=== PATIENT | female | born 1965 | race Caucasian/White ===

== ENCOUNTER 2021-03-20 16:23 | Emergency (ER) | payer OTHER, SELFPAY ==
[2021-03-20 17:22] VITALS: BP 148/65; PULSE 69; RESP 18; TEMP 36.6; O2SAT 99; BMI 21.4
--- NOTE | 2021-03-20 18:12 | ED_ITS ---
HPI - Back Pain/Injury General Chief Complaint: Back Pain/Injury Stated Complaint: back pain radiating to leg Time Seen by Provider: 03/20/21 18:10 Source: patient Mode of arrival: ambulatory Limitations: no limitations History of Present Illness HPI Narrative: 55 YO female no known medical history presents to the ED with two days of progressively worsening back pain s/p work related injury. 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 She states it got worse when she went home, and was resting. She states that the pain is worse with movement, better at rest. She states the pain stays in her left lower back, and it does not radiate. It is about an 8/10. She has no previous back problems, or back surgeries. She denies chest pain, fevers, chills, shortness of breath, weakness, paresthesias, numbness, urinary/bowel incontinence. She is a smoker. MD elicited complaint: back pain Onset (ago): day(s) (2) Timing: constant Severity: severe Pain scale (0-10): 8 Similar Symptoms Previously: No Quality: sharp Location: lumbar spine Radiation: none Exacerbating factors: movement Relieving factors: immobilization Context: while lifting Associated symptoms: denies other symptoms Work related injury: Yes Related Data Previous Rx's Medication Instructions Recorded cyclobenzaprine 10 mg tablet 10 mg PO BEDTIME #10 tab 03/20/21 lidocaine 5 % topical patch 1 patch TOPICAL DAILY #15 ea 03/20/21 (Lidoderm) naproxen 500 mg tablet 500 mg PO BID PRN #14 tab 03/20/21 Allergies Allergy/AdvReac Type Severity Reaction Status Date / Time acetaminophen Allergy Swelling Verified 03/20/21 18:11 Review of Systems Review of Systems: Yes all other systems are reviewed and are negative Constitutional: Constitutional: Reports no additional constitutional complaints, Denies body ache(s), Denies chills, Denies fever(s), Denies headache(s) and Denies weakness Eyes: Eyes: Reports no additional eye complaints and Denies change in vision ENT: Reports system reviewed and no additional complaints, except as documented, Denies dizziness, Denies headache(s), Denies nasal congestion, Denies nasal discharge and Denies neck pain Cardiovascular: Cardiovascular: Reports no additional cardiovascular complaints, Denies chest pain, Denies leg edema and Denies dyspnea Respiratory: Respiratory: Reports no additional respiratory complaints, Denies cough and Denies dyspnea Gastrointestinal: Gastrointestinal: Reports no additional gastrointestinal complaints, Denies abdominal pain, Denies diarrhea, Denies nausea and Denies vomiting Genitourinary: Genitourinary: Reports no additional female genitourinary complaints and Denies urinary incontinence Musculoskeletal: Musculoskeletal: Reports no additional musculoskeletal complaints, Reports back pain, Denies arthralgias, Denies joint swelling, Denies neck pain, Denies numbness and Denies tingling Integumentary/Breasts: Skin/Breast: Reports system reviewed and no additional complaints, except as docu and Denies rash Neurologic: Reports system reviewed and no additional complaints, except as documented, Denies Abnormal speech present, Denies dizziness, Denies headache(s), Denies numbness, Denies tingling and Denies weakness PMFSH Past Medical History Attestation statement: The following information was validated with the patient. Source: old records reviewed and nursing notes reviewed Social History Social History Advance Directives: No Advance Directives Information Provided: Yes Patient : No Physical Exam Vital Signs: Vital Signs: Last Vital Signs Temp 98 F 03/20/21 17:22 Pulse 69 03/20/21 17:22 Resp 18 03/20/21 17:22 BP 148/65 H 03/20/21 17:22 Pulse Ox 99 03/20/21 17:22 Body Mass Index 21.4 Const: General: cooperative, healthy appearing, comfortable and no acute distress Orientation/consciousness: patient oriented x3 Limitations: no limitations HENMT: Head: Yes normal to inspection Ears: hearing grossly normal bilaterally General nose exam: Normal external nose present Face and sinus: Yes normal facial exam Mouth: Normal oral and palatal mucosa present Throat: Yes posterior oropharynx normal Eyes: General: appearance normal, both eyes and all related structures Pupils: Equal, round and reactive pupils present Neck: Neck: Yes normal visual inspection Chest: Chest palpation & inspection: normal inspection of the chest Resp: Effort & Inspection: normal respiratory effort Auscultation: clear to auscultation bilaterally Cardio: Rate: regular rate Rhythm: regular rhythm Peripheral pulses: Peripheral pulses 2+ throughout GI: Inspection: Yes normal to inspection Palpation (GI): Soft to palpation and nontender Auscultation: normal bowel sounds Back/Spine/Pelvis: Other: Physical exam shows positive left sided straight leg raise. Pain on palpation is appreciated to the left paraspinous muscles in lumbar region. Full range of motion to back but, painful. Sensation intact, strength intact. Thoracic/Lumbar Spine: thoracic and lumbar spine normal to inspection, straight leg raise positive left and other (paraspinous tenderness in left lower back/lumbar region) Skin: General skin exam: no rashes or lesions noted Neuro: General: patient oriented x3, no focal motor deficits and normal sensation to monofilament Cranial nerves: Yes Equal, round and reactive pupi ls present Cognition (Neuro): normal cognition Speech: No Abnormal speech present Gait exam (Neuro): Normal gait present Motor exam (neuro): 5/5 motor strength present throughout Sensory Exam: Normal double simultaneous stimulation for sensation Deep tendon reflexes (DTR's): Right patellar reflex intensity grade: 2+ and Left patellar reflex intensity grade: 2+ Extrem: General: Yes normal to inspection Course Course Course Narrative: 55 yo female no known pmhx presents to the ED wih left lower back pain s/p heavy lifting 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 It got worse when she got home and was relaxing. Pain worse with movement better at rest. Denies urine/bowel incontinence, CP, fevers, chills, IVDA, SOB, parasthesias, weakness. Physical exam shows positive left sided straight leg raise. Pain on palpation is appreciated to the left paraspinous muscles in lumbar region. Full range of motion to back but, painful. Sensation intact, strength intact. Patient has been told to return with new or worsening symptoms or if worrisome symptoms arise such as urinary/bowel incontinence, weakness, loss of sensation to lower extremities. Safe for DC home with PCP follow up. MDM - Back Pain/Injury MDM Narrative Medical decision making narrative: No imaging is needed at this time. There was no acute trauma. There is no midline tenderness. Cauda equina unlikley no weakness, she has 5/5 stregth to back and lower extremities, no urine/bowel incontinence. NV intact Unlikley epidural abscess. She denies fevers, chills, not a IVDA, no midline tenderness. Likley muscle spasms due to reproducible pain localized to the left lower back without radiation. Medical Records Attestation: I reviewed the patient's medical records. Lab Data Attestation: I reviewed the patient's lab results. Discharge Plan Discharge Clinical Impression: Work related injury Back pain Qualifiers: Back pain location: low back pain Chronicity: acute Back pain laterality: left Sciatica presence: without sciatica Qualified Code(s): M54.50 - Low back pain, unspecified Lumbago Qualifiers: Chronicity: acute Back pain laterality: left Sciatica presence: without sciatica Qualified Code(s): M54.50 - Low back pain, unspecified Patient Disposition: Home, Self-Care Instructions: Back Pain (ED) Additional Instructions: Apply warm compresses to the area as instructed Take medications as prescribed. Cyclobenzaprine is a muscle relaxer that can make you drowsy, best if you take it at night Find a PCP and follow up with them Follow up with [facility] since this was a work related injury [phone] Return to the emergency department with new or worsening symptoms or if you develop loss of sensation to your lower extremities, weakness, fevers, chills and or changes in bowel habits. Prescriptions: New cyclobenzaprine 10 mg tablet 10 mg PO BEDTIME Qty: 10 RF: 0 lidocaine [Lidoderm] 5 % adhesive patch,medicated 1 patch topical DAILY Qty: 15 RF: 0 naproxen 500 mg tablet 500 mg PO BID PRN (Reason: pain) Qty: 14 RF: 0 Stand Alone Forms: Work/School Release
[2021-03-20] MEDS: Ketorolac Tromethamine 15 MG/ML VIAL 30 MG IM (18:49)
== END 2021-03-20 18:56 | disposition home or self-care (01) ==
LOC: HO.ED 18:33
PROVIDERS: Emergency Provider Emergency Medicine; PCP Hospitalist
DX: M54.50 Low back pain, unspecified (principal)
CPT/HCPCS: 96372; 99284; J1885

== ENCOUNTER → 2021-04-08 14:41 | Outpatient (BNVA) | payer OTHER, SELFPAY | PROVIDERS: PCP Hospitalist; Visit Provider Physician Assistant | DX: S39.012A Strain of muscle, fascia and tendon of lower back, initial encounter (principal); X50.0XXA Overexertion from strenuous movement or load, initial encounter | CPT/HCPCS: 99213 ==

== ENCOUNTER 2021-11-22 09:29 | Emergency (ER) | payer OTHER, SELFPAY ==
--- NOTE | ~2021-11-22 | CT_ITS ---
CT head/brain wo con CLINICAL INFORMATION: Reason for Exam intractable headache COMPARISON: No prior CT scan available for comparison. TECHNIQUE: Department standard protocol. This CT examination was performed using dose optimization techniques as appropriate, variously including the following: *Automated exposure control *Adjustment of mA and/or kV according to patient size (this includes techniques or standardized protocols for targeted exams where dose is matched to indication/reason for exam; i.e. extremities or head) *Use of iterative reconstruction technique DLP: 620 mGy-cm FINDINGS: CEREBRAL HEMISPHERES: There is no evidence of intra-axial or extra-axial mass, hemorrhage or acute infarct. BRAIN PARENCHYMA: Normal tomlin-white matter differentiation. SUBDURAL SPACE: No bleed. BASAL GANGLIA AND PINEAL GLAND: Unremarkable VENTRICLES: Symmetric and normal in size. CEREBELLUM AND BRAINSTEM: No space-occupying mass, hemorrhage or acute infarct. CEREBELLOPONTINE ANGLES: No lesion found. ORBITS: No intraorbital mass. VESSELS: Unremarkable SKULL BASE: Unremarkable INCLUDED SINUSES AT SKULL BASE: Clear SKULL AND SKIN: No fracture or bone lesion found. CT/CT head/brain wo con IMPRESSION: No CT evidence of intracranial space-occupying mass, bleed or infarct. Normal CT scan does not rule out the possibility of hyperacute infarct in the first 12 hours. If patient symptoms persist may consider correlation with MRI, which is more sensitive for early acute infarct.
[2021-11-22 09:57] VITALS: BP 98/60; PULSE 69; RESP 18; TEMP 36.2; O2SAT 97; BMI 24.0
[2021-11-22 11:42] VITALS: BP 103/63; PULSE 57; RESP 15; TEMP 36.5; O2SAT 97
--- NOTE | 2021-11-22 11:43 | ED_ITS ---
HPI - Headache General Chief Complaint: Headache Stated Complaint: migraine Time Seen by Provider: 11/22/21 11:03 Source: patient Mode of arrival: ambulatory Limitations: no limitations History of Present Illness HPI Narrative: Patient presents emergency department for evaluation of headache. She reports that she has been using cocaine for 20-30 years, and over the past 10 years she has noticed that she has developed headaches. Headaches are not uncommon for her. However over the past month she has been experiencing a headache every day, it is seemingly constant. Headaches are alleviated with Tylenol, but return within a couple of hours. Denies any history of headaches or migraines as a child. Denies dizziness, lightheadedness, vision changes, neck pain, neck stiffness, chest pain, palpitations, shortness of breath, difficulty breathing, nausea, vomiting, photophobia, phonophobia, numbness or tingling, weakness of the extremities, generalized weakness. MD elicited complaint: headache Onset (ago): year(s) Location: right, left and frontal Exacerbating factors: none Relieving factors: other (Tylenol) Associated symptoms: none Treatments prior to arrival: acetaminophen Related Data Previous Rx's Medication Instructions Recorded cyclobenzaprine 10 mg tablet 10 mg PO BEDTIME #10 tabs 03/20/21 lidocaine 5 % topical patch 1 patch topical DAILY #15 ea 03/20/21 (Lidoderm) naproxen 500 mg tablet 500 mg PO BID PRN pain #14 tabs 03/20/21 ibuprofen 600 mg tablet 600 mg PO Q8H PRN pain #30 tabs 11/22/21 Allergies Allergy/AdvReac Type Severity Reaction Status Date / Time No Known Allergies Allergy Verified 11/22/21 11:29 Review of Systems Review of Systems: Constitutional : No Fever, No Chills, No Fatigue ENT/Mouth : No sore throat, No Rhinorrhea Eyes: No Eye Pain, No Swelling, No Redness Cardiovascular : No Chest Pain, No SOB, No Dyspnea on Exertion Respiratory : No Cough, No Sputum Gastrointestinal : No Nausea, No Vomiting, No Diarrhea, No abdominal Pain Genitourinary : No Dysuria, No Urinary Frequency, No Hematuria, Musculoskeletal : No joint pain, No Myalgias, No Joint Swelling Skin : No Skin Lesions, No rash Neuro : No Weakness, No Numbness, No Dizziness, positive Headache Psych : No Anxiety/Panic, No Depression Heme/Lymph: No Bruising, No Bleeding,No Lymphadenopathy Endocrine : No Polyuria, No Polydipsia Yes all other systems are reviewed and are negative [facility] Past Medical History Attestation statement: The following information was validated with the patient. Source: old records reviewed Social History Social History Alcohol intake: former Patient Tobacco Use Status: Current everyday Tobacco user Substance Use Type: Crack/Cocaine Substance Use Frequency: Chronic Longstanding Last Used Substance: Days (ago) Any prior treatment program specific to substance use: Yes Advance Directives: No Advance Directives Information Provided: No Patient : No Physical Exam Vital Signs: Vital Signs: Last Vital Signs Temp 97.7 F 11/22/21 11:42 Pulse 57 11/22/21 11:42 Resp 15 11/22/21 11:42 BP 103/63 11/22/21 11:42 Pulse Ox 97 11/22/21 11:42 O2 Del Method 11/22/21 11:42 BMI result Body Mass Index 24.0 Vital signs have been reviewed as normal and appeared to be correct. Blood pressure normal.? Heart rate normal.? Respiration rate normal. Temperature normal.? Oxygen saturation normal. Appearance: Alert.?Oriented to person, place and time. No acute distress.?Normal affect. Head: Normocephalic atraumatic Eyes: Pupils equal, round and reactive to light.? EOMI. No nystagmus. ENT: Pharynx normal.?? Neck: Normal inspection.? Neck supple. Full AROM??No midline cervical spine tenderness, step-offs, deformities CVS: Heart sounds normal. Normal heart rate and rhythm.? Pulses normal.?? Respiratory: No respiratory distress.? Lung sounds clear to auscultation bilaterally?? Abdomen: Soft and non-tender. Normoactive bowel sounds. No pulsatile mass.?? Skin: Skin warm and dry.? Normal skin color.? Extremities: No lower extremity edema.? Neuro: Moves all extremities spontaneously. Sensation intact bilaterally. CN II- XII intact. No focal neuro deficits. Ambulates with normal steady gait. Course Course Course Narrative: Patient is a 55-year-old female with past medical history of cocaine abuse presenting for evaluation of headaches. She states that she has been using cocaine only on occasion recently, last having used 5 days ago. She has been experiencing frontal and parietal headaches for the past 10 years however over the past month they have become increasingly worse and more frequent. She is currently having them daily, they respond to Tylenol but quickly return. No associated symptoms. She does have a history of cocaine usage, there is concern for SDH, and with age concern for malignancy or lesion, Will obtain head CT to evaluate for intracranial pathology in addition to basic labs including CBC and CMP. Patient received Tylenol for pain at this time. Reevaluation(s) Reevaluation #1: CBC unremarkable. CMP is overall unremarkable. LANDRY is positive for cocaine fentanyl and marijuana. Patient is without pain at this time. No acute changes. Ambulated to the bathroom with steady gait. Time: 14:48 Reevaluation #2: CT reveals no acute intracranial pathology. I discussed these findings with patient. Advised that she continue using Tylenol as abortive therapy for her headaches as she has had success with this, may alternate with ibuprofen. Advised contacting her primary care provider, as she may want to consider prophylactic treatment given the frequency of her headaches. Advised to refrain from cocaine and fentanyl usage. Discussed reasons that she should return back to the emergency department. Patient verbalized understanding. She was discharged home in stable condition. Time: 15:20 [facility] - Headache Medical Records Attestation: I reviewed the patient's medical records. Lab Data Attestation: I reviewed the patient's lab results. Result diagrams: 11/22/21 11:41 11/22/21 11:41 Labs: Lab Results 11/22/21 11/22/21 11/22/21 Range/Units 11:41 11:41 14:19 WBC 5.6 (4.8-10.8) X10*3/uL RBC 4.25 (4.20-5.50) X10*6/uL Hgb 12.8 (12.0-16.0) g/dl Hct 37.7 (37.0-47.0) % MCV 88.7 (80.0-98.0) fL MCH 30.1 (27.0-33.0) pg MCHC 34.0 (31.0-35.0) g/dl RDW 12.4 (11.0-16.0) % Plt Count 203 (160-400) X10*3/uL MPV 9.6 (9.4-12.3) fL Immature Gran % (Auto) 0.2 (0.0-0.4) % Neut % (Auto) 46.2 (45-73) % Lymph % (Auto) 45.0 H (20-40) % Pratt % (Auto) 7.7 (2-11) % Eos % (Auto) 0.7 (0-4) % Baso % (Auto) 0.2 (0-2) % Lymph # (Auto) 2.5 (1.2-4.9) X10*3/uL Pratt # (Auto) 0.4 (0.1-1.2) X10*3/uL Eos # (Auto) 0.0 (0.0-0.4) X10*3/uL Baso # (Auto) 0.0 (0.0-0.2) X10*3/uL Abs Immat Gran (auto) 0.01 (0.00-0.03) X10*3/uL Absolute Neuts (auto) 2.6 (2.0-8.3) x10*3/uL Absolute Nucleated RBC 0.000 (0.0-0.012) X10*3/uL Nucleated RBC % (auto) 0.0 (0.0-0.2) /100WBC Sodium 141 (135-145) mmol/L Potassium 4.2 (3.3-5.1) mmol/L Chloride 105 (96-108) mmol/L Carbon Dioxide 30 H (22-29) mmol/L Anion Gap 10 L (12-20) BUN 16 (9-16) mg/dL Creatinine 0.82 (0.5-1.4) mg/dL Estim Creat Clear Calc 66.1 Estimated GFR > 60 Random Glucose 84 (60-115) mg/dL Calcium 9.2 (8.4-10.2) mg/dL Total Bilirubin 0.4 (0.0-1.0) mg/dL AST 16 (5-31) U/L ALT 11 (0-31) U/L Alkaline Phosphatase 67 (39-117) U/L Total Protein 7.1 (6.5-8.0) g/dL Albumin 4.1 (3.5-5.0) g/dL Urine Opiates Screen Not Detected (Not Detect) Urine Fentanyl Screen POSITIVE H (Not Detect) Ur Barbiturates Screen Not Detected (Not Detect) Ur Phencyclidine Scrn Not Detected (Not Detect) Ur Amphetamines Screen Not Detected (Not Detect) U Benzodiazepines Scrn Not Detected (Not Detect) Urine Cocaine Screen POSITIVE H (Not Detect) U Marijuana (THC) Screen POSITIVE H (Not Detect) Imaging Data CT scan - head: Radiologist's impression: CT/CT head/brain wo con IMPRESSION: No CT evidence of intracranial space-occupying mass, bleed or infarct. ? Normal CT scan does not rule out the possibility of hyperacute infarct in the first 12 hours. If patient symptoms persist may consider correlation with MRI, which is more sensitive for early acute infarct. Discharge Plan Discharge Clinical Impression: Headache Patient Disposition: Home, Self-Care Instructions: General Headache (ED) Additional Instructions: A CT of your head was normal. Your blood work was normal. You can take ibuprofen 200 mg, 3 tablets (600mg) every 6-8 hours as needed for pain, in addition to Tylenol 500 mg, 2 tablets (1,000mg) every 4-6 hours as need ed for pain, but not to exceed 3 doses daily (3,000mg).? Please contact your primary care provider to schedule a follow-up visit within 1 week. Return to the emergency department any new or worsening symptoms or concerns. Prescriptions: New ibuprofen 600 mg tablet 600 mg PO Q8H PRN (Reason: pain) Qty: 30 0RF No Action cyclobenzaprine 10 mg tablet 10 mg PO BEDTIME Qty: 10 0RF lidocaine [Lidoderm] 5 % adhesive patch,medicated 1 patch topical DAILY Qty: 15 0RF Rx Instructions: leave on most painful area for up to 12 hrs naproxen 500 mg tablet 500 mg PO BID PRN (Reason: pain) Qty: 14 0RF Interventions: ED Discharge Assessment Last Done: 11/22/21 15:46 Discharge Date/Time: 11/22/21 15:46
[2021-11-22] MEDS: Acetaminophen 325 MG TABLET 975 MG PO (11:45)
[2021-11-22 11:48] LABS: MANUAL DIFF FLAG NO
[2021-11-22 11:53] LABS: Basophils Percent Auto 0.2 % (0-2); Eosinophils Percent Auto 0.7 % (0-4); Hematocrit 37.7 % (37.0-47.0); Hemoglobin 12.8 g/dl (12.0-16.0); Imm Gran Abs Auto 0.01 X10*3/uL (0.00-0.03); Imm Gran Pct Auto 0.2 % (0.0-0.4); Lymphocytes Absolute Auto 2.5 X10*3/uL (1.2-4.9); Mean Corpuscular Hemoglobin 30.1 pg (27.0-33.0); Mean Corpuscular Volume 88.7 fL (80.0-98.0); Mean Platelet Volume 9.6 fL (9.4-12.3); Monocytes Absolute Auto 0.4 X10*3/uL (0.1-1.2); Monocytes Percent Auto 7.7 % (2-11); Neutrophils Absolute Auto 2.6 x10*3/uL (2.0-8.3); Neutrophils Percent Auto 46.2 % (45-73); Platelet Count 203 X10*3/uL (160-400); Red Blood Count 4.25 X10*6/uL (4.20-5.50); Red Cell Distribution Width 12.4 % (11.0-16.0); White Blood Count 5.6 X10*3/uL (4.8-10.8)
[2021-11-22 12:06] LABS: Alanine Aminotransferase 11 U/L (0-31); Albumin Level 4.1 g/dL (3.5-5.0); Alkaline Phosphatase 67 U/L (39-117); Anion Gap 10 (12-20); Aspartate Amino Transferase 16 U/L (5-31); Bilirubin Total 0.4 mg/dL (0.0-1.0); Blood Urea Nitrogen 16 mg/dL (9-16); Calcium 9.2 mg/dL (8.4-10.2); Carbon Dioxide 30 mmol/L (22-29); Chloride 105 mmol/L (96-108); Creatinine Clr Calc Pharmacy 66.1; Estimated Glomerular Filt Rate > 60; Glucose Random 84 mg/dL (60-115); Potassium 4.2 mmol/L (3.3-5.1); Sodium 141 mmol/L (135-145); Total Protein 7.1 g/dL (6.5-8.0)
[2021-11-22 14:39] LABS: Barbiturates, Urine Not Detected (Not Detect); Benzodiazepines Screen Urine Not Detected (Not Detect); Cannabinoid Screen Urine POSITIVE (Not Detect); Cocaine Screen Urine POSITIVE (Not Detect); Fentanyl, urine POSITIVE (Not Detect); Opiate Screen Urine Not Detected (Not Detect); Phencyclidine Screen Urine Not Detected (Not Detect)
[2021-11-22 14:40] LABS: Amphetamine Screen Urine Not Detected (Not Detect)
[2021-11-22] MEDS: Ibuprofen 600 MG TABLET PO (15:31)
--- NOTE | 2021-11-22 15:45 | PC.NURSE ---
patient medicated with ibuprofen prior to discharge for headache 01/20 . patient to follow up with primary care and to return to Ed if symptoms worsen . no questions at this time .
== END 2021-11-22 15:46 | disposition home or self-care (01) ==
PROVIDERS: Nurse Practitioner Family; Emergency Provider Emergency Medicine
DX: R51.9 Headache, unspecified (principal); F14.10 Cocaine abuse, uncomplicated
CPT/HCPCS: 36415; 70450; 80053; 80307; 85025; 99284

== ENCOUNTER 2024-09-12 15:45 | Inpatient (IN) | payer OTHER, SELFPAY ==
[2024-09-12] VITALS (8 sets, daily range): BP systolic 102–121; BP diastolic 63–74; PULSE 76–103; RESP 16–28; TEMP 36.6–36.7; O2SAT 92–100; BMI 20.1
--- NOTE | ~2024-09-12 | XR_ITS ---
EXAMINATION: XR CHEST CLINICAL INFORMATION: tachypnea COMPARISON: None available. TECHNIQUE: Frontal view of the chest was obtained. FINDINGS: Mild prominence of the interstitial markings in the perihilar regions. No consolidation, pleural effusion or pneumothorax. Cardiomediastinal silhouette size is normal. Mild multilevel thoracic spondylosis. XR/XR chest 1V IMPRESSION: Mild interstitial lung edema in the correct clinical settings. Electronically signed by: Trevin Hopper MD 09/13/2024 03:27 PM EDT
--- NOTE | ~2024-09-12 | CT_ITS ---
CLINICAL HISTORY: abd pain CT abdomen and pelvis without contrast Comparison: None Findings: Lung bases clear. No acute bony abnormality. Degenerative change in lumbar spine. Liver and spleen within normal limits. Pancreas and adrenal glands unremarkable. Cholecystectomy. No bilateral renal stone or hydronephrosis. No focal renal abnormality or ureteral dilation. No evidence for aortic aneurysm. No free fluid or adenopathy in the pelvis. No diverticulitis. Appendectomy. Hysterectomy. No adnexal abnormality. Impression: No acute processes This document has been electronically signed by: Jimmy Henderson MD on 09/12/2024 22:38:24
--- NOTE | ~2024-09-12 | XR_ITS ---
CLINICAL HISTORY: abscess, cellulitis 3 view left hand Comparison: None Findings: No displaced fracture. No bony destruction or periostitis. Severe soft tissue edema. Multiple foci of relative increased density within the soft tissues adjacent to the 1st metacarpophalangeal joint measuring up to 4 mm in size. Mild arthritic change. No erosions. IMPRESSION: 1. No evidence of osteomyelitis. 2. Severe soft tissue edema. Multiple foci of relative hyperdensity overlying the soft tissues adjacent to the 1st metacarpophalangeal joint, raising the possibility of foreign bodies or tiny abscesses. Consider further evaluation with ultrasound. This document has been electronically signed by: Mami Thornton MD on 09/12/2024 17:24:18
--- NOTE | 2024-09-12 15:53 | ED.GENADULT ---
HPI - General Adult General Chief complaint: Wound/Laceration Stated complaint: Abscess L hand Time Seen by Provider: 09/12/24 18:24 Source: patient Mode of arrival: ambulatory Limitations: no limitations History of Present Illness ED Provider: DR. Nieves HPI narrative: 58-year-old female history recurrent skin abscess came in for evaluation of left thumb abscess and infection. Patient admit to sniffing cocaine declined using IV drugs, no trauma, or injury to the left hand, no fever, no chills. Related Data Previous Rx's ?Medication ?Instructions ?Recorded cyclobenzaprine 10 mg tablet 10 mg PO BEDTIME #10 tabs 03/20/21 lidocaine 5 % topical patch 1 patch topical DAILY #15 ea 03/20/21 (Lidoderm) naproxen 500 mg tablet 500 mg PO BID PRN pain #14 tabs 03/20/21 ibuprofen 600 mg tablet 600 mg PO Q8H PRN pain #30 tabs 11/22/21 Allergies Allergy/AdvReac Type Severity Reaction Status Date / Time sulfamethoxazole Allergy Hives Verified 09/12/24 15:56 [From Bactrim] trimethoprim [From Bactrim] Allergy Hives Verified 09/12/24 15:56 Review of Systems Review of Systems: All other systems are reviewed and are negative Constitutional: Reports as per HPI and Reports no additional constitutional complaints Eyes: Reports as per HPI and Reports no additional eye complaints Reports system reviewed and no additional complaints, except as documented Cardiovascular: Reports as per HPI and Reports no additional cardiovascular complaints Respiratory: Reports as per HPI and Reports no additional respiratory complaints Gastrointestinal: Reports as per HPI and Reports no additional gastrointestinal complaints Genitourinary: Reports no additional female genitourinary complaints Musculoskeletal: Reports no additional musculoskeletal complaints Skin/Breast: Reports system reviewed and no additional complaints, except as docu Psychiatric: Reports no additional psychiatric complaints Endocrine: Reports no additional endocrine complaints Hematologic/Lymphatic: Reports no additional hematologic/lymphatic complaints Allergic/Immunologic: Reports no additional allergic/immunologic complaints Reports system reviewed and no additional complaints, except as documented and Reports Abnormal speech present [facility] Social History Social History Alcohol intake: former Patient Tobacco Use Status: Current everyday Tobacco user Substance Use Type: Crack/Cocaine Advance Directives: No Advance Directives Information Provided: Yes Do you have a plan to hurt others: No Plan Patient : No Physical Exam ED Vital Signs: Vital Signs - 24 hr 09/12/24 15:50 09/12/24 17:58 Temperature 98 F 97.8 F Pulse Rate 100 102 H Respiratory Rate 19 18 Blood Pressure 102/66 121/74 Pulse Oximetry 100 92 Oxygen Delivery Method Room Air Room Air BMI result Body Mass Index 20.1 Vital signs have been reviewed and appear to be correct. Blood pressure elevated. Heart rate elevated, Respiratory rate normal. Temperature normal. Oxygen saturation normal. Appearance: Alert. Oriented X3. No acute distress. Head: Normal external exam. Normocephalic. Atraumatic. No Alarcon signs noted. No raccoon eyes noted Eyes: PERRLA. EOMI. Conjunctiva and sclera normal. Eyelids normal. ENT: TM's Normal. Pharynx normal. Uvula midline. Moist mucous membranes. No trismus noted. No drooling noted. No muffled voice noted. Neck: Normal inspection. Neck supple. FROM. No adenopathy. Thyroid Normal. No meningeal signs. No neck mass noted. CVS: Normal heart rate and rhythm. Heart sound normal. No murmurs noted. Pulses normal throughout. Respiratory: No respiratory distress. Painless inspiration. Breath sounds normal. No wheezes/rales/rhonchi noted. Chest nontender. No accessory muscle usage noted or decreased air movement noted. Abdomen: Soft and nontender. Bowel sounds normal in all 4 quadrants. No distention noted. No organomegaly noted. No visible injury noted. Back: No CVA tenderness. Full range of motion noted. Skin: Skin warm and dry. Normal skin color. Normal skin turgor. No rashes/lesions/lacerations noted. Extremities: Left hand exam: Fusiform swelling of the left thumb, held in semi flexion position with severe tenderness to touch or extension, diffuse tenderness and redness. Left hand neurovascular exam is intact. Neuro: Oriented X 3. Cranial nerve exam: II-XII are grossly intact No motor deficit. No sensory deficit. Reflexes normal. Course Course Course Narrative: This is an RME: Additional HPI, ROS, PE not included below will be deferred to primary provider. RME assessment and note performed by: Alva Cobb PA-C This is a [id number]-female, with a hx vasculitis, who presents to the ER with a complaint of left thumb abscess and swelling since last night. Patient reports that she does use cocaine however she states that the she snorts this. Patient appears to be restless in triage. Patient with a large abscess noted to her left thumb, with lymphangitic spread. Patient needs to be brought back. Advised charge nurse. Plan: Labs, x-ray, further ER evaluation needed. Reevaluation(s) Reevaluation #1: 58-year-old female presents with left thumb tenosynovitis, patient do not meet criteria for sepsis, case discussed with ortho PA. Jameson Jeffers who recommended to admit to Medicine and keep NPO after midnight for I and D in the OR tomorrow with Dr. Salazar. Time: 19:00 Medical Decision Making Differential Diagnosis Differential Diagnoses: The differential diagnosis associated with the presentation includes (Sepsis, tenosynovitis, finger abscess, retained foreign body, IV drug injection, electrolyte derangement, severe anemia, pain control.) Admission/Observation Consideration of admission/observation: Escalation of care including admission/observation considered Consult Healthcare Provider Management of the patient was discussed with: Hospitalist (Dr. Bellamy) and Mechanical Operator (PA. Jameson Jeffers (ortho [facility])) Lab Data MDM Lab Attestation statement: I reviewed the patient's lab results. 09/12/24 16:46 09/12/24 16:47 Labs: Lab Results 09/12/24 09/12/24 Range/Units 16:46 16:47 WBC 5.9 (4.8-10.8) X10*3/uL RBC 4.03 L (4.20-5.50) X10*6/uL Hgb 12.2 (12.0-16.0) g/dl Hct 34.2 L (37.0-47.0) % MCV 84.9 (80.0-98.0) fL MCH 30.3 (27.0-33.0) pg MCHC 35.7 H (31.0-35.0) g/dl RDW 12.7 (11.0-16.0) % Plt Count 150 L D (160-400) X10*3/uL MPV 9.2 L (9.4-12.3) fL Immature Gran % (Auto) Cancelled Neut % (Auto) Cancelled Lymph % (Auto) Cancelled [place] % (Auto) Cancelled Eos % (Auto) Cancelled Baso % (Auto) Cancelled Lymph # (Auto) Cancelled [place] # (Auto) Cancelled Eos # (Auto) Cancelled Baso # (Auto) Cancelled Abs Immat Gran (auto) Cancelled Absolute Neuts (auto) Cancelled Absolute Nucleated RBC 0.000 (0.0-0.012) X10*3/uL Nucleated RBC % (auto) 0.0 (0.0-0.2) /100WBC Neutrophils % (Manual) 57 (45-73) % Band Neutrophils % 24 H (3-5) % Lymphocytes % (Manual) 7 L (20-40) % Atypical Lymphs % (Man) 1 (0-6) % Monocytes % (Manual) 7 (2-11) % Eosinophils % (Manual) 1 (0-4) % Basophils % (Manual) 1 (0-2) % Promyelocytes % 2 % Abs Neuts (Manual) 4.8 (2.0-8.3) X10*3/uL Lymphocytes # (Manual) 0.4 L (1.2-4.9) X10*3/uL Atyp Lymphs # (Manual) 0.1 x10*3/uL Monocytes # (Manual) 0.4 (0.1-1.2) X10*3/uL Eosinophils # (Manual) 0.1 (0.0-0.4) X10*3/uL Basophils # (Manual) 0.1 (0.0-0.2) X10*3/uL Promyelocytes # 0.1 X10*3/uL Toxic Vacuolation PRESENT Platelet Estimate NORMAL (NORMAL) Large Platelets PRESENT Plt Morphology Comment NORMAL RBC Morphology NORMAL Hypochromasia 1+ (5-14) /OIF Tear Drop Cells 1+ (0-2) /OIF ESR 31 H (0-20) MM/HR Sodium 140 (135-145) mmol/L Potassium 3.4 (3.3-5.1) mmol/L Chloride 110 H (96-108) mmol/L Carbon Dioxide 20 L (22-29) mmol/L Anion Gap 13 (12-20) BUN 21 H (9-16) mg/dL Creatinine 0.74 (0.5-1.4) mg/dL Estim Creat Clear Calc 68.4 Estimated GFR > 60 Random Glucose 119 H (60-115) mg/dL Calcium 9.0 (8.4-10.2) mg/dL Total Bilirubin 0.4 (0.0-1.0) mg/dL Direct Bilirubin 0.2 (0.0-0.5) mg/dL AST 54 H (5-31) U/L ALT 37 H (0-31) U/L Alkaline Phosphatase 60 (39-117) U/L C-Reactive Protein 24.89 H (< or = 0.50) mg/dL Total Protein 6.6 (6.5-8.0) g/dL Albumin 3.6 (3.5-5.0) g/dL Ethyl Alcohol < 10 mg/dL Independent Interpretation I performed an independent interpretation of an: Plain X-Ray (Left hand:. No evidence of osteomyelitis. 2. Severe soft tissue edema. Multiple foci of relative hyperdensity overlying the soft tissues adjacent to the 1st metacarpophalangeal joint, raising the possibility of foreign bodies or tiny abscesses. Consider further evaluation with ultrasound.) Radiology Impression Discussion of test interpretation with radiology: I have reviewed the radiologist's reading. Discharge Plan Discharge Clinical Impression: Tenosynovitis of finger Patient Disposition: Admitted As Inpatient Prescriptions: No Action cyclobenzaprine 10 mg tablet 10 mg PO BEDTIME Qty: 10 0RF lidocaine [Lidoderm] 5 % adhesive patch,medicated 1 patch topical DAILY Qty: 15 0RF Rx Instructions: leave on most painful area for up to 12 hrs naproxen 500 mg tablet 500 mg PO BID PRN (Reason: pain) Qty: 14 0RF ibuprofen 600 mg tablet 600 mg PO Q8H PRN (Reason: pain) Qty: 30 0RF Print Language: Latvian
[2024-09-12 16:55] LABS: Hematocrit 34.2 % (37.0-47.0); Hemoglobin 12.2 g/dl (12.0-16.0); Mean Corpuscular HGB Conc 35.7 g/dl (31.0-35.0); Mean Corpuscular Hemoglobin 30.3 pg (27.0-33.0); Mean Corpuscular Volume 84.9 fL (80.0-98.0); Mean Platelet Volume 9.2 fL (9.4-12.3); Platelet Count 150 X10*3/uL (160-400); Red Blood Count 4.03 X10*6/uL (4.20-5.50); Red Cell Distribution Width 12.7 % (11.0-16.0); White Blood Count 5.9 X10*3/uL (4.8-10.8)
[2024-09-12 17:04] LABS: Ethanol < 10 mg/dL
[2024-09-12 17:13] LABS: Alanine Aminotransferase 37 U/L (0-31); Albumin Level 3.6 g/dL (3.5-5.0); Alkaline Phosphatase 60 U/L (39-117); Anion Gap 13 (12-20); Aspartate Amino Transferase 54 U/L (5-31); Bilirubin Direct 0.2 mg/dL (0.0-0.5); Bilirubin Total 0.4 mg/dL (0.0-1.0); Blood Urea Nitrogen 21 mg/dL (9-16); C Reactive Protein 24.89 mg/dL (< or = 0.50); Carbon Dioxide 20 mmol/L (22-29); Chloride 110 mmol/L (96-108); Creatinine Clr Calc Pharmacy 68.4; Estimated Glomerular Filt Rate > 60; Glucose Random 119 mg/dL (60-115); Potassium 3.4 mmol/L (3.3-5.1); Sodium 140 mmol/L (135-145); Total Protein 6.6 g/dL (6.5-8.0)
[2024-09-12 17:36] LABS: Erythrocyte Sedimentation Rate 31 MM/HR (0-20)
--- OUTSIDE RECORDS SUMMARY | 2024-09-12 18:09 | XMS_ITS | Clinical Summary ---
Author Organization [facility] Address [address] [place] [address] Care Team Providers Care Front Tender Name Role Phone Unavailable Primary Care Provider Unavailabl e Surgical History Surgery Date Site/Laterality Comments CHOLECYSTECTOMY PROCEDURE: HISTORICAL CHOLECYSTECTOMY COLONOSCOPY 12/16/2016 PROCEDURE: HISTORICAL COLONOSCOPY; COMMENT: Normal. 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/26/2012 D X:Polyarteritis nodosa ([facility]) Depression 10/03/2018 DX:Depression Bipolar disorder, mixed ([facility]) 03/29/2019 DX:Bipolar disorder, mixed ([facility]) Anxiety 03/29/2019 DX:Anxiety History of substance abuse 03/29/2019 DX:Hi story of substance abuse ([facility]); COMMENT: Alcohol and cocaine, in remission COPD (chronic obstructive pu lmonary disease) ([facility]) 03/29/2019 DX:COPD (chronic obstructive pulmonary disease) ([facility]) 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 a Esophageal reflux 10/19/2018 DX:Esophageal reflux Vitamin D deficiency 03/29/2019 DX:Vitamin D deficiency Family History Medical History Relation Name Comments Throat cancer Father Relation Name Status Comments Father Social History Tobacco Use Types Packs/Day Years Used Date Smoking Tobacco: Every Day Cigarettes Smokeless Tobacco: Never Alcohol Use Standard Drinks/Week Comments No 0 (1 standard drink = 0.6 oz pur e alcohol) Comments Unknown Sex and Gender Information Value Date Recorded Sex Assigned at Not on file Legal Sex Female 12:58 PM EST Gender Identity Not on file Sexual Orientation Not on file Obstetrics History Plan of Treatment Health Maintenance Due Date Last Done Comments DTaP,Tdap,and Td Vaccines (1 - Tdap) 12/13/1983 Hepatitis B Vaccines (1 of 3 - 19+ 3-dose series) 12/13/1983 Cervical Cancer Screening: P ap Smear 1985 Pneumococcal Vaccine: 50+ Ye ars (1 of 1 - PCV) 2014 Zoster Vaccines (1 of 2) 2014 Breast Cancer Screening 08/31/2020 08/31/2018 COVID-19 Vaccine (1 - 2023-2 5 season) 2024 Influenza Vaccine (#1) 2024 RSV Immunization Adult Patie nts (1 - 1-dose 75+ series) 12/13/2039 HIB Vaccines Aged Out No longer eligi ble based on patient's age to complete this topic HPV Vaccines Aged Out No longer eligi ble based on patient's age to complete this topic Hepatitis A Vaccines Aged Out No long er eligible based on patient's age to complete this topic IPV Vaccines Aged Out No longer eligi ble based on patient's age to complete this topic MMR Vaccines Aged Out No longer eligi ble based on patient's age to complete this topic Meningococcal ACWY Vaccine Aged Out N o longer eligible based on patient's age to complete this topic Meningococcal B Vacine Aged Out No lo nger eligible based on patient's age to complete this topic Pneumococcal Vaccine: Pediat rics (0 to 5 Years) and At-Risk Patients (6 to 64 Years) Aged Out No longer eligi ble based on patient's age to complete this topic RSV Immunization Patients Un earnest 20 months Aged Out No longer eligible b ased on patient's age to complete this topic Varicella Vaccines Aged Out No longer eligible based on patient's age to complete this topic Procedures Procedure Name Priority Date/Time Associated Diagnosis Comments ABHINAV SCREENING DIGITAL Routine 08/31/2018 3:03 PM EDT Encounter for screening mammogram for malignant neoplasm of breast from Last 3 Months or Most Recently Relevant to Health Maintenance Results * ABHINAV SCREENING DIGITAL (08/31/2018 3:03 PM EDT) Anatomical Region Laterality Modality Mammography 08/31/2018 2:09 PM EDT Narrative 08/31/2018 3:03 PM EDT [facility] Diagnostic Imaging Department [address] [place] [address] [id number] Patient: ??CURTIS SAAVEDRA ?/Age/Sex: 1965 - 52 - F Unit#: ??[id number] ? Location/Status: ??SPDIMAM/REG CLI ? Mnemonic/Ordering Site: ??DIGSC/SPMAM Ordering Physician: ??YONATHAN FAULKNER [facility] Screening Digital - 08/31/181426 INDICATION: SCREENING COMPARISON: No prior studies are available for comparison. FINDINGS: CC and MLO views of the breasts were obtained, using full field digital mammography with 3D tomosynthesis views in the MLO projection. Computer aided detection with the [employer] 7.2-H was employed. FINDINGS: The breasts contain scattered fibroglandular tissues. There is a rounded nodule within the medial-central left breast measuring 4-5 mm in size. A lobulated noncalcified nodule within the medial aspect of the right breast measures 1.2 x 0.8 cm. There is no evidence of suspicious clustering microcalcification or architectural distortion within either breast. IMPRESSION: ??Noncalcified nodules within each breast. Further assessment to include spot compression views in the CC and MLO projections followed by ultrasound is recommended. Lack of an imaging correlate should not deter or delay biopsy of a clinically significant palpable finding. BI-RADS ??- Category 0 - Incomplete needs additional imaging evaluation. [id number], 7025F ([id number] / [id number]) , ??[id number] Dictating Physician: ??SOSA BECK MD Electronically Signed by: ??SOSA BECK MD Dic Date/Time: ??08/31/18 2506 Sign date/Time: ??08/31/18 4054 Procedure Note oSsa Beck MD - 06/02/2022 [facility] Diagnostic Imaging Department [address] [place] [id number] Patient: KERICURTIS /Age/Sex: 1965 - 52 - F Unit#: [id number] Location/Status: [facility]/REG CLI Mnemonic/Ordering Site: [facility] Ordering Physician: YONATHAN FAULKNER [facility]hin[facility] Screening Digital - 08/31/18 - 4405 INDICATION: SCREENING COMPARISON: No prior studies are available for comparison. FINDINGS: CC and MLO views of the breasts were obtained, using full field digital mammography with 3D tomosynthesis views in the MLO projection. Computer aided detection with the [employer] 7.2-H was employed. FINDINGS: The breasts contain scattered fibroglandular tissues. There is a roundednodule within the medial-central left breast measuring 4-5 mm in size. Alobulated noncalcified nodule within the medial aspect of the right breast measures1.2 x 0.8 cm. There is no evidence of suspicious clustering microcalcificationor architectural distortion within either breast. IMPRESSION: Noncalcified nodules within each breast. Further assessmentto include spot compression views in the CC and MLO projections followed by ultrasound is recommended. Lack of an imaging correlate should not deter or delay biopsy of aclinically significant palpable finding. BI-RADS - Category 0 - Incomplete needs additional imaging evaluation.[id number], 7080F ([id number] / [id number]) , [id number] Dictating Physician: SOSA BECK MD Electronically Signed by: SOSA BCEK MD Dic Date/Time: 08/31/18 1458 Sign date/Time: 08/31/18 1506 Yonathan [facility] IMG BI PROCEDURES Final Result from Last 3 Months or Most Recently Relevant to Health Maintenance
[2024-09-12 18:23] LABS: Neutrophils Percent Manual 57 % (45-73)
[2024-09-12 18:28] LABS: Atypical Lymph Absolute Manual 0.1 x10*3/uL; Atypical Lymphs Percent Manual 1 % (0-6); Band Neutrophils Percent 24 % (3-5); Basophils Abs Manual 0.1 X10*3/uL (0.0-0.2); Basophils Percent Manual 1 % (0-2); Eosinophils Absolute Manual 0.1 X10*3/uL (0.0-0.4); Eosinophils Percent Manual 1 % (0-4); Large Platelet PRESENT; Lymphocytes Absolute Manual 0.4 X10*3/uL (1.2-4.9); Lymphocytes Percent Manual 7 % (20-40); Monocytes Absolute Manual 0.4 X10*3/uL (0.1-1.2); Monocytes Percent Manual 7 % (2-11); Neutrophils Absolute Manual 4.8 X10*3/uL (2.0-8.3); Platelet Estimate NORMAL (NORMAL); Promyelocytes Absolute 0.1 X10*3/uL; Promyelocytes Percent 2 %; RBC Morphology NORMAL
[2024-09-12 18:29] LABS: Hypochromasia 1+ (5-14) /OIF; Tear Drop Cells 1+ (0-2) /OIF; Toxic Vacuolation PRESENT
[2024-09-12 18:31] LABS: Platelet Morphology Comment NORMAL
[2024-09-12] MEDS: Morphine Sulfate 2 MG/ML CARTRIDGE IVPUSH (18:55)
[2024-09-12] MEDS: 0.9 % Sodium Chloride 1,000 ML 999 ML IV (18:55)
[2024-09-12] MEDS: Piperacillin Sodium/Tazobactam 3.375 GM in 0.9 % Sodium Chloride 50 ML IV (18:56)
--- NOTE | 2024-09-12 19:35 | PM.IMHP ---
History of Present Illness Date of Service: 09/12/24 Chief Complaint: Left hand infection This is a 58-year-old female with pertinent history of polysubstance use disorder, mood disorder who presents to the emergency department for concerns of left thumb infection. Patient states he 1st noticed infection 1 day prior to presentation. Her left arm is swollen, red and painful. She is unable to make a fist. Does admitting inhaling cocaine but denies IV drug use into her left thumb. States she does have a history of recurrent skin abscesses. On the day of presentation, the swelling increased and it started draining pus. No fever, chills, chest pain, palpitations, shortness of breath, abdominal pain, changes in urinary or bowel habits. In the emergency department, imaging with abscesses adjacent to the 1st metacarpophalangeal joint. Orthopedic surgery was consulted who requested admission to medicine team. Review of Systems Constitutional: Constitutional: Reports fatigue Cardiovascular: Cardiovascular: Reports no additional cardiovascular complaints Respiratory: Respiratory: Reports no additional respiratory complaints Gastrointestinal: Gastrointestinal: Reports no additional gastrointestinal complaints Genitourinary: Genitourinary: Reports no additional female genitourinary complaints Musculoskeletal: Musculoskeletal: Reports arthralgias, Reports joint swelling and Reports limited range of motion Endocrine: Endocrine: Reports fatigue PMFSH Medical History Mood disorder Polysubstance use disorder Pertinent family history: No family history of early CAD Social History Alcohol intake: former Patient Tobacco Use Status: Current everyday Tobacco user Substance Use Type: Crack/Cocaine Advance Directives: No Advance Directives Information Provided: Yes Do you have a plan to hurt others: No Plan Patient : No Meds Allergies Allergy/AdvReac Type Severity Reaction Status Date / Time sulfamethoxazole Allergy Hives Verified 09/12/24 15:56 [From Bactrim] trimethoprim [From Bactrim] Allergy Hives Verified 09/12/24 15:56 Active Medications: Current Medications Ceftriaxone Sodium (Ceftriaxone Sodium 1 Gm Vial) 1 gm IVPUSH Q24H KIMI Sodium Chloride (Ns) 1,000 mls @ 999 mls/hr IV .Q1H1M ONE Stop: 09/12/24 19:41 Last Admin: 09/12/24 18:55 Dose: 999 mls/hr Vancomycin HCl (Vancomycin/Ns) 2,000 mg in 500 mls @ 250 mls/hr IV ONCE ONE Stop: 09/12/24 21:14 Pharmacy Consult (Consult Rx Vancomycin Dosing) 1 each MISCELLANE DAILY PRN PRN Reason: Consult order Home Medications ?Medication ?Instructions ?Recorded ?Confirmed ?Last Taken ?Type acetaminophen 500 mg tablet 1,000 mg PO Q8H 09/12/24 09/12/24 Unknown History albuterol sulfate 90 mcg/actuation 2 puff inhalation Q4H PRN 09/12/24 Unknown History aerosol inhaler (Ventolin HFA) anaphylaxis celecoxib 200 mg capsule 200 mg PO DAILY PRN moderate pain 09/12/24 Unknown History hydroxyzine HCl 25 mg tablet 25 mg PO QID PRN anxiety 09/12/24 Unknown History trazodone 150 mg tablet 300 mg PO BEDTIME 09/12/24 Unknown History Physical Exam Vital Signs and Narrative: Vital Signs: Last Vital Signs Temp 97.8 F 09/12/24 17:58 Pulse 102 H 09/12/24 17:58 Resp 20 09/12/24 19:31 BP 121/74 09/12/24 17:58 Pulse Ox 92 09/12/24 17:58 O2 Del Method Room Air 09/12/24 17:58 BMI result Body Mass Index 20.1 Const: Other: Middle-aged female lying in bed in no distress Neck supple, no JVD Regular rate and rhythm, S1-S2 heard Regular breath sounds bilaterally, no wheezing or crackles appreciated Abdomen soft nontender, no guarding, no rigidity Patient is awake, alert and oriented to self, place, time and person ; no focal motor deficit Psych: Anxious Left thumb with swelling, erythema, warmth and tenderness as pictured below ; unable to make a fist Skin: Other: Results Labs 09/12/24 16:46 09/12/24 16:47 Labs: Laboratory Results - last 24 hr 09/12/24 09/12/24 16:46 16:47 MCV 84.9 MCH 30.3 MCHC 35.7 H RDW 12.7 Plt Count 150 L D MPV 9.2 L Immature Gran % (Auto) Cancelled Neut % (Auto) Cancelled Lymph % (Auto) Cancelled [place] % (Auto) Cancelled Eos % (Auto) Cancelled Baso % (Auto) Cancelled Lymph # (Auto) Cancelled [place] # (Auto) Cancelled Eos # (Auto) Cancelled Baso # (Auto) Cancelled Abs Immat Gran (auto) Cancelled Absolute Neuts (auto) Cancelled Absolute Nucleated RBC 0.000 Nucleated RBC % (auto) 0.0 Neutrophils % (Manual) 57 Band Neutrophils % 24 H Lymphocytes % (Manual) 7 L Atypical Lymphs % (Man) 1 Monocytes % (Manual) 7 Eosinophils % (Manual) 1 Basophils % (Manual) 1 Promyelocytes % 2 Abs Neuts (Manual) 4.8 Lymphocytes # (Manual) 0.4 L Atyp Lymphs # (Manual) 0.1 Monocytes # (Manual) 0.4 Eosinophils # (Manual) 0.1 Basophils # (Manual) 0.1 Promyelocytes # 0.1 Toxic Vacuolation PRESENT Platelet Estimate NORMAL Large Platelets PRESENT Plt Morphology Comment NORMAL RBC Morphology NORMAL Hypochromasia 1+ (5-14) Tear Drop Cells 1+ (0-2) ESR 31 H Anion Gap 13 Estim Creat Clear Calc 68.4 Estimated GFR > 60 Random Glucose 119 H Calcium 9.0 Total Bilirubin 0.4 Direct Bilirubin 0.2 AST 54 H ALT 37 H Alkaline Phosphatase 60 C-Reactive Protein 24.89 H Total Protein 6.6 Albumin 3.6 Ethyl Alcohol < 10 Assessment and Plan (1) Cellulitis of hand, left: Status: Acute (2) Tenosynovitis of finger: Status: Acute (3) Abscess: Status: Acute Plan This is a 58-year-old female with pertinent history of polysubstance use disorder, mood disorder who presents to the emergency department for concerns of left hand infection. #. Purulent cellulitis of left thumb with underlying abscesses/tenosynovitis: Will admit patient with empiric IV antibiotics. Orthopedic surgery consulted from the ER, noted plans for I and D in a.m.. Will keep patient NPO after midnight. #. Polysubstance use disorder: Consulted Addiction Team. Monitor for withdrawal #. Mood disorder: Continue home mood stabilizers Med rec pending DVT prophylaxis: Hold Lovenox until orthopedic surgical evaluation Full code Admit as inpatient and will require two night minimum hospital stay for IV antibiotics (as above), which is not possible in a lesser acute setting. Orthopedic surgery consult pending Quality Stroke Does the patient have a stroke diagnosis?: No VTE Prior VTE?: No VTE Risk Level:: Medical - moderate - high VTE Device Contraindication: N/A - Device Ordered VTE Drug Contraindication: Treatment Not Indicated
[2024-09-12] MEDS: vancomycin/NS 2,000 MG/500 ML PLAST..BAG 250 MG IV (19:38)
[2024-09-12] MEDS: cefTRIAXone sodium 1 GM VIAL IVPUSH (20:16)
[2024-09-12] MEDS: Lactated Ringers 1,000 ML 999 ML IV (20:17)
[2024-09-12] MEDS: HYDROmorphone HCl 1 MG/ML SYRINGE IVPUSH (20:24)
[2024-09-12 20:30] LABS: Lactic Acid 0.6 mmol/L (0.5-2.0)
[2024-09-12 21:15] LABS: Amphetamine Screen Urine Not Detected (Not Detect); Barbiturates, Urine Not Detected (Not Detect); Benzodiazepines Screen Urine Not Detected (Not Detect); Buprenorphine Scr Not Detected (Not Detect); Cannabinoid Screen Urine Not Detected (Not Detect); Cocaine Screen Urine POSITIVE (Not Detect); Fentanyl, urine Not Detected (Not Detect); Methadone Screen, Urine Not Detected (Not Detect); Opiate Screen Urine POSITIVE (Not Detect); Oxycodone Screen Urine Not Detected (Not Detect); Phencyclidine Screen Urine Not Detected (Not Detect)
--- NOTE | 2024-09-12 21:52 | PHA.MEDREC ---
Pharmacy Consult ? Medication Reconciliation Pharmacy has completed the medication reconciliation.
[2024-09-12] MEDS: ondansetron HCL 4 MG/2 ML VIAL IVPUSH (21:58)
[2024-09-12] MEDS: LORazepam 2 MG/ML VIAL 1 MG IVPUSH (21:58)
--- NOTE | 2024-09-12 22:24 | PC.NURSE ---
verbal nurse to nurse report given to najma BOYKIN at overflow
[2024-09-12] MEDS: traZODone HCL 100 MG TABLET 300 MG PO (23:05)
--- NOTE | 2024-09-12 23:16 | PC.NURSE ---
this rn assumed care of pt, pt ambulatory but unsteady at this time. pt changed into hospital gown and belongings were searched by security prior to coming to overflow. pt offers no complaints at this time. call laguna within reach.
--- NOTE | 2024-09-12 23:51 | PC.NURSE ---
pt assisted to bathroom x2, noted to have unsteady gait, x2 assist. 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 COWS=2. pt noted to have pills of unknown in purse, pt agreed to lock up pills with pharmacy while admitted.
[2024-09-13] VITALS (18 sets, daily range): BP systolic 101–130; BP diastolic 50–69; PULSE 81–102; RESP 16–32; TEMP 36.4–38.3; O2SAT 86–100
[2024-09-13] MEDS: 0.9 % Sodium Chloride Flush 3 ML SYRINGE IVFLUSH ×4 (00:48→19:53)
[2024-09-13] MEDS: LORazepam 2 MG/ML VIAL 1 MG IVPUSH (00:48)
--- NOTE | 2024-09-13 01:01 | PC.NURSE ---
елена RN and Regina Pena RN, counted pt pills and placed them into pharmacy bag. pt unable to sign, pt is confused and drowsy. Two nurse signatures applied.
--- NOTE | 2024-09-13 02:22 | PC.NURSE ---
pt allowed to sleep, respirations even and unlabored, no acute distress noted.
[2024-09-13 05:19] LABS: Hematocrit 35.3 % (37.0-47.0); Hemoglobin 12.3 g/dl (12.0-16.0); Mean Corpuscular HGB Conc 34.8 g/dl (31.0-35.0); Mean Corpuscular Hemoglobin 30.1 pg (27.0-33.0); Mean Corpuscular Volume 86.5 fL (80.0-98.0); Mean Platelet Volume 9.9 fL (9.4-12.3); Platelet Count 136 X10*3/uL (160-400); Red Blood Count 4.08 X10*6/uL (4.20-5.50); White Blood Count 6.5 X10*3/uL (4.8-10.8)
[2024-09-13 05:36] LABS: Anion Gap 12 (12-20); Blood Urea Nitrogen 14 mg/dL (9-16); Calcium 8.6 mg/dL (8.4-10.2); Carbon Dioxide 22 mmol/L (22-29); Chloride 113 mmol/L (96-108); Creatinine Clr Calc Pharmacy 85.9; Estimated Glomerular Filt Rate > 60; Glucose Random 66 mg/dL (60-115); Potassium 4.2 mmol/L (3.3-5.1); Sodium 143 mmol/L (135-145)
[2024-09-13 05:45] LABS: Band Neutrophils Percent 36 % (3-5); Lymphocytes Absolute Manual 0.9 X10*3/uL (1.2-4.9); Lymphocytes Percent Manual 14 % (20-40); Metamyelocytes Absolute 0.1 X10*3/uL; Metamyelocytes Percent 1 %; Monocytes Absolute Manual 0.1 X10*3/uL (0.1-1.2); Monocytes Percent Manual 2 % (2-11); Neutrophils Absolute Manual 5.4 X10*3/uL (2.0-8.3); Neutrophils Percent Manual 47 % (45-73)
[2024-09-13 05:46] LABS: Burr Cells 1+ (0-2) /OIF; Dohle Bodies PRESENT; Platelet Estimate SLIGHTLY DECREASED (NORMAL); Platelet Morphology Comment NORMAL; RBC Morphology NOTED; Toxic Vacuolation PRESENT
--- NOTE | 2024-09-13 08:15 | PC.NURSE ---
report to [facility] in short stay
--- NOTE | 2024-09-13 08:30 | HO.WOUND ---
Wound Consult placed for Left hand - chart review reveals patient needs Hand Surgeon Assessment - Will defer to Orthopedic Hand Surgery team at this time. No topical recommendations maid at this time.
--- NOTE | 2024-09-13 08:40 | PC.NURSE ---
Pt sleeping, arouses briefly to loud verbal stim and soft physical stim. does not participate in assessment. resps even and unlabored, awaiting transport to floor
--- NOTE | 2024-09-13 09:06 | PC.NURSE ---
Provider notified pt up to the unit. Pt not participating in Admission assessment. plan left hand I&D today. Also question drug use in both hands. Security called to come search patients belongs for drug paraphernalia.
--- NOTE | 2024-09-13 10:00 | P.OP_ITS ---
Operative Note Operative Note Date of Service: 09/13/24 Narrative: Operative Note Narrative: Preop diagnosis: 1. Left thumb and hand infection Postop diagnosis: Same Procedure: 1. Left thumb I and D 2. I&D left deep mid palmar space 3. I and D left deep thenar space Surgeon: Andressa Salazar MD [employer]: [facility] Anesthesia: General Anesthesia Findings: Watery purulence found in the mid palmar space, and about the dorsal aspect of the left thumb extending from the dorsal aspect of the 1st metacarpal to the dorsal aspect of the distal phalanx. There was also some necrosis and blistering of the skin over the dorsal aspect of the thumb. Minimal serous drainage within the thenar space. Volar aspect of the thumb was soft on exam. Implants: None Tourniquet time: 32 minutes EBL: 5.0 ml Specimen: Cultures of purulent material taken Drains: Iodoform drains x2 Complications: None Disposition: Brought to the recovery room in stable condition Plan: Admit back to floor for IV antibiotics antibiotics based on cultures Adjust Wound check and dressing change tomorrow, pull drains. Daily dressing changes after that Early OT Follow-up within 5-7 days of discharge for wound check, suture removal and to check cultures Indications: The patient is a 58 year old woman with a left hand infection . The risks and benefits of operative treatment, including but not limited to risk of damage to blood vessels, nerves, tendons, infection, recurrence, persistent pain or numbness, incomplete resolution of preoperative symptoms, or need for further surgery were discussed with the patient and her sister and they wished to proceed with surgery. Please see the preop note regarding consent. Procedure: Once consent was obtained patient was brought back to the operating suite and placed in the operating table in a supine position. Perioperative antibiotics and anesthesia was administered by the anesthesia team. A tourniquet was applied to the proximal aspect of the left upper extremity and the limb was prepped and draped in a standard surgical fashion. The limb was elevated and the tourniquet inflated to 250 mm of mercury for a total tourniquet time of 32 minutes. I began by making a 2 cm longitudinal incision directly over the mid palmar space in line with the 4th metacarpal in the palm. The incision was made through the skin the subcutaneous tissues. I then dissected down to the level of the mid palmar space using a long narrow hemostat. I found some watery purulence within the mid palmar space. Cultures were taken from the mid palmar space. I then made a 2 cm incision in line with the thenar crease using a 15. Blade through the skin to the subcutaneous tissues. I then dissected down into the thenar space using a hemostat. There was only a small amount of serous drainage. I then made a 2 cm longitudinal incision over the dorsal base of the 1st webspace using a 15. Blade through the skin the subcutaneous tissues. I then penetrated from dorsal to volar into the thenar space. On the dorsal side we appreciated an increased amount of watery purulence. I then made 3 small longitudinal incisions over the dorsal aspect of the right thumb. I will point out that the dorsal aspect of the thumb was most significantly affected with swelling blistering and some necrosis of the dorsal tissues. A 1 cm longitudinal incision was made over the 1st metacarpal, 2nd 1 made over the dorsal aspect of the proximal phalanx, and the 3rd 1 was made over the dorsal aspect of the distal phalanx. The incisions were made through the skin the subcutaneous tissues. Here we did encounter again some watery purulence. I used a hemostat to carefully dissect into the abscess cavities. Cultures were taken of this purulence. The tissue on the dorsal aspect of the thumb was debrided of devitalized tissue using tenotomy scissors and a rongeur. All of the wounds, including the mid palmar space, the thenar space and then the wounds over the dorsal aspect of the thumb were copiously irrigated with normal saline. I did also use a 10 mL syringe with an Angiocath to facilitate adequate irrigation in the spaces. We are also able to irrigate from dorsal to volar through the thenar space. Once satisfied with our I&D I then passed 1 slip of iodoform gauze from dorsal to volar through the thenar space. I passed another piece of iodoform gauze from the incision over the dorsal aspect of the 1st metacarpal exiting through the incision over the distal phalanx of the thumb. I was satisfied with our I&D. At this point the tourniquet was deflated and hemostasis obtained with a brief period of local pressure . The wounds were infiltrated with some 0.5% plain ropivacaine for postop pain control and a sterile dressing was applied. The patient appears to have tolerated the procedure well and with no complications. All digits were well vascularized conclusion of the case.
--- NOTE | 2024-09-13 10:59 | PC.NURSE ---
pt signed consent with dr anderson sts okay woke up with stimulation
--- NOTE | 2024-09-13 11:03 | MHC.SHP ---
Pre-Procedural Eval Section A - 24 Hr Update-Section A only Date of Service: 09/13/24 The patient is an INPATIENT: No Changes since office visit: No Cold of Flu in the past 2 weeks, No New Medical Problems, No Changes in Medication and No Patient answered all questions The patient has been examined within 24 hours of the surgical procedure. The History & Physical has been completed within 30 days and I have reviewed it.: Yes Section B - Complete if H&P > 30 days Chief Complaint: Hand Infection, left Allergies: Allergies Allergy/AdvReac Type Severity Reaction Status Date / Time sulfamethoxazole Allergy Hives Verified 09/12/24 15:56 [From Bactrim] trimethoprim [From Bactrim] Allergy Hives Verified 09/12/24 15:56 Exam Exam Comment: The patient was seen and evaluated by me in preop hold. She was rather somnolent and yelled us as we tried to wake her up to talk about the procedure and sign the consent. She has significant swelling of the left thumb with some evidence of necrosis of the dorsal tissues and a small amount of purulence. The swelling and tenderness extends into the thenar area, the palm of the hand, and now into the volar forearm. She also has ascending left upper extremity lymphangitis. She was not able to demonstrate active flexion and extension of the digits. Plan I have reviewed the history and physical and performed a pertinent physical examination on my patient. No changes have occurred unless specified. Time Spent With Patient Time: Total time managing care of this patient today90+ minutes. Assessment and plan: 1. Left thumb and deep space hand infection with ascending lymphangitis The risks and benefits of operative treatment were discussed with the patient and the patient and her sister Rohini Byrne, and they wish to proceed with surgery. These risks include, but are not limited to risk of damage to blood vessels, nerves, tendons, infection, recurrence, incomplete relief of preoperative symptoms, persistent pain, possible need for further surgery and the risks associated with regional blocks and anesthesia. The patient was rather somnolent and difficult to arouse. We were able to arouse her and talked to her about the infection in her hand and the fact that she needed surgery. We, both anesthesia and I, were able to get consent from the patient, however because she was so difficult to arouse we decided that we needed to also talk with her sister about getting permission for surgery. Both Dr. Trejo and I spoke with her sister Rohini Byrne over the phone. I discussed the risks and benefits of surgery versus not having surgery. Anesthesia talked about the risks and benefits of anesthesia which are not insignificant in this case. As I explained to her sister, there is a considerable risk of losing significant function in the hand, and possibly losing the thumb, without surgery. In addition she has swelling redness and tenderness that has now migrated up her forearm with proximally extending lymphangitis which puts her at increased risk for sepsis. This creates an emergency threatening the limb of the patient if not more. The plan is to take the patient to the operating room today for the following procedures: 1. Left hand I&D 2. [ ] All of the preoperative paperwork including the consent was filled out today and signed. And we also obtained consent from her sister Rohini Byrne. All questions were answered.
--- NOTE | 2024-09-13 11:28 | PC.NURSE ---
fernanda mcfarland pts next a kin speaking to anesthesia and dr anderson concerning surgery/anesthesia and risks. pt somnolence takes vigorous stimulation to wake patient up. surgery is an emergency by dr anderson risks of losing her hand sister aware left hand is edematous red blackened on thumb in color tender. ring cut off sister verbalized understanding of risk and surgery and anesthesia
--- NOTE | 2024-09-13 11:46 | HO.ANESPROP2 ---
HPI - Anesthesia Eval Consult details Narrative: here for left hand/thumb infection, pt deeply sedated, can be aroused by heavy shaking, wakes up and screams, not making any logical conversation to get anesthesia consent for surgery, appears still intoxicated, surgeon states emegent surgery indicated or risk of loss of finger . pt signed anesthesia consent but not comprehending or responding to any queations, eyes open, screams when surgeon touches affected area. discussed with risk management for guidance as no HCP identified, utox positive for opiates and coccaine. per risk management surgeon to document emergent nature of surgical indication , including loss of body part if not done emergently and necessity for anesthesia for such a surgery. discussed in detail with patients sister fernanda,who agrees pt needs anesthesia and needs to go ahead .consent and documentation done ,with nurse and surgeon as witness. PMFSH Active Problems Active Problems: All Active Problems Mood disorder (Acute) Polysubstance use disorder (Acute) Abscess (Acute) Cellulitis of hand, left (Acute) Tenosynovitis of finger (Acute) Past Medical History Medical History Mood disorder Polysubstance use disorder Family History Family history of problems with anesthesia: Unobtainable Surgical History History of Problems with Anesthesia: Unobtainable Social History Social History Household Members: Unknown / Unable to assess Housing: Unknown / Unable to assess Alcohol intake: former Patient Tobacco Use Status: Never used Tobacco Substance Use Type: Crack/Cocaine Meds Allergies Allergy/AdvReac Type Severity Reaction Status Date / Time sulfamethoxazole Allergy Hives Verified 09/12/24 15:56 [From Bactrim] trimethoprim [From Bactrim] Allergy Hives Verified 09/12/24 15:56 Active Medications: Current Medications Acetaminophen (Acetaminophen 325 Mg Tablet) 650 mg PO Q6H PRN PRN Reason: Pain, Mild 1-3,fever,headache Calcium Carbonate (Calcium Carbonate 750 Mg Tab.Chew) 750 mg PO Q4H PRN PRN Reason: Heartburn Ceftriaxone Sodium (Ceftriaxone Sodium 1 Gm Vial) 1 gm IVPUSH Q24H KIMI Last Admin: 09/12/24 20:16 Dose: 1 gm Celecoxib (Celecoxib 200 Mg Capsule) 200 mg PO DAILY PRN PRN Reason: Pain, Moderate(Pain Scale 4-6) Hydroxyzine HCl (Hydroxyzine Hcl 25 Mg Tablet) 25 mg PO QID PRN PRN Reason: anxiety Vancomycin HCl 1,500 mg/ (Sodium Chloride) 500 mls @ 333.333 mls/hr IV Q24H [facility] Magnesium Hydroxide (Milk Of Magnesia 30 Ml Oral.Susp) 30 ml PO DAILY PRN PRN Reason: Constipation Melatonin (Melatonin 3 Mg Tablet) 6 mg PO BEDTIME PRN PRN Reason: Insomnia Morphine Sulfate (Morphine Sulfate 4 Mg/Ml Cartridge) 4 mg IVPUSH Q4H PRN; Protocol PRN Reason: Pain, Severe (Pain Scale 7-10) Ondansetron HCl (Ondansetron Hcl 4 Mg/2 Ml Vial) 4 mg IVPUSH Q8H PRN PRN Reason: Nausea and Vomiting Last Admin: 09/12/24 21:58 Dose: 4 mg Pharmacy Consult (Consult Rx Vancomycin Dosing) 1 each MISCELLANE DAILY PRN PRN Reason: Consult order Sodium Chloride (0.9 % Sodium Chloride Flush 3 Ml Syringe) 3 ml IVFLUSH QSHIFT [facility] Last Admin: 09/13/24 08:19 Dose: 3 ml Trazodone HCl (Trazodone Hcl 100 Mg Tablet) 300 mg PO BEDTIME [facility] Last Admin: 09/12/24 23:05 Dose: 300 mg Home Medications ?Medication ?Instructions ?Recorded ?Confirmed ?Last Taken ?Type acetaminophen 500 mg tablet 1,000 mg PO Q8H PRN Pain (Scale 09/12/24 09/12/24 Unknown History Score 1-3) albuterol sulfate 90 mcg/actuation 2 puff inhalation Q4H PRN 09/12/24 09/12/24 Unknown History aerosol inhaler (Ventolin HFA) anaphylaxis celecoxib 200 mg capsule 200 mg PO DAILY PRN moderate pain 09/12/24 09/12/24 Unknown History hydroxyzine HCl 25 mg tablet 25 mg PO QID PRN anxiety 09/12/24 09/12/24 Unknown History trazodone 150 mg tablet 300 mg PO BEDTIME 09/12/24 09/12/24 Unknown History Exam Height,Weight and Vital Signs: Height 5 ft 4 in Weight 53 kg Last Vital Signs Temp 99 F 09/13/24 10:51 Pulse 102 H 09/13/24 10:51 Resp 16 09/13/24 10:51 BP 119/69 09/13/24 10:51 Pulse Ox 94 09/13/24 10:51 O2 Del Method Room Air 09/13/24 10:51 Pertinent Lab Results Pertinent Lab Results: Laboratory Tests 09/12/24 09/12/24 09/12/24 16:46 16:47 20:08 WBC 5.9 RBC 4.03 L Hgb 12.2 Hct 34.2 L MCV 84.9 MCH 30.3 MCHC 35.7 H RDW 12.7 Plt Count 150 L D MPV 9.2 L Immature Gran % (Auto) Cancelled Neut % (Auto) Cancelled Lymph % (Auto) Cancelled Evangeline % (Auto) Cancelled Eos % (Auto) Cancelled Baso % (Auto) Cancelled Lymph # (Auto) Cancelled Evangeline # (Auto) Cancelled Eos # (Auto) Cancelled Baso # (Auto) Cancelled Abs Immat Gran (auto) Cancelled Absolute Neuts (auto) Cancelled Absolute Nucleated RBC 0.000 Nucleated RBC % (auto) 0.0 Neutrophils % (Manual) 57 Band Neutrophils % 24 H Lymphocytes % (Manual) 7 L Atypical Lymphs % (Man) 1 Monocytes % (Manual) 7 Eosinophils % (Manual) 1 Basophils % (Manual) 1 Metamyelocytes % Promyelocytes % 2 Abs Neuts (Manual) 4.8 Lymphocytes # (Manual) 0.4 L Atyp Lymphs # (Manual) 0.1 Monocytes # (Manual) 0.4 Eosinophils # (Manual) 0.1 Basophils # (Manual) 0.1 Metamyelocytes # Promyelocytes # 0.1 Toxic Vacuolation PRESENT Dohle Bodies Platelet Estimate NORMAL Large Platelets PRESENT Plt Morphology Comment NORMAL RBC Morphology NORMAL Hypochromasia 1+ (5-14) Tear Drop Cells 1+ (0-2) Lauryn Cells ESR 31 H Sodium 140 Potassium 3.4 Chloride 110 H Carbon Dioxide 20 L Anion Gap 13 BUN 21 H Creatinine 0.74 Estim Creat Clear Calc 68.4 Estimated GFR > 60 Random Glucose 119 H Lactic Acid 0.6 Calcium 9.0 Total Bilirubin 0.4 Direct Bilirubin 0.2 AST 54 H ALT 37 H Alkaline Phosphatase 60 C-Reactive Protein 24.89 H Total Protein 6.6 Albumin 3.6 Urine Opiates Screen Ur Buprenorphine Scrn Ur Oxycodone Screen Urine Methadone Screen Urine Fentanyl Screen Ur Barbiturates Screen Ur Phencyclidine Scrn Ur Amphetamines Screen U Benzodiazepines Scrn Urine Cocaine Screen U Marijuana (THC) Screen Ethyl Alcohol < 10 09/12/24 09/13/24 20:58 04:31 WBC 6.5 RBC 4.08 L Hgb 12.3 Hct 35.3 L MCV 86.5 MCH 30.1 MCHC 34.8 RDW 13.0 Plt Count 136 L MPV 9.9 Immature Gran % (Auto) Cancelled Neut % (Auto) Cancelled Lymph % (Auto) Cancelled Evangeline % (Auto) Cancelled Eos % (Auto) Cancelled Baso % (Auto) Cancelled Lymph # (Auto) Cancelled Evangeline # (Auto) Cancelled Eos # (Auto) Cancelled Baso # (Auto) Cancelled Abs Immat Gran (auto) Cancelled Absolute Neuts (auto) Cancelled Absolute Nucleated RBC 0.000 Nucleated RBC % (auto) 0.0 Neutrophils % (Manual) 47 Band Neutrophils % 36 H Lymphocytes % (Manual) 14 L Atypical Lymphs % (Man) Monocytes % (Manual) 2 Eosinophils % (Manual) Basophils % (Manual) Metamyelocytes % 1 Promyelocytes % Abs Neuts (Manual) 5.4 Lymphocytes # (Manual) 0.9 L Atyp Lymphs # (Manual) Monocytes # (Manual) 0.1 Eosinophils # (Manual) Basophils # (Manual) Metamyelocytes # 0.1 Promyelocytes # Toxic Vacuolation PRESENT Dohle Bodies PRESENT Platelet Estimate SLIGHTLY DECREASED Large Platelets Plt Morphology Comment NORMAL RBC Morphology NOTED Hypochromasia Tear Drop Cells [place] Cells 1+ (0-2) ESR Sodium 143 Potassium 4.2 D Chloride 113 H Carbon Dioxide 22 Anion Gap 12 BUN 14 Creatinine 0.59 Estim Creat Clear Calc 85.9 Estimated GFR > 60 Random Glucose 66 Lactic Acid Calcium 8.6 Total Bilirubin Direct Bilirubin AST ALT Alkaline Phosphatase C-Reactive Protein Total Protein Albumin Urine Opiates Screen POSITIVE H Ur Buprenorphine Scrn Not Detected Ur Oxycodone Screen Not Detected Urine Methadone Screen Not Detected Urine Fentanyl Screen Not Detected Ur Barbiturates Screen Not Detected Ur Phencyclidine Scrn Not Detected Ur Amphetamines Screen Not Detected U Benzodiazepines Scrn Not Detected Urine Cocaine Screen POSITIVE H U Marijuana (THC) Screen Not Detected Ethyl Alcohol Airway Mallampati Class: Patient Non-Cooperative Heart: tachy hr ~100 Lungs: cta Assessment and Plan Assessment Anesthesia Assessment: Anesthesia Plan Discussed and Chart Reviewed Final Anesthetic Review Family History of Problems with Anesthesia: Unobtainable History of Problems with Anesthesia: Unobtainable NPO: Yes ASA Class: III and Emergency Final Preanesthetic Review: No Changes in Pt Med Stat, Meds/Allgs Chart Reviewed, Consent Obtained/Reviewed and Anes Risks/Benef Reviewed Patient Risk: High Procedure Risk: High (unsure why patient still so sedated, no temp spike above 99, hr 100, ?? unknown drugs laced with patients ingestion of coccaine and opiates ?? dd start of septic picture ?? no high temp or tachy above 100, BP stable , anesthesia is risky due to unknown nature of drugs in pts system, responseunpred .) Anesthetic Plan Anesthetic Plan: GA Disposition: Standard PACU (will assess on emergence, response to anesthesia will be unpredictable.)
--- NOTE | 2024-09-13 15:06 | HO.PM.IMPN ---
Subjective Subjective Date of Service: 09/13/24 Interval History: seen and examined this morning follow up for left hand infection, blood cultures positive. to OR for I&D. Called from PACU after procedure to reassess patient. Patient sleepy, requiring 8 L shovel mask. plan to change to [facility] [place] Physical Exam Vital Signs: Vital Signs: Last Vital Signs Temp 99.9 F 09/13/24 14:20 Pulse 96 09/13/24 14:45 Resp 32 H 09/13/24 14:45 BP 111/65 09/13/24 14:32 Pulse Ox 92 09/13/24 14:45 O2 Del Method Shovel Mask 09/13/24 14:45 O2 Flow Rate 8 09/13/24 14:45 BMI result Body Mass Index 20.1 Const: Other: lethargic Nutritional Appearance: thin Resp: Effort & Inspection: no respiratory distress and no use of accessory muscles Auscultation: clear to auscultation bilaterally Cardio: Rate: regular rate GI: Inspection: No distended Palpation (GI): Soft to palpation Skin: Other: left hand wrapped Neuro: Other: limited assessment due to sedation Objective Data Active Medications Acetaminophen (Acetaminophen 325 Mg Tablet) 650 mg PO Q6H PRN PRN Reason: Pain, Mild 1-3,fever,headache Calcium Carbonate (Calcium Carbonate 750 Mg Tab.Chew) 750 mg PO Q4H PRN PRN Reason: Heartburn Ceftriaxone Sodium (Ceftriaxone Sodium 2 Gm Vial) 2 gm IVPUSH Q24H KIMI Celecoxib (Celecoxib 200 Mg Capsule) 200 mg PO DAILY PRN PRN Reason: Pain, Moderate(Pain Scale 4-6) Hydroxyzine HCl (Hydroxyzine Hcl 25 Mg Tablet) 25 mg PO QID PRN PRN Reason: anxiety Vancomycin HCl 1,500 mg/ (Sodium Chloride) 500 mls @ 333.333 mls/hr IV Q24H KIMI Magnesium Hydroxide (Milk Of Magnesia 30 Ml Oral.Susp) 30 ml PO DAILY PRN PRN Reason: Constipation Melatonin (Melatonin 3 Mg Tablet) 6 mg PO BEDTIME PRN PRN Reason: Insomnia Morphine Sulfate (Morphine Sulfate 4 Mg/Ml Cartridge) 4 mg IVPUSH Q4H PRN; Protocol PRN Reason: Pain, Severe (Pain Scale 7-10) Ondansetron HCl (Ondansetron Hcl 4 Mg/2 Ml Vial) 4 mg IVPUSH Q8H PRN PRN Reason: Nausea and Vomiting Last Admin: 09/12/24 21:58 Dose: 4 mg Documented By: KENNETH Pharmacy Consult (Consult Rx Vancomycin Dosing) 1 each MISCELLANE DAILY PRN PRN Reason: Consult order Sodium Chloride (0.9 % Sodium Chloride Flush 3 Ml Syringe) 3 ml IVFLUSH QSHIFT [facility] Last Admin: 09/13/24 08:19 Dose: 3 ml Documented By: RORY Trazodone HCl (Trazodone Hcl 100 Mg Tablet) 300 mg PO BEDTIME [facility] Last Admin: 09/12/24 23:05 Dose: 300 mg Documented By: KENNETH Labs 09/13/24 04:31 09/13/24 04:31 Labs: Laboratory Results - last 24 hr 09/12/24 09/12/24 09/12/24 16:46 16:47 20:08 MCV 84.9 MCH 30.3 MCHC 35.7 H RDW 12.7 Plt Count 150 L D MPV 9.2 L Immature Gran % (Auto) Cancelled Neut % (Auto) Cancelled Lymph % (Auto) Cancelled [place] % (Auto) Cancelled Eos % (Auto) Cancelled Baso % (Auto) Cancelled Lymph # (Auto) Cancelled [place] # (Auto) Cancelled Eos # (Auto) Cancelled Baso # (Auto) Cancelled Abs Immat Gran (auto) Cancelled Absolute Neuts (auto) Cancelled Absolute Nucleated RBC 0.000 Nucleated RBC % (auto) 0.0 Neutrophils % (Manual) 57 Band Neutrophils % 24 H Lymphocytes % (Manual) 7 L Atypical Lymphs % (Man) 1 Monocytes % (Manual) 7 Eosinophils % (Manual) 1 Basophils % (Manual) 1 Metamyelocytes % Promyelocytes % 2 Abs Neuts (Manual) 4.8 Lymphocytes # (Manual) 0.4 L Atyp Lymphs # (Manual) 0.1 Monocytes # (Manual) 0.4 Eosinophils # (Manual) 0.1 Basophils # (Manual) 0.1 Metamyelocytes # Promyelocytes # 0.1 Toxic Vacuolation PRESENT Dohle Bodies Platelet Estimate NORMAL Large Platelets PRESENT Plt Morphology Comment NORMAL RBC Morphology NORMAL Hypochromasia 1+ (5-14) Tear Drop Cells 1+ (0-2) [place] Cells ESR 31 H Anion Gap 13 Estim Creat Clear Calc 68.4 Estimated GFR > 60 Random Glucose 119 H Lactic Acid 0.6 Calcium 9.0 Total Bilirubin 0.4 Direct Bilirubin 0.2 AST 54 H ALT 37 H Alkaline Phosphatase 60 C-Reactive Protein 24.89 H Total Protein 6.6 Albumin 3.6 Urine Opiates Screen Ur Buprenorphine Scrn Ur Oxycodone Screen Urine Methadone Screen Urine Fentanyl Screen Ur Barbiturates Screen Ur Phencyclidine Scrn Ur Amphetamines Screen U Benzodiazepines Scrn Urine Cocaine Screen U Marijuana (THC) Screen Ethyl Alcohol < 10 09/12/24 09/13/24 20:58 04:31 MCV 86.5 MCH 30.1 MCHC 34.8 RDW 13.0 Plt Count 136 L MPV 9.9 Immature Gran % (Auto) Cancelled Neut % (Auto) Cancelled Lymph % (Auto) Cancelled [place] % (Auto) Cancelled Eos % (Auto) Cancelled Baso % (Auto) Cancelled Lymph # (Auto) Cancelled [place] # (Auto) Cancelled Eos # (Auto) Cancelled Baso # (Auto) Cancelled Abs Immat Gran (auto) Cancelled Absolute Neuts (auto) Cancelled Absolute Nucleated RBC 0.000 Nucleated RBC % (auto) 0.0 Neutrophils % (Manual) 47 Band Neutrophils % 36 H Lymphocytes % (Manual) 14 L Atypical Lymphs % (Man) Monocytes % (Manual) 2 Eosinophils % (Manual) Basophils % (Manual) Metamyelocytes % 1 Promyelocytes % Abs Neuts (Manual) 5.4 Lymphocytes # (Manual) 0.9 L Atyp Lymphs # (Manual) Monocytes # (Manual) 0.1 Eosinophils # (Manual) Basophils # (Manual) Metamyelocytes # 0.1 Promyelocytes # Toxic Vacuolation PRESENT Dohle Bodies PRESENT Platelet Estimate SLIGHTLY DECREASED Large Platelets Plt Morphology Comment NORMAL RBC Morphology NOTED Hypochromasia Tear Drop Cells Lauryn Cells 1+ (0-2) ESR Anion Gap 12 Estim Creat Clear Calc 85.9 Estimated GFR > 60 Random Glucose 66 Lactic Acid Calcium 8.6 Total Bilirubin Direct Bilirubin AST ALT Alkaline Phosphatase C-Reactive Protein Total Protein Albumin Urine Opiates Screen POSITIVE H Ur Buprenorphine Scrn Not Detected Ur Oxycodone Screen Not Detected Urine Methadone Screen Not Detected Urine Fentanyl Screen Not Detected Ur Barbiturates Screen Not Detected Ur Phencyclidine Scrn Not Detected Ur Amphetamines Screen Not Detected U Benzodiazepines Scrn Not Detected Urine Cocaine Screen POSITIVE H U Marijuana (THC) Screen Not Detected Ethyl Alcohol Microbiology Microbiology Results: Microbiology 09/13/24 12:40 Gram Stain - Final Hand Left 09/12/24 16:46 Blood Culture - Preliminary Blood - Venous Prelim: GPC Gram Stain only 09/12/24 16:46 Blood Culture - Preliminary Blood - Venous Prelim: GPC Gram Stain only Assessment and Plan (1) Cellulitis of hand, left: Status: Acute (2) Abscess: Status: Acute Plan This is a 58-year-old female with pertinent history of polysubstance use disorder, mood disorder who presents to the emergency department for concerns of left hand infection. sepsis due to purulent cellulitis of left thumb with underlying abscesses/tenosynovitis: initially met sepsis criteria with fever, tachycardia. lactic acid 0.6 seen by Orthopedic surgery, status post I& D in OR this am wound cultures pending continue vancomycin, ceftriaxone GPC bacteremia increase ceftriaxone to 2gm, continue vanco await final sensitives, repeat blood cultures order echo ID consult thrombocytopenia ?due to acute infection/sepsis follow cbc mild transaminitis ?due to sepsis trend toxic metabolic encephalopathy likely due to acute infection and sedating medications/medications during OR procedure follow mental status closely Polysubstance use disorder: Addiction Team consulted Mood disorder: continue hydroxyzine DVT prophylaxis: Hold DVT prophylaxis until safe from orthopedic perspective Full code requires ongoing inpatient stay for IV antibiotics (as above), which is not possible in a lesser acute setting. Orthopedic surgery consult pending Quality Stroke Does the patient have a stroke diagnosis?: No VTE Prior VTE?: No VTE Risk Level:: Medical - moderate - high VTE Device Contraindication: N/A - Device Ordered VTE Drug Contraindication: Treatment Not Indicated
--- NOTE | 2024-09-13 16:27 | PC.NURSE ---
arrived from PACU at 16:10 to 485 , drowsy arousable to painful stimuli , VSS, Oxygen saturation 100 % on 8L via shovel mask
[2024-09-13 17:12] LABS: Vancomycin Random 5.6 mcg/mL (15-20)
--- NOTE | 2024-09-13 17:13 | PM.EVENT ---
Event Note Date of Service: 09/13/24 Event Note: Addiction consult placed for patient with abscess and cellulitis of the hand r/t cocaine use Attempted to meet with patient earlier in AM, patient briefly opened eyes and moaned, but unable to participate in interview. Later patient in OR for I&D. Will follow up in AM Time Spent With Patient Time: Total time managing care of this patient today ____ minutes.
--- NOTE | 2024-09-13 17:25 | HE.PHANOTE ---
RE:treva Changed dose to 750mg Q8H with predicted trough of 14.1 mg/L, AUC of 486 mg/L. Next levelto be drawn 09/14 @1600
[2024-09-13] MEDS: vancomycin HCL 750 MG in 0.9 % Sodium Chloride 250 ML 265 MG IV (18:23)
[2024-09-14] MEDS: cefTRIAXone sodium 2 GM VIAL IVPUSH (02:45)
[2024-09-14] MEDS: vancomycin HCL 750 MG in 0.9 % Sodium Chloride 250 ML 265 MG IV ×2 (02:55→09:32)
[2024-09-14 03:14] VITALS: BP 118/60; PULSE 78; RESP 18; TEMP 37.1; O2SAT 100
--- NOTE | 2024-09-14 07:00 | CA_ITS ---
Transthoracic Echocardiogram Patient (Last, First, Middle): Lovely Almaraz J Gender: Female Date of : 1965 Age: 58 Procedure Date: 09/14/2024 Procedure Type: Transthoracic Echocardiogram Location: [facility] [place] Height: 160.02 cm Weight: 52.62 kg BSA: 1.53 m2 Heart Rate: bpm BP: 118 / 60 mmHg Toddler Caregiver: Referring MD: Nancy TEMPLETON Symptoms: IVDU, bacteremia Study Quality: Adequate ECG Rhythm: Sinus Conclusions: - The left ventricular systolic function is normal. The calculated ejection fraction is 67% by biplane method. - No obvious valvular pathology seen on this study. Findings Left Ventricle Normal left ventricular cavity size. There is normal left ventricular wall thickness. The left ventricular systolic function is normal. The calculated ejection fraction is 67% by biplane method. There is no evidence of regional wall motion abnormalities. Diastolic function is normal for age. Right Ventricle Normal right ventricular cavity size and systolic function. Atria Both atria are normal in size. Aortic Valve There is a normal trileaflet aortic valve. There is no aortic valve stenosis. There is no aortic valve regurgitation. Mitral Valve The mitral valve appears normal. There is no mitral valve regurgitation. There is no mitral valve stenosis. Pulmonic Valve The pulmonic valve is likely normal. Tricuspid Valve There is trace tricuspid valve regurgitation. There is no evidence of pulmonary hypertension. Great Vessels The asc aorta is normal in size. Venous The inferior vena cava is normal in size and collapses greater than 50% with inspiration. Pericardium/Pleural There is no evidence of pericardial effusion. Prior Study Comparison No prior study available for comparison. Recommendations, Care & Conclusions No obvious valvular pathology seen on this study. Measurements 2D Linear Measurements IVSd: 0.88 0.6-0.9/0.6-1.0 cm LVIDd: 4.25 3.9-5.3/4.2-5.9 cm LVIDd Index: 2.78 2.4-3.2/2.2-3.1 cm/m2 LVIDs: 2.44 2.0-3.6 cm LVPWd: 0.86 0.7-1.1 cm Ao Root: 2.90 2.1-3.5 cm LA Diam: 3.00 2.7-3.8/3.0-4.0 cm LAIDs Index: 1.96 1.5-2.3 cm/m2 LV Mass: 144.35 67-162/88-224 g LV Mass Index: 94.35 43-95/49-115 g/m2 LVOT Diam: 2.30 3.0+(-)1.3 cm 2D Systolic Function EF 4C: 66.00 >55% EF 2C: 65.80 >55% EF BiP: 66.60 >55% Mitral Valve MV VTI: 0.21 MV Pk Shashi: 0.95 MV Mn Shashi: 0.68 MV Pk Grad: 4.00 MV Mn Grad: 2.00 MV Pk E: 0.97 MV PK A: 0.80 MV Decel Time: 148.00 E/A: 1.20 E'Lateral: 19.90 E'Medial: 9.03 E/E' Med: 10.70 E/E' Lat: 4.90 PHT: 43.00 MVA PHT: 5.12 MVA Continuity: 4.46 Decel Cameron: 6.55 Aortic Valve AoV Pk Shashi: 1.59 AoV Mn Shashi: 0.98 AoV VTI: 0.30 AoV Pk Grad: 10.00 Aov Mn Grad: 5.00 MATEUS Cont.VTI: 3.16 LVOT LVOT Pk Shashi: 1.31 LVOT Mn Shashi: 0.81 LVOT VTI: 0.23 LVOT Pk Grad: 7.00 LVOT Mn Grad: 3.00 LVOT Diam: 2.30 LVOT Area: 4.15 Diastolic Function MV Pk E: 0.97 MV Pk A: 0.80 E/A: 1.20 E'Medial: 9.03 E/E' Med: 10.70 E' Laterial: 19.90 E/E' Lat: 4.90 Tricuspid Valve TR Pk Shashi: 1.62 TR Pk Grad: 10.00 RA Press: 3.00 RVSP: 13.00 Great Vessels Aorta Ao Root-2D: 2.90 2.0-3.7 cm Ao Asc: 2.90 2.1-3.4 cm Pulmonary Valve PV Pk Shashi: 1.16 Peak PV Grad: 5.00 Updated in Other Vendor System with Status of Final Zack Knowles MD electronically signed on 09/14/2024 3:25:25 PM with status of Final
[2024-09-14 07:13] LABS: Hematocrit 32.8 % (37.0-47.0); Hemoglobin 11.3 g/dl (12.0-16.0); Mean Corpuscular HGB Conc 34.5 g/dl (31.0-35.0); Mean Corpuscular Hemoglobin 30.2 pg (27.0-33.0); Mean Corpuscular Volume 87.7 fL (80.0-98.0); Mean Platelet Volume 9.4 fL (9.4-12.3); Platelet Count 157 X10*3/uL (160-400); Red Blood Count 3.74 X10*6/uL (4.20-5.50); Red Cell Distribution Width 13.8 % (11.0-16.0)
[2024-09-14 07:29] LABS: Alanine Aminotransferase 40 U/L (0-31); Albumin Level 2.8 g/dL (3.5-5.0); Alkaline Phosphatase 74 U/L (39-117); Anion Gap 10 (12-20); Aspartate Amino Transferase 40 U/L (5-31); Bilirubin Direct 0.1 mg/dL (0.0-0.5); Bilirubin Total 0.3 mg/dL (0.0-1.0); Blood Urea Nitrogen 20 mg/dL (9-16); Calcium 8.3 mg/dL (8.4-10.2); Carbon Dioxide 22 mmol/L (22-29); Chloride 116 mmol/L (96-108); Creatinine Clr Calc Pharmacy 87.4; Estimated Glomerular Filt Rate > 60; Glucose Random 90 mg/dL (60-115); Sodium 144 mmol/L (135-145); Total Protein 5.8 g/dL (6.5-8.0)
[2024-09-14 07:39] VITALS: BP 117/64; PULSE 91; RESP 18; TEMP 36.6; O2SAT 95
--- NOTE | 2024-09-14 08:15 | PC.RT ---
RT called to bedside due to pt agitated and taking off shovel mask. Upon arrival, pt was on RA, SATs 93%. RT waited and assessed pt for 5 min on RA, SATs >92%. Pt left on RA at this time.
--- NOTE | 2024-09-14 08:30 | PM.PNORT ---
Subjective Subjective Date of Service: 09/14/24 Interval history: Postop day 1 status post left thumb I and D Patient resting in chair this morning No acute events overnight Pain well managed No other acute complaints or concerns at this time Physical Exam Vital Signs: Vital Signs: Last Vital Signs Temp 97.8 F 09/14/24 07:39 Pulse 91 09/14/24 07:39 Resp 18 09/14/24 07:39 BP 117/64 09/14/24 07:39 Pulse Ox 95 09/14/24 07:39 O2 Del Method Shovel Mask 09/14/24 07:39 O2 Flow Rate 8 09/14/24 07:39 BMI result Body Mass Index 20.1 Extrem: Other: Patient is alert, oriented, and in no acute distress. Neuro: Normal sensation of the tips of all digits of the left hand at this time Vascular: Cap refill brisk Pain: Patient reports tenderness to palpation about the left thumb and hand Minimal discomfort with range of motion of the left hand ROM: Patient was able to get close to making a closed fist and extending all digits of the left hand fully Skin: Several open incisions noted about the patient's left thumb, as well as the dorsal and volar hand Mild bloody discharge noted with drains removed Edema and erythema improved significantly from prior to surgery Psych: Appears grossly normal Affect normal Attitude cooperative Procedures Date of Service Date of Service: 09/14/24 Progress Note: A&P Assessment and plan (1) Abscess: Status: Acute (2) Cellulitis of hand, left: Status: Acute Plan 1. Status post I and D of left thumb and hand DOS 09/13/2024 Continue pain management Continue IV antibiotics Daily dressing changes, as well as as needed for saturation OT for early range of motion of the left hand Continue with all other recommendations per Medicine Time Spent With Patient Time: Total time managing care of this patient today ____ minutes. Quality Stroke Does the patient have a stroke diagnosis?: No VTE Prior VTE?: No VTE Risk Level:: Medical - moderate - high VTE Device Contraindication: N/A - Device Ordered VTE Drug Contraindication: Treatment Not Indicated
[2024-09-14] MEDS: 0.9 % Sodium Chloride Flush 3 ML SYRINGE IVFLUSH (08:37)
--- NOTE | 2024-09-14 09:35 | HO.POSTANES ---
Post Anesthesia Evaluation Post Anesthesia Evaluation Date of Service: 09/14/24 Vital Signs: Vital Signs Temp Pulse Resp BP Pulse Ox O2 Del Method O2 Flow Rate 09/14/24 07:39 97.8 F 91 18 117/64 95 Shovel Mask 8 09/14/24 03:14 98.8 F 78 18 118/60 100 Shovel Mask 09/13/24 23:01 97.8 F 81 18 121/56 L 100 Shovel Mask Anesthesia: General Mental Status: Awake Pain Control: Satisfactory Nausea/Vomiting: None Hydration: Adequate Anesthesia-Related Issues: No Anes. Related Issues
--- NOTE | 2024-09-14 13:38 | HO.ADDICT_ITS ---
History of Present Illness Date of Service: 09/14/2024 Chief Complaint: Hand Infection, left Reason for Consult: OLESYA Sources of Information: patient interviewed and chart reviewed HPI Narrative: Patient is a 58 year old female medically admitted with abscess to the hand--I&D yesterday 09/13 At admission, patient reported cocaine use, therefore, consult was requested. Patient seen in room 485. She was laying bed, restless, awake, engaged in interview States she came to the hospital to get help for her cocaine use States she has been using approx $200 worth of cocaine IN or INH daily for so many years Denies any IVDU Denies any history of opiate use. Reports alcohol use--unclear how much or how often she drinks as she said some days I drink 2 nips, sometimes I drink none Reports treatment for OLESYA several years ago She states that she currently sees providers in [place], does not recall their name, but states they prescribe her hydroxyzine and trazodone She presents as very restless, frequently shifting in bed. She reports feeling anxious . Denies nausea, or loose stools. No tremor noted. No diaphoresis noted. Medical Evaluation Reviewed: Yes Review of Systems Constitutional: Reports as per HPI Diagnostics Vital Signs (24Hr): Vital Signs - 24 hr 09/13/24 13:39 09/13/24 13:44 09/13/24 13:49 Temperature 100.8 F H 100.2 F Pulse Rate 99 99 100 Respiratory Rate 24 H 28 H 28 H Blood Pressure 121/64 117/60 122/62 Pulse Oximetry 96 94 95 Oxygen Delivery Method Simple Mask Simple Mask Simple Mask Oxygen Flow Rate 15 5 5 09/13/24 14:05 09/13/24 14:20 09/13/24 14:32 Temperature 100.2 F 99.9 F Pulse Rate 99 97 94 Respiratory Rate 32 H 32 H 32 H Blood Pressure 119/65 119/63 111/65 Pulse Oximetry 86 L 92 90 L Oxygen Delivery Method Room Air Shovel Mask Shovel Mask Oxygen Flow Rate 5 5 09/13/24 14:45 09/13/24 15:00 09/13/24 15:15 Temperature Pulse Rate 96 91 92 Respiratory Rate 32 H 32 H 32 H Blood Pressure 117/62 117/62 116/61 Pulse Oximetry 92 93 94 Oxygen Delivery Method Shovel Mask Shovel Mask Shovel Mask Oxygen Flow Rate 8 8 8 09/13/24 15:45 09/13/24 16:43 09/13/24 19:07 Temperature 97.6 F 98.3 F 98.3 F Pulse Rate 95 93 82 Respiratory Rate 20 23 H 18 Blood Pressure 130/58 L 118/58 L 109/53 L Pulse Oximetry 95 93 100 Oxygen Delivery Method Shovel Mask Shovel Mask Shovel Mask Oxygen Flow Rate 8 8 09/13/24 23:01 09/14/24 03:14 09/14/24 07:39 Temperature 97.8 F 98.8 F 97.8 F Pulse Rate 81 78 91 Respiratory Rate 18 18 18 Blood Pressure 121/56 L 118/60 117/64 Pulse Oximetry 100 100 95 Oxygen Delivery Method Shovel Mask Shovel Mask Shovel Mask Oxygen Flow Rate 8 BMI result Body Mass Index 20.1 Labs 09/14/24 06:49 09/14/24 06:49 Labs: Laboratory Results - last 48 hr 09/12/24 09/12/24 09/12/24 16:46 16:47 20:08 WBC 5.9 RBC 4.03 L Hgb 12.2 Hct 34.2 L MCV 84.9 MCH 30.3 MCHC 35.7 H RDW 12.7 Plt Count 150 L D MPV 9.2 L Immature Gran % (Auto) Cancelled Neut % (Auto) Cancelled Lymph % (Auto) Cancelled [place] % (Auto) Cancelled Eos % (Auto) Cancelled Baso % (Auto) Cancelled Lymph # (Auto) Cancelled [place] # (Auto) Cancelled Eos # (Auto) Cancelled Baso # (Auto) Cancelled Abs Immat Gran (auto) Cancelled Absolute Neuts (auto) Cancelled Absolute Nucleated RBC 0.000 Nucleated RBC % (auto) 0.0 Neutrophils % (Manual) 57 Band Neutrophils % 24 H Lymphocytes % (Manual) 7 L Atypical Lymphs % (Man) 1 Monocytes % (Manual) 7 Eosinophils % (Manual) 1 Basophils % (Manual) 1 Metamyelocytes % Promyelocytes % 2 Abs Neuts (Manual) 4.8 Lymphocytes # (Manual) 0.4 L Atyp Lymphs # (Manual) 0.1 Monocytes # (Manual) 0.4 Eosinophils # (Manual) 0.1 Basophils # (Manual) 0.1 Metamyelocytes # Promyelocytes # 0.1 Toxic Vacuolation PRESENT Dohle Bodies Platelet Estimate NORMAL Large Platelets PRESENT Plt Morphology Comment NORMAL RBC Morphology NORMAL Hypochromasia 1+ (5-14) Tear Drop Cells 1+ (0-2) [place] Cells ESR 31 H Sodium 140 Potassium 3.4 Chloride 110 H Carbon Dioxide 20 L Anion Gap 13 BUN 21 H Creatinine 0.74 Estim Creat Clear Calc 68.4 Estimated GFR > 60 Random Glucose 119 H Lactic Acid 0.6 Calcium 9.0 Total Bilirubin 0.4 Direct Bilirubin 0.2 AST 54 H ALT 37 H Alkaline Phosphatase 60 C-Reactive Protein 24.89 H Total Protein 6.6 Albumin 3.6 Random Vancomycin Urine Opiates Screen Ur Buprenorphine Scrn Ur Oxycodone Screen Urine Methadone Screen Urine Fentanyl Screen Ur Barbiturates Screen Ur Phencyclidine Scrn Ur Amphetamines Screen U Benzodiazepines Scrn Urine Cocaine Screen U Marijuana (THC) Screen Ethyl Alcohol < 10 09/12/24 09/13/24 09/13/24 20:58 04:31 16:50 WBC 6.5 RBC 4.08 L Hgb 12.3 Hct 35.3 L MCV 86.5 MCH 30.1 MCHC 34.8 RDW 13.0 Plt Count 136 L MPV 9.9 Immature Gran % (Auto) Cancelled Neut % (Auto) Cancelled Lymph % (Auto) Cancelled [place] % (Auto) Cancelled Eos % (Auto) Cancelled Baso % (Auto) Cancelled Lymph # (Auto) Cancelled [place] # (Auto) Cancelled Eos # (Auto) Cancelled Baso # (Auto) Cancelled Abs Immat Gran (auto) Cancelled Absolute Neuts (auto) Cancelled Absolute Nucleated RBC 0.000 Nucleated RBC % (auto) 0.0 Neutrophils % (Manual) 47 Band Neutrophils % 36 H Lymphocytes % (Manual) 14 L Atypical Lymphs % (Man) Monocytes % (Manual) 2 Eosinophils % (Manual) Basophils % (Manual) Metamyelocytes % 1 Promyelocytes % Abs Neuts (Manual) 5.4 Lymphocytes # (Manual) 0.9 L Atyp Lymphs # (Manual) Monocytes # (Manual) 0.1 Eosinophils # (Manual) Basophils # (Manual) Metamyelocytes # 0.1 Promyelocytes # Toxic Vacuolation PRESENT Dohle Bodies PRESENT Platelet Estimate SLIGHTLY DECREASED Large Platelets Plt Morphology Comment NORMAL RBC Morphology NOTED Hypochromasia Tear Drop Cells [place] Cells 1+ (0-2) ESR Sodium 143 Potassium 4.2 D Chloride 113 H Carbon Dioxide 22 Anion Gap 12 BUN 14 Creatinine 0.59 Estim Creat Clear Calc 85.9 Estimated GFR > 60 Random Glucose 66 Lactic Acid Calcium 8.6 Total Bilirubin Direct Bilirubin AST ALT Alkaline Phosphatase C-Reactive Protein Total Protein Albumin Random Vancomycin 5.6 L Urine Opiates Screen POSITIVE H Ur Buprenorphine Scrn Not Detected Ur Oxycodone Screen Not Detected Urine Methadone Screen Not Detected Urine Fentanyl Screen Not Detected Ur Barbiturates Screen Not Detected Ur Phencyclidine Scrn Not Detected Ur Amphetamines Screen Not Detected U Benzodiazepines Scrn Not Detected Urine Cocaine Screen POSITIVE H U Marijuana (THC) Screen Not Detected Ethyl Alcohol 09/14/24 06:49 WBC 10.0 RBC 3.74 L Hgb 11.3 L Hct 32.8 L MCV 87.7 MCH 30.2 MCHC 34.5 RDW 13.8 Plt Count 157 L MPV 9.4 Immature Gran % (Auto) Neut % (Auto) Lymph % (Auto) [place] % (Auto) Eos % (Auto) Baso % (Auto) Lymph # (Auto) [place] # (Auto) Eos # (Auto) Baso # (Auto) Abs Immat Gran (auto) Absolute Neuts (auto) Absolute Nucleated RBC 0.000 Nucleated RBC % (auto) 0.0 Neutrophils % (Manual) Band Neutrophils % Lymphocytes % (Manual) Atypical Lymphs % (Man) Monocytes % (Manual) Eosinophils % (Manual) Basophils % (Manual) Metamyelocytes % Promyelocytes % Abs Neuts (Manual) Lymphocytes # (Manual) Atyp Lymphs # (Manual) Monocytes # (Manual) Eosinophils # (Manual) Basophils # (Manual) Metamyelocytes # Promyelocytes # Toxic Vacuolation Dohle Bodies Platelet Estimate Large Platelets Plt Morphology Comment RBC Morphology Hypochromasia Tear Drop Cells [place]yn Cells ESR Sodium 144 Potassium 4.0 Chloride 116 H Carbon Dioxide 22 Anion Gap 10 L BUN 20 H Creatinine 0.58 Estim Creat Clear Calc 87.4 Estimated GFR > 60 Random Glucose 90 Lactic Acid Calcium 8.3 L Total Bilirubin 0.3 Direct Bilirubin 0.1 AST 40 H ALT 40 H Alkaline Phosphatase 74 C-Reactive Protein Total Protein 5.8 L Albumin 2.8 L Random Vancomycin Urine Opiates Screen Ur Buprenorphine Scrn Ur Oxycodone Screen Urine Methadone Screen Urine Fentanyl Screen Ur Barbiturates Screen Ur Phencyclidine Scrn Ur Amphetamines Screen U Benzodiazepines Scrn Urine Cocaine Screen U Marijuana (THC) Screen Ethyl Alcohol Imaging Radiology Impressions: ITS Impressions Chest X-Ray 09/13/24 15:05 IMPRESSION: Mild interstitial lung edema in the correct clinical settings. Electronically signed by: Trevin Hopper MD 09/13/2024 03:27 PM EDT RP Mental Status Exam Mental Status Exam Patient Appearance: Appropriate Level of Consciousness: Awake and Appropriate Patient Behavior: Restless Affect Description: Appropriate and Anxious Speech Pattern: Clear Hallucinations: None Thought Content: positive for Circumstantial Judgement: Good Medications Medications Current Medications Acetaminophen (Acetaminophen 325 Mg Tablet) 650 mg PO Q6H PRN PRN Reason: Pain, Mild 1-3,fever,headache Calcium Carbonate (Calcium Carbonate 750 Mg Tab.Chew) 750 mg PO Q4H PRN PRN Reason: Heartburn Ceftriaxone Sodium (Ceftriaxone Sodium 2 Gm Vial) 2 gm IVPUSH Q24H [facility] Last Admin: 09/14/24 02:45 Dose: 2 gm Hydroxyzine HCl (Hydroxyzine Hcl 25 Mg Tablet) 25 mg PO QID PRN PRN Reason: anxiety Vancomycin HCl 750 mg/ Sodium (Chloride) 265 mls @ 265 mls/hr IV Q8H [facility] Last Infusion: 09/14/24 10:28 Dose: Infused Magnesium Hydroxide (Milk Of Magnesia 30 Ml Oral.Susp) 30 ml PO DAILY PRN PRN Reason: Constipation Melatonin (Melatonin 3 Mg Tablet) 6 mg PO BEDTIME PRN PRN Reason: Insomnia Morphine Sulfate (Morphine Sulfate 4 Mg/Ml Cartridge) 4 mg IVPUSH Q4H PRN; Protocol PRN Reason: Pain, Severe (Pain Scale 7-10) Ondansetron HCl (Ondansetron Hcl 4 Mg/2 Ml Vial) 4 mg IVPUSH Q8H PRN PRN Reason: Nausea and Vomiting Last Admin: 09/12/24 21:58 Dose: 4 mg Pharmacy Consult (Consult Rx Vancomycin Dosing) 1 each MISCELLANE DAILY PRN PRN Reason: Consult order Sodium Chloride (0.9 % Sodium Chloride Flush 3 Ml Syringe) 3 ml IVFLUSH QSHIFT [facility] Last Admin: 09/14/24 08:37 Dose: 3 ml Trazodone HCl (Trazodone Hcl 100 Mg Tablet) 300 mg PO BEDTIME [facility] Last Admin: 09/12/24 23:05 Dose: 300 mg Allergies Allergies Allergy/AdvReac Type Severity Reaction Status Date / Time sulfamethoxazole Allergy Hives Verified 09/12/24 15:56 [From Bactrim] trimethoprim [From Bactrim] Allergy Hives Verified 09/12/24 15:56 Assessment & Plan Assessment & Plan (1) Cocaine use disorder: Status: Acute Code(s): F14.10 - Cocaine abuse, uncomplicated Assessment and Plan: * with acute withdrawal * allow patient to sleep and ensure adequate hydration * PRN hydroxyzine for anxiety or clonidine if ineffective --offer PRNs if patient is noted to be restless * Once patient less restless, will discuss starting Topirimate for StUD. Total time managing care of this patient today __40__ minutes. PMFSH Past Medical History Medical History Mood disorder Polysubstance use disorder Social History Social History Household Members: Unknown / Unable to assess Housing: Unknown / Unable to assess Alcohol intake: former Patient Tobacco Use Status: Never used Tobacco Substance Use Type: Crack/Cocaine
--- NOTE | 2024-09-14 15:39 | MHC.CM.PN ---
Pt lives alone, no home health services or DME. She said she wants help to get into a drug rehab program from here. PCP: Torie Guillen, HCP to be completed here and added to chart, naming her sister, Rohini. DCP; Drug treatment program. CM to follow for DC needs.
[2024-09-14] MEDS: Morphine Sulfate 4 MG/ML CARTRIDGE IVPUSH ×2 (15:47→20:51)
[2024-09-14] MEDS: hydrOXYzine HCL 25 MG TABLET PO (15:47)
[2024-09-14 16:00] VITALS: BP 126/81; PULSE 98; RESP 20; TEMP 37.7; O2SAT 96
--- NOTE | 2024-09-14 16:29 | HO.PM.IMPN ---
Subjective Subjective Date of Service: 09/14/24 Interval History: Seen and examined this morning Follow-up for a left hand infection, bacteremia Patient awake, alert, off oxygen pain under adequate control Review of Systems Review of Systems: Yes all other systems are reviewed and are negative Constitutional Constitutional: Denies chills and Denies fever(s) Physical Exam Vital Signs: Vital Signs: Last Vital Signs Temp 100 F 09/14/24 16:00 Pulse 98 09/14/24 16:00 Resp 20 09/14/24 16:00 BP 126/81 09/14/24 16:00 Pulse Ox 96 09/14/24 16:00 O2 Del Method Room Air 09/14/24 16:00 O2 Flow Rate 8 09/14/24 07:39 BMI result Body Mass Index 20.1 Const: General: cooperative, comfortable, no acute distress, alert and awake Nutritional Appearance: thin Orientation/consciousness: patient oriented x3 Resp: Effort & Inspection: normal respiratory effort, able to speak in complete sentences, no respiratory distress and no use of accessory muscles Auscultation: clear to auscultation bilaterally Cardio: Rate: regular rate GI: Inspection: No distended Palpation (GI): Soft to palpation Skin: Other: left hand wrapped in c/d/i dressing/king bandage; right hand swelling index finger no significant erythema Neuro: Other: limited assessment due to sedation General: patient oriented x3 Objective Data Active Medications Acetaminophen (Acetaminophen 325 Mg Tablet) 650 mg PO Q6H PRN PRN Reason: Pain, Mild 1-3,fever,headache Calcium Carbonate (Calcium Carbonate 750 Mg Tab.Chew) 750 mg PO Q4H PRN PRN Reason: Heartburn Ceftriaxone Sodium (Ceftriaxone Sodium 2 Gm Vial) 2 gm IVPUSH Q24H [facility] Last Admin: 09/14/24 02:45 Dose: 2 gm Documented By: JUAN LUIS Hydroxyzine HCl (Hydroxyzine Hcl 25 Mg Tablet) 25 mg PO QID PRN PRN Reason: anxiety Last Admin: 09/14/24 15:47 Dose: 25 mg Documented By: JOSUE Magnesium Hydroxide (Milk Of Magnesia 30 Ml Oral.Susp) 30 ml PO DAILY PRN PRN Reason: Constipation Melatonin (Melatonin 3 Mg Tablet) 6 mg PO BEDTIME PRN PRN Reason: Insomnia Morphine Sulfate (Morphine Sulfate 4 Mg/Ml Cartridge) 4 mg IVPUSH Q4H PRN; Protocol PRN Reason: Pain, Severe (Pain Scale 7-10) Last Admin: 09/14/24 15:47 Dose: 4 mg Documented By: JOSUE Ondansetron HCl (Ondansetron Hcl 4 Mg/2 Ml Vial) 4 mg IVPUSH Q8H PRN PRN Reason: Nausea and Vomiting Last Admin: 09/12/24 21:58 Dose: 4 mg Documented By: KENNETH Sodium Chloride (0.9 % Sodium Chloride Flush 3 Ml Syringe) 3 ml IVFLUSH QSHIFT [facility] Last Admin: 09/14/24 08:37 Dose: 3 ml Documented By: JOSUE Trazodone HCl (Trazodone Hcl 100 Mg Tablet) 300 mg PO BEDTIME [facility] Last Admin: 09/12/24 23:05 Dose: 300 mg Documented By: KENNETH Labs 09/14/24 06:49 09/14/24 06:49 Labs: Laboratory Results - last 24 hr 09/13/24 09/14/24 16:50 06:49 MCV 87.7 MCH 30.2 MCHC 34.5 RDW 13.8 Plt Count 157 L MPV 9.4 Absolute Nucleated RBC 0.000 Nucleated RBC % (auto) 0.0 Anion Gap 10 L Estim Creat Clear Calc 87.4 Estimated GFR > 60 Random Glucose 90 Calcium 8.3 L Total Bilirubin 0.3 Direct Bilirubin 0.1 AST 40 H ALT 40 H Alkaline Phosphatase 74 Total Protein 5.8 L Albumin 2.8 L Random Vancomycin 5.6 L Microbiology Microbiology Results: Microbiology 09/13/24 12:45 Gram Stain - Final Thumb Routine Culture - Final Streptococcus pyogenes (Grp A) 09/12/24 16:46 Blood Culture - Final Blood - Venous Streptococcus pyogenes (Grp A) 09/13/24 12:40 Gram Stain - Final Hand Left Routine Culture - Preliminary No growth to date. 09/12/24 16:46 Blood Culture - Final Blood - Venous Streptococcus pyogenes (Grp A) Assessment and Plan (1) Bacteremia: Status: Acute Plan This is a 58-year-old female with pertinent history of polysubstance use disorder, mood disorder who presents to the emergency department for concerns of left hand infection. sepsis due to purulent cellulitis of left thumb with underlying abscesses/tenosynovitis and bacteremia initially met sepsis criteria with fever, tachycardia. lactic acid 0.6. fever/tachycardia resolved. seen by Orthopedic surgery, status post I& D in OR 4/4 wound cultures growing strep pyogenes Stop vancomycin, continue ceftriaxone pain control ortho rec OT Strep pyogenes bacteremia Continue IV ceftriaxone to 2gm stop vancomycin repeat blood cultures pending Echocardiogram without evidence of valvular involvement Seen by ID-recommend 2 weeks of cephalosporin, can transitione to p.o. upon discharge thrombocytopenia ?due to acute infection/sepsis Platelet level stable mild transaminitis ?due to sepsis LFTs trending down toxic metabolic encephalopathy Resolved. Patient awake alert and oriented x3 Polysubstance use disorder: Addiction Team consulted Mood disorder: continue hydroxyzine DVT prophylaxis: mechanical devices, early ambulation Full code requires ongoing inpatient stay for IV antibiotics (as above), which is not possible in a lesser acute setting Quality Stroke Does the patient have a stroke diagnosis?: No VTE Prior VTE?: No VTE Risk Level:: Medical - moderate - high VTE Device Contraindication: N/A - Device Ordered VTE Drug Contraindication: Treatment Not Indicated
[2024-09-14 16:30] LABS: Vancomycin Trough 13.7 mcg/mL (10.0-20.0)
[2024-09-14 19:19] VITALS: BP 114/67; PULSE 96; RESP 18; TEMP 37.9; O2SAT 93
[2024-09-14 20:10] VITALS: TEMP 36.8
[2024-09-14] MEDS: traZODone HCL 100 MG TABLET 300 MG PO (20:50)
--- NOTE | 2024-09-14 23:08 | W.PM.IDCN ---
History of Present Illness Data of Consult Requesting physician: Nancy Correa Primary Care Provider: Torie Guillen MD HPI Reason for consult: right hand infection She has worse anxiety and has been injfectino into left and, PMFSH Past Medical History Medical History Mood disorder Polysubstance use disorder Family History Family history: reviewed and not pertinent Social History Social History Household Members: Unknown / Unable to assess Housing: Unknown / Unable to assess Alcohol intake: former Patient Tobacco Use Status: Never used Tobacco Substance Use Type: Crack/Cocaine service: No Meds Allergies Allergy/AdvReac Type Severity Reaction Status Date / Time sulfamethoxazole Allergy Hives Verified 09/12/24 15:56 [From Bactrim] trimethoprim [From Bactrim] Allergy Hives Verified 09/12/24 15:56 Active Medications: Current Medications Acetaminophen (Acetaminophen 325 Mg Tablet) 650 mg PO Q6H PRN PRN Reason: Pain, Mild 1-3,fever,headache Calcium Carbonate (Calcium Carbonate 750 Mg Tab.Chew) 750 mg PO Q4H PRN PRN Reason: Heartburn Ceftriaxone Sodium (Ceftriaxone Sodium 2 Gm Vial) 2 gm IVPUSH Q24H [facility] Last Admin: 09/14/24 02:45 Dose: 2 gm Hydroxyzine HCl (Hydroxyzine Hcl 25 Mg Tablet) 25 mg PO QID PRN PRN Reason: anxiety Last Admin: 09/14/24 15:47 Dose: 25 mg Magnesium Hydroxide (Milk Of Magnesia 30 Ml Oral.Susp) 30 ml PO DAILY PRN PRN Reason: Constipation Melatonin (Melatonin 3 Mg Tablet) 6 mg PO BEDTIME PRN PRN Reason: Insomnia Morphine Sulfate (Morphine Sulfate 4 Mg/Ml Cartridge) 4 mg IVPUSH Q4H PRN; Protocol PRN Reason: Pain, Severe (Pain Scale 7-10) Last Admin: 09/14/24 20:51 Dose: 4 mg Ondansetron HCl (Ondansetron Hcl 4 Mg/2 Ml Vial) 4 mg IVPUSH Q8H PRN PRN Reason: Nausea and Vomiting Last Admin: 09/12/24 21:58 Dose: 4 mg Sodium Chloride (0.9 % Sodium Chloride Flush 3 Ml Syringe) 3 ml IVFLUSH QSHIFT [facility] Last Admin: 09/14/24 18:27 Dose: Not Given Trazodone HCl (Trazodone Hcl 100 Mg Tablet) 300 mg PO BEDTIME [facility] Last Admin: 09/14/24 20:50 Dose: 300 mg Home Medications ?Medication ?Instructions ?Recorded ?Confirmed ?Last Taken ?Type acetaminophen 500 mg tablet 1,000 mg PO Q8H PRN Pain (Scale 09/12/24 09/12/24 Unknown History Score 1-3) albuterol sulfate 90 mcg/actuation 2 puff inhalation Q4H PRN 09/12/24 09/12/24 Unknown History aerosol inhaler (Ventolin HFA) anaphylaxis celecoxib 200 mg capsule 200 mg PO DAILY PRN moderate pain 09/12/24 09/12/24 Unknown History hydroxyzine HCl 25 mg tablet 25 mg PO QID PRN anxiety 09/12/24 09/12/24 Unknown History trazodone 150 mg tablet 300 mg PO BEDTIME 09/12/24 09/12/24 Unknown History Physical Exam Vital Signs: Vital Signs: Last Vital Signs Temp 98.3 F 09/14/24 20:10 Pulse 96 09/14/24 19:19 Resp 18 09/14/24 19:19 BP 114/67 09/14/24 19:19 Pulse Ox 93 09/14/24 19:19 O2 Del Method Room Air 09/14/24 19:19 O2 Flow Rate 8 09/14/24 07:39 BMI result Body Mass Index 20.1 Const: General: cooperative HEENT: Head: Yes normal to inspection Face and sinus: Yes normal facial exam Mouth: Normal oral and palatal mucosa present Teeth and gingiva: dentition normal Eyes: General: appearance normal, both eyes and all related structures Pupils: Equal, round and reactive pupils present Resp: Effort & Inspection: normal respiratory effort Cardio: Rate: regular rate Rhythm: regular rhythm GI: Palpation (GI): Soft to palpation and nontender : General: Yes no CVA tenderness Back/Spine/Pelvis: Back: no CVA tenderness Skin: General skin exam: no rashes or lesions noted Neuro: General: moves all extremities Cranial nerves: Yes Equal, round and reactive pupils present Extrem: General: Yes normal to inspection Psych: Appearance: grossly normal Results Labs 09/14/24 06:49 09/14/24 06:49 Labs: Short CBC 09/14/24 Range/Units 06:49 WBC 10.0 (4.8-10.8) X10*3/uL Hgb 11.3 L (12.0-16.0) g/dl Hct 32.8 L (37.0-47.0) % Plt Count 157 L (160-400) X10*3/uL BMP 09/14/24 06:49 Sodium 144 Potassium 4.0 Chloride 116 H Carbon Dioxide 22 BUN 20 H Creatinine 0.58 Calcium 8.3 L Liver Function 09/14/24 Range/Units 06:49 Total Bilirubin 0.3 (0.0-1.0) mg/dL Direct Bilirubin 0.1 (0.0-0.5) mg/dL AST 40 H (5-31) U/L ALT 40 H (0-31) U/L Alkaline Phosphatase 74 (39-117) U/L Albumin 2.8 L (3.5-5.0) g/dL Microbiology Microbiology Results: Microbiology 09/13/24 16:50 Blood - Venous Blood Culture - Preliminary No growth after 24 hours. 09/13/24 16:50 Blood - Venous Blood Culture - Preliminary No growth after 24 hours. 09/13/24 12:45 Thumb Gram Stain - Final 09/13/24 12:45 Thumb Routine Culture - Final Streptococcus pyogenes (Grp A) 09/12/24 16:46 Blood - Venous Blood Culture - Final Streptococcus pyogenes (Grp A) 09/13/24 12:40 Hand Left Gram Stain - Final 09/13/24 12:40 Hand Left Routine Culture - Preliminary No growth to date. 09/12/24 16:46 Blood - Venous Blood Culture - Final Streptococcus pyogenes (Grp A) Assessment and Plan Plan continue current care Cefallosporin 10/d7]See pen need
[2024-09-15] VITALS: BP 127/73; PULSE 96; RESP 18; TEMP 36.5; O2SAT 94
[2024-09-15] MEDS: cefTRIAXone sodium 2 GM VIAL IVPUSH (02:40)
[2024-09-15] MEDS: 0.9 % Sodium Chloride Flush 3 ML SYRINGE IVFLUSH ×3 (02:41→20:14)
[2024-09-15 04:00] VITALS: BP 130/78; PULSE 85; RESP 18; TEMP 36.6; O2SAT 93
[2024-09-15 07:40] VITALS: BP 137/87; PULSE 82; RESP 19; TEMP 36.6; O2SAT 96
[2024-09-15 08:29] LABS: HBS Num1 1.01 mIU/mL (0-7.99); HBc Num1 0.18 S/CO (0.00-0.79); HBsAGNum1 0.25 S/CO (0.00-0.99); Hepatitis B Core Antibody Nonreactive (Nonreactive); Hepatitis B Surface Antigen Negative (Negative); ~Hepatitis B Surface Antibody NONREACTIVE (Nonreactive)
[2024-09-15 08:31] LABS: HIV AB/AG Nonreactive (Nonreactive); HIV Num 1 0.07 S/CO (0.00-0.99); ~HepC Num1 0.09 S/CO (0.00-0.79); ~Hepatitis C Antibody Nonreactive (Nonreactive)
[2024-09-15 12:12] VITALS: RESP 18
[2024-09-15] MEDS: Morphine Sulfate 4 MG/ML CARTRIDGE IVPUSH (12:12)
--- NOTE | 2024-09-15 12:18 | PM.DS ---
DS: Providers Provider Date of Service: 09/21/24 Date of admission: 09/12/24 19:34 Date of discharge: 09/21/24 Primary care physician: Torie Guillen MD Consults: 09/12/24 19:35 Addiction Medicine Provider Routine Consulting Provider: Addiction Covering Reason for consultation: polysusbtance use disorder 09/12/24 19:43 Consult to Orthopedics Routine Consulting Provider: [facility] Reason for consultation: Left thumb abscess 09/13/24 08:59 Consult to Wound Care Routine Reason for consultation: left hand 09/13/24 15:03 Consult to Infectious Diseases Routine Consulting Provider: [facility] Reason for consultation: ivdu, bacteremia, hand infection Has provider been notified: No Attending physician on discharge: Vega Fox Discharging clinician: Nancy Correa DS: Diagnosis Discharge Diagnosis (1) Bacteremia: Status: Acute DS: Summary Hospital Course Hospital Course: From H&P on the day of admission This is a 58-year-old female with pertinent history of polysubstance use disorder, mood disorder who presents to the emergency department for concerns of left thumb infection. Patient states he 1st noticed infection 1 day prior to presentation. Her left arm is swollen, red and painful. She is unable to make a fist. Does admitting inhaling cocaine but denies IV drug use into her left thumb. States she does have a history of recurrent skin abscesses. On the day of presentation, the swelling increased and it started draining pus. No fever, chills, chest pain, palpitations, shortness of breath, abdominal pain, changes in urinary or bowel habits. In the emergency department, imaging with abscesses adjacent to the 1st metacarpophalangeal joint. Orthopedic surgery was consulted who requested admission to medicine team sepsis due to purulent cellulitis of left thumb with underlying abscesses/tenosynovitis and strep pyogenes bacteremia initially met sepsis criteria with fever, tachycardia. lactic acid 0.6. fever/tachycardia resolved. seen by Orthopedic surgery, status post I& D in OR 09/14 and 09/18 wound cultures growing strep pyogenes continue ceftriaxone 2 gm q24 hours, discharge with po ceftin surgical plan> daily dressing changes, OT, plan for outpatient wound care; has open wound left thumb- need close wound care monitoring; plan for wound care nurse to assess in am Recommend outpatient follow-up in Wound Care Clinic as well as outpatient orthopedic surgery follow-up Strep pyogenes bacteremia Continue IV ceftriaxone repeat blood cultures negative to date Echocardiogram without evidence of valvular involvement Seen by ID-recommend 2 weeks of cephalosporin, can transition to p.o. upon discharge thrombocytopenia ?due to acute infection/sepsis Platelet level rebounded, now normal mild transaminitis ?due to sepsis LFTs trending down toxic metabolic encephalopathy Resolved. Polysubstance use disorder Addiction Team consulted, resources provided Time Attestation Discharge Coordination Time (in mins): 35 Quality: Safe Use of Opioids Does Pt have an Active Cancer Diagnosis on the Problem List?: No Quality: Stroke Does the patient have a stroke diagnosis?: No Physical Exam Vital Signs: Vital Signs: Last Vital Signs Temp 97.8 F 09/15/24 07:40 Pulse 82 09/15/24 07:40 Resp 18 09/15/24 12:12 BP 137/87 09/15/24 07:40 Pulse Ox 96 09/15/24 07:40 O2 Del Method Room Air 09/15/24 07:40 O2 Flow Rate 2 09/15/24 07:40 BMI result Body Mass Index 20.1 Const: Other: lethargic General: cooperative, comfortable, no acute distress, alert and awake Nutritional Appearance: thin Orientation/consciousness: patient oriented x3 Resp: Effort & Inspection: normal respiratory effort, able to speak in complete sentences, no respiratory distress and no use of accessory muscles Auscultation: clear to auscultation bilaterally Cardio: Rate: regular rate GI: Inspection: No distended Palpation (GI): Soft to palpation Skin: Other: left hand wrapped in c/d/i dressing/king bandage; right hand swelling index finger improving no significant erythema Neuro: General: patient oriented x3 Extrem: General: Yes no pedal edema DS: Data Data Completed and Pending Labs on day of discharge: Laboratory Results - last 24 hr 09/14/24 09/15/24 16:02 07:19 Hold Purple Top SEE NOTE Vancomycin Trough 13.7 Hep Bs Antigen Negative Hep Bs Antibody NONREACTIVE Hep B Core Total Ab Nonreactive Hepatitis C Ab (EIA) Nonreactive HIV 1&2 Ab/P24 Ag 4thGn Nonreactive Preliminary micro results at discharge 09/13/24 16:50 Blood Culture - Preliminary Blood - Venous No growth after 24 hours. 09/13/24 16:50 Blood Culture - Preliminary Blood - Venous No growth after 24 hours. Discharge Plan Discharge Anticipated Discharge Date/Time: 09/21/24 13:45 Patient Disposition: Home, Self-Care Discharge Diagnosis: strep pyogenes bacteremia/hand infection Referrals: Jameson Jeffers PA [Physician Printing Sign Machine Operator] - 1 Week (09/21/24 13:00 [facility] Jameson Jeffers PA) Torie Guillen MD [Primary Care Provider] - 1 Week Nena Boyd MD [Physician] - 1 Week Discharge Medications: New cefuroxime axetil 500 mg tablet 500 mg PO Q12H 12 Days Qty: 10 0RF oxycodone 5 mg Tablet 5 mg PO Q6H PRN (Reason: pain (scale score 7-10)) Qty: 20 0RF Rx Instructions: Partial Fill upon patient request. Continued celecoxib 200 mg capsule 200 mg PO DAILY PRN (Reason: moderate pain) acetaminophen 500 mg tablet 1,000 mg PO Q8H PRN (Reason: Pain (Scale Score 1-3)) trazodone 150 mg tablet 300 mg PO BEDTIME hydroxyzine HCl 25 mg tablet 25 mg PO QID PRN (Reason: anxiety) albuterol sulfate [Ventolin HFA] 90 mcg/actuation HFA aerosol inhaler 2 puff INHALATION Q4H PRN (Reason: anaphylaxis) Activity on Discharge: see below Stand Alone Forms: Patient Portal Discharge page Print Language: Unable To Collect Activity Restrictions/Additional Instructions: 2 lb weight limit in left hand Keep surgical site clean and dry until follow-up Care Plan Goals: See below Health Concerns: substance use disorder Strep pyogenes bacteremia Left hand infection/tenosynovitis with open wound Plan of Treatment: Needs close orthopedic surgery follow-up and close monitoring in wound care clinic Complete course of antibiotics as prescribed Assessment: See discharge summary
--- NOTE | 2024-09-15 13:07 | MHC.RECOVRN ---
Written resources provided. Unable to assist pt. while here with referrals as she was being D/C shortly after our meeting. She has a friend to assist (present during visit) and has the knowledge and ability for self referral.
--- NOTE | 2024-09-15 15:39 | MHC.CM.PN ---
Addendum entered by Alanna Martin 09/15/24 16:13: This CM received a call from pts sister/HCP Rohini Byrne [phone], this CM asked the pts if she gives permission to speak with her, Lovely agreed and stated we could discuss things with her sister. Pts sister Rohini was concerned with pts discharge plan and was provided an update, she confirmed that her sister is homeless and is looking for a place to stay. Original Note: This CM met with pt to discuss discharge plans/locations, as she stated to the hospitalist that she had no where to go. Per pt, she is homeless and had been staying with a girlfriends but it was a very toxic environment and won't return there. This CM offered to assist her with finding a homeless snf, but the patient declined saying she is too afraid of going to a snf. Pt states she is working on finding another place to stay. Hospitalist updated.
[2024-09-15 15:50] VITALS: BP 133/68; PULSE 86; RESP 17; TEMP 37.6; O2SAT 93
--- NOTE | 2024-09-15 15:56 | P.PNIM_ITS ---
Subjective Subjective Date of Service: 09/15/24 Interval History: Seen and examined this morning Follow-up for left hand infection, bacteremia No fever, overall feeling better Review of Systems Review of Systems: Yes all other systems are reviewed and are negative Constitutional Constitutional: Denies chills and Denies fever(s) Physical Exam 2 Vital Signs: Vital Signs: Last Vital Signs Temp 99.7 F 09/15/24 15:50 Pulse 86 09/15/24 15:50 Resp 17 09/15/24 15:50 BP 133/68 09/15/24 15:50 Pulse Ox 93 09/15/24 15:50 O2 Del Method Room Air 09/15/24 15:50 O2 Flow Rate 2 09/15/24 07:40 BMI result Body Mass Index 20.1 Const: General: cooperative, comfortable, no acute distress, alert and awake Nutritional Appearance: thin Orientation/consciousness: patient oriented x3 Resp: Effort & Inspection: normal respiratory effort, able to speak in complete sentences, no respiratory distress and no use of accessory muscles A uscultation: clear to auscultation bilaterally Cardio: Rate: regular rate GI: Inspection: No distended Palpation (GI): Soft to palpation Skin: Other: left hand wrapped in c/d/i dressing/king bandage right hand Neuro: Other: limited assessment due to sedation General: patient oriented x3 Extrem: General: Yes no pedal edema Objective Data Active Medications Acetaminophen (Acetaminophen 325 Mg Tablet) 650 mg PO Q6H PRN PRN Reason: Pain, Mild 1-3,fever,headache Calcium Carbonate (Calcium Carbonate 750 Mg Tab.Chew) 750 mg PO Q4H PRN PRN Reason: Heartburn Ceftriaxone Sodium (Ceftriaxone Sodium 2 Gm Vial) 2 gm IVPUSH Q24H [facility] Last Admin: 09/15/24 02:40 Dose: 2 gm Documented By: ATIF Hydroxyzine HCl (Hydroxyzine Hcl 25 Mg Tablet) 25 mg PO QID PRN PRN Reason: anxiety Last Admin: 09/14/24 15:47 Dose: 25 mg Documented By: JOSUE Magnesium Hydroxide (Milk Of Magnesia 30 Ml Oral.Susp) 30 ml PO DAILY PRN PRN Reason: Constipation Melatonin (Melatonin 3 Mg Tablet) 6 mg PO BEDTIME PRN PRN Reason: Insomnia Morphine Sulfate (Morphine Sulfate 4 Mg/Ml Cartridge) 2 mg IVPUSH Q4H PRN; Protocol PRN Reason: Pain, Severe (Pain Scale 7-10) Ondansetron HCl (Ondansetron Hcl 4 Mg/2 Ml Vial) 4 mg IVPUSH Q8H PRN PRN Reason: Nausea and Vomiting Last Admin: 09/12/24 21:58 Dose: 4 mg Documented By: KENNETH Oxycodone HCl (Oxycodone Hcl Immed Release 5 Mg Tablet) 5 mg PO Q6H PRN PRN Reason: Pain, Moderate(Pain Scale 4-6) Sodium Chloride (0.9 % Sodium Chloride Flush 3 Ml Syringe) 3 ml IVFLUSH QSHIFT [facility] Last Admin: 09/15/24 07:56 Dose: 3 ml Documented By: PODMORP Trazodone HCl (Trazodone Hcl 100 Mg Tablet) 300 mg PO BEDTIME [facility] Last Admin: 09/14/24 20:50 Dose: 300 mg Documented By: ATIF Labs 09/14/24 06:49 09/14/24 06:49 Labs: Laboratory Results - last 24 hr 09/14/24 09/15/24 16:02 07:19 Hold Purple Top SEE NOTE Vancomycin Trough 13.7 Hep Bs Antigen Negative Hep Bs Antibody NONREACTIVE Hep B Core Total Ab Nonreactive Hepatitis C Ab (EIA) Nonreactive HIV 1&2 Ab/P24 Ag 4thGn Nonreactive Microbiology Microbiology Results: Microbiology 09/13/24 12:40 Gram Stain - Final Hand Left Routine Culture - Final No growth after 2 days 09/13/24 16:50 Blood Culture - Preliminary Blood - Venous No growth after 24 hours. 09/13/24 16:50 Blood Culture - Preliminary Blood - Venous No growth after 24 hours. Assessment and Plan (1) Bacteremia: Status: Acute (2) Tenosynovitis of finger: Status: Acute (3) Cellulitis of hand, left: Status: Acute Plan This is a 58-year-old female with pertinent history of polysubstance use disorder, mood disorder who presents to the emergency department for concerns of left hand infection. sepsis due to purulent cellulitis of left thumb with underlying abscesses/tenosynovitis and bacteremia initially met sepsis criteria with fever, tachycardia. lactic acid 0.6. fever/tachycardia resolved. seen by Orthopedic surgery, status post I& D in OR 4/4 wound cultures growing strep pyogenes Stop vancomycin, continue ceftriaxone pain control-wean IV narcotics ortho rec OT outpatient Strep pyogenes bacteremia Continue IV ceftriaxone to 2gm stop vancomycin repeat blood cultures negative to date Echocardiogram without evidence of valvular involvement Seen by ID-recommend 2 weeks of cephalosporin, can transition to p.o. upon discharge thrombocytopenia ?due to acute infection/sepsis Platelet level stable mild transaminitis ?due to sepsis LFTs trending down toxic metabolic encephalopathy Resolved. Patient awake alert and oriented x3 Polysubstance use disorder: Addiction Team consulted, resources provided Mood disorder: continue hydroxyzine DVT prophylaxis: mechanical devices, early ambulation Full code requires ongoing inpatient stay for IV antibiotics (as above), which is not possible in a lesser acute setting Quality Stroke Does the patient have a stroke diagnosis?: No VTE Prior VTE?: No VTE Risk Level:: Medical - moderate - high VTE Device Contraindication: N/A - Device Ordered VTE Drug Contraindication: Treatment Not Indicated
[2024-09-15] MEDS: oxyCODONE HCl Immed Release 5 MG TABLET PO ×2 (17:49→23:36)
[2024-09-15 19:57] VITALS: BP 125/72; PULSE 95; RESP 16; TEMP 37.2; O2SAT 96
[2024-09-15] MEDS: traZODone HCL 100 MG TABLET 300 MG PO (20:13)
[2024-09-15] MEDS: Calcium Carbonate 750 MG TAB.CHEW PO (23:37)
[2024-09-15] MEDS: Acetaminophen 325 MG TABLET 650 MG PO (23:40)
[2024-09-16] VITALS (7 sets, daily range): BP systolic 102–149; BP diastolic 59–94; PULSE 59–88; RESP 12–18; TEMP 36.2–36.9; O2SAT 94–98
[2024-09-16] MEDS: cefTRIAXone sodium 2 GM VIAL IVPUSH (02:17)
[2024-09-16] MEDS: Morphine Sulfate 4 MG/ML CARTRIDGE 2 MG IVPUSH ×5 (08:03→23:00)
[2024-09-16] MEDS: 0.9 % Sodium Chloride Flush 3 ML SYRINGE IVFLUSH ×3 (08:03→23:00)
[2024-09-16] MEDS: hydrOXYzine HCL 25 MG TABLET PO (08:06)
--- NOTE | 2024-09-16 11:41 | MHC.RECOVRN ---
Met with pt in to follow up and provide support.? Pt awake, alert, easily engages in conversation but angry at times. Pt continues to experience pain in left hand r/b elevation. ? Pt awaiting D/C info and working with CM on D/C plan. Declined calling CSS's with me today except one in [place] that she has her heart set on. They are closed until Mon. Encouraged pt to continue to call if she is D/C. Pt denies other concerns at this time.? Received message later in day from CM that pt. staying until tomorrow. Passed along report to ACS team for further f/u. T/w available as needed.
--- NOTE | 2024-09-16 13:55 | P.PNIM_ITS ---
Subjective Subjective Date of Service: 09/16/24 Interval History: seen and examined this morning follow up for left hand infection/bactermia still requiring IV pain medication drainage from left hand overnight required dressing change left arm with erythema, swelling of left hand Review of Systems Review of Systems: Yes all other systems are reviewed and are negative Constitutional Constitutional: Denies chills and Denies fever(s) Cardiovascular Cardiovascular: Denies chest pain, Denies palpitations and Denies dyspnea Respiratory Respiratory: Denies cough and Denies dyspnea Endocrine Endocrine: Denies palpitations Physical Exam 2 Vital Signs: Vital Signs: Last Vital Signs Temp 98.4 F 09/16/24 07:51 Pulse 76 09/16/24 07:51 Resp 18 09/16/24 07:51 BP 136/94 H 09/16/24 07:51 Pulse Ox 96 09/16/24 07:51 O2 Del Method Nasal Cannula 09/16/24 07:51 O2 Flow Rate 2 09/16/24 07:51 BMI result Body Mass Index 20.1 Const: General: cooperative, comfortable, no acute distress, alert and awake Nutritional Appearance: thin Orientation/consciousness: patient oriented x3 Resp: Effort & Inspection: normal respiratory effort, able to speak in complete sentences, no respiratory distress and no use of accessory muscles A uscultation: clear to auscultation bilaterally Cardio: Rate: regular rate GI: Inspection: No distended Palpation (GI): Soft to palpation Skin: Other: right hand , multiple blisters mild erythema left arm to mid humerous; left thumb appears swollen Neuro: General: patient oriented x3, moves all extremities and CN's II-XI intact bilaterally Extrem: General: Yes no pedal edema Objective Data Active Medications Acetaminophen (Acetaminophen 325 Mg Tablet) 650 mg PO Q6H PRN PRN Reason: Pain, Mild 1-3,fever,headache Last Admin: 09/15/24 23:40 Dose: 650 mg Documented By: ATIF Calcium Carbonate (Calcium Carbonate 750 Mg Tab.Chew) 750 mg PO Q4H PRN PRN Reason: Heartburn Last Admin: 09/15/24 23:37 Dose: 750 mg Documented By: ATIF Ceftriaxone Sodium (Ceftriaxone Sodium 2 Gm Vial) 2 gm IVPUSH Q24H [facility] Last Admin: 09/16/24 02:17 Dose: 2 gm Documented By: ATIF Hydroxyzine HCl (Hydroxyzine Hcl 25 Mg Tablet) 25 mg PO QID PRN PRN Reason: anxiety Last Admin: 09/16/24 08:06 Dose: 25 mg Documented By: ERENDIRA Magnesium Hydroxide (Milk Of Magnesia 30 Ml Oral.Susp) 30 ml PO DAILY PRN PRN Reason: Constipation Melatonin (Melatonin 3 Mg Tablet) 6 mg PO BEDTIME PRN PRN Reason: Insomnia Morphine Sulfate (Morphine Sulfate 4 Mg/Ml Cartridge) 2 mg IVPUSH Q3H PRN; Protocol PRN Reason: Pain, Severe (Pain Scale 7-10) Last Admin: 09/16/24 11:42 Dose: 2 mg Documented By: ERENDIRA Ondansetron HCl (Ondansetron Hcl 4 Mg/2 Ml Vial) 4 mg IVPUSH Q8H PRN PRN Reason: Nausea and Vomiting Last Admin: 09/12/24 21:58 Dose: 4 mg Documented By: KENNETH Oxycodone HCl (Oxycodone Hcl Immed Release 5 Mg Tablet) 5 mg PO Q6H PRN PRN Reason: Pain, Moderate(Pain Scale 4-6) Last Admin: 09/15/24 17:49 Dose: 5 mg Documented By: JHONATAN Sodium Chloride (0.9 % Sodium Chloride Flush 3 Ml Syringe) 3 ml IVFLUSH [facility] Last Admin: 09/16/24 08:03 Dose: 3 ml Documented By: ERENDIRA Trazodone HCl (Trazodone Hcl 100 Mg Tablet) 300 mg PO BEDTIME [facility] Last Admin: 09/15/24 20:13 Dose: 300 mg Documented By: ATIF Labs 09/14/24 06:49 09/14/24 06:49 Microbiology Microbiology Results: Microbiology 09/13/24 16:50 Blood Culture - Preliminary Blood - Venous No growth after 48 hours. 09/13/24 16:50 Blood Culture - Preliminary Blood - Venous No growth after 48 hours. 09/13/24 12:40 Gram Stain - Final Hand Left Routine Culture - Final No growth after 2 days Assessment and Plan (1) Bacteremia: Status: Acute (2) Cocaine use disorder: Status: Acute (3) Cellulitis of hand, left: Status: Acute (4) Tenosynovitis of finger: Status: Acute Plan This is a 58-year-old female with pertinent history of polysubstance use disorder, mood disorder who presents to the emergency department for concerns of left hand infection. sepsis due to purulent cellulitis of left thumb with underlying abscesses/tenosynovitis and strep pyogenes bacteremia initially met sepsis criteria with fever, tachycardia. lactic acid 0.6. fever/tachycardia resolved. seen by Orthopedic surgery, status post I& D in OR 4/4 wound cultures growing strep pyogenes Stop vancomycin, continue ceftriaxone 2 gmq24 hours pain control-wean IV narcotics ortho rec OT outpatient npo at midnight for possible repeat washout in am Strep pyogenes bacteremia Continue IV ceftriaxone to 2gm stop vancomycin repeat blood cultures negative to date Echocardiogram without evidence of valvular involvement Seen by ID-recommend 2 weeks of cephalosporin, can transition to p.o. upon discharge thrombocytopenia ?due to acute infection/sepsis Platelet level stable mild transaminitis ?due to sepsis LFTs trending down toxic metabolic encephalopathy Resolved. Patient awake alert and oriented x3 Polysubstance use disorder: Addiction Team consulted, resources provided Mood disorder: continue hydroxyzine DVT prophylaxis: mechanical devices, early ambulation Full code requires ongoing inpatient stay for IV antibiotics, pain control which is not possible in a lesser acute setting Quality Stroke Does the patient have a stroke diagnosis?: No VTE Prior VTE?: No VTE Risk Level:: Medical - moderate - high VTE Device Contraindication: N/A - Device Ordered VTE Drug Contraindication: Treatment Not Indicated
[2024-09-16] MEDS: traZODone HCL 100 MG TABLET 300 MG PO (21:15)
[2024-09-16] MEDS: Calcium Carbonate 750 MG TAB.CHEW PO (22:58)
[2024-09-17] MEDS: cefTRIAXone sodium 2 GM VIAL IVPUSH (02:22)
[2024-09-17] MEDS: Morphine Sulfate 4 MG/ML CARTRIDGE 2 MG IVPUSH ×5 (02:30→23:55)
[2024-09-17 03:20] VITALS: BP 115/72; PULSE 95; RESP 18; TEMP 36; O2SAT 98
[2024-09-17 07:03] VITALS: BP 124/87; PULSE 86; RESP 18; TEMP 36.9; O2SAT 96
--- NOTE | 2024-09-17 08:40 | PM.PNORT ---
Subjective Subjective Date of Service: 09/17/24 Interval history: Postop day 4 status post left thumb I and D Over the weekend patient had worsening pain and swelling. Today the patient complains of pain in the thumb No overnight events Physical Exam Vital Signs: Vital Signs: Last Vital Signs Temp 98.5 F 09/17/24 07:03 Pulse 86 09/17/24 07:03 Resp 18 09/17/24 07:03 BP 124/87 09/17/24 07:03 Pulse Ox 96 09/17/24 07:03 O2 Del Method Room Air 09/17/24 07:03 O2 Flow Rate 2 09/16/24 07:51 BMI result Body Mass Index 20.1 Extrem: Other: Several open incisions noted about the patient's left thumb, as well as the dorsal and volar hand No active discharge however there is evidence of pus/granulation tissue Significant ecchymosis and necrotic appearing tissue Procedures Date of Service Date of Service: 09/17/24 Progress Note: A&P Assessment and plan (1) Cellulitis of hand, left: Status: Acute Assessment and Plan: Bandage change this morning Patient is NPO with anticipation for repeat I and D today We will await for Dr. Salazar confirmation This has been discussed with the patient and she accepts. Time Spent With Patient Time: Total time managing care of this patient today ____ minutes. Quality Stroke Does the patient have a stroke diagnosis?: No VTE Prior VTE?: No VTE Risk Level:: Medical - moderate - high VTE Device Contraindication: N/A - Device Ordered VTE Drug Contraindication: Treatment Not Indicated
[2024-09-17] MEDS: 0.9 % Sodium Chloride Flush 3 ML SYRINGE IVFLUSH ×3 (10:45→19:50)
--- NOTE | 2024-09-17 11:11 | PM.PNORT ---
Subjective Subjective Date of Service: 09/17/24 Principal diagnosis: hand infection s/p I&D POD #4 Physical Exam Vital Signs: Vital Signs: Last Vital Signs Temp 98.5 F 09/17/24 07:03 Pulse 86 09/17/24 07:03 Resp 18 09/17/24 07:03 BP 124/87 09/17/24 07:03 Pulse Ox 96 09/17/24 07:03 O2 Del Method Room Air 09/17/24 07:03 O2 Flow Rate 2 09/16/24 07:51 BMI result Body Mass Index 20.1 Extrem: Other: The patient was alert, cooperative and in no acute distress. Her hand is more comfortable than it was. Her dressing was removed and a wound check performed. She has significantly less swelling and edema in her forearm and her hand then when she was seen 4 days ago. She still has some evidence of lymphangitis on the volar aspect of the forearm. The 3 incisions on the dorsal and palmar aspect of the hand appear to be healing well and with no appreciable drainage She still has a small amount of purulence particularly in the incision over the dorsal aspect of the proximal phalanx. Some of this may be within the blistered skin. Her thumb is still somewhat tender, but is improved compared with a few days ago. Cap refill brisk to all digits She would actively flex her fingertips to about 4 cm from her palm and then bring them out into some extension. Procedures Date of Service Date of Service: 09/17/24 Progress Note: A&P Assessment and plan (1) Cellulitis of hand, left: Status: Acute Plan Assessment and plan: 1. Right hand infection 2. Right dorsal thumb infection Status post I and D on 09/13/2024. Postop day 4. Her forearm and hand are much better than a few days ago. The thumb is also improving, though she still has a small amount of purulent drainage, and has some tenderness. Continue IV antibiotics I am going to let her eat today. We will make her NPO after midnight and take another look at her in the morning to consider whether or not she may need another I and D. Time Spent With Patient Time: Total time managing care of this patient today ____ minutes. Quality Stroke Does the patient have a stroke diagnosis?: No VTE Prior VTE?: No VTE Risk Level:: Medical - moderate - high VTE Device Contraindication: N/A - Device Ordered VTE Drug Contraindication: Treatment Not Indicated
--- NOTE | 2024-09-17 11:15 | P.PNIM_ITS ---
Subjective Subjective Date of Service: 09/17/24 Interval History: seen and examined this morning follow up for left hand infection/bactermia still requiring IV pain medication drainage from left hand overnight required dressing change left arm with erythema, swelling of left hand Review of Systems Review of Systems: Yes all other systems are reviewed and are negative Constitutional Constitutional: Denies chills and Denies fever(s) Cardiovascular Cardiovascular: Denies chest pain, Denies palpitations and Denies dyspnea Respiratory Respiratory: Denies cough and Denies dyspnea Endocrine Endocrine: Denies palpitations Physical Exam 2 Vital Signs: Vital Signs: Last Vital Signs Temp 98.5 F 09/17/24 07:03 Pulse 86 09/17/24 07:03 Resp 18 09/17/24 07:03 BP 124/87 09/17/24 07:03 Pulse Ox 96 09/17/24 07:03 O2 Del Method Room Air 09/17/24 07:03 O2 Flow Rate 2 09/16/24 07:51 BMI result Body Mass Index 20.1 Appearing in no acute distress lung sounds are clear to auscultation heart regular rate rhythm, clear S1, S2 positive bowel sounds, abdomen is soft, nontender neuro patient is alert x3, no focal deficits Left hand dressing intact Objective Data Active Medications Acetaminophen (Acetaminophen 325 Mg Tablet) 650 mg PO Q6H PRN PRN Reason: Pain, Mild 1-3,fever,headache Last Admin: 09/15/24 23:40 Dose: 650 mg Documented By: ATIF Calcium Carbonate (Calcium Carbonate 750 Mg Tab.Chew) 750 mg PO Q4H PRN PRN Reason: Heartburn Last Admin: 09/16/24 22:58 Dose: 750 mg Documented By: ATIF Ceftriaxone Sodium (Ceftriaxone Sodium 2 Gm Vial) 2 gm IVPUSH Q24H KIMI Last Admin: 09/17/24 02:22 Dose: 2 gm Documented By: ATIF Hydroxyzine HCl (Hydroxyzine Hcl 25 Mg Tablet) 25 mg PO QID PRN PRN Reason: anxiety Last Admin: 09/16/24 08:06 Dose: 25 mg Documented By: ERENDIRA Magnesium Hydroxide (Milk Of Magnesia 30 Ml Oral.Susp) 30 ml PO DAILY PRN PRN Reason: Constipation Melatonin (Melatonin 3 Mg Tablet) 6 mg PO BEDTIME PRN PRN Reason: Insomnia Morphine Sulfate (Morphine Sulfate 4 Mg/Ml Cartridge) 2 mg IVPUSH Q3H PRN; Protocol PRN Reason: Pain, Severe (Pain Scale 7-10) Last Admin: 09/17/24 10:51 Dose: 2 mg Documented By: YULISA Ondansetron HCl (Ondansetron Hcl 4 Mg/2 Ml Vial) 4 mg IVPUSH Q8H PRN PRN Reason: Nausea and Vomiting Last Admin: 09/12/24 21:58 Dose: 4 mg Documented By: KENNETH Oxycodone HCl (Oxycodone Hcl Immed Release 5 Mg Tablet) 5 mg PO Q6H PRN PRN Reason: Pain, Moderate(Pain Scale 4-6) Last Admin: 09/15/24 23:36 Dose: 5 mg Documented By: ATIF Sodium Chloride (0.9 % Sodium Chloride Flush 3 Ml Syringe) [facility] Last Admin: 09/17/24 10:45 Dose: 3 ml Documented By: YULISA Trazodone HCl (Trazodone Hcl 100 Mg Tablet) 300 mg PO BEDTIME [facility] Last Admin: 09/16/24 21:15 Dose: 300 mg Documented By: ATIF Labs 09/14/24 06:49 09/14/24 06:49 Assessment and Plan (1) Bacteremia: Status: Acute (2) Cocaine use disorder: Status: Acute (3) Cellulitis of hand, left: Status: Acute (4) Tenosynovitis of finger: Status: Acute Plan 58-year-old female with pertinent history of polysubstance use disorder, mood disorder who presents to the emergency department for concerns of left hand infection. sepsis due to purulent cellulitis of left thumb with underlying abscesses/tenosynovitis and strep pyogenes bacteremia initially met sepsis criteria with fever, tachycardia. lactic acid 0.6. fever/tachycardia resolved. seen by Orthopedic surgery, status post I& D in OR / wound cultures growing strep pyogenes Stop vancomycin, continue ceftriaxone 2 gm q24 hours pain control-wean IV narcotics npo at midnight for possible repeat washout today Strep pyogenes bacteremia Continue IV ceftriaxone repeat blood cultures negative to date Echocardiogram without evidence of valvular involvement Seen by ID-recommend 2 weeks of cephalosporin, can transition to p.o. upon discharge thrombocytopenia ?due to acute infection/sepsis Platelet level stable mild transaminitis ?due to sepsis LFTs trending down toxic metabolic encephalopathy Resolved. Patient awake alert and oriented x3 Polysubstance use disorder: Addiction Team consulted, resources provided Mood disorder continue hydroxyzine DVT prophylaxis: mechanical devices, early ambulation Full code requires ongoing inpatient stay for IV antibiotics, pain control which is not possible in a lesser acute setting Quality Stroke Does the patient have a stroke diagnosis?: No VTE Prior VTE?: No VTE Risk Level:: Medical - moderate - high VTE Device Contraindication: N/A - Device Ordered VTE Drug Contraindication: Treatment Not Indicated
[2024-09-17] MEDS: oxyCODONE HCl Immed Release 5 MG TABLET PO (15:09)
[2024-09-17 15:24] VITALS: BP 123/79; PULSE 89; RESP 20; TEMP 36.2; O2SAT 97
--- NOTE | 2024-09-17 15:26 | MHC.CM.PN ---
Per rounds, pt is not ready to DC, she is requiring IV ABX and pain management. DCP: pt. working on going to a rehab program, CM to follow for DC needs.
[2024-09-17] MEDS: hydrOXYzine HCL 25 MG TABLET PO ×2 (18:29→23:55)
[2024-09-17 19:26] VITALS: BP 118/82; PULSE 101; RESP 18; TEMP 36; O2SAT 98
[2024-09-17] MEDS: traZODone HCL 100 MG TABLET 300 MG PO (19:49)
[2024-09-17 23:42] VITALS: BP 142/97; PULSE 101; RESP 18; TEMP 37.1; O2SAT 97
[2024-09-18] VITALS (9 sets, daily range): BP systolic 97–140; BP diastolic 58–89; PULSE 78–118; RESP 13–20; TEMP 36–37.4; O2SAT 92–98
[2024-09-18] MEDS: cefTRIAXone sodium 2 GM VIAL IVPUSH (02:47)
[2024-09-18] MEDS: Morphine Sulfate 4 MG/ML CARTRIDGE 2 MG IVPUSH ×6 (03:13→23:40)
[2024-09-18] MEDS: 0.9 % Sodium Chloride Flush 3 ML SYRINGE IVFLUSH ×3 (07:23→20:17)
[2024-09-18] MEDS: hydrOXYzine HCL 25 MG TABLET PO ×3 (08:02→20:17)
--- NOTE | 2024-09-18 08:34 | HO.PM.IMPN ---
Subjective Subjective Date of Service: 09/18/24 Interval History: seen and examined this morning follow up for left hand infection/bactermia still requiring IV pain medication left arm with erythema, swelling of left hand Review of Systems Review of Systems: Yes all other systems are reviewed and are negative Constitutional Constitutional: Denies chills and Denies fever(s) Cardiovascular Cardiovascular: Denies chest pain, Denies palpitations and Denies dyspnea Respiratory Respiratory: Denies cough and Denies dyspnea Endocrine Endocrine: Denies palpitations Physical Exam Vital Signs: Vital Signs: Last Vital Signs Temp 98.4 F 09/18/24 07:30 Pulse 79 09/18/24 07:30 Resp 18 09/18/24 07:30 BP 118/66 09/18/24 07:30 Pulse Ox 92 09/18/24 07:30 O2 Del Method Room Air 09/18/24 07:30 O2 Flow Rate 2 09/16/24 07:51 BMI result Body Mass Index 20.1 Appearing in no acute distress lung sounds are clear to auscultation heart regular rate rhythm, clear S1, S2 positive bowel sounds, abdomen is soft, nontender neuro patient is alert x3, no focal deficits Left hand dressing intact Objective Data Active Medications Acetaminophen (Acetaminophen 325 Mg Tablet) 650 mg PO Q6H PRN PRN Reason: Pain, Mild 1-3,fever,headache Last Admin: 09/15/24 23:40 Dose: 650 mg Documented By: ATIF Calcium Carbonate (Calcium Carbonate 750 Mg Tab.Chew) 750 mg PO Q4H PRN PRN Reason: Heartburn Last Admin: 09/16/24 22:58 Dose: 750 mg Documented By: ATIF Ceftriaxone Sodium (Ceftriaxone Sodium 2 Gm Vial) 2 gm IVPUSH Q24H KIMI Last Admin: 09/18/24 02:47 Dose: 2 gm Documented By: SHEA-CONNO Hydroxyzine HCl (Hydroxyzine Hcl 25 Mg Tablet) 25 mg PO QID PRN PRN Reason: anxiety Last Admin: 09/18/24 08:02 Dose: 25 mg Documented By: RON Magnesium Hydroxide (Milk Of Magnesia 30 Ml Oral.Susp) 30 ml PO DAILY PRN PRN Reason: Constipation Melatonin (Melatonin 3 Mg Tablet) 6 mg PO BEDTIME PRN PRN Reason: Insomnia Morphine Sulfate (Morphine Sulfate 4 Mg/Ml Cartridge) 2 mg IVPUSH Q3H PRN; Protocol PRN Reason: Pain, Severe (Pain Scale 7-10) Last Admin: 09/18/24 07:21 Dose: 2 mg Documented By: RON Ondansetron HCl (Ondansetron Hcl 4 Mg/2 Ml Vial) 4 mg IVPUSH Q8H PRN PRN Reason: Nausea and Vomiting Last Admin: 09/12/24 21:58 Dose: 4 mg Documented By: KENNETH Oxycodone HCl (Oxycodone Hcl Immed Release 5 Mg Tablet) 5 mg PO Q6H PRN PRN Reason: Pain, Moderate(Pain Scale 4-6) Last Admin: 09/17/24 15:09 Dose: 5 mg Documented By: YULISA Sodium Chloride (0.9 % Sodium Chloride Flush 3 Ml Syringe) [facility] Last Admin: 09/18/24 07:23 Dose: 3 ml Documented By: RON Trazodone HCl (Trazodone Hcl 100 Mg Tablet) 300 mg PO BEDTIME [facility] Last Admin: 09/17/24 19:49 Dose: 300 mg Documented By: N-CONNO Labs 09/14/24 06:49 09/14/24 06:49 Assessment and Plan (1) Bacteremia: Status: Acute (2) Cocaine use disorder: Status: Acute (3) Cellulitis of hand, left: Status: Acute (4) Tenosynovitis of finger: Status: Acute Plan 58-year-old female with pertinent history of polysubstance use disorder, mood disorder who presents to the emergency department for concerns of left hand infection. sepsis due to purulent cellulitis of left thumb with underlying abscesses/tenosynovitis and strep pyogenes bacteremia initially met sepsis criteria with fever, tachycardia. lactic acid 0.6. fever/tachycardia resolved. seen by Orthopedic surgery, status post I& D in OR 09/14 wound cultures growing strep pyogenes Stop vancomycin, continue ceftriaxone 2 gm q24 hours pain control-wean IV narcotics repeat washout today Strep pyogenes bacteremia Continue IV ceftriaxone repeat blood cultures negative to date Echocardiogram without evidence of valvular involvement Seen by ID-recommend 2 weeks of cephalosporin, can transition to p.o. upon discharge thrombocytopenia ?due to acute infection/sepsis Platelet level stable mild transaminitis ?due to sepsis LFTs trending down toxic metabolic encephalopathy Resolved. Patient awake alert and oriented x3 Polysubstance use disorder: Addiction Team consulted, resources provided Sister has section 35 on patient Mood disorder continue hydroxyzine DVT prophylaxis: mechanical devices, early ambulation Full code requires ongoing inpatient stay for IV antibiotics, pain control which is not possible in a lesser acute setting Quality Stroke Does the patient have a stroke diagnosis?: No VTE Prior VTE?: No VTE Risk Level:: Medical - moderate - high VTE Device Contraindication: N/A - Device Ordered VTE Drug Contraindication: Treatment Not Indicated
--- NOTE | 2024-09-18 17:47 | MHC.SHP ---
Pre-Procedural Eval Section A - 24 Hr Update-Section A only Date of Service: 09/18/24 The patient is an INPATIENT: Yes Changes since office visit: No Cold of Flu in the past 2 weeks, No New Medical Problems, No Changes in Medication and No Patient answered all questions The patient has been examined within 24 hours of the surgical procedure. The History & Physical has been completed within 30 days and I have reviewed it.: Yes Section B - Complete if H&P > 30 days Chief Complaint: Hand Infection, left Allergies: Allergies Allergy/AdvReac Type Severity Reaction Status Date / Time sulfamethoxazole Allergy Hives Verified 09/12/24 15:56 [From Bactrim] trimethoprim [From Bactrim] Allergy Hives Verified 09/12/24 15:56 Plan Diagnosis/Plan: Unchanged I have reviewed the history and physical and performed a pertinent physical examination on my patient. No changes have occurred unless specified. Time Spent With Patient Time: Total time managing care of this patient today ____ minutes.
--- NOTE | 2024-09-18 17:52 | P.CONAN_ITS ---
HPI - Anesthesia Eval Consult details Narrative: Left thumb infection PMFSH Active Problems Active Problems: All Active Problems Bacteremia (Acute) Cocaine use disorder (Acute) Mood disorder (Acute) Polysubstance use disorder (Acute) Abscess (Acute) Cellulitis of hand, left (Acute) Tenosynovitis of finger (Acute) Past Medical History Medical History Mood disorder Polysubstance use disorder Family History Family history of problems with anesthesia: Unobtainable Surgical History History of Problems with Anesthesia: Unobtainable Social History Social History Household Members: Unknown / Unable to assess Housing: Unknown / Unable to assess Alcohol intake: former Patient Tobacco Use Status: Current everyday Tobacco user Tobacco use type: Cigarette Cigarettes Per Day: 3 Substance Use Type: Crack/Cocaine service: No Meds Allergies Allergy/AdvReac Type Severity Reaction Status Date / Time sulfamethoxazole Allergy Hives Verified 09/12/24 15:56 [From Bactrim] trimethoprim [From Bactrim] Allergy Hives Verified 09/12/24 15:56 Active Medications: Current Medications Acetaminophen (Acetaminophen 325 Mg Tablet) 650 mg PO Q6H PRN PRN Reason: Pain, Mild 1-3,fever,headache Last Admin: 09/15/24 23:40 Dose: 650 mg Calcium Carbonate (Calcium Carbonate 750 Mg Tab.Chew) 750 mg PO Q4H PRN PRN Reason: Heartburn Last Admin: 09/16/24 22:58 Dose: 750 mg Ceftriaxone Sodium (Ceftriaxone Sodium 2 Gm Vial) 2 gm IVPUSH Q24H KIMI Last Admin: 09/18/24 02:47 Dose: 2 gm Hydroxyzine HCl (Hydroxyzine Hcl 25 Mg Tablet) 25 mg PO QID PRN PRN Reason: anxiety Last Admin: 09/18/24 14:26 Dose: 25 mg Magnesium Hydroxide (Milk Of Magnesia 30 Ml Oral.Susp) 30 ml PO DAILY PRN PRN Reason: Constipation Melatonin (Melatonin 3 Mg Tablet) 6 mg PO BEDTIME PRN PRN Reason: Insomnia Morphine Sulfate (Morphine Sulfate 4 Mg/Ml Cartridge) 2 mg IVPUSH Q3H PRN; Protocol PRN Reason: Pain, Severe (Pain Scale 7-10) Last Admin: 09/18/24 14:26 Dose: 2 mg Ondansetron HCl (Ondansetron Hcl 4 Mg/2 Ml Vial) 4 mg IVPUSH Q8H PRN PRN Reason: Nausea and Vomiting Last Admin: 09/12/24 21:58 Dose: 4 mg Oxycodone HCl (Oxycodone Hcl Immed Release 5 Mg Tablet) 5 mg PO Q6H PRN PRN Reason: Pain, Moderate(Pain Scale 4-6) Last Admin: 09/17/24 15:09 Dose: 5 mg Sodium Chloride (0.9 % Sodium Chloride Flush 3 Ml Syringe) 3 ml IVFLUSH QSHIFT [facility] Last Admin: 09/18/24 14:29 Dose: 3 ml Trazodone HCl (Trazodone Hcl 100 Mg Tablet) 300 mg PO BEDTIME [facility] Last Admin: 09/17/24 19:49 Dose: 300 mg Home Medications ?Medication ?Instructions ?Recorded ?Confirmed ?Last Taken ?Type acetaminophen 500 mg tablet 1,000 mg PO Q8H PRN Pain (Scale 09/12/24 09/12/24 Unknown History Score 1-3) albuterol sulfate 90 mcg/actuation 2 puff inhalation Q4H PRN 09/12/24 09/12/24 Unknown History aerosol inhaler (Ventolin HFA) anaphylaxis celecoxib 200 mg capsule 200 mg PO DAILY PRN moderate pain 09/12/24 09/12/24 Unknown History hydroxyzine HCl 25 mg tablet 25 mg PO QID PRN anxiety 09/12/24 09/12/24 Unknown History trazodone 150 mg tablet 300 mg PO BEDTIME 09/12/24 09/12/24 Unknown History Exam Height,Weight and Vital Signs: Height 5 ft 4 in Weight 53 kg Last Vital Signs Temp 98 F 09/18/24 16:00 Pulse 79 09/18/24 16:00 Resp 16 09/18/24 16:00 BP 111/72 09/18/24 16:00 Pulse Ox 92 09/18/24 16:00 O2 Del Method Room Air 09/18/24 16:00 O2 Flow Rate 2 09/16/24 07:51 Pertinent Lab Results Pertinent Lab Results: Laboratory Tests 09/12/24 09/12/24 09/12/24 16:46 16:47 20:08 WBC 5.9 RBC 4.03 L Hgb 12.2 Hct 34.2 L MCV 84.9 MCH 30.3 MCHC 35.7 H RDW 12.7 Plt Count 150 L D MPV 9.2 L Immature Gran % (Auto) Cancelled Neut % (Auto) Cancelled Lymph % (Auto) Cancelled [place] % (Auto) Cancelled Eos % (Auto) Cancelled Baso % (Auto) Cancelled Lymph # (Auto) Cancelled [place] # (Auto) Cancelled Eos # (Auto) Cancelled Baso # (Auto) Cancelled Abs Immat Gran (auto) Cancelled Absolute Neuts (auto) Cancelled Absolute Nucleated RBC 0.000 Nucleated RBC % (auto) 0.0 Neutrophils % (Manual) 57 Band Neutrophils % 24 H Lymphocytes % (Manual) 7 L Atypical Lymphs % (Man) 1 Monocytes % (Manual) 7 Eosinophils % (Manual) 1 Basophils % (Manual) 1 Metamyelocytes % Promyelocytes % 2 Abs Neuts (Manual) 4.8 Lymphocytes # (Manual) 0.4 L Atyp Lymphs # (Manual) 0.1 Monocytes # (Manual) 0.4 Eosinophils # (Manual) 0.1 Basophils # (Manual) 0.1 Metamyelocytes # Promyelocytes # 0.1 Toxic Vacuolation PRESENT Dohle Bodies Platelet Estimate NORMAL Large Platelets PRESENT Plt Morphology Comment NORMAL RBC Morphology NORMAL Hypochromasia 1+ (5-14) Tear Drop Cells 1+ (0-2) [place] Cells ESR 31 H Hold Purple Top Sodium 140 Potassium 3.4 Chloride 110 H Carbon Dioxide 20 L Anion Gap 13 BUN 21 H Creatinine 0.74 Estim Creat Clear Calc 68.4 Estimated GFR > 60 Random Glucose 119 H Lactic Acid 0.6 Calcium 9.0 Total Bilirubin 0.4 Direct Bilirubin 0.2 AST 54 H ALT 37 H Alkaline Phosphatase 60 C-Reactive Protein 24.89 H Total Protein 6.6 Albumin 3.6 Vancomycin Trough Random Vancomycin Urine Opiates Screen Ur Buprenorphine Scrn Ur Oxycodone Screen Urine Methadone Screen Urine Fentanyl Screen Ur Barbiturates Screen Ur Phencyclidine Scrn Ur Amphetamines Screen U Benzodiazepines Scrn Urine Cocaine Screen U Marijuana (THC) Screen Ethyl Alcohol < 10 Hep Bs Antigen Hep Bs Antibody Hep B Core Total Ab Hepatitis C Ab (EIA) HIV 1&2 Ab/P24 Ag 4thGn 09/12/24 09/13/24 09/13/24 20:58 04:31 16:50 WBC 6.5 RBC 4.08 L Hgb 12.3 Hct 35.3 L MCV 86.5 MCH 30.1 MCHC 34.8 RDW 13.0 Plt Count 136 L MPV 9.9 Immature Gran % (Auto) Cancelled Neut % (Auto) Cancelled Lymph % (Auto) Cancelled [place] % (Auto) Cancelled Eos % (Auto) Cancelled Baso % (Auto) Cancelled Lymph # (Auto) Cancelled [place] # (Auto) Cancelled Eos # (Auto) Cancelled Baso # (Auto) Cancelled Abs Immat Gran (auto) Cancelled Absolute Neuts (auto) Cancelled Absolute Nucleated RBC 0.000 Nucleated RBC % (auto) 0.0 Neutrophils % (Manual) 47 Band Neutrophils % 36 H Lymphocytes % (Manual) 14 L Atypical Lymphs % (Man) Monocytes % (Manual) 2 Eosinophils % (Manual) Basophils % (Manual) Metamyelocytes % 1 Promyelocytes % Abs Neuts (Manual) 5.4 Lymphocytes # (Manual) 0.9 L Atyp Lymphs # (Manual) Monocytes # (Manual) 0.1 Eosinophils # (Manual) Basophils # (Manual) Metamyelocytes # 0.1 Promyelocytes # Toxic Vacuolation PRESENT Dohle Bodies PRESENT Platelet Estimate SLIGHTLY DECREASED Large Platelets Plt Morphology Comment NORMAL RBC Morphology NOTED Hypochromasia Tear Drop Cells [place] Cells 1+ (0-2) ESR Hold Purple Top Sodium 143 Potassium 4.2 D Chloride 113 H Carbon Dioxide 22 Anion Gap 12 BUN 14 Creatinine 0.59 Estim Creat Clear Calc 85.9 Estimated GFR > 60 Random Glucose 66 Lactic Acid Calcium 8.6 Total Bilirubin Direct Bilirubin AST ALT Alkaline Phosphatase C-Reactive Protein Total Protein Albumin Vancomycin Trough Random Vancomycin 5.6 L Urine Opiates Screen POSITIVE H Ur Buprenorphine Scrn Not Detected Ur Oxycodone Screen Not Detected Urine Methadone Screen Not Detected Urine Fentanyl Screen Not Detected Ur Barbiturates Screen Not Detected Ur Phencyclidine Scrn Not Detected Ur Amphetamines Screen Not Detected U Benzodiazepines Scrn Not Detected Urine Cocaine Screen POSITIVE H U Marijuana (THC) Screen Not Detected Ethyl Alcohol Hep Bs Antigen Hep Bs Antibody Hep B Core Total Ab Hepatitis C Ab (EIA) HIV 1&2 Ab/P24 Ag 4thGn 09/14/24 09/14/24 09/15/24 06:49 16:02 07:19 WBC 10.0 RBC 3.74 L Hgb 11.3 L Hct 32.8 L MCV 87.7 MCH 30.2 MCHC 34.5 RDW 13.8 Plt Count 157 L MPV 9.4 Immature Gran % (Auto) Neut % (Auto) Lymph % (Auto) [place] % (Auto) Eos % (Auto) Baso % (Auto) Lymph # (Auto) [place] # (Auto) Eos # (Auto) Baso # (Auto) Abs Immat Gran (auto) Absolute Neuts (auto) Absolute Nucleated RBC 0.000 Nucleated RBC % (auto) 0.0 Neutrophils % (Manual) Band Neutrophils % Lymphocytes % (Manual) Atypical Lymphs % (Man) Monocytes % (Manual) Eosinophils % (Manual) Basophils % (Manual) Metamyelocytes % Promyelocytes % Abs Neuts (Manual) Lymphocytes # (Manual) Atyp Lymphs # (Manual) Monocytes # (Manual) Eosinophils # (Manual) Basophils # (Manual) Metamyelocytes # Promyelocytes # Toxic Vacuolation Dohle Bodies Platelet Estimate Large Platelets Plt Morphology Comment RBC Morphology Hypochromasia Tear Drop Cells [place] Cells ESR Hold Purple Top SEE NOTE Sodium 144 Potassium 4.0 Chloride 116 H Carbon Dioxide 22 Anion Gap 10 L BUN 20 H Creatinine 0.58 Estim Creat Clear Calc 87.4 Estimated GFR > 60 Random Glucose 90 Lactic Acid Calcium 8.3 L Total Bilirubin 0.3 Direct Bilirubin 0.1 AST 40 H ALT 40 H Alkaline Phosphatase 74 C-Reactive Protein Total Protein 5.8 L Albumin 2.8 L Vancomycin Trough 13.7 Random Vancomycin Urine Opiates Screen Ur Buprenorphine Scrn Ur Oxycodone Screen Urine Methadone Screen Urine Fentanyl Screen Ur Barbiturates Screen Ur Phencyclidine Scrn Ur Amphetamines Screen U Benzodiazepines Scrn Urine Cocaine Screen U Marijuana (THC) Screen Ethyl Alcohol Hep Bs Antigen Negative Hep Bs Antibody NONREACTIVE Hep B Core Total Ab Nonreactive Hepatitis C Ab (EIA) Nonreactive HIV 1&2 Ab/P24 Ag 4thGn Nonreactive Airway Mallampati Class: II TM Dist: >3cm Neck ROM: Full Loose/Missing/Broken Teeth: No Heart: RRR Lungs: CTA Assessment and Plan Assessment Anesthesia Assessment: Anesthesia Plan Discussed and Chart Reviewed Final Anesthetic Review Family History of Problems with Anesthesia: Unobtainable History of Problems with Anesthesia: Unobtainable NPO: Yes ASA Class: III Final Preanesthetic Review: No Changes in Pt Med Stat, Meds/Allgs Chart Reviewed, Consent Obtained/Reviewed and Anes Risks/Benef Reviewed Patient Risk: Intermediate Procedure Risk: Low Anesthetic Plan Anesthetic Plan: GA Disposition: Standard PACU
--- NOTE | 2024-09-18 17:52 | P.OP_ITS ---
Operative Note Operative Note Date of Service: 09/18/24 Narrative: Operative Note Narrative: Preop diagnosis: 1. Left hand and thumb infection Postop diagnosis: Same Procedure: 1. Left hand and thumb I and D Surgeon: Andressa Salazar MD Precision Assembler Bench: None Anesthesia: General Anesthesia [plus regional block] Findings: Significant improvement in swelling and edema in the forearm and in the hand. The wounds in the palm and dorsal aspect of the hand appear to be healing well. However, she appears to be having problems with necrosis of the skin and tissues over the dorsum of the thumb. Much of the skin extending from about the middle of the 1st metacarpal to distal to the IP joint on the dorsal side of the thumb is necrotic. The APL/EPB tendons were exposed in the proximal end of the skin defect, and I attempted to close some of the viable skin over this area. There was still some mild purulence also in the dorsal aspect of the thumb. There is also a small area of exposure of the EPL tendon over the proximal phalanx. This may be come more challenging if we do not start seeing some granulation tissue over the tendons and beneath some of the skin that is becoming necrotic. Implants: None Tourniquet time: 0 minutes EBL: 5.0 ml Specimen: None Drains: None Complications: None Disposition: Brought to the recovery room in stable condition Plan: Admit back to floor to continue IV antibiotics First dressing change on Tuesday, followed by daily irrigation and dressing changes OT to work on active finger and hand range of motion When she had plan for outpatient wound care with the wound care team upon discha rge. If we can get some good granulation tissue to form over the dorsum of the thumb, particularly over the tendons, then perhaps I can place a skin graft. If not, then she will need plastics consultation and referral for a possible rotation flap. This may be difficult with her current drug use issues. Follow-up in ortho Clinic within a week of discharge for wound check, suture removal and to check cultures Indications: The patient is a 58 year old woman with a recreational drug use history and a left hand infection already status post I and D x1 . The risks and benefits of operative treatment, including but not limited to risk of damage to blood vessels, nerves, tendons, infection, recurrence, persistent pain or numbness, incomplete resolution of preoperative symptoms, or need for further surgery were discussed with the patient and they wished to proceed with surgery. Procedure: Once consent was obtained patient was brought back to the operating suite and placed in the operating table in a supine position. . Perioperative antibiotics and anesthesia was administered by the anesthesia team. A tourniquet was applied to the proximal aspect of the left upper extremity and the limb was prepped and draped in a standard surgical fashion. The limb was elevated exsanguinated with Esmarch bandage and the tourniquet inflated to 250 mm of mercury for a total tourniquet time of 0 minutes. Again we see significant improvement in edema and cellulitis in both the forearm and in the palm and dorsal aspect of the hand. Unfortunately, we are seeing significant necrosis of the skin and soft tissues on the dorsum of the thumb extending from about the middle of the 1st metacarpal to distal to the IP joint. In this area were seeing yellow devitalized skin and fibrinous exudate with a small amount of purulence. Using iris and tenotomy scissors I debrided much of the clearly necrotic skin. Small rongeur was also used to remove some of the fibrinous exudate. The APL/EPB tendons were visible in the proximal aspect of the wound. I was able to place 3x 4-0 Prolene sutures to attempt to close some of the viable skin over this aspect of the tendons. I am however concerned about the EPL tendon distally across the proximal phalanx and IP joint as I think that the skin and tissues over this area are tenuous at best. All wounds were copiously irrigated with normal saline. I also irrigated the dorsal hand wound over the 1st webspace which appeared to open easily. The 2 incisions in the palm appear to be healing well and I did not open them. Hemostasis was obtained with a brief period of local pressure. The wounds were copiously irrigated with normal saline. I infiltrated the superficial radial nerve at the proximal base of the right thumb with some 0.5% plain ropivacaine for postop pain control. A small amount of bacitracin was placed on the wound and a sterile dressing was applied. The patient appears to have tolerated the procedure well and with no complications. The pads of all digits were well vascularized conclusion of the case.
[2024-09-18] MEDS: traZODone HCL 100 MG TABLET 300 MG PO (20:17)
--- NOTE | 2024-09-18 20:31 | HO.WOUND ---
Wound Consult: Initial 58yr old?[place] [facility] [place] See progress notes and H&P for detailed history.? Wound consult placed for Right Middle Finger.? Patient agreeable to assessment and photo documentation.? Left hand continues to be followed and treated by Orthopedic Hand Surgery Team. Right Middle Finger Etiology: ? Ulceration Present on Admission Measurements: 1cm x 1cm x 0.2cm Wound Bed: pink moist Drainage / Odor: mayes serosang noted on dressing when removed Edges: ? macerated Eliza wound: Macerated ? No Induration, Fluctuance or Warmth noted Pain: tenderness reported Goals of Treatment: ? Durafiber AG for moisture Management Recommendations: 1. Turn and Reposition every 2 hours and as needed for patient comfort.? Use pillows or wedges to support off loading positions. 2. Off Load all bony prominences with use of pillows and heel boots if needed.? Apply Preventative foams where needed.? 3. Monitor for incontinence and moisture control, use barrier creams when needed for prevention and treatment. 4. Provide adequate and supplemental nutrition.? 5. When applicable maintain blood glucose levels per Providers order. Right Middle Finger - Cleanse with NS moist gauze, Apply skin prep to periwound. Cover wound bed with Durafiber AG, folowed by dry gauze and wrap. Change daily while inpatient and then every other day. Recommend follow up out pt with Othropedic Surgery Team. Re-consult wound care Nurse for wound deterioration or wound changes.
[2024-09-19 00:04] VITALS: PULSE 95
[2024-09-19 02:58] VITALS: BP 94/58; PULSE 90; RESP 17; TEMP 36.3; O2SAT 96
[2024-09-19] MEDS: cefTRIAXone sodium 2 GM VIAL IVPUSH (03:28)
[2024-09-19] MEDS: hydrOXYzine HCL 25 MG TABLET PO ×4 (03:34→21:34)
[2024-09-19] MEDS: Morphine Sulfate 4 MG/ML CARTRIDGE 2 MG IVPUSH ×6 (03:34→21:33)
[2024-09-19] MEDS: 0.9 % Sodium Chloride Flush 3 ML SYRINGE IVFLUSH ×3 (06:44→21:34)
[2024-09-19 07:21] VITALS: BP 102/58; PULSE 80; RESP 16; TEMP 36.5; O2SAT 95
--- NOTE | 2024-09-19 08:17 | HO.PM.IMPN ---
Subjective Subjective Date of Service: 09/19/24 Interval History: seen and examined this morning follow up for left hand infection/bactermia still requiring IV pain medication left arm with erythema, swelling of left hand s/p washout x2 Review of Systems Review of Systems: Yes all other systems are reviewed and are negative Constitutional Constitutional: Denies chills and Denies fever(s) Cardiovascular Cardiovascular: Denies chest pain, Denies palpitations and Denies dyspnea Respiratory Respiratory: Denies cough and Denies dyspnea Endocrine Endocrine: Denies palpitations Physical Exam Vital Signs: Vital Signs: Last Vital Signs Temp 97.7 F 09/19/24 07:21 Pulse 80 09/19/24 07:21 Resp 16 09/19/24 07:21 BP 102/58 L 09/19/24 07:21 Pulse Ox 95 09/19/24 07:21 O2 Del Method Room Air 09/19/24 07:21 O2 Flow Rate 2 09/16/24 07:51 BMI result Body Mass Index 20.1 Appearing in no acute distress lung sounds are clear to auscultation heart regular rate rhythm, clear S1, S2 positive bowel sounds, abdomen is soft, nontender neuro patient is alert x3, no focal deficits Dressing to hand intact Objective Data Active Medications Acetaminophen (Acetaminophen 325 Mg Tablet) 650 mg PO Q6H PRN PRN Reason: Pain, Mild 1-3,fever,headache Last Admin: 09/15/24 23:40 Dose: 650 mg Documented By: ATIF Calcium Carbonate (Calcium Carbonate 750 Mg Tab.Chew) 750 mg PO Q4H PRN PRN Reason: Heartburn Last Admin: 09/16/24 22:58 Dose: 750 mg Documented By: ATIF Ceftriaxone Sodium (Ceftriaxone Sodium 2 Gm Vial) 2 gm IVPUSH Q24H KIMI Last Admin: 09/19/24 03:28 Dose: 2 gm Documented By: AMPARO Hydroxyzine HCl (Hydroxyzine Hcl 25 Mg Tablet) 25 mg PO QID PRN PRN Reason: anxiety Last Admin: 09/19/24 03:34 Dose: 25 mg Documented By: AMPARO Magnesium Hydroxide (Milk Of Magnesia 30 Ml Oral.Susp) 30 ml PO DAILY PRN PRN Reason: Constipation Melatonin (Melatonin 3 Mg Tablet) 6 mg PO BEDTIME PRN PRN Reason: Insomnia Morphine Sulfate (Morphine Sulfate 4 Mg/Ml Cartridge) 2 mg IVPUSH Q3H PRN; Protocol PRN Reason: Pain, Severe (Pain Scale 7-10) Last Admin: 09/19/24 06:42 Dose: 2 mg Documented By: AMPARO Naloxone HCl (Naloxone Hcl 0.4 Mg/Ml Vial) 0.04 mg IVPUSH Q5M PRN PRN Reason: Excessive sedation or RR < 8 Ondansetron HCl (Ondansetron Hcl 4 Mg/2 Ml Vial) 4 mg IVPUSH Q8H PRN PRN Reason: Nausea and Vomiting Last Admin: 09/12/24 21:58 Dose: 4 mg Documented By: KENNETH Oxycodone HCl (Oxycodone Hcl Immed Release 5 Mg Tablet) 5 mg PO Q6H PRN PRN Reason: Pain, Moderate(Pain Scale 4-6) Last Admin: 09/17/24 15:09 Dose: 5 mg Documented By: YULISA Sodium Chloride (0.9 % Sodium Chloride Flush 3 Ml Syringe) [facility] Last Admin: 09/19/24 06:44 Dose: 3 ml Documented By: AMPARO Trazodone HCl (Trazodone Hcl 100 Mg Tablet) 300 mg PO BEDTIME [facility] Last Admin: 09/18/24 20:17 Dose: 300 mg Documented By: AMPARO Labs 09/14/24 06:49 09/14/24 06:49 Microbiology Microbiology Results: Microbiology 09/13/24 16:50 Blood Culture - Final Blood - Venous No growth after 5 days. 09/13/24 16:50 Blood Culture - Final Blood - Venous No growth after 5 days. Assessment and Plan (1) Bacteremia: Status: Acute (2) Cocaine use disorder: Status: Acute (3) Cellulitis of hand, left: Status: Acute (4) Tenosynovitis of finger: Status: Acute Plan 58-year-old female with pertinent history of polysubstance use disorder, mood disorder who presents to the emergency department for concerns of left hand infection. sepsis due to purulent cellulitis of left thumb with underlying abscesses/tenosynovitis and strep pyogenes bacteremia initially met sepsis criteria with fever, tachycardia. lactic acid 0.6. fever/tachycardia resolved. seen by Orthopedic surgery, status post I& D in OR 09/14 wound cultures growing strep pyogenes Stopped vancomycin, continue ceftriaxone 2 gm q24 hours pain control-wean IV narcotics washout x2 with left hand and thumb I&D 09/18/24 surgical plan> dressing change on Tuesday followed by daily irrigation and dressing changes, OT, plan for outpatient wound care, see operative note from 09/18/2024 for more details Strep pyogenes bacteremia Continue IV ceftriaxone repeat blood cultures negative to date Echocardiogram without evidence of valvular involvement Seen by ID-recommend 2 weeks of cephalosporin, can transition to p.o. upon discharge thrombocytopenia ?due to acute infection/sepsis Platelet level stable mild transaminitis ?due to sepsis LFTs trending down toxic metabolic encephalopathy Resolved. Patient awake alert and oriented x3 Polysubstance use disorder Addiction Team consulted, resources provided Sister has section 35 on patient Mood disorder continue hydroxyzine DVT prophylaxis: mechanical devices, early ambulation Full code requires ongoing inpatient stay for IV antibiotics, pain control which is not possible in a lesser acute setting Quality Stroke Does the patient have a stroke diagnosis?: No VTE Prior VTE?: No VTE Risk Level:: Medical - moderate - high VTE Device Contraindication: N/A - Device Ordered VTE Drug Contraindication: Treatment Not Indicated
--- NOTE | 2024-09-19 08:21 | HO.POSTANES ---
Post Anesthesia Evaluation Post Anesthesia Evaluation Date of Service: 09/19/24 Vital Signs: Vital Signs Temp Pulse Resp BP Pulse Ox O2 Del Method 09/19/24 07:21 97.7 F 80 16 102/58 L 95 Room Air 09/19/24 02:58 97.3 F 90 17 94/58 L 96 Room Air 09/19/24 00:04 95 09/18/24 23:30 97.0 F 118 H 17 97/69 98 Room Air Anesthesia: General LMA Mental Status: Awake Pain Control: Satisfactory Nausea/Vomiting: None Hydration: Adequate Anesthesia-Related Issues: No Anes. Related Issues
[2024-09-19 12:00] VITALS: BP 102/67; PULSE 77; RESP 18; TEMP 36.9; O2SAT 98
[2024-09-19 15:07] VITALS: BP 117/68; PULSE 80; RESP 16; TEMP 37.1; O2SAT 95
--- NOTE | 2024-09-19 15:50 | MHC.CM.PN ---
Met with patient to talk about discharge plans. Patient is asking to discharge to a STR. A referral has been sent to [facility]. Tox screen+Opiates and Cocaine on admit. No Suboxone or Methadone on med list. A request for an addiction medicine consult order has been made.
--- NOTE | 2024-09-19 16:11 | MHC.RECOVRN ---
Met with pt to follow up and provide support. Pt is interested in [facility] program after discharge. Discussed options, pt would like to stay in [facility] due to possibility of needing to see specialists after discharge. Referrals submitted to [facility] and [facility]. Pt denies other questions or concerns at this time.
[2024-09-19 19:27] VITALS: BP 110/79; PULSE 97; RESP 18; TEMP 36.3; O2SAT 98
[2024-09-19] MEDS: traZODone HCL 100 MG TABLET 300 MG PO (21:34)
[2024-09-19] MEDS: Melatonin 3 MG TABLET 6 MG PO (21:34)
[2024-09-20] MEDS: Morphine Sulfate 4 MG/ML CARTRIDGE 2 MG IVPUSH ×7 (01:05→23:58)
[2024-09-20] MEDS: oxyCODONE HCl Immed Release 5 MG TABLET PO ×2 (03:15→14:49)
[2024-09-20 04:00] VITALS: BP 96/62; PULSE 65; RESP 17; TEMP 36.5; O2SAT 94
[2024-09-20] MEDS: cefTRIAXone sodium 2 GM VIAL IVPUSH (05:48)
[2024-09-20 07:09] VITALS: BP 133/72; PULSE 84; RESP 18; TEMP 36.3; O2SAT 96
[2024-09-20] MEDS: Acetaminophen 325 MG TABLET 650 MG PO (07:27)
[2024-09-20] MEDS: hydrOXYzine HCL 25 MG TABLET PO ×3 (07:28→19:26)
[2024-09-20] MEDS: 0.9 % Sodium Chloride Flush 3 ML SYRINGE IVFLUSH ×3 (07:28→23:59)
--- NOTE | 2024-09-20 07:28 | PM.PNORT ---
Subjective Subjective Date of Service: 09/20/24 Principal diagnosis: hand infection s/p I&D POD #4 Interval history: Postop day 2 status post repeat I and D of left thumb Patient resting comfortably in bed this morning No acute events overnight Pain fairly well managed No other acute complaints or concerns at this time Physical Exam Vital Signs: Vital Signs: Last Vital Signs Temp 97.4 F 09/20/24 07:09 Pulse 84 09/20/24 07:09 Resp 18 09/20/24 07:09 BP 133/72 09/20/24 07:09 Pulse Ox 96 09/20/24 07:09 O2 Del Method Room Air 09/20/24 07:09 O2 Flow Rate 2 09/16/24 07:51 BMI result Body Mass Index 20.1 Extrem: Other: The patient was alert, cooperative and in no acute distress. Her hand is more comfortable than it was. Her dressing was removed and a wound check performed. She has significantly less swelling and edema in her forearm and her hand then when she was seen 4 days ago. She still has some evidence of lymphangitis on the volar aspect of the forearm but this is improving The 3 incisions on the dorsal and palmar aspect of the hand appear to be healing well and with no appreciable drainage Wound does appear slightly macerated today, but no kelly purulence noted Her thumb is still very tender to palpation, expected due to the ernesto of superficial skin at previous surgery Cap refill brisk to all digits Procedures Date of Service Date of Service: 09/20/24 Progress Note: A&P Assessment and plan (1) Tenosynovitis of finger: Status: Acute (2) Cellulitis of hand, left: Status: Acute (3) Cocaine use disorder: Status: Acute (4) Bacteremia: Status: Acute Plan Assessment and plan: 1. Right hand infection 2. Right dorsal thumb infection Status post I and D on 09/13/2024. Postop day 4. Her forearm and hand are much better than a few days ago. Thumb is improving, but wound does still appear to be open Wound care consult placed, wound care will see patient tomorrow Continue IV antibiotics and all other recommendations per Medicine Daily dressing changes with Xeroform, gauzeEstefania Coban Time Spent With Patient Time: Total time managing care of this patient today ____ minutes. Quality Stroke Does the patient have a stroke diagnosis?: No VTE Prior VTE?: No VTE Risk Level:: Medical - moderate - high VTE Device Contraindication: N/A - Device Ordered VTE Drug Contraindication: Treatment Not Indicated
[2024-09-20 08:59] LABS: Hematocrit 33.3 % (37.0-47.0); Mean Corpuscular Hemoglobin 29.3 pg (27.0-33.0); Mean Corpuscular Volume 88.8 fL (80.0-98.0); Mean Platelet Volume 9.2 fL (9.4-12.3); Platelet Count 353 X10*3/uL (160-400); Red Blood Count 3.75 X10*6/uL (4.20-5.50); Red Cell Distribution Width 13.4 % (11.0-16.0); White Blood Count 5.7 X10*3/uL (4.8-10.8)
[2024-09-20 09:12] LABS: Anion Gap 11 (12-20); Blood Urea Nitrogen 15 mg/dL (9-16); Calcium 8.9 mg/dL (8.4-10.2); Carbon Dioxide 28 mmol/L (22-29); Chloride 105 mmol/L (96-108); Estimated Glomerular Filt Rate > 60; Glucose Random 80 mg/dL (60-115); Potassium 4.4 mmol/L (3.3-5.1); Sodium 140 mmol/L (135-145)
--- NOTE | 2024-09-20 11:40 | MHC.CM.PN ---
Per MD no discharge today. Ortho wants the wound nurse to see patient tomorrow. [facility] SNF vs Recovery team intervention. Patient will need assist with transportation.
--- NOTE | 2024-09-20 15:01 | HO.PM.IMPN ---
Subjective Subjective Date of Service: 09/20/24 Interval History: seen and examined this morning follow up for left hand infection/bacteremia reporting left hand pain, dressing just changed by ortho no fever Review of Systems Review of Systems: Yes all other systems are reviewed and are negative Constitutional Constitutional: Denies chills and Denies fever(s) Cardiovascular Cardiovascular: Denies chest pain Physical Exam Vital Signs: Vital Signs: Last Vital Signs Temp 97.4 F 09/20/24 07:09 Pulse 84 09/20/24 07:09 Resp 18 09/20/24 07:09 BP 133/72 09/20/24 07:09 Pulse Ox 96 09/20/24 07:09 O2 Del Method Room Air 09/20/24 07:09 O2 Flow Rate 2 09/16/24 07:51 BMI result Body Mass Index 20.1 Const: General: cooperative, comfortable, no acute distress, alert and awake Nutritional Appearance: thin Orientation/consciousness: patient oriented x3 Resp: Effort & Inspection: normal respiratory effort, able to speak in complete sentences, no respiratory distress and no use of accessory muscles Auscultation: clear to auscultation bilaterally Cardio: Rate: regular rate GI: Inspection: No distended Palpation (GI): Soft to palpation Skin: Other: left hand wrapped in c/d/i dressing; significant improvement in swelling; no erythema extending up arm as was previously Neuro: General: patient oriented x3, moves all extremities and CN's II-XI intact bilaterally Extrem: General: Yes no pedal edema Objective Data Active Medications Acetaminophen (Acetaminophen 325 Mg Tablet) 650 mg PO Q6H PRN PRN Reason: Pain, Mild 1-3,fever,headache Last Admin: 09/20/24 07:27 Dose: 650 mg Documented By: RON Calcium Carbonate (Calcium Carbonate 750 Mg Tab.Chew) 750 mg PO Q4H PRN PRN Reason: Heartburn Last Admin: 09/16/24 22:58 Dose: 750 mg Documented By: ATIF Ceftriaxone Sodium (Ceftriaxone Sodium 2 Gm Vial) 2 gm IVPUSH Q24H KIMI Last Admin: 09/20/24 05:48 Dose: 2 gm Documented By: AMPARO Comments: downtime. Hydroxyzine HCl (Hydroxyzine Hcl 25 Mg Tablet) 25 mg PO QID PRN PRN Reason: anxiety Last Admin: 09/20/24 14:49 Dose: 25 mg Documented By: RON Magnesium Hydroxide (Milk Of Magnesia 30 Ml Oral.Susp) 30 ml PO DAILY PRN PRN Reason: Constipation Melatonin (Melatonin 3 Mg Tablet) 6 mg PO BEDTIME PRN PRN Reason: Insomnia Last Admin: 09/19/24 21:34 Dose: 6 mg Documented By: AMPARO Morphine Sulfate (Morphine Sulfate 4 Mg/Ml Cartridge) 2 mg IVPUSH Q3H PRN; Protocol PRN Reason: Pain, Severe (Pain Scale 7-10) Last Admin: 09/20/24 12:15 Dose: 2 mg Documented By: RON Naloxone HCl (Naloxone Hcl 0.4 Mg/Ml Vial) 0.04 mg IVPUSH Q5M PRN PRN Reason: Excessive sedation or RR < 8 Ondansetron HCl (Ondansetron Hcl 4 Mg/2 Ml Vial) 4 mg IVPUSH Q8H PRN PRN Reason: Nausea and Vomiting Last Admin: 09/12/24 21:58 Dose: 4 mg Documented By: KENNETH Oxycodone HCl (Oxycodone Hcl Immed Release 5 Mg Tablet) 5 mg PO Q6H PRN PRN Reason: Pain, Moderate(Pain Scale 4-6) Last Admin: 09/20/24 14:49 Dose: 5 mg Documented By: RON Sodium Chloride (0.9 % Sodium Chloride Flush 3 Ml Syringe) [facility] Last Admin: 09/20/24 14:50 Dose: 3 ml Documented By: RON Trazodone HCl (Trazodone Hcl 100 Mg Tablet) 300 mg PO BEDTIME [facility] [place] Last Admin: 09/19/24 21:34 Dose: 300 mg Documented By: AMPARO Labs 09/20/24 08:36 09/20/24 08:36 Labs: Laboratory Results - last 24 hr 09/20/24 08:36 MCV 88.8 MCH 29.3 MCHC 33.0 RDW 13.4 Plt Count 353 D MPV 9.2 L Absolute Nucleated RBC 0.000 Nucleated RBC % (auto) 0.0 Anion Gap 11 L Estim Creat Clear Calc 83.0 Estimated GFR > 60 Random Glucose 80 Calcium 8.9 D Assessment and Plan (1) Bacteremia: Status: Acute (2) Cellulitis of hand, left: Status: Acute (3) Tenosynovitis of finger: Status: Acute (4) Abscess: Status: Acute Plan 58-year-old female with pertinent history of polysubstance use disorder, mood disorder who presents to the emergency department for concerns of left hand infection. sepsis due to purulent cellulitis of left thumb with underlying abscesses/tenosynovitis and strep pyogenes bacteremia initially met sepsis criteria with fever, tachycardia. lactic acid 0.6. fever/tachycardia resolved. seen by Orthopedic surgery, status post I& D in OR 09/14 and 09/18 wound cultures growing strep pyogenes continue ceftriaxone 2 gm q24 hours pain control-wean IV narcotics surgical plan> daily dressing changes, OT, plan for outpatient wound care; has open wound left thumb- need close wound care monitoring; plan for wound care nurse to assess in am Strep pyogenes bacteremia Continue IV ceftriaxone repeat blood cultures negative to date Echocardiogram without evidence of valvular involvement Seen by ID-recommend 2 weeks of cephalosporin, can transition to p.o. upon discharge thrombocytopenia ?due to acute infection/sepsis Platelet level stable mild transaminitis ?due to sepsis LFTs trending down toxic metabolic encephalopathy Resolved. Polysubstance use disorder Addiction Team consulted, resources provided Sister has section 35 on patient Mood disorder continue hydroxyzine DVT prophylaxis: mechanical devices, early ambulation Full code requires ongoing inpatient stay for IV antibiotics, pain control which is not possible in a lesser acute setting Quality Stroke Does the patient have a stroke diagnosis?: No VTE Prior VTE?: No VTE Risk Level:: Medical - moderate - high VTE Device Contraindication: N/A - Device Ordered VTE Drug Contraindication: Treatment Not Indicated
[2024-09-20 15:13] VITALS: BP 108/58; PULSE 68; RESP 14; TEMP 36.4; O2SAT 96
[2024-09-20] MEDS: traZODone HCL 100 MG TABLET 300 MG PO (19:34)
[2024-09-20 20:00] VITALS: BP 125/58; PULSE 82; RESP 18; TEMP 37.3; O2SAT 96
[2024-09-20] MEDS: LORazepam 0.5 MG TABLET PO (21:20)
[2024-09-20 23:57] VITALS: BP 113/55; PULSE 71; RESP 18; TEMP 36.6; O2SAT 95
[2024-09-21] MEDS: cefTRIAXone sodium 2 GM VIAL IVPUSH (02:26)
[2024-09-21] MEDS: oxyCODONE HCl Immed Release 5 MG TABLET PO ×3 (02:33→14:34)
[2024-09-21] MEDS: Acetaminophen 325 MG TABLET 650 MG PO ×3 (02:35→14:34)
[2024-09-21 02:36] VITALS: BP 108/57; PULSE 69; RESP 16; TEMP 36.8; O2SAT 94
[2024-09-21] MEDS: Morphine Sulfate 4 MG/ML CARTRIDGE 2 MG IVPUSH ×2 (04:38→10:13)
[2024-09-21 04:40] VITALS: BP 113/58; PULSE 76; RESP 18
[2024-09-21 07:23] VITALS: BP 96/50; PULSE 68; RESP 18; TEMP 36.2; O2SAT 95
--- NOTE | 2024-09-21 12:17 | HO.PM.IMPN ---
Subjective Subjective Date of Service: 09/21/24 Interval History: Seen and examined this morning Follow-up for left hand infection, bacteremia No overnight events No fevers, chills Left hand pain improving Review of Systems Review of Systems: Yes all other systems are reviewed and are negative Constitutional Constitutional: Denies chills and Denies fever(s) Cardiovascular Cardiovascular: Denies chest pain, Denies palpitations and Denies dyspnea Respiratory Respiratory: Denies cough and Denies dyspnea Endocrine Endocrine: Denies palpitations Physical Exam Vital Signs: Vital Signs: Last Vital Signs Temp 97.1 F 09/21/24 07:23 Pulse 68 09/21/24 07:23 Resp 18 09/21/24 07:23 BP 96/50 L 09/21/24 07:23 Pulse Ox 95 09/21/24 07:23 O2 Del Method Room Air 09/21/24 07:23 O2 Flow Rate 2 09/16/24 07:51 BMI result Body Mass Index 20.1 Const: General: cooperative, comfortable, no acute distress, alert and awake Nutritional Appearance: thin Orientation/consciousness: patient oriented x3 Resp: Effort & Inspection: normal respiratory effort, able to speak in complete sentences, no respiratory distress and no use of accessory muscles Auscultation: clear to auscultation bilaterally Cardio: Rate: regular rate GI: Inspection: No distended Palpation (GI): Soft to palpation Skin: Other: left hand dressed c/d/i dressing; no swelling Neuro: General: patient oriented x3, moves all extremities and CN's II-XI intact bilaterally Extrem: General: Yes no pedal edema Objective Data Active Medications Acetaminophen (Acetaminophen 325 Mg Tablet) 650 mg PO Q6H PRN PRN Reason: Pain, Mild 1-3,fever,headache Last Admin: 09/21/24 08:47 Dose: 650 mg Documented By: KAYLA Calcium Carbonate (Calcium Carbonate 750 Mg Tab.Chew) 750 mg PO Q4H PRN PRN Reason: Heartburn Last Admin: 09/16/24 22:58 Dose: 750 mg Documented By: ATIF Ceftriaxone Sodium (Ceftriaxone Sodium 2 Gm Vial) 2 gm IVPUSH Q24H KIMI Last Admin: 09/21/24 02:26 Dose: 2 gm Documented By: HILARIA Hydroxyzine HCl (Hydroxyzine Hcl 25 Mg Tablet) 25 mg PO QID PRN PRN Reason: anxiety Last Admin: 09/20/24 19:26 Dose: 25 mg Documented By: AMPARO Magnesium Hydroxide (Milk Of Magnesia 30 Ml Oral.Susp) 30 ml PO DAILY PRN PRN Reason: Constipation Melatonin (Melatonin 3 Mg Tablet) 6 mg PO BEDTIME PRN PRN Reason: Insomnia Last Admin: 09/19/24 21:34 Dose: 6 mg Documented By: AMPARO Morphine Sulfate (Morphine Sulfate 4 Mg/Ml Cartridge) 2 mg IVPUSH Q4H PRN; Protocol PRN Reason: Pain, Severe (Pain Scale 7-10) Last Admin: 09/21/24 10:13 Dose: 2 mg Documented By: KAYLA Naloxone HCl (Naloxone Hcl 0.4 Mg/Ml Vial) 0.04 mg IVPUSH Q5M PRN PRN Reason: Excessive sedation or RR < 8 Ondansetron HCl (Ondansetron Hcl 4 Mg/2 Ml Vial) 4 mg IVPUSH Q8H PRN PRN Reason: Nausea and Vomiting Last Admin: 09/12/24 21:58 Dose: 4 mg Documented By: KENNETH Oxycodone HCl (Oxycodone Hcl Immed Release 5 Mg Tablet) 5 mg PO Q6H PRN PRN Reason: Pain, Moderate(Pain Scale 4-6) Last Admin: 09/21/24 08:47 Dose: 5 mg Documented By: KAYLA Sodium Chloride (0.9 % Sodium Chloride Flush 3 Ml Syringe) [facility] Last Admin: 09/21/24 10:18 Dose: Not Given Documented By: KAYLA Non-Admin Reason: No Access Trazodone HCl (Trazodone Hcl 100 Mg Tablet) 300 mg PO BEDTIME [facility] Last Admin: 09/20/24 19:34 Dose: 300 mg Documented By: AMPARO Labs 09/20/24 08:36 09/20/24 08:36 Assessment and Plan (1) Bacteremia: Status: Acute (2) Polysubstance use disorder: Status: Acute (3) Cellulitis of hand, left: Status: Acute (4) Tenosynovitis of finger: Status: Acute Plan 58-year-old female with pertinent history of polysubstance use disorder, mood disorder who presents to the emergency department for concerns of left hand infection. sepsis due to purulent cellulitis of left thumb with underlying abscesses/tenosynovitis and strep pyogenes bacteremia initially met sepsis criteria with fever, tachycardia. lactic acid 0.6. fever/tachycardia resolved. seen by Orthopedic surgery, status post I& D in OR 09/14 and 09/18 wound cultures growing strep pyogenes continue ceftriaxone 2 gm q24 hours pain control-wean IV narcotics surgical plan> daily dressing changes, OT, plan for outpatient wound care; has open wound left thumb- need close wound care monitoring; plan for wound care nurse to assess in am Strep pyogenes bacteremia Continue IV ceftriaxone repeat blood cultures negative to date Echocardiogram without evidence of valvular involvement Seen by ID-recommend 2 weeks of cephalosporin, can transition to p.o. upon discharge thrombocytopenia ?due to acute infection/sepsis Platelet level rebounded, now normal mild transaminitis ?due to sepsis LFTs trending down toxic metabolic encephalopathy Resolved. Polysubstance use disorder Addiction Team consulted, resources provided Sister has section 35 on patient Mood disorder continue hydroxyzine DVT prophylaxis: mechanical devices, early ambulation Full code requires ongoing inpatient stay for IV antibiotics, pain control which is not possible in a lesser acute setting Quality Stroke Does the patient have a stroke diagnosis?: No VTE Prior VTE?: No VTE Risk Level:: Medical - moderate - high VTE Device Contraindication: N/A - Device Ordered VTE Drug Contraindication: Treatment Not Indicated
--- NOTE | 2024-09-21 14:04 | HO.WOUND ---
Addendum entered by Cleo Davison RN 09/21/24 14:08: Left Thumb Etiology: S/P Surigcal debridement Wound Bed: red moist tissue with areas of adherent yellow brown slough Drainage / Odor: no odor ntoed - mayes yellow serosang drainage noted Edges: ? attached Eliza wound: ? improved erythema, improved swelling Pain: painful to touch Goals of Treatment: ? Moisture management with antimicrobial properties and cover to protect from environment Right Middle Finger Etiology: full thickness tissue loss - abrasion??Present on Admission Wound Bed: pink red moist tissue Drainage / Odor: none noted Edges: ? irregular Eliza wound: ?intact no longer macerated No Induration, Fluctuance or Warmth noted Pain: denies Goals of Treatment: ? Moist wound healing and cover to protect form infection Original Note: Wound Consult: Initial 58yr old? admitted to [facility] on 09/12/24 19:34 - See progress notes and H&P for detailed history.? Wound consult placed for Right Middle finger and Left thumb wound.? Patient agreeable to assessment and photo documentation.? Recommendations: 1. Right Middle Finger - Cleanse routine with soap and water, apply vaseline to wound bed cover with dry dressing or bandaid. Change daily or when wet. 2. Left Thumb Wound - Gently cleanse with NS moist gauze, pat dry. Apply Durafiber AG to wound bed, cover with dry gauze, ABD pad and gauze wrap. Change every 2-3 days. Push dressing to 3-4 days if Durafiber is sticking to wound bed. Follow up with Orthopedic Surgeon as scheduled. Re-consult wound care Nurse for wound deterioration or wound changes.
--- NOTE | 2024-09-21 16:01 | MHC.CM.PN ---
PT MEDICALLY CLEARED TO DC TODAY PTS SISTER HAS FILED A SECTION [address] CM CALLED [facility] WHO CONFIRMED THE COURT WILL SEE HER TODAY PT IS AWARE SHE WILL NEED SIGNIFICANT WOUND AND AFTERCARE WHICH THE FACILITY WILL ARRANGE ONCE SHE IS SECTIONED/PLACED D AND [facility] SECURITY BEDSIDE FOR PT TRANSPORT PTS SISTER/HCP MADE AWARE VIA T/C
== END 2024-09-21 15:30 | disposition home or self-care (01) | DRG 710 ==
LOC: HO.ED 19:04 → HO.EDOVER 20:23 → HO.S3 09-13 07:51 → HO.IMC 09-13 15:37 → HO.S3 09-18 04:00
PROVIDERS: Nurse Practitioner Psychiatric/Mental Health; Orthopaedic Surgery; Physician Assistant Medical; Admitting Provider Student in an Organized Health Care Education/Training Program; Emergency Provider Emergency Medicine; PCP Internal Medicine; Visit Provider Physician Assistant Medical
PROC: 0JBK0ZZ Excision of Left Hand Subcutaneous Tissue and Fascia, Open Approach (ICD-10-PCS; principal; 2024-09-13 11:50)
PROC: 0HBGXZZ Excision of Left Hand Skin, External Approach (ICD-10-PCS; principal; 2024-09-18 18:10)
DX: A41.9 Sepsis, unspecified organism (principal); G92.8 Other toxic encephalopathy; I96 Gangrene, not elsewhere classified; D69.59 Other secondary thrombocytopenia; L02.512 Cutaneous abscess of left hand; B95.0 Streptococcus, group A, as the cause of diseases classified elsewhere; M65.142 Other infective (teno)synovitis, left hand; F17.210 Nicotine dependence, cigarettes, uncomplicated; F14.10 Cocaine abuse, uncomplicated; F19.90 Other psychoactive substance use, unspecified, uncomplicated; L03.012 Cellulitis of left finger; F39 Unspecified mood [affective] disorder; Z71.6 Tobacco abuse counseling; Z79.899 Other long term (current) drug therapy
CPT/HCPCS: 36415; 71045; 73130; 74176; 80048; 80076; 80202; 80307; 83605; 85007; 85025; 85027; 85652; 86140; 86704; 86706; 86803; 87040; 87070; 87147; 87205; 87340; 87389; 93306; 97110; 97165; 99285; J0131; J0696; J1100; J1171; J1885; J2003; J2004; J2060; J2270; J2371; J2405; J2543; J2704; J2795; J3010; J3370; J7120; S9485

== ENCOUNTER → 2024-09-12 16:41 | Outpatient (BNV) | payer OTHER, SELFPAY | PROVIDERS: Emergency Provider Emergency Medicine; PCP Internal Medicine; Visit Provider Student in an Organized Health Care Education/Training Program | DX: R78.81 Bacteremia (principal); F14.10 Cocaine abuse, uncomplicated; L03.114 Cellulitis of left upper limb; M65.949 Unspecified synovitis and tenosynovitis, unspecified hand | CPT/HCPCS: 99222; 99232; 99233 ==

== ENCOUNTER → 2024-09-12 16:46 | Outpatient (BNV) | payer OTHER, SELFPAY | PROVIDERS: PCP Internal Medicine; Visit Provider Radiology Diagnostic Radiology | DX: R10.9 Unspecified abdominal pain (principal); R60.0 Localized edema | CPT/HCPCS: 73130; 74176 ==

== ENCOUNTER 2024-09-12 19:34 | Outpatient (BNV) | payer OTHER, SELFPAY | END 2024-09-13 15:05 | PROVIDERS: Admitting Provider Student in an Organized Health Care Education/Training Program; Emergency Provider Emergency Medicine; PCP Internal Medicine; Visit Provider Radiology Diagnostic Radiology | DX: R06.82 Tachypnea, not elsewhere classified (principal) | CPT/HCPCS: 71045 ==

== ENCOUNTER 2024-09-12 19:34 | Outpatient (BNV) | payer OTHER, SELFPAY | END 2024-09-14 07:00 | PROVIDERS: Admitting Provider Student in an Organized Health Care Education/Training Program; Emergency Provider Emergency Medicine; PCP Internal Medicine; Visit Provider Internal Medicine | DX: R78.81 Bacteremia (principal) | CPT/HCPCS: 93306 ==

== ENCOUNTER → 2024-09-12 19:34 | Outpatient (BNV) | payer OTHER, SELFPAY | PROVIDERS: Admitting Provider Student in an Organized Health Care Education/Training Program; Emergency Provider Emergency Medicine; PCP Internal Medicine; Visit Provider Nurse Practitioner Psychiatric/Mental Health | DX: F14.10 Cocaine abuse, uncomplicated (principal) | CPT/HCPCS: 99232; 99499 ==

== ENCOUNTER → 2024-09-12 19:34 | Outpatient (BNV) | payer OTHER, SELFPAY | PROVIDERS: Admitting Provider Student in an Organized Health Care Education/Training Program; Emergency Provider Emergency Medicine; PCP Internal Medicine; Visit Provider Orthopaedic Surgery | DX: L03.012 Cellulitis of left finger (principal); M87.042 Idiopathic aseptic necrosis of left hand | CPT/HCPCS: 11042 ==

== ENCOUNTER 2024-09-25 13:11 | Outpatient (AMB) | payer OTHER, SELFPAY ==
--- NOTE | 2024-09-25 14:13 | MHC.OFFVIS ---
Intake Visit Reasons: PO I&D L thumb 09/13/24 Intake Note: Lovely 58 yr old female presents today for her P/O visit for her left thumb I&D doen with Dr Salazar on 09/13/24. States she has been changing her dressing 2x a day due to drainage. Allergies sulfamethoxazole [From Bactrim] Allergy (Verified 09/25/24 14:15) Hives trimethoprim [From Bactrim] Allergy (Verified 09/25/24 14:15) Hives HPI HPI PO I&D L thumb 09/13/24: Details: Lovely is a 58 year old right hand dominant woman who presents S/P Left thumb, deep mid palmar space, deep thenar space I&D, DOS: 09/13/24, and Left hand & thumb repeat I&D, DOS: 09/18/24. She has a significant open wound with loss of skin on the dorsal aspect of the thumb, worrisome for tendon coverage. She denies being seen by wound care since leaving the hospital, but has been performing b.i.d dressing changes due to drainage. She says she is residing in a hotel room, and was denied being placed in a rehab center. She has a Hx of cocaine & polysubstance abuse, but denies any IVDU. She says she is not scheduled to see wound care until 10/04/24. [facility] Medical History Mood disorder Polysubstance use disorder Social History Household Members: Unknown / Unable to assess Housing: Unknown / Unable to assess Alcohol intake: former Comment: counts correct Patient Tobacco Use Status: Current everyday Tobacco user Tobacco use type: Cigarette Cigarettes Per Day: 3 Substance Use Type: Crack/Cocaine service: No Review of Systems Const All systems reviewed & are unremarkable except as noted in HPI and below Physical Exam Const General: no acute distress and alert Orientation/consciousness: patient oriented x3 HEENT Head: Yes normocephalic and Yes atraumatic Eyes EOM: EOMs intact bilaterally Resp Effort & Inspection: normal respiratory effort and able to speak in complete sentences Cardio Jugular venous distension: no JVD Skin General skin exam: turgor normal Rashes: no rashes Neuro General: patient oriented x3 Extrem Other: The patient was alert oriented and in no acute distress She has a large open wound over the dorsal aspect of the thumb extending from proximal to the eponychial fold extending proximally to the CMC joint of the left thumb The proximal half of the wound appears mostly covered with granulation tissue. This is a significant improvement from the end of last week. However, the EPL tendon is still visible beneath a small amount of paratenon, as it passes over the IP joint, with only minimal evidence of granulatiuon tissue in this area There are 3 sutures in the proximal aspect of the wound that we are leaving in for now. Sensation is intact Cap refill is brisk Microbiology report Gram stain Final 09/13/24-1508 Gram stain results: 3+ polys 2+ epithelial cells 2+ red blood cells 4+ Gram-positive cocci Routine Culture Final 09/14/24-1146 Organism 1 Streptococcus pyogenes (Grp A) Quantity 4+ Susc N/A Susceptibility not routinely performed on this isolate. Psych Appearance: grossly normal Affect: normal affect Attitude: cooperative Assessment & Plan Assessment & Plan (1) Cellulitis of hand, left: Code(s): L03.114 - Cellulitis of left upper limb Category: Medical (2) Abscess: Comment: L thumb Code(s): L02.91 - Cutaneous abscess, unspecified Category: Medical (3) Tenosynovitis of finger: Code(s): M65.949 - Unspecified synovitis and tenosynovitis, unspecified hand Category: Medical (4) Polysubstance use disorder: Code(s): F19.90 - Other psychoactive substance use, unspecified, uncomplicated Category: Medical (5) Cocaine use disorder: Code(s): F14.10 - Cocaine abuse, uncomplicated Category: Medical Plan Assessment & Plan: 1. Left thumb Abscess, 2. Left hand cellulitis, 3. Left thumb tenosynovitis, S/P : A) Left thumb I&D B) Left deep mid palmar space I&D C) Left deep thenar space I&D DOS: 09/13/24 D) Left hand repeat I&D E) Left thumb repeat I&D DOS: 09/18/24 The patient appears to be doing well post-operatively I educated her about the post-operative course, and discussed the possible surgical intervention. If we can get some good granulation tissue to form over the dorsum of the thumb, particularly over the tendons, then perhaps I can place a skin graft. If not, then she will need plastics consultation at [facility] and referral for a possible rotation flap. This may be difficult with her current drug use issues. She has yet to be seen by outpatient wound care, and is not scheduled to be seen currently until 10/04/24. I called and spoke with wound care about having her seen sooner than her current scheduled appointment. She now has an appointment with wound care on 09/28/24. She is residing in a Motel by herself and performing dressing changes b.i.d She has minimal drainage but poor skin coverage over the dorsal aspect of the left thumb. if the patient develops any worsening erythema, drainage, pain, or warmth they should contact the clinic or attend the ED. She will continue to take her Abx as instructed, she says she only has one day left of her prescription. I ordered an extra 12 days of Cefuroxime axetil for her to take I discussed activity modifications, she is to lift nothing heavier than a cellphone for the next 6 weeks. Keep the wound clean and dry. She will perform gentle finger ROM exercises at home. She can make a fist and extend her fingers. She will follow up next week for a wound check and possible suture removal Please note that more than 45 minutes was spent with this patient today. Scribed for Andressa Salazar MD by Willian Porter, medical technologist chief, on 09/25/24 at 2:30 PM, EST. Medications: New acetaminophen 500 mg PO Q6H PRN 30 tabs 0RF fever Refilled cefuroxime axetil 500 mg PO Q12H 10 tabs 0RF 12 days Coding Level of Care Code Global (50278) Diagnoses Cellulitis of hand, left L03.114 Abscess L02.91 Tenosynovitis of finger M65.949 Polysubstance use disorder F19.90 Cocaine use disorder F14.10
--- OUTSIDE RECORDS SUMMARY | 2024-09-25 16:05 | XMS_ITS | Clinical Summary ---
Author Organization [facility] Address [address] [place] [address] Care Team Providers Care Floor Nurse Name Role Phone Unavailable Primary Care Provider Unavailabl e Surgical History Surgery Date Site/Laterality Comments CHOLECYSTECTOMY PROCEDURE: HISTORICAL CHOLECYSTECTOMY COLONOSCOPY 12/16/2016 PROCEDURE: HISTORICAL COLONOSCOPY; COMMENT: Normal. Repeat 10 yrs UPPER GASTROINTESTINAL ENDOSCOPY 12/16/2016 PROCEDURE: UT UPPER GI ENDOSCOPY PERFORMED; COMMENT: Normal HYSTERECTOMY 2013 PROCEDURE: HISTORICAL TOTAL HYSTERECTOMY WITH BSO; COMMENT: w/appendectomy; for menorrhagia & fibroids Medical History Medical History Date Comments Abdominal pain, epigastric 12/07/2016 DX:Ab dominal pain, epigastric Allergic purpura ([facility] V24) 03/02/2013 D X:Allergic purpura ([facility]) Polyarteritis nodosa ([facility]/ C V24, [facility] V28) 12/26/2012 DX:Polyarteritis nodosa ([facility] ) Depression 10/03/2018 DX:Depression Bipolar disorder, mixed ([facility] V24, [facility] V28) 03/29/2019 DX:Bipolar disorder, mixed ( [facility]) Anxiety 03/29/2019 DX:Anxiety History of substance abuse ( [facility] V24, [facility] V28) 03/29/2019 DX:History of substance abus e ([facility]); COMMENT: Alcohol and cocaine, in remission COPD (chronic obstructive pu lmonary disease) ([facility] V24, [facility] V28) 03/29/2019 DX:COPD (chronic o bstructive pulmonary disease) (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 [...] Breast Cancer Screening 08/31/2020 08/31/2018 COVID-19 Vaccine ( - 2023-2 5 season) 2024 Influenza Vaccine (Season Ended) 2025 RSV Immunization Adult Patie nts (1 - [...] age to complete this topic Meningococcal B Vaccine Aged Out No l onger eligible based on patient's age to complete [...] Procedure Name Priority Date/Time Associated Diagnosis Comments [facility] SCREENING DIGITAL Routine 08/31/2018 3:03 PM EDT Encounter for screening mammogram for malignant neoplasm of breast from Last 3 Months or Most Recently Relevant to Health Maintenance Results * ABHINAV SCREENING DIGITAL (08/31/2018 3:03 PM EDT) Anatomical Region Laterality Modality Mammography 08/31/2018 2:09 PM EDT Narrative 08/31/2018 3:03 PM EDT [facility] Diagnostic Imaging Department [address] [place] [address] Patient: ??CURTIS SAAVEDRA ?/Age/Sex: 1965 - 52 - F Unit#: ??[id number] ? Location/Status: ??SPDIMAM/REG CLI ? Mnemonic/Ordering Site: ??DIGSC/SPMAM Ordering Physician: ??YONATHAN FAULKNER [facility] Screening Digital - 08/31/18 - 1427 INDICATION: SCREENING COMPARISON: No prior studies are available for comparison. FINDINGS: CC and MLO views of the breasts were obtained, using full field digital mammography with 3D tomosynthesis views in the MLO projection. Computer aided detection with the [employer] 7.2-H was employed. FINDINGS: The breasts contain [...] 0 - Incomplete needs additional imaging evaluation. 3340F, 7025F (G0202 / [id number]) , ??[id number] Dictating Physician: ??SOSA BECK MD Electronically Signed by: ??SOSA BECK MD Dic Date/Time: ??08/31/18 2846 Sign date/Time: ??08/31/18 1508 Procedure Note Sosa Beck MD - 06/02/2022 [facility] Diagnostic Imaging Department [address] [place] [id number] Patient: KERIROBYA Nieves Griggs/Age/Sex: 1965 - 52 - F Unit#: [id number] Location/Status: [facility] Mnemonic/Ordering Site: [facility] Ordering Physician: YONATHAN FAULKNER Abhinav Screening Digital - 08/31/18 - 4397 INDICATION: SCREENING COMPARISON: No prior studies are available for comparison. FINDINGS: CC and MLO views of the breasts were obtained, using full field digital mammography with 3D tomosynthesis views in the MLO projection. Computer aided detection with the [employer] 7.2-H was employed. FINDINGS: The breasts contain [...] 0 - Incomplete needs additional imaging evaluation.3340F, 7016F (G0202 / [id number]) , [id number] Dictating Physician: SOSA BECK MD Electronically Signed by: SOSA BECK MD Dic Date/Time: 08/31/18 2736 Sign date/Time: 08/31/18 4466 Yonathan [facility] IMG BI PROCEDURES Final Result from Last 3 Months or Most Recently Relevant to Health Maintenance
== END 2024-09-25 15:15 | disposition home or self-care (01) ==
LOC: HO.HOS 13:11
PROVIDERS: PCP Internal Medicine; Visit Provider Orthopaedic Surgery
DX: L03.114 Cellulitis of left upper limb (principal); L02.91 Cutaneous abscess, unspecified; M65.942 Unspecified synovitis and tenosynovitis, left hand; F19.90 Other psychoactive substance use, unspecified, uncomplicated; F14.10 Cocaine abuse, uncomplicated
CPT/HCPCS: 99215

== ENCOUNTER → 2024-09-25 13:11 | Outpatient (BNVA) | payer OTHER, SELFPAY | PROVIDERS: PCP Internal Medicine; Visit Provider Orthopaedic Surgery | DX: Z47.89 Encounter for other orthopedic aftercare (principal); M65.949 Unspecified synovitis and tenosynovitis, unspecified hand; L03.114 Cellulitis of left upper limb; L02.91 Cutaneous abscess, unspecified; F19.90 Other psychoactive substance use, unspecified, uncomplicated; F14.10 Cocaine abuse, uncomplicated | CPT/HCPCS: 99212 ==

== ENCOUNTER 2024-10-03 10:07 | Outpatient (AMB) | payer OTHER, SELFPAY ==
--- NOTE | 2024-10-03 10:26 | A.OFFVIS_ITS ---
Intake Visit Reasons: PO I&D L thumb 09/13/24 Intake Note: Lovely 58 yr old female presents today for her P/O visit for her left thumb I&D done with Dr Salazar on 09/13/24. States she has been changing her dressing 2x a day due to drainage. Allergies sulfamethoxazole [From Bactrim] Allergy (Verified 10/03/24 10:43) Hives trimethoprim [From Bactrim] Allergy (Verified 10/03/24 10:43) Hives HPI HPI PO I&D L thumb 09/13/24: Details: Lovely is a 58 year old right hand dominant woman who presents S/P Left thumb, deep mid palmar space, deep thenar space I&D, DOS: 09/13/24, and Left hand & thumb repeat I&D, DOS: 09/18/24. She has a significant open wound with loss of skin on the dorsal aspect of the thumb, worrisome for tendon coverage. She says she is residing in a hotel room, and was denied being placed in a rehab center. She showed up today with band-aids, told to put ointment on it, and does not have any wound care supplies She was seen by wound care on 09/28/24. She continues to do dressing changes twice daily due to ongoing drainage. Patient says she is not scheduled to be seen again by wound care until 10/12/24 She has a Hx of cocaine & polysubstance abuse, but denies any IVDU. [facility] Medical History Mood disorder Polysubstance use disorder Social History Household Members: Unknown / Unable to assess Housing: Unknown / Unable to assess Alcohol intake: former Comment: counts correct Patient Tobacco Use Status: Current everyday Tobacco user Tobacco use type: Cigarette Cigarettes Per Day: 3 Substance Use Type: Crack/Cocaine service: No Review of Systems Const All systems reviewed & are unremarkable except as noted in HPI and below Physical Exam Const General: no acute distress and alert Orientation/consciousness: patient oriented x3 Neuro General: patient oriented x3 Extrem Other: The patient was alert oriented and in no acute distress She has a large open wound over the dorsal aspect of the thumb extending from proximal to the eponychial fold extending proximally to the CMC joint of the left thumb Good active granulation tissue coverage at the proximal aspect of the wound. However, the EPL tendon is exposed with only a very minimal amount of granulation tissue as it passes over the IP joint. No purulence or evidence of active infection Sensation is intact Cap refill is brisk Microbiology report Gram stain Final 09/13/24-1508 Gram stain results: 3+ polys 2+ epithelial cells 2+ red blood cells 4+ Gram-positive cocci Routine Culture Final 09/14/24-1146 Organism 1 Streptococcus pyogenes (Grp A) Quantity 4+ Susc N/A Susceptibility not routinely performed on this isolate. Psych Appearance: grossly normal Affect: normal affect Attitude: cooperative Assessment & Plan Assessment & Plan (1) Cellulitis of hand, left: Code(s): L03.114 - Cellulitis of left upper limb Category: Medical (2) Abscess: Comment: L thumb Code(s): L02.91 - Cutaneous abscess, unspecified Category: Medical (3) Wound, open, finger, with tendon involvement: Code(s): S61.209A - Unspecified open wound of unspecified finger without damage to nail, initial encounter Category: Medical (4) Tenosynovitis of finger: Code(s): M65.949 - Unspecified synovitis and tenosynovitis, unspecified hand Category: Medical (5) Polysubstance use disorder: Code(s): F19.90 - Other psychoactive substance use, unspecified, uncomplicated Category: Medical (6) Cocaine use disorder: Code(s): F14.10 - Cocaine abuse, uncomplicated Category: Medical Plan Assessment & Plan: 1. Left thumb Abscess, 2. Left hand infection 3. Left thumb dorsal skin loss and open wound with exposed EPL tendon S/P : A) Left thumb I&D B) Left deep mid palmar space I&D C) Left deep thenar space I&D DOS: 09/13/24 D) Left hand repeat I&D E) Left thumb repeat I&D DOS: 09/18/24 The patient appears to be doing well post-operatively, and I no longer see evidence of active infection. She has been alert, and appropriate in clinic in appears to be participating in her care. I educated her about the post-operative course. She has a loss of skin & soft tissue over the dorsum of the left thumb secondary to infection and drug use. Unfortunately we are not seeing healthy growth of granulation tissue over the EPL tendon in the distal aspect of the wound. I think it is unlikely with the current wound care scenario and capabilities of the patient that we will see adequate granulation tissue to be able to treat this with a skin graft. I am referring her to [facility] for a plastics consultation to discuss wound care & skin coverage, and for a possible rotation flap. She was seen by outpatient wound care on 09/28/24, and she says she is not scheduled to be seen again until 10/12/24 She is residing in a Motel by herself and performing dressing changes b.i.d If the patient develops any worsening erythema, drainage, pain, or warmth they should contact the clinic or attend the ED. She will continue to take her Abx until finished. I discussed activity modifications, she is to lift nothing heavier than a cellphone for the next 6 weeks. She will perform gentle finger ROM exercises at home. She can make a fist and extend her fingers. She will follow up next week if she is not already scheduled to be seen by Plastic surgery. Scribed for Andressa Salazar MD by Willian Porter, director of graduate medical education, on 10/03/24 at 10:50 AM, EST. Orders: Referrals 2 Plastic Surgery Referral F14.10 - Cocaine abuse, uncomplicated, F19.90 - Other psychoactive substance use, unspecified, uncomplicated, S61.209A - Unspecified open wound of unspecified finger without damage to nail, initial encounter Coding Level of Care Code Global (29656) Diagnoses Cellulitis of hand, left L03.114 Abscess L02.91 Wound, open, finger, with tendon involvement S61.209A Tenosynovitis of finger M65.949 Polysubstance use disorder F19.90 Cocaine use disorder F14.10
--- OUTSIDE RECORDS SUMMARY | 2024-10-03 11:44 | XMS_ITS | Clinical Summary ---
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 Repeat 10 yrs UPPER GASTROINTESTINAL ENDOSCOPY 12/16/2016 PROCEDURE: [place] UPPER GI ENDOSCOPY PERFORMED; COMMENT: Normal HYSTERECTOMY 2013 PROCEDURE: HISTORICAL TOTAL HYSTERECTOMY WITH BSO; COMMENT: w/appendectomy; for menorrhagia & fibroids Medical History Medical History Date Comments Abdominal pain, epigastric 12/07/2016 DX:Ab dominal pain, epigastric Allergic purpura ([facility] V24) 03/02/2013 D X:Allergic purpura ([facility]) Polyarteritis nodosa ([facility]/ C V24, [facility] V28) 12/26/2012 DX:Polyarteritis nodosa ([facility] ) Depression 10/03/2018 DX:Depression Bipolar disorder, mixed ([facility] /[facility] V24, [facility] V28) 03/29/2019 DX:Bipolar disorder, mixed ( [facility]) Anxiety 03/29/2019 DX:Anxiety History of substance abuse ( [facility] V24, [facility] V28) 03/29/2019 DX:History of substance abus e ([facility]); COMMENT: Alcohol and cocaine, in remission COPD (chronic obstructive pu lmonary disease) ([facility] V24, [facility] V28) 03/29/2019 DX:COPD (chronic o bstructive pulmonary disease) ([facility]) 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 a Esophageal [...] Procedure Name Priority Date/Time Associated Diagnosis Comments [facility] SCREENING DIGITAL Routine 08/31/2018 3:03 PM EDT Encounter for screening mammogram for malignant neoplasm of breast from Last 3 Months or Most Recently Relevant to Health Maintenance Results * ABHINAV SCREENING DIGITAL (08/31/2018 3:03 PM EDT) Anatomical Region Laterality Modality Mammography 08/31/2018 2:09 PM EDT Narrative 08/31/2018 3:[address] [facility] Diagnostic Imaging Department [address] [place] [id number] Patient: ??CURTIS SAAVEDRA ?/Age/Sex: 1965 - 52 - F Unit#: ??[id number] ? Location/Status: ??SPDIMAM/REG CLI ? Mnemonic/Ordering Site: ??DIGSC/SPMAM Ordering Physician: ??YONATHAN FAULKNER [facility] Screening Digital - 08/31/18 - 1427 INDICATION: SCREENING COMPARISON: No prior studies are available for comparison. FINDINGS: CC and MLO views of the breasts were obtained, using full field digital mammography with 3D tomosynthesis views in the MLO projection. Computer aided detection with the Wedge Buster 7.2-H was employed. FINDINGS: The breasts contain [...] additional imaging evaluation. 3340F, 7025F (G0202 / 73215) , ??[id number] Dictating Physician: ??SOSA BECK MD Electronically Signed by: ??SOSA BECK MD Dic Date/Time: ??08/31/18 6800 Sign date/Time: ??08/31/18 1509 Procedure Note Sosa Beck MD - 06/02/2022 [facility] Diagnostic Imaging Department [address] [place] [id number] Patient: KERIROBYA Nieves Griggs/Age/Sex: 1965 - 52 - F Unit#: [id number] Location/Status: [facility] Mnemonic/Ordering Site: [facility] Ordering Physician: YONATHAN FAULKNER Abhinav Screening Digital - 08/31/18 - 7790 INDICATION: SCREENING COMPARISON: No prior studies are available for comparison. FINDINGS: CC and MLO views of the breasts were obtained, using full field digital mammography with 3D tomosynthesis views in the MLO projection. Computer aided detection with the Wedge Buster 7.2-H was employed. FINDINGS: The breasts contain [...] 0 - Incomplete needs additional imaging evaluation.3340F, 7015F (G0202 / 20349) , [id number] Dictating Physician: SOSA BECK MD Electronically Signed by: SOSA BECK MD Dic Date/Time: 08/31/18 7397 Sign date/Time: 08/31/18 7805 Yonathan [facility] IMG BI PROCEDURES Final Result from Last 3 Months or Most Recently Relevant to Health Maintenance
== END 2024-10-03 10:57 | disposition home or self-care (01) ==
LOC: HO.HOS 10:08
PROVIDERS: PCP Internal Medicine; Visit Provider Orthopaedic Surgery
DX: L03.114 Cellulitis of left upper limb (principal); L02.91 Cutaneous abscess, unspecified; S61.002A Unspecified open wound of left thumb without damage to nail, initial encounter; M65.942 Unspecified synovitis and tenosynovitis, left hand; F19.90 Other psychoactive substance use, unspecified, uncomplicated; F14.10 Cocaine abuse, uncomplicated
CPT/HCPCS: 99214

== ENCOUNTER → 2024-10-03 10:07 | Outpatient (BNVA) | payer OTHER, SELFPAY | PROVIDERS: PCP Internal Medicine; Visit Provider Orthopaedic Surgery | DX: M65.942 Unspecified synovitis and tenosynovitis, left hand (principal); S61.002D Unspecified open wound of left thumb without damage to nail, subsequent encounter; F19.90 Other psychoactive substance use, unspecified, uncomplicated; F14.10 Cocaine abuse, uncomplicated; X58.XXXD Exposure to other specified factors, subsequent encounter | CPT/HCPCS: 99212 ==

== ENCOUNTER 2024-10-19 16:08 | Emergency (ER) | payer OTHER, SELFPAY ==
--- NOTE | ~2024-10-19 | XR_ITS ---
CLINICAL HISTORY: L hand chronic wound, increased edema R O osteo Three views of the left hand. COMPARISON: XR left hand dated 09/12/24 at 17:05 EDT FINDINGS: Soft tissue edema overlying the left hand primarily the 1st digit. Distal radius and ulna appear intact. Carpal bones appear intact. Metacarpals appear intact. Degenerative changes of the 1st MTP joint with small osteophytes. Phalanges appear intact. No lytic or sclerotic lesion. No periostitis. No cortical erosion. No radiopaque foreign body. IMPRESSION: 1. Soft tissue edema overlying the left hand primarily the 1st digit. No evidence of injury to the underlying bones. No radiopaque foreign body. No radiographic evidence of osteomyelitis. This document has been electronically signed by: Rui Rodríguez MD on 10/19/2024 17:13:08
[2024-10-19 16:33] VITALS: BP 120/67; PULSE 76; RESP 18; TEMP 36.4; O2SAT 98; BMI 21.0
--- NOTE | 2024-10-19 16:33 | ED_ITS ---
HPI - Extremity Injury (Upper) General Chief Complaint: Wound/Laceration Stated Complaint: hand infection Related Data Home Medications ?Medication ?Instructions ?Recorded ?Confirmed acetaminophen 500 mg tablet 1,000 mg PO Q8H PRN Pain (Scale 09/12/24 09/12/24 Score 1-3) albuterol sulfate 90 mcg/actuation 2 puff inhalation Q4H PRN 09/12/24 09/12/24 aerosol inhaler (Ventolin HFA) anaphylaxis celecoxib 200 mg capsule 200 mg PO DAILY PRN moderate pain 09/12/24 09/12/24 hydroxyzine HCl 25 mg tablet 25 mg PO QID PRN anxiety 09/12/24 09/12/24 trazodone 150 mg tablet 300 mg PO BEDTIME 09/12/24 09/12/24 Previous Rx's ?Medication ?Instructions ?Recorded acetaminophen 500 mg tablet 500 mg PO Q6H PRN fever #30 tabs 09/25/24 cefuroxime axetil 500 mg tablet 500 mg PO Q12H 12 days #24 tabs 09/25/24 Allergies Allergy/AdvReac Type Severity Reaction Status Date / Time sulfamethoxazole Allergy Hives Verified 10/19/24 16:36 [From Bactrim] trimethoprim [From Bactrim] Allergy Hives Verified 10/19/24 16:36 PMFSH Past Medical History Medical History Mood disorder Polysubstance use disorder Social History Social History Household Members: Unknown / Unable to assess Housing: Unknown / Unable to assess Alcohol intake: former Comment: counts correct Patient Tobacco Use Status: Current everyday Tobacco user Tobacco use type: Cigarette Cigarettes Per Day: 3 Substance Use Type: Crack/Cocaine Advance Directives: No Advance Directives Information Provided: No service: No Physical Exam 2 Vital Signs: Vital Signs: Last Vital Signs Temp 97.6 F 10/19/24 16:33 Pulse 76 10/19/24 16:33 Resp 18 10/19/24 16:33 BP 120/67 10/19/24 16:33 Pulse Ox 98 10/19/24 16:33 O2 Del Method Room Air 10/19/24 16:33 BMI result Body Mass Index 21.0 Course Course Course Narrative: This is an RME performed by Phani John CNP: Additional HPI, ROS, PE not included below will be deferred to primary provider. 58 yo female with PMHx of polysubstance use disorder presents to the ED due to wound on L hand. [place] [facility] [place] who recommended her come to the ED for further evaluation of questionable infection, not currenlty on antibiotics. On chart review patient follows with Dr. Salazar (last seen 10/03) who recommends follow up with [facility] plastics, appointment is Monday 10/23. She states she noticed wound becoming more swollen. She denies IVDU. PE: L hand as below Plan: Blood cultures, lactic acid, L hand X-ray Reevaluation(s) Reevaluation #1: LWCT IMPRESSION: XR L 3view hand 1. Soft tissue edema overlying the left hand primarily the 1st digit. No evidence of injury to the underlying bones. No radiopaque foreign body. No radiographic evidence of osteomyelitis. This document has been electronically signed by: Rui Rodríguez MD on 10/19/2024 17:13:08 Medical Decision Making Lab Data 10/19/24 17:09 10/19/24 17:09 Labs: Lab Results 10/19/24 Range/Units 17:09 WBC 7.2 (4.8-10.8) X10*3/uL RBC 3.42 L (4.20-5.50) X10*6/uL Hgb 10.4 L (12.0-16.0) g/dl Hct 30.7 L (37.0-47.0) % MCV 89.8 (80.0-98.0) fL MCH 30.4 (27.0-33.0) pg MCHC 33.9 (31.0-35.0) g/dl RDW 13.7 (11.0-16.0) % Plt Count 197 D (160-400) X10*3/uL MPV 9.0 L (9.4-12.3) fL Immature Gran % (Auto) 0.4 (0.0-0.4) % Neut % (Auto) 67.2 (45-73) % Lymph % (Auto) 22.6 (20-40) % Bradley % (Auto) 8.2 (2-11) % Eos % (Auto) 1.3 (0-4) % Baso % (Auto) 0.3 (0-2) % Lymph # (Auto) 1.6 (1.2-4.9) X10*3/uL Bradley # (Auto) 0.6 (0.1-1.2) X10*3/uL Eos # (Auto) 0.1 (0.0-0.4) X10*3/uL Baso # (Auto) 0.0 (0.0-0.2) X10*3/uL Abs Immat Gran (auto) 0.03 (0.00-0.03) X10*3/uL Absolute Neuts (auto) 4.8 (2.0-8.3) x10*3/uL Absolute Nucleated RBC 0.000 (0.0-0.012) X10*3/uL Nucleated RBC % (auto) 0.0 (0.0-0.2) /100WBC ESR 5 (0-20) MM/HR Sodium 138 (135-145) mmol/L Potassium 4.1 (3.3-5.1) mmol/L Chloride 105 (96-108) mmol/L Carbon Dioxide 26 (22-29) mmol/L Anion Gap 11 L (12-20) BUN 16 (9-16) mg/dL Creatinine 0.61 (0.5-1.4) mg/dL Estim Creat Clear Calc 85.7 Estimated GFR > 60 Random Glucose 108 (60-115) mg/dL Lactic Acid 0.9 (0.5-2.0) mmol/L Calcium 8.7 (8.4-10.2) mg/dL Total Bilirubin 0.3 (0.0-1.0) mg/dL AST 26 (5-31) U/L ALT 12 (0-31) U/L Alkaline Phosphatase 55 (39-117) U/L C-Reactive Protein 5.30 H (< or = 0.50) mg/dL Total Protein 6.7 (6.5-8.0) g/dL Albumin 3.6 (3.5-5.0) g/dL Discharge Plan Discharge Clinical Impression: Cellulitis of hand, left Patient Disposition: Left W/O Completing Treatment Prescriptions: No Action cefuroxime axetil 500 mg tablet 500 mg PO Q12H 12 Days Qty: 24 0RF celecoxib 200 mg capsule 200 mg PO DAILY PRN (Reason: moderate pain) acetaminophen 500 mg tablet 1,000 mg PO Q8H PRN (Reason: Pain (Scale Score 1-3)) trazodone 150 mg tablet 300 mg PO BEDTIME hydroxyzine HCl 25 mg tablet 25 mg PO QID PRN (Reason: anxiety) albuterol sulfate [Ventolin HFA] 90 mcg/actuation HFA aerosol inhaler 2 puff INHALATION Q4H PRN (Reason: anaphylaxis) acetaminophen 500 mg tablet 500 mg PO Q6H PRN (Reason: fever) Qty: 30 0RF Discharge Date/Time: 10/19/24 19:30
[2024-10-19 17:21] LABS: MANUAL DIFF FLAG NO
[2024-10-19 17:26] LABS: Basophils Percent Auto 0.3 % (0-2); Eosinophils Absolute Auto 0.1 X10*3/uL (0.0-0.4); Eosinophils Percent Auto 1.3 % (0-4); Hematocrit 30.7 % (37.0-47.0); Hemoglobin 10.4 g/dl (12.0-16.0); Imm Gran Abs Auto 0.03 X10*3/uL (0.00-0.03); Imm Gran Pct Auto 0.4 % (0.0-0.4); Lymphocytes Absolute Auto 1.6 X10*3/uL (1.2-4.9); Lymphocytes Percent Auto 22.6 % (20-40); Mean Corpuscular HGB Conc 33.9 g/dl (31.0-35.0); Mean Corpuscular Hemoglobin 30.4 pg (27.0-33.0); Mean Corpuscular Volume 89.8 fL (80.0-98.0); Monocytes Absolute Auto 0.6 X10*3/uL (0.1-1.2); Monocytes Percent Auto 8.2 % (2-11); Neutrophils Absolute Auto 4.8 x10*3/uL (2.0-8.3); Neutrophils Percent Auto 67.2 % (45-73); Red Blood Count 3.42 X10*6/uL (4.20-5.50); Red Cell Distribution Width 13.7 % (11.0-16.0); White Blood Count 7.2 X10*3/uL (4.8-10.8)
[2024-10-19 17:42] LABS: Lactic Acid 0.9 mmol/L (0.5-2.0)
[2024-10-19 17:50] LABS: Platelet Count 197 X10*3/uL (160-400)
[2024-10-19 17:51] LABS: Alanine Aminotransferase 12 U/L (0-31); Albumin Level 3.6 g/dL (3.5-5.0); Anion Gap 11 (12-20); Aspartate Amino Transferase 26 U/L (5-31); Bilirubin Total 0.3 mg/dL (0.0-1.0); Blood Urea Nitrogen 16 mg/dL (9-16); Calcium 8.7 mg/dL (8.4-10.2); Carbon Dioxide 26 mmol/L (22-29); Chloride 105 mmol/L (96-108); Creatinine Clr Calc Pharmacy 85.7; Estimated Glomerular Filt Rate > 60; Glucose Random 108 mg/dL (60-115); Potassium 4.1 mmol/L (3.3-5.1); Sodium 138 mmol/L (135-145); Total Protein 6.7 g/dL (6.5-8.0)
[2024-10-19 18:08] LABS: Alkaline Phosphatase 55 U/L (39-117); Erythrocyte Sedimentation Rate 5 MM/HR (0-20)
--- NOTE | 2024-10-19 19:29 | PC.NURSE ---
N/A FROM WR AT 192
== END 2024-10-19 19:30 | disposition left against medical advice (07) ==
PROVIDERS: Nurse Practitioner Family; Emergency Provider Emergency Medicine
DX: L03.114 Cellulitis of left upper limb (principal); F14.10 Cocaine abuse, uncomplicated; F17.210 Nicotine dependence, cigarettes, uncomplicated
CPT/HCPCS: 36415; 73130; 80053; 83605; 85025; 85652; 86140; 87040; 99281; 99283

== ENCOUNTER → 2024-10-19 16:40 | Outpatient (BNV) | payer OTHER, SELFPAY | PROVIDERS: Visit Provider Radiology Diagnostic Radiology | DX: R60.0 Localized edema (principal) | CPT/HCPCS: 73130 ==

== ENCOUNTER 2024-10-20 13:29 | Inpatient (IN) | payer OTHER, SELFPAY ==
[2024-10-20 13:38] VITALS: BP 127/72; PULSE 74; RESP 20; TEMP 36.3; O2SAT 97; BMI 20.8
--- NOTE | 2024-10-20 13:42 | ED_ITS ---
HPI - General Adult General Chief complaint: General Medical Stated complaint: hand infection Time Seen by Provider: 10/20/24 14:07 Source: patient Mode of arrival: ambulatory Limitations: no limitations History of Present Illness ED Provider: Merlene Farr PA-C HPI narrative: Patient is a 58 year old assigned female at with a history of cocaine abuse (intranasal) and non-healing left hand wound presenting to the emergency department today with worsening left hand pain / swelling. Patient states that her left hand wound has been getting worse and more painful. Patient states that she is aware she needs a graft. Patient denies any dizziness, lightheadedness, abdominal pain, nausea, vomiting, fever, chills, blurry vision, double vision, loss of vision, chest pain, difficulty breathing, shortness of breath, back pain, night sweats, pain with urination, increased urinary frequency, increased urinary urgency, blood in her urine or stool, syncope or a near syncopal episode, recent trauma or falls, bowel incontinence, bladder incontinence, or any other complaints at this time. Relieving factors: none Exacerbating factors: none Associated symptoms: denies other symptoms Treatments prior to arrival: none Related Data Home Medications ?Medication ?Instructions ?Recorded ?Confirmed acetaminophen 500 mg tablet 1,000 mg PO Q8H PRN Pain (Scale 09/12/24 10/20/24 Score 1-3) albuterol sulfate 90 mcg/actuation 2 puff inhalation Q4H PRN 09/12/24 10/20/24 aerosol inhaler (Ventolin HFA) anaphylaxis celecoxib 200 mg capsule 200 mg PO DAILY PRN moderate pain 09/12/24 10/20/24 hydroxyzine HCl 25 mg tablet 25 mg PO QID PRN anxiety 09/12/24 10/20/24 trazodone 150 mg tablet 300 mg PO BEDTIME 09/12/24 10/20/24 naproxen sodium 220 mg tablet 220 mg PO BID PRN Pain 10/20/24 10/20/24 (Aleve) Allergies Allergy/AdvReac Type Severity Reaction Status Date / Time sulfamethoxazole Allergy Hives Verified 10/20/24 13:41 [From Bactrim] trimethoprim [From Bactrim] Allergy Hives Verified 10/20/24 13:41 Review of Systems 2 Constitutional: Constitutional: Reports no additional constitutional complaints, Denies chills, Denies fever(s) and Denies night sweats Eyes: Eyes: Reports no additional eye complaints, Denies blurry vision, Denies change in vision, Denies diplopia, Denies eye discharge, Denies loss of vision and Denies eye pain ENT: Denies dizziness Cardiovascular: Cardiovascular: Reports no additional cardiovascular complaints, Denies chest pain, Denies lightheadedness, Denies Loss of Consciousness and Denies dyspnea Respiratory: Respiratory: Reports no additional respiratory complaints and Denies dyspnea Gastrointestinal: Gastrointestinal: Reports no additional gastrointestinal complaints, Denies abdominal pain, Denies melena, Denies hematochezia, Denies change in bowel habits and Denies change in stool character Genitourinary: Genitourinary: Denies hematuria, Denies urinary frequency, Denies dysuria, Denies urinary incontinence, Denies urinary hesitancy and Denies urinary urgency Musculoskeletal: Musculoskeletal: Reports no additional musculoskeletal complaints, Denies numbness and Denies tingling Comments: left hand wound left hand pain Neurologic: Denies dizziness, Denies loss of vision, Denies numbness and Denies tingling Psychiatric: Psychiatric: Reports no additional psychiatric complaints Endocrine: Endocrine: Reports no additional endocrine complaints Hematologic/Lymphatic: Hematologic/Lymphatic: Reports no additional hematologic/lymphatic complaints Allergic/Immunologic: Allergic/Immunologic: Reports no additional allergic/immunologic complaints PMFSH Past Medical History Attestation statement: The following information was validated with the patient. Source: old records reviewed and nursing notes reviewed Medical History Mood disorder Polysubstance use disorder Social History Social History Household Members: Other Housing: Apartment Do you presently have visiting nurse or other home services: No Alcohol intake: former Comment: counts correct Patient Tobacco Use Status: Current everyday Tobacco user Tobacco use type: Cigarette Cigarettes Per Day: 3 Second Hand Smoke Exposure: No Substance Use Type: Crack/Cocaine Advance Directives Date on File: 09/24/24 service: No Physical Exam ED Vital Signs: Vital Signs - 24 hr 10/20/24 13:38 10/20/24 14:05 Temperature 97.4 F 97.9 F Pulse Rate 74 71 Respiratory Rate 20 14 Blood Pressure 127/72 140/75 H Pulse Oximetry 97 96 Oxygen Delivery Method Room Air Room Air BMI result Body Mass Index 20.8 Const General: cooperative, no acute distress, alert and awake Nutritional Appearance: well nourished Orientation/consciousness: patient oriented x3 HENMT Head: Yes normal to inspection and Yes atraumatic Ears: hearing grossly normal bilaterally and external ears normal General nose exam: Normal external nose present, no nasal discharge noted and no epistaxis Face and sinus: Yes normal facial exam, No abrasion and No laceration Mouth: Normal oral and palatal mucosa present, no drooling and no muffled voice Eyes General: appearance normal, both eyes and all related structures Periorbital: periorbital findings normal Eyelids: Yes eyelids normal Conjunctivae: conjunctivae normal Pupils: Equal, round and reactive pupils present EOM: EOMs intact bilaterally Neck Neck: Yes normal visual inspection, Yes full ROM and Yes no lymphadenopathy Resp Effort & Inspection: normal respiratory effort and able to speak in complete sentences Neuro General: patient oriented x3, moves all extremities and CN's II-XI intact bilaterally Cranial nerves: Yes Equal, round and reactive pupils present Cognition (Neuro): normal cognition Extrem Other: General: Yes full ROM and Yes capillary refill normal Psych Appearance: grossly normal Mental Status: mental status grossly normal Affect: normal affect Attitude: cooperative Thought process: Normal thought process present Thought content: Normal thought content present Insight: Good insight present (Psych) Course Course Course Narrative: RME performed by Merlene Farr PA-C. Patient is a 58 year old assigned female at presenting to the emergency department with worsening left hand pain. Patient states that she has a known infection and it is not improving. Detailed physical exam and review of systems are deferred to the concrete float maker. Labs ordered. Patient placed back in the waiting room pending room availability and results. Medications Administered Generic Name Dose Route Start Last Admin Trade Name Freq PRN Reason Stop Dose Admin Acetaminophen 650 mg 10/20/24 14:33 10/22/24 11:06 Acetaminophen 325 Mg Tablet PO 650 mg Q6H PRN Administration Pain, Mild 1-3,fever,headache Enoxaparin Sodium 40 mg 10/21/24 09:30 10/22/24 07:33 Enoxaparin Sodium 40 Mg/0.4 Ml Syringe SUBCUT 40 mg Q24H KIMI Administration Piperacillin Sod/Tazobactam 50 mls @ 100 mls/hr 10/20/24 15:00 10/22/24 08:16 Sod 3.375 gm/ Sodium Chloride IV Infused Q6H KIMI Infusion Vancomycin HCl 750 mg/ Sodium 265 mls @ 265 mls/hr 10/22/24 06:00 10/22/24 07:26 Chloride IV Infused Q8H KIMI Infusion Oxycodone HCl 5 mg 10/20/24 18:03 10/22/24 11:07 Oxycodone Hcl Immed Release 5 Mg Tablet PO 5 mg Q4H PRN Administration Pain, Severe (Pain Scale 7-10) Sodium Chloride 3 ml 10/20/24 16:00 10/22/24 07:33 0.9 % Sodium Chloride Flush 3 Ml Syringe IVFLUSH 3 ml QSHIFT KIMI Administration Trazodone HCl 300 mg 10/20/24 21:00 10/21/24 20:44 Trazodone Hcl 100 Mg Tablet PO 300 mg BEDTIME KIMI Administration Discontinued Medications Generic Name Dose Route Start Last Admin Trade Name Freq PRN Reason Stop Dose Admin Hydromorphone HCl 1 mg 10/20/24 14:10 10/20/24 14:43 Hydromorphone Hcl 1 Mg/Ml Syringe IVPUSH 10/20/24 14:11 1 mg ONCE ONE Administration Protocol Vancomycin HCl 1,500 mg/ 500 mls @ 333.333 mls/hr 10/20/24 14:45 10/20/24 18:00 Sodium Chloride IV 10/20/24 16:14 Infused ONCE ONE Infusion Vancomycin HCl 1,500 mg/ 500 mls @ 333.333 mls/hr 10/21/24 22:00 10/22/24 00:10 Sodium Chloride IV 10/21/24 23:29 Infused ONCE ONE Infusion Medical Decision Making Medical Decision Making MDM Narrative: Patient is a 58 year old assigned female at with a history of cocaine abuse (intranasal) and non-healing left hand wound presenting to the emergency department today with worsening left hand pain / swelling. Patient's physical exam was as noted in the physical exam portion of this note. Patient's blood work showed a normal WBC count with a left shift, ESR of 50, and CRP of 14.48. Patient's left hand x-ray from 10/19/2024 showed no acute adrián process. I spoke with the orthopedic team who recommended medical admission for IV antibiotics. They state they will hopefully be grafting the area when the infection subsides. I spoke with the hospitalist team who agreed to admission. I explained my physical exam findings as well as all test results to the patient. I answered all questions asked by the patient. Patient was given IV Zosyn and Vancomycin. Patient verbalized agreement and understanding with this treatment plan and admission. Differential Diagnosis Differential Diagnoses: The differential diagnosis associated with the presentation includes Left hand cellulitis Non healing left hand wound Admission/Observation Consideration of admission/observation: Escalation of care including admission/observation considered Patient admitted as noted in the MDM Rationale portion of this note. Consult Healthcare Provider Management of the patient was discussed with: Hospitalist (agreed to admission as noted in the MDM Rationale portion of this note. ) and Health And Wellness Director (spoke with the orthopedic team as noted in the MDM Rationale portion of this note.) Lab Data [facility] Lab Attestation statement: I reviewed the patient's lab results. My interpretation of these results are in the MDM Rationale portion of this note. 10/22/24 05:30 10/22/24 05:30 Labs: Lab Results 10/20/24 Range/Units 13:58 WBC 9.3 (4.8-10.8) X10*3/uL RBC 3.82 L (4.20-5.50) X10*6/uL Hgb 11.6 L (12.0-16.0) g/dl Hct 34.7 L (37.0-47.0) % MCV 90.8 (80.0-98.0) fL MCH 30.4 (27.0-33.0) pg MCHC 33.4 (31.0-35.0) g/dl RDW 13.8 (11.0-16.0) % Plt Count 219 (160-400) X10*3/uL MPV 8.9 L (9.4-12.3) fL Immature Gran % (Auto) 0.4 (0.0-0.4) % Neut % (Auto) 80.9 H (45-73) % Lymph % (Auto) 13.7 L (20-40) % [place] % (Auto) 3.9 (2-11) % Eos % (Auto) 0.9 (0-4) % Baso % (Auto) 0.2 (0-2) % Lymph # (Auto) 1.3 (1.2-4.9) X10*3/uL [place] # (Auto) 0.4 (0.1-1.2) X10*3/uL Eos # (Auto) 0.1 (0.0-0.4) X10*3/uL Baso # (Auto) 0.0 (0.0-0.2) X10*3/uL Abs Immat Gran (auto) 0.04 H (0.00-0.03) X10*3/uL Absolute Neuts (auto) 7.5 (2.0-8.3) x10*3/uL Absolute Nucleated RBC 0.000 (0.0-0.012) X10*3/uL Nucleated RBC % (auto) 0.0 (0.0-0.2) /100WBC ESR 50 H (0-20) MM/HR Sodium 142 (135-145) mmol/L Potassium 4.3 (3.3-5.1) mmol/L Chloride 107 (96-108) mmol/L Carbon Dioxide 27 (22-29) mmol/L Anion Gap 12 (12-20) BUN 12 (9-16) mg/dL Creatinine 0.62 (0.5-1.4) mg/dL Estim Creat Clear Calc 84.3 Estimated GFR > 60 Random Glucose 125 H (60-115) mg/dL Calcium 8.9 (8.4-10.2) mg/dL Total Bilirubin 0.2 (0.0-1.0) mg/dL AST 23 (5-31) U/L ALT 12 (0-31) U/L Alkaline Phosphatase 57 (39-117) U/L C-Reactive Protein 14.48 H (< or = 0.50) mg/dL Total Protein 6.7 (6.5-8.0) g/dL Albumin 3.5 (3.5-5.0) g/dL Independent Interpretation I performed an independent interpretation of an: Plain X-Ray Interpretation: My interpretation is in agreement with the radiologist's impression of this imaging study. L CLINICAL HISTORY: L hand chronic wound, increased edema R O osteo Three views of the left hand. COMPARISON: XR left hand dated 09/12/24 at 17:05 EDT FINDINGS: Soft tissue edema overlying the left hand primarily the 1st digit. Distal radius and ulna appear intact. Carpal bones appear intact. Metacarpals appear intact. Degenerative changes of the 1st MTP joint with small osteophytes. Phalanges appear intact. No lytic or sclerotic lesion. No periostitis. No cortical erosion. No radiopaque foreign body. IMPRESSION: 1. Soft tissue edema overlying the left hand primarily the 1st digit. No evidence of injury to the underlying bones. No radiopaque foreign body. No radiographic evidence of osteomyelitis. This document has been electronically signed by: Rui Rodríguez MD on 10/19/2024 17:13:08 Dictated By: Rui Rodríguez MD Signed By: Electronically signed by Rui Rodríguez MD 10/19/24 9612 Radiology Impression Discussion of test interpretation with radiology: I have reviewed the radiologist's reading. Critical Care Time Critical Care Time Critical Care Time: Yes Total Critical Care Time: 37 Attestation: I spent 37 minutes of Critical Care Time with this patient. This does not include time spent on separately reported billable procedures. Discharge Plan Discharge Clinical Impression: Non-healing wound of upper extremity, Cocaine use disorder, Cellulitis Patient Disposition: Admitted As Inpatient Interventions: Admission Worksheet (ED) Last Done: 10/20/24 15:32 Discharge Date/Time: 10/20/24 19:00
[2024-10-20 14:04] LABS: MANUAL DIFF FLAG NO
[2024-10-20 14:05] VITALS: BP 140/75; PULSE 71; RESP 14; TEMP 36.6; O2SAT 96
[2024-10-20 14:05] LABS: Basophils Percent Auto 0.2 % (0-2); Eosinophils Absolute Auto 0.1 X10*3/uL (0.0-0.4); Eosinophils Percent Auto 0.9 % (0-4); Hematocrit 34.7 % (37.0-47.0); Hemoglobin 11.6 g/dl (12.0-16.0); Imm Gran Abs Auto 0.04 X10*3/uL (0.00-0.03); Imm Gran Pct Auto 0.4 % (0.0-0.4); Lymphocytes Absolute Auto 1.3 X10*3/uL (1.2-4.9); Lymphocytes Percent Auto 13.7 % (20-40); Mean Corpuscular HGB Conc 33.4 g/dl (31.0-35.0); Mean Corpuscular Hemoglobin 30.4 pg (27.0-33.0); Mean Corpuscular Volume 90.8 fL (80.0-98.0); Mean Platelet Volume 8.9 fL (9.4-12.3); Monocytes Absolute Auto 0.4 X10*3/uL (0.1-1.2); Monocytes Percent Auto 3.9 % (2-11); Neutrophils Absolute Auto 7.5 x10*3/uL (2.0-8.3); Neutrophils Percent Auto 80.9 % (45-73); Platelet Count 219 X10*3/uL (160-400); Red Blood Count 3.82 X10*6/uL (4.20-5.50); Red Cell Distribution Width 13.8 % (11.0-16.0); White Blood Count 9.3 X10*3/uL (4.8-10.8)
[2024-10-20 14:22] LABS: Alanine Aminotransferase 12 U/L (0-31); Albumin Level 3.5 g/dL (3.5-5.0); Alkaline Phosphatase 57 U/L (39-117); Anion Gap 12 (12-20); Aspartate Amino Transferase 23 U/L (5-31); Bilirubin Total 0.2 mg/dL (0.0-1.0); Blood Urea Nitrogen 12 mg/dL (9-16); C Reactive Protein 14.48 mg/dL (< or = 0.50); Calcium 8.9 mg/dL (8.4-10.2); Carbon Dioxide 27 mmol/L (22-29); Chloride 107 mmol/L (96-108); Creatinine Clr Calc Pharmacy 84.3; Estimated Glomerular Filt Rate > 60; Glucose Random 125 mg/dL (60-115); Potassium 4.3 mmol/L (3.3-5.1); Sodium 142 mmol/L (135-145); Total Protein 6.7 g/dL (6.5-8.0)
[2024-10-20] MEDS: HYDROmorphone HCl 1 MG/ML SYRINGE IVPUSH (14:43)
[2024-10-20 14:44] LABS: Erythrocyte Sedimentation Rate 50 MM/HR (0-20)
[2024-10-20] MEDS: vancomycin HCL 1,500 MG in 0.9 % Sodium Chloride 500 ML 333.33 MG IV (14:49)
--- NOTE | 2024-10-20 14:52 | PHA.MEDREC ---
Addendum entered by Ava Dupree RPh 10/20/24 15:12: reviewed by [facility]. Original Note: Pharmacy Consult ? Medication Reconciliation Pharmacy has completed the medication reconciliation. Spoke with patient to confirm medications. She had medications last night including celebrex and hydroxyzine.
--- NOTE | 2024-10-20 14:59 | PM.IMHP ---
History of Present Illness Date of Service: 10/20/24 Chief Complaint: pain and erythema of left thumb 58F PMH polysubstance dependence with cocaine, opiates, leukocytoclastic vasculitis, mood disorder presented with worsening of left thumb wound. Patient has had ongoing left thumb open wound with cellulitis. Has been treated with antibiotics and was healing well plan was eventual graft with plastics. Over the past several days patient has noted worsening erythema pain and swelling at site with drainage. Denies fever or chills. Review of Systems Review of Systems: Yes all other systems are reviewed and are negative [facility] Medical History Mood disorder Polysubstance use disorder Social History Household Members: Unknown / Unable to assess Housing: Unknown / Unable to assess Alcohol intake: former Comment: counts correct Patient Tobacco Use Status: Current everyday Tobacco user Tobacco use type: Cigarette Cigarettes Per Day: 3 Substance Use Type: Crack/Cocaine Advance Directives: Yes Advance Directives on File: Yes Advance Directives Date on File: 09/24/24 Do you have a plan to hurt others: No Plan service: No Meds Allergies Allergy/AdvReac Type Severity Reaction Status Date / Time sulfamethoxazole Allergy Hives Verified 10/20/24 13:41 [From Bactrim] trimethoprim [From Bactrim] Allergy Hives Verified 10/20/24 13:41 Active Medications: Current Medications Acetaminophen (Acetaminophen 325 Mg Tablet) 650 mg PO Q6H PRN PRN Reason: Pain, Mild 1-3,fever,headache Calcium Carbonate (Calcium Carbonate 750 Mg Tab.Chew) 750 mg PO Q4H PRN PRN Reason: Heartburn Enoxaparin Sodium (Enoxaparin Sodium 40 Mg/0.4 Ml Syringe) 40 mg SUBCUT Q24H KIMI Vancomycin HCl 1,000 mg/ (Sodium Chloride) 270 mls @ 270 mls/hr IV Q12H KIMI Piperacillin Sod/Tazobactam (Sod 3.375 gm/ Sodium Chloride) 50 mls @ 100 mls/hr IV Q6H KIMI Last Admin: 10/20/24 14:49 Dose: Not Given Vancomycin HCl 1,500 mg/ (Sodium Chloride) 500 mls @ 333.333 mls/hr IV ONCE ONE Stop: 10/20/24 16:14 Last Admin: 10/20/24 14:49 Dose: 333.33 mls/hr Magnesium Hydroxide (Milk Of Magnesia 30 Ml Oral.Susp) 30 ml PO DAILY PRN PRN Reason: Constipation Melatonin (Melatonin 3 Mg Tablet) 6 mg PO BEDTIME PRN PRN Reason: Insomnia Pharmacy Consult (Consult Rx Vancomycin Dosing) 1 each MISCELLANE DAILY PRN PRN Reason: Consult order Sodium Chloride (0.9 % Sodium Chloride Flush 3 Ml Syringe) [facility] Medications ?Medication ?Instructions ?Recorded ?Confirmed ?Last Taken ?Type acetaminophen 500 mg tablet 1,000 mg PO Q8H PRN Pain (Scale 09/12/24 10/20/24 Unknown History Score 1-3) albuterol sulfate 90 mcg/actuation 2 puff inhalation Q4H PRN 09/12/24 10/20/24 Unknown History aerosol inhaler (Ventolin HFA) anaphylaxis celecoxib 200 mg capsule 200 mg PO DAILY PRN moderate pain 09/12/24 10/20/24 10/19/24 History hydroxyzine HCl 25 mg tablet 25 mg PO QID PRN anxiety 09/12/24 10/20/24 10/19/24 History trazodone 150 mg tablet 300 mg PO BEDTIME 09/12/24 10/20/24 10/19/24 History naproxen sodium 220 mg tablet 220 mg PO BID PRN Pain 10/20/24 10/20/24 Unknown History (Alecal) Physical Exam Vital Signs and Narrative: Vital Signs: Last Vital Signs Temp 97.9 F 10/20/24 14:05 Pulse 71 10/20/24 14:05 Resp 14 10/20/24 14:05 BP 140/75 H 10/20/24 14:05 Pulse Ox 96 10/20/24 14:05 O2 Del Method Room Air 10/20/24 14:05 BMI result Body Mass Index 20.8 General: AO X 3, no acute distress Resp: CTA bilateral, no accessory muscles used CVS: S1,S2,RRR GI: soft, non tender, non distended Neuro: motor grossly intact, alert Psych: appropriate affect, appropriate insight left thumb dressed Results Labs 10/20/24 13:58 10/20/24 13:58 Labs: Laboratory Results - last 24 hr 10/20/24 13:58 MCV 90.8 MCH 30.4 MCHC 33.4 RDW 13.8 Plt Count 219 MPV 8.9 L Immature Gran % (Auto) 0.4 Neut % (Auto) 80.9 H Lymph % (Auto) 13.7 L [place] % (Auto) 3.9 Eos % (Auto) 0.9 Baso % (Auto) 0.2 Lymph # (Auto) 1.3 [place] # (Auto) 0.4 Eos # (Auto) 0.1 Baso # (Auto) 0.0 Abs Immat Gran (auto) 0.04 H Absolute Neuts (auto) 7.5 Absolute Nucleated RBC 0.000 Nucleated RBC % (auto) 0.0 ESR 50 H Anion Gap 12 Estim Creat Clear Calc 84.3 Estimated GFR > 60 Random Glucose 125 H Calcium 8.9 Total Bilirubin 0.2 AST 23 ALT 12 Alkaline Phosphatase 57 C-Reactive Protein 14.48 H Total Protein 6.7 Albumin 3.5 Assessment and Plan (1) Polysubstance use disorder: Status: Acute Plan 58F PMH polysubstance dependence with cocaine, opiates, leukocytoclastic vasculitis, mood disorder presented with worsening of left thumb wound Left thumb cellulitis and open wound Vancomycin and Zosyn, follow up ortho likely plan for OR once swelling improved Polysubstance dependence with cocaine and opiates Addiction team eval History of leukocytoclastic vasculitis Not on treatment now DVT prophylaxis with Lovenox Full Code Given degree of swelling and infection in high-risk area of hand and need for IV antibiotics, reduction swelling in eventual surgery prior to discharge expected require at least 2 midnights inpatient Quality Stroke Does the patient have a stroke diagnosis?: No VTE Prior VTE?: No VTE Risk Level:: Medical - moderate - high VTE Device Contraindication: Treatment Not Indicated VTE Drug Contraindication: N/A - Med Ordered
--- NOTE | 2024-10-20 15:07 | PHA.PROG ---
Admission Date/Time: October 20, 2024 14:33 Indication: SKIN Weight in k.1 kg Serum Creatinine - Last 168 Hours 10/20/24 13:58 Creatinine 0.62 Estimated CrCl and GFR - Last 168 Hours 10/20/24 13:58 Estim Creat Clear Calc 84.3 Estimated GFR > 60 Vancomycin Loading Dose: 1500 Current Vancomycin Dosing Regimen: 750 Q 12H Vancomycin Monitoring using AUC goal of 400 - 600 range with trough as surrogate marker: 439 Date and Time for next Vancomycin Level to be drawn: 10/21 @ 2100 Pharmacist Comments on Vancomycin Plan: Vancomycin dosing will take advantage of [employer] as a clinical decision support tool that uses Bayesian modeling to calculate individual patient's pharmacokinetic parameters and forecast the patient's drug concentration time course with the target goal AUC 24 range of 400 - 600 mg/L/hr.
[2024-10-20 15:15] VITALS: RESP 16
[2024-10-20 15:56] VITALS: BMI 21.5
[2024-10-20 18:15] VITALS: BP 137/81; PULSE 70; RESP 18; TEMP 36.6; O2SAT 97
[2024-10-20] MEDS: oxyCODONE HCl Immed Release 5 MG TABLET PO (18:15)
--- NOTE | 2024-10-20 18:45 | HO.SKINPHOTO ---
R knee open wound. Pt states it venous ulcer. which is a chronic issue.
[2024-10-20] MEDS: Acetaminophen 325 MG TABLET 650 MG PO (19:14)
[2024-10-20 19:16] VITALS: BP 146/67; PULSE 71; RESP 18; TEMP 37; O2SAT 95
[2024-10-20 20:14] VITALS: RESP 18
[2024-10-20] MEDS: traZODone HCL 100 MG TABLET 300 MG PO (20:27)
[2024-10-20] MEDS: 0.9 % Sodium Chloride Flush 3 ML SYRINGE IVFLUSH (20:27)
[2024-10-20] MEDS: Piperacillin Sodium/Tazobactam 3.375 GM in 0.9 % Sodium Chloride 50 ML IV (20:32)
[2024-10-21 01:59] VITALS: RESP 16
[2024-10-21 03:42] VITALS: BP 138/70; PULSE 82; RESP 18; TEMP 37.3; O2SAT 92
[2024-10-21] MEDS: Acetaminophen 325 MG TABLET 650 MG PO ×3 (03:48→20:45)
[2024-10-21] MEDS: oxyCODONE HCl Immed Release 5 MG TABLET PO ×4 (03:48→20:45)
[2024-10-21] MEDS: Piperacillin Sodium/Tazobactam 3.375 GM in 0.9 % Sodium Chloride 50 ML IV ×4 (03:49→21:13)
[2024-10-21 04:51] VITALS: RESP 16
[2024-10-21 06:51] VITALS: BP 116/59; PULSE 68; RESP 16; TEMP 36.6; O2SAT 92
--- NOTE | 2024-10-21 08:26 | HO.PM.IMPN ---
Subjective Subjective Date of Service: 10/21/24 Interval History: no New complaints Physical Exam Vital Signs: Vital Signs: Last Vital Signs Temp 97.9 F 10/21/24 06:51 Pulse 68 10/21/24 06:51 Resp 16 10/21/24 06:51 BP 116/59 L 10/21/24 06:51 Pulse Ox 92 10/21/24 06:51 O2 Del Method Room Air 10/21/24 06:51 BMI result Body Mass Index 21.5 General: AO X 3, n o acute distress R tyler: CTA bilatera l, no accessory mu scles used CVS: S1 ,S2,RRR GI: soft, non tender, non di stended Neuro: mo tor grossly intact , alert Psych: liam ropriate affect, a ppropriate insight left thumb dres sed Objective Data Active Medications Acetaminophen (Acetaminophen 325 Mg Tablet) 650 mg PO Q6H PRN PRN Reason: Pain, Mild 1-3,fever,headache Last Admin: 10/21/24 03:48 Dose: 650 mg Documented By: ADRI Albuterol Sulfate (Albuterol Sulfate 90 Mcg 8 Gm Inhaler) 2 puff INHALE Q4H PRN PRN Reason: anaphylaxis Calcium Carbonate (Calcium Carbonate 750 Mg Tab.Chew) 750 mg PO Q4H PRN PRN Reason: Heartburn Enoxaparin Sodium (Enoxaparin Sodium 40 Mg/0.4 Ml Syringe) 40 mg SUBCUT Q24H [facility] Hydroxyzine HCl (Hydroxyzine Hcl 25 Mg Tablet) 25 mg PO QID PRN PRN Reason: anxiety Piperacillin Sod/Tazobactam (Sod 3.375 gm/ Sodium Chloride) 50 mls @ 100 mls/hr IV Q6H [facility] Last Infusion: 10/21/24 04:19 Dose: Infused Documented By: ADRI Vancomycin HCl 500 mg/ Sodium (Chloride) 110 mls @ 110 mls/hr IV Q12H [facility] Magnesium Hydroxide (Milk Of Magnesia 30 Ml Oral.Susp) 30 ml PO DAILY PRN PRN Reason: Constipation Melatonin (Melatonin 3 Mg Tablet) 6 mg PO BEDTIME PRN PRN Reason: Insomnia Oxycodone HCl (Oxycodone Hcl Immed Release 5 Mg Tablet) 5 mg PO Q4H PRN PRN Reason: Pain, Severe (Pain Scale 7-10) Last Admin: 10/21/24 03:48 Dose: 5 mg Documented By: ADRI Pharmacy Consult (Consult Rx Vancomycin Dosing) 1 each MISCELLANE DAILY PRN PRN Reason: Consult order Sodium Chloride (0.9 % Sodium Chloride Flush 3 Ml Syringe) 3 ml IVFLUSH QSHIFT [facility] Last Admin: 10/20/24 20:27 Dose: 3 ml Documented By: ADRI Trazodone HCl (Trazodone Hcl 100 Mg Tablet) 300 mg PO BEDTIME [facility] Last Admin: 10/20/24 20:27 Dose: 300 mg Documented By: ADRI Labs 10/20/24 13:58 10/20/24 13:58 Labs: Laboratory Results - last 24 hr 10/20/24 13:58 MCV 90.8 MCH 30.4 MCHC 33.4 RDW 13.8 Plt Count 219 MPV 8.9 L Immature Gran % (Auto) 0.4 Neut % (Auto) 80.9 H Lymph % (Auto) 13.7 L [place] % (Auto) 3.9 Eos % (Auto) 0.9 Baso % (Auto) 0.2 Lymph # (Auto) 1.3 [place] # (Auto) 0.4 Eos # (Auto) 0.1 Baso # (Auto) 0.0 Abs Immat Gran (auto) 0.04 H Absolute Neuts (auto) 7.5 Absolute Nucleated RBC 0.000 Nucleated RBC % (auto) 0.0 ESR 50 H Anion Gap 12 Estim Creat Clear Calc 84.3 Estimated GFR > 60 Random Glucose 125 H Calcium 8.9 Total Bilirubin 0.2 AST 23 ALT 12 Alkaline Phosphatase 57 C-Reactive Protein 14.48 H Total Protein 6.7 Albumin 3.5 Assessment and Plan (1) Polysubstance use disorder: Status: Acute (2) Cellulitis of hand, left: Status: Acute Plan 58F PMH polysubstance dependence with cocaine, opiates, leukocytoclastic vasculitis, mood disorder presented with worsening of left thumb wound Left thumb cellulitis and open wound Vancomycin and Zosyn, follow up ortho likely plan for OR once swelling improved Polysubstance dependence with cocaine and opiates Addiction team eval 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
[2024-10-21] MEDS: Enoxaparin Sodium 40 MG/0.4 ML SYRINGE SUBCUT (08:36)
[2024-10-21] MEDS: 0.9 % Sodium Chloride Flush 3 ML SYRINGE IVFLUSH ×3 (08:40→20:48)
[2024-10-21 08:43] LABS: Hematocrit 31.6 % (37.0-47.0); Hemoglobin 10.5 g/dl (12.0-16.0); Mean Corpuscular HGB Conc 33.2 g/dl (31.0-35.0); Mean Corpuscular Hemoglobin 29.6 pg (27.0-33.0); Mean Platelet Volume 9.1 fL (9.4-12.3); Platelet Count 241 X10*3/uL (160-400); Red Blood Count 3.55 X10*6/uL (4.20-5.50); Red Cell Distribution Width 13.6 % (11.0-16.0); White Blood Count 7.2 X10*3/uL (4.8-10.8)
[2024-10-21 08:56] LABS: Anion Gap 11 (12-20); Blood Urea Nitrogen 9 mg/dL (9-16); Calcium 8.4 mg/dL (8.4-10.2); Carbon Dioxide 25 mmol/L (22-29); Chloride 109 mmol/L (96-108); Creatinine Clr Calc Pharmacy 88.7; Estimated Glomerular Filt Rate > 60; Glucose Random 87 mg/dL (60-115); Magnesium 1.8 mg/dL (1.6-2.6); Potassium 3.7 mmol/L (3.3-5.1); Sodium 141 mmol/L (135-145)
--- NOTE | 2024-10-21 15:20 | MHC.CM.PN ---
PT REPORTS SHE IS HOMELESS AND STAYING WITH A FRIEND SHE IS INDEPENDENT WITH CARE AND USES NO DME SHE REVOKES HER HCP NAMING HER SISTER AND DOES NOT WANT INFO SHARED WITH HER PCP: MEGHNA ESPINOZA AT [facility] TBD: PT UNSURE IF SHE IS INTERESTED IN SPEAKING TO THE RECOVERY TEAM ABOUT PLACEMENT TREATMENT VS RETURN TO FRIENDS HOME SHE WILL NEED TRANSPORT ARRANGED
[2024-10-21 15:50] VITALS: BP 123/64; PULSE 78; RESP 18; TEMP 36.5; O2SAT 93
[2024-10-21 19:50] VITALS: BP 127/74; PULSE 65; RESP 18; TEMP 36.5; O2SAT 94
[2024-10-21] MEDS: traZODone HCL 100 MG TABLET 300 MG PO (20:44)
[2024-10-21 21:21] LABS: Vancomycin Random 2.6 mcg/mL (15-20)
--- NOTE | 2024-10-21 21:36 | HE.PHANOTE ---
VANCO DOSE ADJUSTMENT BASED ON SCR AND TROUGH OF 2.6 PATIENT RELOADED WITH 1500MG AND STARTED ON 750 Q 8H. NEXT LEVEL 10/22@ 2200
[2024-10-21] MEDS: vancomycin HCL 1,500 MG in 0.9 % Sodium Chloride 500 ML 333.33 MG IV (22:35)
[2024-10-22] MEDS: oxyCODONE HCl Immed Release 5 MG TABLET PO ×4 (02:25→20:48)
[2024-10-22] MEDS: Piperacillin Sodium/Tazobactam 3.375 GM in 0.9 % Sodium Chloride 50 ML IV ×4 (03:04→22:59)
[2024-10-22 03:43] VITALS: BP 136/74; PULSE 73; RESP 16; TEMP 36.4; O2SAT 94
[2024-10-22] MEDS: vancomycin HCL 750 MG in 0.9 % Sodium Chloride 250 ML 265 MG IV ×2 (06:19→15:58)
[2024-10-22 06:53] LABS: Hematocrit 33.1 % (37.0-47.0); Hemoglobin 10.8 g/dl (12.0-16.0); Mean Corpuscular HGB Conc 32.6 g/dl (31.0-35.0); Mean Corpuscular Hemoglobin 29.3 pg (27.0-33.0); Mean Corpuscular Volume 89.7 fL (80.0-98.0); Mean Platelet Volume 9.2 fL (9.4-12.3); Platelet Count 283 X10*3/uL (160-400); Red Blood Count 3.69 X10*6/uL (4.20-5.50); Red Cell Distribution Width 13.3 % (11.0-16.0); White Blood Count 5.3 X10*3/uL (4.8-10.8)
[2024-10-22 07:03] LABS: Anion Gap 12 (12-20); Blood Urea Nitrogen 12 mg/dL (9-16); Calcium 8.8 mg/dL (8.4-10.2); Carbon Dioxide 24 mmol/L (22-29); Chloride 108 mmol/L (96-108); Creatinine Clr Calc Pharmacy 87.1; Estimated Glomerular Filt Rate > 60; Glucose Random 90 mg/dL (60-115); Potassium 3.7 mmol/L (3.3-5.1); Sodium 140 mmol/L (135-145)
[2024-10-22 07:08] VITALS: BP 135/76; PULSE 70; RESP 16; TEMP 37.1; O2SAT 92
[2024-10-22] MEDS: Enoxaparin Sodium 40 MG/0.4 ML SYRINGE SUBCUT (07:33)
[2024-10-22] MEDS: 0.9 % Sodium Chloride Flush 3 ML SYRINGE IVFLUSH ×3 (07:33→22:59)
--- NOTE | 2024-10-22 08:39 | P.PNIM_ITS ---
Subjective Subjective Date of Service: 10/22/24 Interval History: no New complaints Physical Exam 2 Vital Signs: Vital Signs: Last Vital Signs Temp 98.8 F 10/22/24 07:08 Pulse 70 10/22/24 07:08 Resp 16 10/22/24 07:08 BP 135/76 10/22/24 07:08 Pulse Ox 92 10/22/24 07:08 O2 Del Method Room Air 10/22/24 07:08 BMI result Body Mass Index 21.5 General: AO X 3, n o acute distress R tyler: CTA bilatera l, no accessory mu scles used CVS: S1 ,S2,RRR GI: soft, non tender, non di stended Neuro: mo tor grossly intact , alert Psych: liam ropriate affect, a ppropriate insight left thumb dres sed Objective Data Active Medications Acetaminophen (Acetaminophen 325 Mg Tablet) 650 mg PO Q6H PRN PRN Reason: Pain, Mild 1-3,fever,headache Last Admin: 10/21/24 20:45 Dose: 650 mg Documented By: SRUTHI Albuterol Sulfate (Albuterol Sulfate 90 Mcg 8 Gm Inhaler) 2 puff INHALE Q4H PRN PRN Reason: anaphylaxis Calcium Carbonate (Calcium Carbonate 750 Mg Tab.Chew) 750 mg PO Q4H PRN PRN Reason: Heartburn Enoxaparin Sodium (Enoxaparin Sodium 40 Mg/0.4 Ml Syringe) 40 mg SUBCUT Q24H [facility] Last Admin: 10/22/24 07:33 Dose: 40 mg Documented By: MARIA DE JESUS Hydroxyzine HCl (Hydroxyzine Hcl 25 Mg Tablet) 25 mg PO QID PRN PRN Reason: anxiety Piperacillin Sod/Tazobactam (Sod 3.375 gm/ Sodium Chloride) 50 mls @ 100 mls/hr IV Q6H [facility] Last Infusion: 10/22/24 08:16 Dose: Infused Documented By: MARIA DE JESUS Vancomycin HCl 750 mg/ Sodium (Chloride) 265 mls @ 265 mls/hr IV Q8H [facility] Last Infusion: 10/22/24 07:26 Dose: Infused Documented By: MARIA DE JESUS Magnesium Hydroxide (Milk Of Magnesia 30 Ml Oral.Susp) 30 ml PO DAILY PRN PRN Reason: Constipation Melatonin (Melatonin 3 Mg Tablet) 6 mg PO BEDTIME PRN PRN Reason: Insomnia Oxycodone HCl (Oxycodone Hcl Immed Release 5 Mg Tablet) 5 mg PO Q4H PRN PRN Reason: Pain, Severe (Pain Scale 7-10) Last Admin: 10/22/24 02:25 Dose: 5 mg Documented By: SRUTHI Pharmacy Consult (Consult Rx Vancomycin Dosing) 1 each MISCELLANE DAILY PRN PRN Reason: Consult order Sodium Chloride (0.9 % Sodium Chloride Flush 3 Ml Syringe) 3 ml IVFLUSH QSHIFT [facility] Last Admin: 10/22/24 07:33 Dose: 3 ml Documented By: MARIA DE JESUS Trazodone HCl (Trazodone Hcl 100 Mg Tablet) 300 mg PO BEDTIME [facility] Last Admin: 10/21/24 20:44 Dose: 300 mg Documented By: SRUTHI Labs 10/22/24 05:30 10/22/24 05:30 Labs: Laboratory Results - last 24 hr 10/21/24 10/21/24 10/22/24 08:21 20:55 05:30 MCV 89.0 89.7 MCH 29.6 29.3 MCHC 33.2 32.6 RDW 13.6 13.3 Plt Count 241 283 MPV 9.1 L 9.2 L Absolute Nucleated RBC 0.000 0.000 Nucleated RBC % (auto) 0.0 0.0 Anion Gap 11 L 12 Estim Creat Clear Calc 88.7 87.1 Estimated GFR > 60 > 60 Random Glucose 87 90 Calcium 8.4 8.8 Magnesium 1.8 Random Vancomycin 2.6 L Microbiology Microbiology Results: Microbiology 10/20/24 14:41 Blood Culture - Preliminary Blood - Venous No growth after 24 hours. 10/20/24 14:41 Blood Culture - Preliminary Blood - Venous No growth after 24 hours. Assessment and Plan (1) Polysubstance use disorder: Status: Acute (2) Cellulitis of hand, left: Status: Acute Plan 58F PMH polysubstance dependence with cocaine, opiates, leukocytoclastic vasculitis, mood disorder presented with worsening of left thumb wound Left thumb cellulitis and open wound Vancomycin and Zosyn, follow up ortho likely plan for OR once swelling improved Polysubstance dependence with cocaine and opiates Addiction team eval 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
--- NOTE | 2024-10-22 09:42 | PM.PNORT ---
Subjective Subjective Date of Service: 10/22/24 Principal diagnosis: hand infection s/p I&D POD #4 Interval history: Admission day 2 for infected wound of left thumb Patient resting comfortably in bed this morning No acute events overnight Pain fairly well managed No other acute complaints or concerns at this time Physical Exam Vital Signs: Vital Signs: Last Vital Signs Temp 98.8 F 10/22/24 07:08 Pulse 70 10/22/24 07:08 Resp 16 10/22/24 07:08 BP 135/76 10/22/24 07:08 Pulse Ox 92 10/22/24 07:08 O2 Del Method Room Air 10/22/24 07:08 BMI result Body Mass Index 21.5 Extrem: Other: Patient is alert, oriented, and in no acute distress. Neuro: Normal sensation of the tips of all digits of the left hand at this time Vascular: Cap refill brisk Pain: Significant tenderness diffusely about the left thumb Patient does report pain has improved significantly from prior to admission ROM: Very limited range of motion of the left thumb due to pain Skin: Significant wound noted over the entire dorsal aspect of the left thumb, with good red granulation tissue growth General: Erythema has improved compared to yesterday Less fibrinous exudate present in wound compared to yesterday Psych: Appears grossly normal Affect normal Attitude cooperative Procedures Date of Service Date of Service: 10/22/24 Progress Note: A&P Assessment and plan (1) Cellulitis: Status: Acute (2) Non-healing wound of upper extremity: Status: Acute Plan 1. Left thumb wound Continue pain management Daily dressing changes as well as as needed due to saturation Continue IV antibiotics Once infection has cleared, case will be discussed further with Dr. Salazar to discuss potential skin grafting The patient understands this and is amenable to this plan Patient will require ongoing inpatient services for wound infection and potential surgical intervention Orthopedics will continue to follow Time Spent With Patient Time: Total time managing care of this patient today ____ minutes. Quality Stroke Does the patient have a stroke diagnosis?: No VTE Prior VTE?: No VTE Risk Level:: Medical - moderate - high VTE Device Contraindication: Treatment Not Indicated VTE Drug Contraindication: N/A - Med Ordered
[2024-10-22] MEDS: Acetaminophen 325 MG TABLET 650 MG PO ×2 (11:06→20:49)
--- NOTE | 2024-10-22 15:52 | HO.WOUND ---
Wound Consult: Initial 58yr old? admitted to [facility] [place] - See progress notes and H&P for detailed history.? Wound consult placed Left thumb wound.? Patient agreeable to assessment and photo documentation.? Left Thumb Etiology: S/P Surigcal debridement Wound Bed: red moist tissue Hypergranulation tissue above skin level with scant areas of adherent yellow brown slough Drainage / Odor: no odor noted - yellow serosang drainage noted Edges: ? attached Eliza wound: ? improved erythema, improved swelling Pain: painful to touch Goals of Treatment: ? Moisture management with antimicrobial properties and cover to protect from environment Recommendations: Left Thumb Wound - Gently cleanse with NS moist gauze, pat dry. Apply skin prep to periwound. Apply Durafiber AG to wound bed, cover with dry gauze, ABD pad and gauze wrap. Complete with Wesley wrap. Change every 2-3 days. Push dressing to 3-4 days if Durafiber is sticking to wound bed. Follow up with Orthopedic Surgeon as scheduled. Re-consult wound care Nurse for wound deterioration or wound changes.
[2024-10-22 15:58] VITALS: BP 128/72; PULSE 59; RESP 18; TEMP 36.6; O2SAT 95
[2024-10-22 19:37] VITALS: BP 135/72; PULSE 66; RESP 16; TEMP 36.6; O2SAT 95
[2024-10-22 20:12] LABS: Vancomycin Trough 20.1 mcg/mL (10.0-20.0)
--- NOTE | 2024-10-22 20:26 | HE.PHANOTE ---
Vancomycin addendum: level came back at 20.1, backed dose to 1 gram q12 hours, will take a trough after 3 doses and will check another level before next dose to make sure level is not getting any higher
[2024-10-22] MEDS: traZODone HCL 100 MG TABLET 300 MG PO (20:39)
[2024-10-23 02:25] LABS: Vancomycin Random 12.1 mcg/mL (15-20)
[2024-10-23] MEDS: vancomycin HCL 1,000 MG in 0.9 % Sodium Chloride 250 ML 270 MG IV ×2 (02:56→15:14)
[2024-10-23 03:00] VITALS: BP 108/81; PULSE 72; RESP 18; TEMP 36.7; O2SAT 93
[2024-10-23] MEDS: Piperacillin Sodium/Tazobactam 3.375 GM in 0.9 % Sodium Chloride 50 ML IV ×4 (05:07→22:54)
[2024-10-23] MEDS: oxyCODONE HCl Immed Release 5 MG TABLET PO ×4 (05:21→21:38)
--- NOTE | 2024-10-23 06:29 | HE.PHANOTE ---
VANCO DOSE ADJUSTMENT BASED ON SCR AND TROUGH OF 12.1 @155. DOSE CONTINUED AT 1000 Q 12H. NEXT LEVEL AT 10/25 @ 1300
[2024-10-23 07:01] LABS: Creatinine Clr Calc Pharmacy 84.3; Estimated Glomerular Filt Rate > 60
[2024-10-23 07:42] VITALS: BP 134/77; PULSE 66; TEMP 35.9; O2SAT 95
[2024-10-23] MEDS: 0.9 % Sodium Chloride Flush 3 ML SYRINGE IVFLUSH ×3 (08:11→22:58)
[2024-10-23] MEDS: Enoxaparin Sodium 40 MG/0.4 ML SYRINGE SUBCUT (08:12)
--- NOTE | 2024-10-23 08:22 | P.PNIM_ITS ---
Subjective Subjective Date of Service: 10/23/24 Interval History: no New complaints Physical Exam 2 Vital Signs: Vital Signs: Last Vital Signs Temp 96.7 F L 10/23/24 07:42 Pulse 66 10/23/24 07:42 Resp 18 10/23/24 03:00 BP 134/77 10/23/24 07:42 Pulse Ox 95 10/23/24 07:42 O2 Del Method Room Air 10/23/24 07:42 BMI result Body Mass Index 21.5 Extrem: Other: Patient is alert, oriented, and in no acute distress. Neuro: Normal sensation of the tips of all digits of the left hand at this time Vascular: Cap refill brisk Pain: Significant tenderness diffusely about the left thumb Patient does report pain has improved significantly from prior to admission ROM: Very limited range of motion of the left thumb due to pain Skin: Significant wound noted over the entire dorsal aspect of the left thumb, with good red granulation tissue growth General: Erythema has improved compared to yesterday Less fibrinous exudate present in wound compared to yesterday Psych: Appears grossly normal Affect normal Attitude cooperative Objective Data Active Medications Acetaminophen (Acetaminophen 325 Mg Tablet) 650 mg PO Q6H PRN PRN Reason: Pain, Mild 1-3,fever,headache Last Admin: 10/22/24 20:49 Dose: 650 mg Documented By: SRUTHI Albuterol Sulfate (Albuterol Sulfate 90 Mcg 8 Gm Inhaler) 2 puff INHALE Q4H PRN PRN Reason: anaphylaxis Calcium Carbonate (Calcium Carbonate 750 Mg Tab.Chew) 750 mg PO Q4H PRN PRN Reason: Heartburn Enoxaparin Sodium (Enoxaparin Sodium 40 Mg/0.4 Ml Syringe) 40 mg SUBCUT Q24H [facility] Last Admin: 10/23/24 08:12 Dose: 40 mg Documented By: MARIA DE JESUS Hydroxyzine HCl (Hydroxyzine Hcl 25 Mg Tablet) 25 mg PO QID PRN PRN Reason: anxiety Vancomycin HCl 1,000 mg/ (Sodium Chloride) 270 mls @ 270 mls/hr IV Q12H [facility] Last Infusion: 10/23/24 03:56 Dose: Infused Documented By: SRUTHI Piperacillin Sod/Tazobactam (Sod 3.375 gm/ Sodium Chloride) 50 mls @ 100 mls/hr IV Q6H [facility] Last Infusion: 10/23/24 05:37 Dose: Infused Documented By: SRUTHI Magnesium Hydroxide (Milk Of Magnesia 30 Ml Oral.Susp) 30 ml PO DAILY PRN PRN Reason: Constipation Melatonin (Melatonin 3 Mg Tablet) 6 mg PO BEDTIME PRN PRN Reason: Insomnia Oxycodone HCl (Oxycodone Hcl Immed Release 5 Mg Tablet) 5 mg PO Q4H PRN PRN Reason: Pain, Severe (Pain Scale 7-10) Last Admin: 10/23/24 05:21 Dose: 5 mg Documented By: SRUTHI Pharmacy Consult (Consult Rx Vancomycin Dosing) 1 each MISCELLANE DAILY PRN PRN Reason: Consult order Sodium Chloride (0.9 % Sodium Chloride Flush 3 Ml [facility]ringe) [facility] Admin: 10/23/24 08:11 Dose: 3 ml Documented By: MARIA DE JESUS Trazodone HCl (Trazodone Hcl 100 Mg Tablet) 300 mg PO BEDTIME [facility] Last Admin: 10/22/24 20:39 Dose: 300 mg Documented By: SRUTHI Labs 10/22/24 05:30 10/23/24 06:14 Labs: Laboratory Results - last 24 hr 10/22/24 10/23/24 10/23/24 19:53 01:55 06:14 Hold Purple Top SEE NOTE Estim Creat Clear Calc 84.3 Estimated GFR > 60 Vancomycin Trough 20.1 H Random Vancomycin 12.1 L Microbiology Microbiology Results: Microbiology 10/20/24 14:41 Blood Culture - Preliminary Blood - Venous No growth after 48 hours. 10/20/24 14:41 Blood Culture - Preliminary Blood - Venous No growth after 48 hours. Assessment and Plan (1) Polysubstance use disorder: Status: Acute (2) Cellulitis of hand, left: Status: Acute Plan 58F PMH polysubstance dependence with cocaine, opiates, leukocytoclastic vasculitis, mood disorder presented with worsening of left thumb wound Left thumb cellulitis and open wound Vancomycin and Zosyn, follow up ortho possible OR once swelling improved Polysubstance dependence with cocaine and opiates declined addiction team services 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
[2024-10-23] MEDS: Acetaminophen 325 MG TABLET 650 MG PO ×2 (10:41→17:18)
--- NOTE | 2024-10-23 14:59 | HO.ADDICTPRO ---
Subjective Subjective Date of Service: 10/23/24 Reason For Visit: cellulitis Interim History: Follow up with patient for cocaine use disorder she is layingin bed, awake, alert, engaged in interview She reports feeling okay aside from pain (wound) Discussed any possible withdrawal sx, which she denies. She states that since discharge from [facility] [place] last month, she used cocaine twice --which is a significant reduction given that she was previously using several times a day. Inquired about any difficulty with mood, or sleep or anxiety--she denies issues with any Discussed medications for cocaine use --declines Review of Systems Acute medical concerns: Yes Review of Systems Constitutional: Reports as per HPI Mental Status Exam Mental Status Exam Patient Appearance: Appropriate Patient Orientation: Person, Place, Time and Situation Level of Consciousness: Awake, Appropriate and Alert Patient Behavior: Appropriate and Guarded Mood Description: Calm Speech Pattern: Clear Hallucinations: None Thought Process: Intact Thought Content: positive for Intact Diagnostics Vital Signs (24Hr): Vital Signs - 24 hr 10/22/24 15:58 10/22/24 19:37 10/23/24 03:00 Temperature 97.9 F 98 F 98.1 F Pulse Rate 59 66 72 Respiratory Rate 18 16 18 Blood Pressure 128/72 135/72 108/81 Pulse Oximetry 95 95 93 Oxygen Delivery Method Room Air Room Air Room Air 10/23/24 07:42 Temperature 96.7 F L Pulse Rate 66 Respiratory Rate Blood Pressure 134/77 Pulse Oximetry 95 Oxygen Delivery Method Room Air BMI result Body Mass Index 21.5 Labs 10/22/24 05:30 10/23/24 06:14 Labs: Laboratory Results - last 48 hr 10/21/24 10/22/24 10/22/24 20:55 05:30 19:53 WBC 5.3 RBC 3.69 L Hgb 10.8 L Hct 33.1 L MCV 89.7 MCH 29.3 MCHC 32.6 RDW 13.3 Plt Count 283 MPV 9.2 L Absolute Nucleated RBC 0.000 Nucleated RBC % (auto) 0.0 Hold Purple Top Sodium 140 Potassium 3.7 Chloride 108 Carbon Dioxide 24 Anion Gap 12 BUN 12 Creatinine 0.60 Estim Creat Clear Calc 87.1 Estimated GFR > 60 Random Glucose 90 Calcium 8.8 Vancomycin Trough 20.1 H Random Vancomycin 2.6 L 10/23/24 10/23/24 01:55 06:14 WBC RBC Hgb Hct MCV MCH MCHC RDW Plt Count MPV Absolute Nucleated RBC Nucleated RBC % (auto) Hold Purple Top SEE NOTE Sodium Potassium Chloride Carbon Dioxide Anion Gap BUN Creatinine 0.62 Estim Creat Clear Calc 84.3 Estimated GFR > 60 Random Glucose Calcium Vancomycin Trough Random Vancomycin 12.1 L Medications Medications Current Medications Acetaminophen (Acetaminophen 325 Mg Tablet) 650 mg PO Q6H PRN PRN Reason: Pain, Mild 1-3,fever,headache Last Admin: 10/23/24 10:41 Dose: 650 mg Albuterol Sulfate (Albuterol Sulfate 90 Mcg 8 Gm Inhaler) 2 puff INHALE Q4H PRN PRN Reason: anaphylaxis Calcium Carbonate (Calcium Carbonate 750 Mg Tab.Chew) 750 mg PO Q4H PRN PRN Reason: Heartburn Enoxaparin Sodium (Enoxaparin Sodium 40 Mg/0.4 Ml Syringe) 40 mg SUBCUT Q24H [facility] Last Admin: 10/23/24 08:12 Dose: 40 mg Hydroxyzine HCl (Hydroxyzine Hcl 25 Mg Tablet) 25 mg PO QID PRN PRN Reason: anxiety Vancomycin HCl 1,000 mg/ (Sodium Chloride) 270 mls @ 270 mls/hr IV Q12H [facility] Last Infusion: 10/23/24 03:56 Dose: Infused Piperacillin Sod/Tazobactam (Sod 3.375 gm/ Sodium Chloride) 50 mls @ 100 mls/hr IV Q6H [facility] Last Infusion: 10/23/24 11:17 Dose: Infused Magnesium Hydroxide (Milk Of Magnesia 30 Ml Oral.Susp) 30 ml PO DAILY PRN PRN Reason: Constipation Melatonin (Melatonin 3 Mg Tablet) 6 mg PO BEDTIME PRN PRN Reason: Insomnia Oxycodone HCl (Oxycodone Hcl Immed Release 5 Mg Tablet) 5 mg PO Q4H PRN PRN Reason: Pain, Severe (Pain Scale 7-10) Last Admin: 10/23/24 10:40 Dose: 5 mg Pharmacy Consult (Consult Rx Vancomycin Dosing) 1 each MISCELLANE DAILY PRN PRN Reason: Consult order Sodium Chloride (0.9 % Sodium Chloride Flush 3 Ml Syringe) 3 ml IVFLUSH QSHIFT [facility] Last Admin: 10/23/24 08:11 Dose: 3 ml Trazodone HCl (Trazodone Hcl 100 Mg Tablet) 300 mg PO BEDTIME [facility] Last Admin: 10/22/24 20:39 Dose: 300 mg Allergies Allergies Allergy/AdvReac Type Severity Reaction Status Date / Time sulfamethoxazole Allergy Hives Verified 10/20/24 13:41 [From Bactrim] trimethoprim [From Bactrim] Allergy Hives Verified 10/20/24 13:41 Assessment & Plan Assessment & Plan (1) Cocaine use disorder: Status: Acute Code(s): F14.10 - Cocaine abuse, uncomplicated Plan no withdrawal reported declines medications for OLESYA or appt for outpatient OLESYA followup please reconsult if necessary or requested by patient Total time managing care of this patient today __20__ minutes.
[2024-10-23 15:17] VITALS: BP 133/80; PULSE 74; RESP 18; TEMP 36.1; O2SAT 93
[2024-10-23 19:26] VITALS: BP 126/70; PULSE 62; RESP 18; TEMP 36.1; O2SAT 94
[2024-10-23] MEDS: traZODone HCL 100 MG TABLET 300 MG PO (20:48)
[2024-10-24] MEDS: Acetaminophen 325 MG TABLET 650 MG PO (02:53)
[2024-10-24] MEDS: oxyCODONE HCl Immed Release 5 MG TABLET PO ×2 (02:53→11:04)
[2024-10-24] MEDS: vancomycin HCL 1,000 MG in 0.9 % Sodium Chloride 250 ML 270 MG IV (02:54)
[2024-10-24 03:43] VITALS: BP 125/68; PULSE 58; RESP 16; TEMP 36.6; O2SAT 92
[2024-10-24] MEDS: Piperacillin Sodium/Tazobactam 3.375 GM in 0.9 % Sodium Chloride 50 ML IV ×2 (05:24→10:32)
[2024-10-24 06:00] LABS: Hematocrit 32.7 % (37.0-47.0); Hemoglobin 11.2 g/dl (12.0-16.0); Mean Corpuscular HGB Conc 34.3 g/dl (31.0-35.0); Mean Corpuscular Hemoglobin 29.5 pg (27.0-33.0); Mean Corpuscular Volume 86.1 fL (80.0-98.0); Mean Platelet Volume 8.6 fL (9.4-12.3); Platelet Count 322 X10*3/uL (160-400); Red Cell Distribution Width 12.7 % (11.0-16.0)
[2024-10-24 06:23] LABS: Anion Gap 14 (12-20); Blood Urea Nitrogen 12 mg/dL (9-16); Calcium 9.2 mg/dL (8.4-10.2); Carbon Dioxide 24 mmol/L (22-29); Chloride 106 mmol/L (96-108); Creatinine Clr Calc Pharmacy 85.7; Estimated Glomerular Filt Rate > 60; Glucose Random 83 mg/dL (60-115); Sodium 140 mmol/L (135-145)
--- NOTE | 2024-10-24 07:32 | HE.PHANOTE ---
re vanco Patients last level was 12.1. Will continue with current dose of 1000 mg Q12H. Patient was supratherapeutic on Q8H dosing, Q12H should allow time to clear. Will get level tomorrow 10/25 @1300 to ensure safety vs efficacy. Renal has remained stable.
[2024-10-24 07:34] VITALS: BP 140/88; PULSE 66; RESP 16; TEMP 36.6; O2SAT 95
--- NOTE | 2024-10-24 07:57 | HO.PM.IMPN ---
Subjective Subjective Date of Service: 10/24/24 Interval History: pain controlled, no new issues Physical Exam Vital Signs: Vital Signs: Last Vital Signs Temp 97.9 F 10/24/24 07:34 Pulse 66 10/24/24 07:34 Resp 16 10/24/24 07:34 BP 140/88 H 10/24/24 07:34 Pulse Ox 95 10/24/24 07:34 O2 Del Method Room Air 10/24/24 07:34 BMI result Body Mass Index 21.5 Const: Other: alert and oriented, no distress cv rrr lungs clear abd nt ex: Extrem: Other: Patient is alert, oriented, and in no acute distress. Neuro: Normal sensation of the tips of all digits of the left hand at this time Vascular: Cap refill brisk Pain: Significant tenderness diffusely about the left thumb Patient does report pain has improved significantly from prior to admission ROM: Very limited range of motion of the left thumb due to pain Skin: Significant wound noted over the entire dorsal aspect of the left thumb, with good red granulation tissue growth General: Erythema has improved compared to yesterday Less fibrinous exudate present in wound compared to yesterday Psych: Appears grossly normal Affect normal Attitude cooperative Objective Data Active Medications Acetaminophen (Acetaminophen 325 Mg Tablet) 650 mg PO Q6H PRN PRN Reason: Pain, Mild 1-3,fever,headache Last Admin: 10/24/24 02:53 Dose: 650 mg Documented By: FLORENCE Albuterol Sulfate (Albuterol Sulfate 90 Mcg 8 Gm Inhaler) 2 puff INHALE Q4H PRN PRN Reason: anaphylaxis Calcium Carbonate (Calcium Carbonate 750 Mg Tab.Chew) 750 mg PO Q4H PRN PRN Reason: Heartburn Enoxaparin Sodium (Enoxaparin Sodium 40 Mg/0.4 Ml Syringe) 40 mg SUBCUT Q24H [facility] Last Admin: 10/23/24 08:12 Dose: 40 mg Documented By: MARIA DE JESUS Hydroxyzine HCl (Hydroxyzine Hcl 25 Mg Tablet) 25 mg PO QID PRN PRN Reason: anxiety Vancomycin HCl 1,000 mg/ (Sodium Chloride) 270 mls @ 270 mls/hr IV Q12H [facility] Last Infusion: 10/24/24 03:58 Dose: Infused Documented By: FLORENCE Piperacillin Sod/Tazobactam (Sod 3.375 gm/ Sodium Chloride) 50 mls @ 100 mls/hr IV Q6H [facility] Last Infusion: 10/24/24 05:55 Dose: Infused Documented By: FLORENCE Magnesium Hydroxide (Milk Of Magnesia 30 Ml Oral.Susp) 30 ml PO DAILY PRN PRN Reason: Constipation Melatonin (Melatonin 3 Mg Tablet) 6 mg PO BEDTIME PRN PRN Reason: Insomnia Oxycodone HCl (Oxycodone Hcl Immed Release 5 Mg Tablet) 5 mg PO Q4H PRN PRN Reason: Pain, Severe (Pain Scale 7-10) Last Admin: 10/24/24 02:53 Dose: 5 mg Documented By: FLORENCE Pharmacy Consult (Consult Rx Vancomycin Dosing) 1 each MISCELLANE DAILY PRN PRN Reason: Consult order Sodium Chloride (0.9 % Sodium Chloride Flush 3 Ml Syringe) 3 ml IVFLUSH QSHIFT [facility] Last Admin: 10/23/24 22:58 Dose: 3 ml Documented By: FLORENCE Trazodone HCl (Trazodone Hcl 100 Mg Tablet) 300 mg PO BEDTIME [facility] Last Admin: 10/23/24 20:48 Dose: 300 mg Documented By: FLORENCE Labs 10/24/24 05:25 10/24/24 05:25 Labs: Laboratory Results - last 24 hr 10/24/24 05:25 MCV 86.1 MCH 29.5 MCHC 34.3 RDW 12.7 Plt Count 322 MPV 8.6 L Absolute Nucleated RBC 0.000 Nucleated RBC % (auto) 0.0 Anion Gap 14 Estim Creat Clear Calc 85.7 Estimated GFR > 60 Random Glucose 83 Calcium 9.2 Assessment and Plan (1) Polysubstance use disorder: Status: Acute (2) Cellulitis of hand, left: Status: Acute Plan 58F PMH polysubstance dependence with cocaine, opiates, leukocytoclastic vasculitis, mood disorder presented with worsening of left thumb wound Left thumb cellulitis and open wound Vancomycin and Zosyn, follow up ortho possible OR once swelling improved Polysubstance dependence with cocaine and opiates declined addiction team services 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
[2024-10-24] MEDS: Enoxaparin Sodium 40 MG/0.4 ML SYRINGE SUBCUT (08:24)
[2024-10-24] MEDS: 0.9 % Sodium Chloride Flush 3 ML SYRINGE IVFLUSH (08:24)
--- NOTE | 2024-10-24 08:39 | HO.WOUND ---
Addendum entered by Krysta Hyde RN 10/24/24 08:45: Wound is on Left thumb. Original Note: wound dressing changed to Right thumb post I&D on . Durafiber placed on wound with gauze wrap and king wrap over. Moderate SS drainage noted.
--- NOTE | 2024-10-24 14:06 | HO.WOUND ---
Wound Consult: Follow up 58yr old? admitted to [facility] on 10/20/24 - See progress notes and H&P for detailed history.? Wound consult follow up for Left thumb wound.? Patient agreeable to assessment and photo documentation.? 10/22/24 10/24/24 Left Thumb Etiology: S/P Surigcal debridement Wound Bed: Improving red moist tissue Hypergranulation tissue above skin level with decreasing scant areas of adherent yellow brown slough - decreased swelling Drainage / Odor: no odor noted - yellow serosang drainage noted - small area of oozing bleed - pressure applied stopped bleeding Edges: ? attached Eliza wound: ? improved erythema, improved swelling Pain: painful to touch Goals of Treatment: ? Moisture management with antimicrobial properties and cover to protect from environment No new topical recommendations at this time. Elevate Left hand on pillows. Recommendations: Left Thumb Wound - Gently cleanse with NS moist gauze, pat dry. Apply skin prep to periwound. Apply Durafiber AG to wound bed, cover with dry gauze, ABD pad and gauze wrap. Complete with Wesley wrap. Change every 2-3 days. Push dressing to 3-4 days if Durafiber is sticking to wound bed. Follow up with Orthopedic Surgeon as scheduled. Elevate Left Hand on pillows. Re-consult wound care Nurse for wound deterioration or wound changes.
--- NOTE | 2024-10-24 14:37 | MHC.CM.PN ---
pt dcd home self care
--- NOTE | 2024-10-24 15:09 | P.DS_ITS ---
DS: Providers Provider Date of Service: 10/24/24 Date of admission: 10/20/24 14:33 Date of discharge: 10/24/24 Primary care physician: Unknown Physician Consults: 10/20/24 15:01 Consult to Orthopedics Routine Consulting Provider: [facility] Orthopedic Surgeons Reason for consultation: left thumb wound 10/20/24 15:03 Addiction Medicine Provider Routine Consulting Provider: Addiction Covering Reason for consultation: polysubstance 10/20/24 15:32 Consult to Wound Care Routine Reason for consultation: Wound on L thumb, infection, need granulation tissue for possible graft 10/21/24 11:21 Inpt - Recovery Team Routine Comment: Reason for consultation: full eval (ioanna aware) DS: Diagnosis Discharge Diagnosis (1) Polysubstance use disorder: Status: Resolved (2) Cellulitis of hand, left: Status: Acute DS: Summary Hospital Course Hospital Course: Chief Complaint: pain and erythema of left thumb 58F PMH polysubstance dependence with cocaine, opiates, leukocytoclastic vasculitis, mood disorder presented with worsening of left thumb wound. Patient has had ongoing left thumb open wound with cellulitis. Has been treated with antibiotics and was healing well plan was eventual graft with plastics. Over the past several days patient has noted worsening erythema pain and swelling at site with drainage. Denies fever or chills. hospital course: 58F PMH polysubstance dependence with cocaine, opiates, leukocytoclastic vasculitis, mood disorder presented with worsening of left thumb wound Left thumb cellulitis and open wound treated with Vancomycin and Zosyn, follow up by ortho no indication for operation while here, but might need skin flap in the future, transitioning to oral antibiotics and outpatient follow up with Ortho Polysubstance dependence with cocaine and opiates declined addiction team services History of leukocytoclastic vasculitis Not on treatment now Time Attestation Discharge Coordination Time (in mins): 45 Quality: Safe Use of Opioids Does Pt have an Active Cancer Diagnosis on the Problem List?: No Quality: Stroke Does the patient have a stroke diagnosis?: No Physical Exam Vital Signs: Vital Signs: Last Vital Signs Temp 97.9 F 10/24/24 07:34 Pulse 66 10/24/24 07:34 Resp 16 10/24/24 07:34 BP 140/88 H 10/24/24 07:34 Pulse Ox 95 10/24/24 07:34 O2 Del Method Room Air 10/24/24 07:34 BMI result Body Mass Index 21.5 DS: Data Data Completed and Pending Completed studies during hospitalization [Text1]: Procedures Excision of Left Hand Skin, External Approach (09/12/24) Excision of Left Hand Subcutaneous Tissue and Fascia, Open Approach (09/12/24) Labs on day of discharge: Laboratory Results - last 24 hr 10/24/24 05:25 WBC 5.0 RBC 3.80 L Hgb 11.2 L Hct 32.7 L MCV 86.1 MCH 29.5 MCHC 34.3 RDW 12.7 Plt Count 322 MPV 8.6 L Absolute Nucleated RBC 0.000 Nucleated RBC % (auto) 0.0 Sodium 140 Potassium 4.0 Chloride 106 Carbon Dioxide 24 Anion Gap 14 BUN 12 Creatinine 0.61 Estim Creat Clear Calc 85.7 Estimated GFR > 60 Random Glucose 83 Calcium 9.2 Preliminary micro results at discharge 10/20/24 14:41 Blood Culture - Preliminary Blood - Venous No growth after 48 hours. 10/20/24 14:41 Blood Culture - Preliminary Blood - Venous No growth after 48 hours. Discharge Plan Discharge Anticipated Discharge Date/Time: 10/24/24 11:39 Patient Disposition: Home, Self-Care Discharge Diagnosis: Cellulitis and chronic wound of the hand Referrals: Jameson Jeffers PA [Physician Establishment Guide] - 1 Week Physician,Destiny Pickett [Physician] - 1 Week Discharge Medications: New doxycycline monohydrate 100 mg capsule 100 mg PO BID Qty: 12 0RF amoxicillin-pot clavulanate 875-125 mg tablet 1 tab PO Q12H Qty: 12 0RF Continued celecoxib 200 mg capsule 200 mg PO DAILY PRN (Reason: moderate pain) acetaminophen 500 mg tablet 1,000 mg PO Q8H PRN (Reason: Pain (Scale Score 1-3)) trazodone 150 mg tablet 300 mg PO BEDTIME hydroxyzine HCl 25 mg tablet 25 mg PO QID PRN (Reason: anxiety) albuterol sulfate [Ventolin HFA] 90 mcg/actuation HFA aerosol inhaler 2 puff INHALATION Q4H PRN (Reason: anaphylaxis) naproxen sodium [Aleve] 220 mg Tablet 220 mg PO BID PRN (Reason: Pain) Discharge Orders: Discharge Order (Routine); Ordered 10/24/24 Ordered By: Toni Li Diet: Advance to usual diet Activity on Discharge: As tolerated Stand Alone Forms: Patient Portal Discharge page Print Language: Swedish Care Plan Goals: recovery from wound infection Health Concerns: wound infection of the hand Plan of Treatment: take Augmentin and Doxycycline as recommended and follow up with your doctor in a week follow up with Dr. Salazar in a week, call for appointmenta Daily wraping on the wound Assessment: see above Discharge Date/Time: 10/24/24 14:34
--- NOTE | 2024-10-24 15:19 | P.PNOP_ITS ---
Subjective Subjective Date of Service: 10/24/24 Principal diagnosis: hand infection s/p I&D POD #4 Interval history: Admission day 3 for infected wound of left thumb Patient resting comfortably in bed this morning No acute events overnight Pain fairly well managed No other acute complaints or concerns at this time Physical Exam Vital Signs: Vital Signs: Last Vital Signs Temp 97.9 F 10/24/24 07:34 Pulse 66 10/24/24 07:34 Resp 16 10/24/24 07:34 BP 140/88 H 10/24/24 07:34 Pulse Ox 95 10/24/24 07:34 O2 Del Method Room Air 10/24/24 07:34 BMI result Body Mass Index 21.5 Extrem: Other: Patient is alert, oriented, and in no acute distress. Neuro: Normal sensation of the tips of all digits of the left hand at this time Vascular: Cap refill brisk Pain: Vastly improved tenderness diffusely about the left thumb Patient does report pain has improved significantly from prior to admission ROM: Very limited range of motion of the left thumb due to pain Skin: Significant wound noted over the entire dorsal aspect of the left thumb, with good red granulation tissue growth General: Erythema has resolved Less fibrinous exudate present in compared to yesterday Psych: Appears grossly normal Affect normal Attitude cooperative Procedures Date of Service Date of Service: 10/24/24 Progress Note: A&P Assessment and plan (1) Wound, open, finger, with tendon involvement: Status: Acute Plan 1. Left thumb infected wound I educated the patient about the condition. I discussed both operative and nonoperative treatment options. The patient would like to proceed with surgery. The risks and benefits of operative treatment were discussed with the patient and the patient wishes to proceed with surgery. These risks include, but are not limited to, risk of damage to blood vessels, nerves, tendons, infection, recurrence, incomplete relief of preoperative symptoms, persistent pain, possible need for further surgery, and the risks associated with regional blocks and/or anesthesia. Plan is to take the patient to the operating room on 10/29/2024 for the following procedures on an outpatient basis: 1. Skin graft of left thumb under general All of the preoperative paperwork including the consent was discussed today. All of the patient's questions were answered in the clinic today. The patient understands that they will be in contact with our neurosurgical physician assistant to discuss scheduling their procedure. Patient denies diabetes, blood thinners, asthma, heart issues, lung issues, kidney issues, or current smoking. Time Spent With Patient Time: Total time managing care of this patient today ____ minutes. Quality Stroke Does the patient have a stroke diagnosis?: No VTE Prior VTE?: No VTE Risk Level:: Medical - moderate - high VTE Device Contraindication: Treatment Not Indicated VTE Drug Contraindication: N/A - Med Ordered
--- NOTE | 2024-11-01 12:32 | P.CDIM_ITS ---
PROVIDER RESPONSE TEXT: To clarify, the appropriate diagnosis supported by the clinical indicators: Other (explain): related to drug use QUERY TEXT: PHYSICIAN'S DOCUMENTATION REQUEST Date of Query: 10/24/2024 10:49 AM EDT Patient Name: Lovely Almaraz Admit Date: 10/20/2024 Dear Toni Li MD, A review of the medical record indicates additional documentation may be needed. Please review below and update the documentation accordingly. Clinical Indicators: patient admitted with cellulitis left thumb and open wound The following diagnoses or signs and symptoms were noted in the patient record: IV Vancomycin and Zosyn, possible OR Based on the above, could you clarify the type and cause of the open wound that supports the above ab normalities and additional evaluation, monitoring, and/or treatment rendered: bite laceration puncture Other (explain) Clinically unable to determine (explain) Thank you, Vianney Garza RN Use of terms such as suspected, likely, concern for, or probable (associated with a specific diagnosi s that is being evaluated, monitored, or treated as if it exists) are acceptable and can be coded in the inpatient se tting, when documented at the time of discharge. Please use your independent medical judgment in providing your response. THIS QUERY IS PART OF THE PERMANENT MEDICAL RECORD
== END 2024-10-24 14:34 | disposition home or self-care (01) | DRG 383 ==
LOC: HO.ED 14:29 → HO.EDOVER 14:47 → HO.S3 15:31
PROVIDERS: Physician Assistant Medical; Admitting Provider Internal Medicine; Emergency Provider Emergency Medicine; PCP Internal Medicine; Visit Provider Internal Medicine
DX: L03.012 Cellulitis of left finger (principal); F17.210 Nicotine dependence, cigarettes, uncomplicated; S61.002A Unspecified open wound of left thumb without damage to nail, initial encounter; X58.XXXA Exposure to other specified factors, initial encounter; F19.20 Other psychoactive substance dependence, uncomplicated; Z71.6 Tobacco abuse counseling; Z79.899 Other long term (current) drug therapy
CPT/HCPCS: 36415; 80048; 80053; 80202; 82565; 83735; 85025; 85027; 85652; 86140; 87040; 99285; J1171; J1650; J2543; J3370; J3371; S9485

== ENCOUNTER → 2024-10-20 14:33 | Outpatient (BNV) | payer OTHER, SELFPAY | PROVIDERS: Admitting Provider Internal Medicine; Emergency Provider Emergency Medicine | DX: L03.90 Cellulitis, unspecified (principal); S41.109A Unspecified open wound of unspecified upper arm, initial encounter | CPT/HCPCS: 99232 ==

== ENCOUNTER → 2024-10-20 14:33 | Outpatient (BNV) | payer OTHER, SELFPAY | PROVIDERS: Admitting Provider Internal Medicine; Emergency Provider Emergency Medicine; Visit Provider Nurse Practitioner Psychiatric/Mental Health | DX: F14.10 Cocaine abuse, uncomplicated (principal) | CPT/HCPCS: 99231 ==

== ENCOUNTER → 2024-10-20 14:33 | Outpatient (BNV) | payer OTHER, SELFPAY | PROVIDERS: Admitting Provider Internal Medicine; Emergency Provider Emergency Medicine; Visit Provider Internal Medicine | DX: F19.90 Other psychoactive substance use, unspecified, uncomplicated (principal); L03.114 Cellulitis of left upper limb | CPT/HCPCS: 99223; 99232 ==

== ENCOUNTER → 2024-10-29 05:46 | Outpatient (BNV) | payer OTHER, SELFPAY | PROVIDERS: Visit Provider Orthopaedic Surgery | DX: L98.8 Other specified disorders of the skin and subcutaneous tissue (principal) | CPT/HCPCS: 15240 ==

== ENCOUNTER → 2024-10-29 05:46 | Day surgery (SDC) | payer OTHER, SELFPAY ==
--- OUTSIDE RECORDS SUMMARY | 2024-10-24 11:14 | XMS_ITS | Clinical Summary ---
Author Organization [facility] Address [address] [place] [address] Care Team Providers Care Auto Transmission Technician Name Role Phone Unavailable Primary Care Provider Unavailabl e Surgical History Surgery Date Site/Laterality Comments CHOLECYSTECTOMY PROCEDURE: HISTORICAL CHOLECYSTECTOMY COLONOSCOPY 12/16/2016 PROCEDURE: HISTORICAL COLONOSCOPY; COMMENT: Normal. Repeat 10 yrs UPPER GASTROINTESTINAL ENDOSCOPY 12/16/2016 PROCEDURE: CO UPPER GI ENDOSCOPY PERFORMED; COMMENT: Normal HYSTERECTOMY 2013 PROCEDURE: HISTORICAL TOTAL HYSTERECTOMY WITH BSO; COMMENT: w/appendectomy; for menorrhagia & fibroids Medical History Medical History Date Comments Abdominal pain, epigastric 12/07/2016 DX:Ab dominal pain, epigastric Allergic purpura ([facility] V24) 03/02/2013 D X:Allergic purpura ([facility]) Polyarteritis nodosa ([facility]/ C V24, [facility] V28) 12/26/2012 DX:Polyarteritis nodosa ([facility] ) Depression 10/03/2018 DX:Depression Bipolar disorder, mixed ([facility] V24, [facility] V28) 03/29/2019 DX:Bipolar disorder, mixed ( [facility]) Anxiety 03/29/2019 DX:Anxiety History of substance abuse ( [facility] V24, [facility] V28) 03/29/2019 DX:History of substance abus e ([facility]); COMMENT: Alcohol and cocaine, in remission COPD (chronic obstructive pu lmonary disease) ([facility] V24, [facility] V28) 03/29/2019 DX:COPD (chronic o bstructive pulmonary disease) ([facility]) 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 a [...] Procedure Name Priority Date/Time Associated Diagnosis Comments [facility] SCREENING DIGITAL Routine 08/31/2018 3:03 PM EDT Encounter for screening mammogram for malignant neoplasm of breast from Last 3 Months or Most Recently Relevant to Health Maintenance Results * ABHINAV SCREENING DIGITAL (08/31/2018 3:03 PM EDT) Anatomical Region Laterality Modality Mammography 08/31/2018 2:09 PM EDT Narrative 08/31/2018 3:03 PM EDT [facility] Diagnostic Imaging Department [address] [place] [id number] Patient: ??CURTIS SAAVEDRA ?/Age/Sex: 1965 - 52 - F Unit#: ??[id number] ? Location/Status: ??SPDIMAM/REG CLI ? Mnemonic/Ordering Site: ??DIGSC/SPMAM Ordering Physician: ??YONATHAN FAULKNER [facility] Screening Digital - 08/31/18 - 1427 INDICATION: SCREENING COMPARISON: No prior studies are available for comparison. FINDINGS: CC and MLO views of the breasts were obtained, using full field digital mammography with 3D tomosynthesis views in the MLO projection. Computer aided detection with the CTMG 7.2-H was employed. FINDINGS: The breasts contain [...] additional imaging evaluation. 3340F, 7025F (G0202 / [id number]) , ??[id number] Dictating Physician: ??SOSA BECK MD Electronically Signed by: ??SOSA BECK MD Dic Date/Time: ??08/31/18 1712 Sign date/Time: ??08/31/18 1505 Procedure Note Sosa Beck MD - 06/02/2022 [facility] Diagnostic Imaging Department [address] [place] [id number] Patient: KERIROBYA Nieves Griggs/Age/Sex: 1965 - 52 - F Unit#: [id number] Location/Status: [facility] Mnemonic/Ordering Site: [facility] Ordering Physician: YONATHAN FAULKNER Abhinav Screening Digital - 08/31/18 - 2959 INDICATION: SCREENING COMPARISON: No prior studies are available for comparison. FINDINGS: CC and MLO views of the breasts were obtained, using full field digital mammography with 3D tomosynthesis views in the MLO projection. Computer aided detection with the CTMG 7.2-H was employed. FINDINGS: The breasts contain [...] 0 - Incomplete needs additional imaging evaluation.3340F, 7054F (G0202 / [id number]) , [id number] Dictating Physician: SOSA BECK MD Electronically Signed by: SOSA BECK MD Dic Date/Time: 08/31/18 7454 Sign date/Time: 08/31/18 0512 Yonathan [facility] IMG BI PROCEDURES Final Result from Last 3 Months or Most Recently Relevant to Health Maintenance
--- NOTE | 2024-10-25 14:31 | HO.ANESPROP2 ---
HPI - Anesthesia Eval Consult details Narrative: 58yo F for Left Skin Graft, Full Thickness Thumb s/p I&D 09/2024 during inpt with [facility] Admit 09/2024 hospital course: 58F PMH polysubstance dependence with cocaine, opiates, leukocytoclastic vasculitis, mood disorder presented with worsening of left thumb wound Left thumb cellulitis and open wound Vancomycin and Zosyn, follow up ortho possible OR once swelling improved Polysubstance dependence with cocaine and opiates declined addiction team services History of leukocytoclastic vasculitis Not on treatment now [facility] Active Problems Active Problems: All Active Problems Cellulitis (Acute) Cocaine use disorder (Acute) Non-healing wound of upper extremity (Acute) Wound, open, finger, with tendon involvement (Acute) Bacteremia (Acute) Cocaine use disorder (Acute) Mood disorder (Acute) Polysubstance use disorder (Acute) Abscess (Acute) Cellulitis of hand, left (Acute) Tenosynovitis of finger (Acute) Past Medical History Medical History Mood disorder Polysubstance use disorder Family History Family history of problems with anesthesia: Unobtainable Surgical History History of Problems with Anesthesia: Unobtainable Social History Social History Household Members: Other Housing: Apartment Do you presently have visiting nurse or other home services: No Alcohol intake: former Comment: counts correct Patient Tobacco Use Status: Current everyday Tobacco user Tobacco use type: Cigarette Cigarettes Per Day: 3 Second Hand Smoke Exposure: No Substance Use Type: Crack/Cocaine Advance Directives Date on File: 09/24/24 service: No Meds Allergies Allergy/AdvReac Type Severity Reaction Status Date / Time sulfamethoxazole Allergy Hives Verified 10/20/24 13:41 [From Bactrim] trimethoprim [From Bactrim] Allergy Hives Verified 10/20/24 13:41 Home Medications ?Medication ?Instructions ?Recorded ?Confirmed ?Last Taken ?Type acetaminophen 500 mg tablet 1,000 mg PO Q8H PRN Pain (Scale 09/12/24 10/20/24 Unknown History Score 1-3) albuterol sulfate 90 mcg/actuation 2 puff inhalation Q4H PRN 09/12/24 10/20/24 Unknown History aerosol inhaler (Ventolin HFA) anaphylaxis celecoxib 200 mg capsule 200 mg PO DAILY PRN moderate pain 09/12/24 10/20/24 10/19/24 History hydroxyzine HCl 25 mg tablet 25 mg PO QID PRN anxiety 09/12/24 10/20/24 10/19/24 History trazodone 150 mg tablet 300 mg PO BEDTIME 09/12/24 10/20/24 10/19/24 History naproxen sodium 220 mg tablet 220 mg PO BID PRN Pain 10/20/24 10/20/24 Unknown History (Allison) Assessment and Plan Assessment Anesthesia Assessment: Chart Reviewed Final Anesthetic Review Family History of Problems with Anesthesia: Unobtainable History of Problems with Anesthesia: Unobtainable
--- NOTE | 2024-10-29 06:09 | PC.NURSE ---
while bringing in patient she stated she took cocaine three days ago.
[2024-10-29 06:16] VITALS: BMI 20.6
[2024-10-29 06:33] VITALS: BP 104/66; PULSE 78; RESP 16; TEMP 36.5; O2SAT 96
[2024-10-29 06:49] LABS: Amphetamine Screen Urine Not Detected (Not Detect); Barbiturates, Urine Not Detected (Not Detect); Benzodiazepines Screen Urine Not Detected (Not Detect); Buprenorphine Scr Not Detected (Not Detect); Cannabinoid Screen Urine Not Detected (Not Detect); Cocaine Screen Urine POSITIVE (Not Detect); Fentanyl, urine Not Detected (Not Detect); Methadone Screen, Urine Not Detected (Not Detect); Opiate Screen Urine Not Detected (Not Detect); Oxycodone Screen Urine Positive (Not Detect); Phencyclidine Screen Urine Not Detected (Not Detect)
--- NOTE | 2024-10-29 07:51 | PC.NURSE ---
MD SCHWARZ AND ANESTHESIA BY BEDSIDE SPEKAING TO PATIENT REGARDING HER COCAINE USE. SURGERY CANCELLED.
--- NOTE | 2024-10-29 08:04 | PC.NURSE ---
REDICUSSED PATIENTS PLAN OF CARE AND OK TO PROCEED.
--- NOTE | 2024-10-29 08:16 | P.CONAN_ITS ---
[facility] Active Problems Active Problems: All Active Problems Cellulitis (Acute) Cocaine use disorder (Acute) Non-healing wound of upper extremity (Acute) Wound, open, finger, with tendon involvement (Acute) Bacteremia (Acute) Abscess (Acute) Cellulitis of hand, left (Acute) Tenosynovitis of finger (Acute) Mood disorder (Acute) Past Medical History Medical History Cocaine use disorder Mood disorder Polysubstance use disorder Functional capacity: independent ambulation Patient : No Family History Family history of problems with anesthesia: Unobtainable Surgical History Surgical History History of surgery Hx of cholecystectomy History of Problems with Anesthesia: Unobtainable Social History Social History Household Members: Other Housing: Apartment Do you presently have visiting nurse or other home services: No Alcohol intake: former Comment: counts correct Patient Tobacco Use Status: Current everyday Tobacco user Tobacco use type: Cigarette Cigarettes Per Day: 5 Second Hand Smoke Exposure: No Use of substances other than those prescribed or required for medical reasons: Yes Substance Use Type: Crack/Cocaine Are you DNR?: No Advance Directives: No Advance Directives Information Provided: Yes Advance Directives Date on File: 09/24/24 Patient : No service: No Meds Allergies Allergy/AdvReac Type Severity Reaction Status Date / Time sulfamethoxazole Allergy Hives Verified 10/20/24 13:41 [From Bactrim] trimethoprim [From Bactrim] Allergy Hives Verified 10/20/24 13:41 Active Medications: Current Medications Lactated Ringer's (Lr) 1,000 mls @ 100 mls/hr IVCONT .Q10H [facility] Home Medications ?Medication ?Instructions ?Recorded ?Confirmed ?Last Taken ?Type acetaminophen 500 mg tablet 1,000 mg PO Q8H PRN Pain (Scale 09/12/24 10/20/24 Unknown History Score 1-3) albuterol sulfate 90 mcg/actuation 2 puff inhalation Q4H PRN 09/12/24 10/20/24 Unknown History aerosol inhaler (Ventolin HFA) anaphylaxis celecoxib 200 mg capsule 200 mg PO DAILY PRN moderate pain 09/12/24 10/20/24 10/19/24 History hydroxyzine HCl 25 mg tablet 25 mg PO QID PRN anxiety 09/12/24 10/20/24 10/19/24 History trazodone 150 mg tablet 300 mg PO BEDTIME 09/12/24 10/20/24 10/19/24 History naproxen sodium 220 mg tablet 220 mg PO BID PRN Pain 10/20/24 10/20/24 Unknown History (Aleve) Exam Height,Weight and Vital Signs: Height 5 ft 4 in Weight 54.4 kg Last Vital Signs Temp 97.7 F 10/29/24 06:33 Pulse 78 10/29/24 06:33 Resp 16 10/29/24 06:33 BP 104/66 10/29/24 06:33 Pulse Ox 96 10/29/24 06:33 O2 Del Method Room Air 10/29/24 06:33 Pertinent Lab Results Pertinent Lab Results: Laboratory Tests 10/29/24 06:09 Urine Opiates Screen Not Detected Ur Buprenorphine Scrn Not Detected Ur Oxycodone Screen Positive H Urine Methadone Screen Not Detected Urine Fentanyl Screen Not Detected Ur Barbiturates Screen Not Detected Ur Phencyclidine Scrn Not Detected Ur Amphetamines Screen Not Detected U Benzodiazepines Scrn Not Detected Urine Cocaine Screen POSITIVE H U Marijuana (THC) Screen Not Detected Airway Mallampati Class: I TM Dist: >3cm Neck ROM: Full Denture: Upper Loose/Missing/Broken Teeth: No Heart: rrr Lungs: cta Assessment and Plan Final Anesthetic Review Family History of Problems with Anesthesia: Unobtainable History of Problems with Anesthesia: Unobtainable ASA Class: III Final Preanesthetic Review: No Changes in Pt Med Stat, Meds/Allgs Chart Reviewed and Consent Obtained/Reviewed Patient Risk: Intermediate Procedure Risk: Low Anesthetic Plan Anesthetic Plan: GA Disposition: Standard PACU
[2024-10-29] MEDS: Lactated Ringers 1,000 ML 100 ML IVCONT (08:19)
--- NOTE | 2024-10-29 08:21 | MHC.SHP ---
Pre-Procedural Eval Section A - 24 Hr Update-Section A only Date of Service: 10/29/24 The patient is an INPATIENT: No Changes since office visit: No Cold of Flu in the past 2 weeks, No New Medical Problems, No Changes in Medication and No Patient answered all questions The patient has been examined within 24 hours of the surgical procedure. The History & Physical has been completed within 30 days and I have reviewed it.: Yes Section B - Complete if H&P > 30 days Chief Complaint: Cellulitis of left finger Allergies: Allergies Allergy/AdvReac Type Severity Reaction Status Date / Time sulfamethoxazole Allergy Hives Verified 10/20/24 13:41 [From Bactrim] trimethoprim [From Bactrim] Allergy Hives Verified 10/20/24 13:41 Exam Exam Comment: Patient seen and evaluated in preop hold. Patient admits to using cocaine 3 days ago and is adamant that she has not used cocaine since that time. She had a positive cocaine urine tox screen. In talking with Dr. Ramos and Dr. Trejo regarding these issues, and given the nature of this procedure as it the skin graft in an attempt to preserve the function of her thumb, they felt comfortable proceeding with this procedure. The risks were again discussed with the patient. Plan I have reviewed the history and physical and performed a pertinent physical examination on my patient. No changes have occurred unless specified. Time Spent With Patient Time: Total time managing care of this patient today ____ minutes.
--- NOTE | 2024-10-29 08:29 | P.OP_ITS ---
Operative Note Operative Note Date of Service: 10/29/24 Narrative: Operative Note Narrative: Preop diagnosis: 1. Left dorsal thumb with full thickness skin loss, and adequate granulation tissue for skin grafting Postop diagnosis: Same Procedure: 1. Left upper extremity full-thickness autograft skin grafting to dorsum of left thumb, 6 cm x 2.5 cm Surgeon: Andressa Salazar MD Concrete Finishing Machine Operator: None Anesthesia: General Anesthesia Findings: Wound clean with good granulation tissue covering the tendon. 6 cm x 2.5 cm full-thickness skin graft Implants: None Tourniquet time: 0 minutes EBL: 5.0 ml Specimen: None Drains: None Complications: None Disposition: Brought to the recovery room in stable condition Plan: Follow-up in 3 for 1st wound check Anticipate suture removal in about 2 weeks Indications: The patient is a 58 year old woman with an area of full-thickness skin loss over the dorsal aspect of the left thumb secondary to recreational drug use. . The risks and benefits of operative treatment, including but not limited to risk of damage to blood vessels, nerves, tendons, infection, recurrence, persistent pain or numbness, incomplete resolution of preoperative symptoms, or need for further surgery were discussed with the patient and they wished to proceed with surgery. Procedure: Once consent was obtained patient was brought back to the operating suite and placed in the operating table in a supine position. . Perioperative antibiotics and anesthesia was administered by the anesthesia team. A tourniquet was applied to the proximal aspect of the [ ] upper extremity and the limb was prepped and draped in a standard surgical fashion. The tourniquet was not inflated during the case. I bob out our donor site in the medial aspect of her left upper arm and infiltrated beneath the skin with some 1% lidocaine with epinephrine. I then turned my attention to the recipient site. I prepared the recipient site by debriding the small amount of fibrinous exudate using tenotomy scissors and a small rongeur. I also cleaned up the skin edges using a 15. Blade. She had good pink granulation tissue covering the extensor tendon. No evidence of infection. The area was also copiously irrigated with normal saline. I then covered the recipient site with a piece of gauze soaked in some lidocaine with epinephrine. I then turned my attention to the donor site. I made an elliptical longitudinally oriented incision that measured 6 cm in length by 2.5 cm in width. The incision was made through the skin to the subcutaneous tissues using a 15. Blade. I then grasped the distal edge and carefully elevated the skin fr om the subcutaneous tissues in a distal to proximal direction using a 15. Blade and tenotomy scissors. The full-thickness skin graft was then placed on the back table in some saline soaked gauze. I then undermined the donor site skin edges using tenotomy scissors. The donor site was then irrigated with normal saline. I was able to reapproximate the skin edges nicely with some 4-0 and 5 0 Prolene suture. Some additional lidocaine with epinephrine was then injected beneath the donor site. I turned my attention to the skin graft. I removed any remaining fat from the deep side of the graft. I then performed a pie crust fenestration of the skin graft using a 15. Blade. Multiple small longitudinal incisions were placed to facilitate any drainage from beneath the skin graft. The skin graft was then placed on the donor site and secured in place using multiple 4-0 and 5 0 Prolene sutures. I was very satisfied with our skin graft. I performed a block of the superficial radial nerve proximal to the graft for postop pain control. This was done using some lidocaine with epinephrine. I placed some Xeroform with some additional bacitracin over the skin graft. A couple of cotton balls moistened with saline were placed on top as a bolster. A sterile dressing and a volar thumb spica splint were then placed. The donor site had been dressed using sterile dressings and a piece of Tegaderm. The patient appears to have tolerated the procedure well and with no complications. All digits were well vascularized conclusion of the case.
[2024-10-29] MEDS: ceFAZolin Sodium/Dextrose,Iso 2 GM/50 ML PIGGYBACK IV (08:55)
[2024-10-29] MEDS: Acetaminophen 1,000 MG/100 ML PIGGYBACK 400 MG IV (08:59)
[2024-10-29 11:07] VITALS: BP 131/77; PULSE 66; RESP 12; TEMP 36.7; O2SAT 100
[2024-10-29 11:12] VITALS: BP 106/70; PULSE 70; RESP 12; O2SAT 95
[2024-10-29 11:17] VITALS: BP 112/60; PULSE 71; RESP 12; O2SAT 95
[2024-10-29 11:22] VITALS: BP 107/64; PULSE 70; RESP 12; O2SAT 95
[2024-10-29 11:37] VITALS: BP 110/44; PULSE 73; RESP 16; TEMP 36.7; O2SAT 96
== END | disposition home or self-care (01) ==
PROVIDERS: Nurse Practitioner; Visit Provider Orthopaedic Surgery
PROC: (CPT 15240; principal; 2024-10-29 07:30)
DX: S61.002A Unspecified open wound of left thumb without damage to nail, initial encounter (principal); L03.012 Cellulitis of left finger; X58.XXXA Exposure to other specified factors, initial encounter; Y93.9 Activity, unspecified; Y92.9 Unspecified place or not applicable; Y99.9 Unspecified external cause status; F14.10 Cocaine abuse, uncomplicated; F19.94 Other psychoactive substance use, unspecified with psychoactive substance-induced mood disorder; Z79.1 Long term (current) use of non-steroidal anti-inflammatories (NSAID); Z79.899 Other long term (current) drug therapy; Z88.2 Allergy status to sulfonamides; F17.210 Nicotine dependence, cigarettes, uncomplicated; Z98.890 Other specified postprocedural states
CPT/HCPCS: 15240; 80307; J0131; J0690; J1171; J2003; J2004; J2371; J2704; J3010

== ENCOUNTER 2024-11-02 10:06 | Outpatient (AMB) | payer OTHER, SELFPAY ==
--- NOTE | 2024-11-02 10:17 | A.OFFVIS_ITS ---
Vital Signs 3 11/02/24 10:18 Height 5 ft 4 in Weight 125 lb BMI 21.5 Handedness Right Intake Visit Reasons: P/O LT thumb autograft skin grafting 10/29/24 Intake Note: Lovely is a 58 year old right hand dominant female who presents today post operatively s/p left upper extremity full-thickness autograft skin grafting to dorsum of left thumb, DOS: 10/29/[address] Andressa Salazar. She reports her pain is usually between a 5 and a 7 on pain scale. Admits she does a lot with her hands, a little more than she should be doing. She reports pain in her tricep area and says this has been going on since after her procedure. Reports no stiffness with removal of splint. She is taking her antibiotics. Allergies sulfamethoxazole [From Bactrim] Allergy (Verified 11/02/24 10:18) Hives trimethoprim [From Bactrim] Allergy (Verified 11/02/24 10:18) Hives HPI HPI P/O LT thumb autograft skin grafting 10/29/24: Details: Lovely is a 58 year old right hand dominant female who presents today post operatively s/p left upper extremity full-thickness autograft skin grafting to dorsum of left thumb, DOS: 10/29/[address] Andressa Salazar. She reports her pain is usually between a 5 and a 7 on pain scale. Admits she does a lot with her hands, a little more than she should be doing. She reports pain in her tricep area and says this has been going on since after her procedure. Reports no stiffness with removal of splint. She is taking her antibiotics. [facility] Medical History (Updated 11/02/24 @ 10:46 by SANTOS Ricci) Cellulitis of hand, left Cocaine use disorder Mood disorder Polysubstance use disorder Surgical History (Updated 11/02/24 @ 16:24 by YOKASTA Selby) History of surgery Hx of cholecystectomy Social History Household Members: Other Housing: Apartment Do you presently have visiting nurse or other home services: No Alcohol intake: former Comment: counts correct Patient Tobacco Use Status: Current everyday Tobacco user Tobacco use type: Cigarette Cigarettes Per Day: 5 Second Hand Smoke Exposure: No Substance Use Type: Crack/Cocaine Advance Directives Date on File: 09/24/24 service: No Review of Systems Const All systems reviewed & are unremarkable except as noted in HPI and below Physical Exam Vital Signs: BMI result Body Mass Index 21.5 Extrem Other: Patient is alert, oriented, and in no acute distress. Neuro: Normal sensation of the tips of all digits of the left hand at this time Vascular: Cap refill brisk Pain: No tenderness to palpation about the left thumb Skin: Skin graft over the dorsal aspect of the left thumb appears to have some neovascularization patient, has remained moist Sutures remain in place No lacerations or abrasions. General: No ecchymosis, erythema, or evidence of infection. Psych: Appears grossly normal Affect normal Attitude cooperative Office Procedures Casting/Splints 64950-Tsijfrx Splint Application Procedure code (CPT) selection complete Assessment & Plan Assessment & Plan (1) H/O skin graft: Code(s): Z94.5 - Skin transplant status Category: Surgical Plan 1. Skin graft of the left thumb DOS 10/29/2024 Patient appears to be recovering well postoperatively Patient is educated about the typical recovery course At this time, dressing is changed, and plenty of antibiotic ointment and Xeroform was applied to keep the skin graft moist Patient is also placed into a short-arm thumb spica splint Patient is educated on proper splint care and precautions Follow-up in 1 week for reassessment, sooner with any acute concerns Medications: Refilled 2 amoxicillin-pot clavulanate 875-125 mg 1 tab PO Q12H 12 tabs 0RF doxycycline monohydrate 100 mg PO BID 12 caps 0RF Coding Level of Care Code Global (68220) Diagnoses H/O skin graft Z94.5 CPT Codes Splint - CPT: 45587-Vyudogv Splint Application ([id number])
[2024-11-02 10:18] VITALS: BMI 21.5
--- OUTSIDE RECORDS SUMMARY | 2024-11-02 10:20 | XMS_ITS | Clinical Summary ---
Author Organization [email or web address] [facility] Address [address] [place] [address] Care Team Providers Care Salon Stylist Name Role Phone Unavailable Primary Care Provider Unavailabl e Surgical History Surgery Date Site/Laterality Comments CHOLECYSTECTOMY PROCEDURE: HISTORICAL CHOLECYSTECTOMY COLONOSCOPY 12/16/2016 PROCEDURE: HISTORICAL COLONOSCOPY; COMMENT: Normal. Repeat 10 yrs UPPER GASTROINTESTINAL ENDOSCOPY 12/16/2016 PROCEDURE: [place] UPPER GI ENDOSCOPY PERFORMED; COMMENT: Normal HYSTERECTOMY 2013 PROCEDURE: HISTORICAL TOTAL HYSTERECTOMY WITH BSO; COMMENT: w/appendectomy; for menorrhagia & fibroids Medical History Medical History Date Comments Abdominal pain, epigastric 12/07/2016 DX:Ab dominal pain, epigastric Allergic purpura ([facility] V24) 03/02/2013 D X:Allergic purpura ([facility]) Polyarteritis nodosa ([facility]/ C V24, [facility] V28) 12/26/2012 DX:Polyarteritis nodosa ([facility] ) Depression 10/03/2018 DX:Depression Bipolar disorder, mixed ([facility] /[facility] V24, [facility] V28) 03/29/2019 DX:Bipolar disorder, mixed ( [facility]) Anxiety 03/29/2019 DX:Anxiety History of substance abuse ( [facility] V24, [facility] V28) 03/29/2019 DX:History of substance abus e ([facility]); COMMENT: Alcohol and cocaine, in remission COPD (chronic obstructive pu lmonary disease) ([facility] V24, [facility] V28) 03/29/2019 DX:COPD (chronic o bstructive pulmonary disease) ([facility]) 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 [...] Procedure Name Priority Date/Time Associated Diagnosis Comments [facility] SCREENING DIGITAL Routine 08/31/2018 3:03 PM EDT Encounter for screening mammogram for malignant neoplasm of breast from Last 3 Months or Most Recently Relevant to Health Maintenance Results * ABHINAV SCREENING DIGITAL (08/31/2018 3:03 PM EDT) Anatomical Region Laterality Modality Mammography 08/31/2018 2:09 PM EDT Narrative 08/31/2018 3:03 PM EDT [facility] Diagnostic Imaging Department [address] [place] [id number] Patient: ??CURTIS SAAVEDRA ?/Age/Sex: 1965 - 52 - F Unit#: ??[id number] ? Location/Status: ??SPDIMAM/REG CLI ? Mnemonic/Ordering Site: ??DIGSC/SPMAM Ordering Physician: ??YONATHAN FAULKNER [facility] Screening Digital - 08/31/18 - 1427 INDICATION: SCREENING COMPARISON: No prior studies are available for comparison. FINDINGS: CC and MLO views of the breasts were obtained, using full field digital mammography with 3D tomosynthesis views in the MLO projection. Computer aided detection with the [employer] 7.2-H was employed. FINDINGS: The breasts contain [...] additional imaging evaluation. 3340F, 7025F (G0202 / 36381) , ??[id number] Dictating Physician: ??SOSA BECK MD Electronically Signed by: ??SOSA BECK MD Dic Date/Time: ??08/31/18 0618 Sign date/Time: ??08/31/18 1505 Procedure Note Sosa Beck MD - 06/02/2022 [facility] Diagnostic Imaging Department [address] [place] [id number] Patient: KERIROBYA Nieves Griggs/Age/Sex: 1965 - 52 - F Unit#: [id number] Location/Status: [facility] Mnemonic/Ordering Site: [facility] Ordering Physician: YONATHAN FAULKNER Abhinav Screening Digital - 08/31/18 - 6535 INDICATION: SCREENING COMPARISON: No prior studies are available for comparison. FINDINGS: CC and MLO views of the breasts were obtained, using full field digital mammography with 3D tomosynthesis views in the MLO projection. Computer aided detection with the [employer] 7.2-H was employed. FINDINGS: The breasts contain [...] 0 - Incomplete needs additional imaging evaluation.3340F, 7038F (G0202 / 56510) , [id number] Dictating Physician: SOSA BECK MD Electronically Signed by: SOSA BECK MD Dic Date/Time: 08/31/18 6440 Sign date/Time: 08/31/18 3716 Yonathan [facility]TON IMG BI PROCEDURES Final Result from Last 3 Months or Most Recently Relevant to Health Maintenance
== END 2024-11-02 11:07 | disposition home or self-care (01) ==
LOC: HO.HOS 10:06
DX: Z94.5 Skin transplant status (principal)
CPT/HCPCS: 29125; 99024

== ENCOUNTER → 2024-11-02 10:06 | Outpatient (BNVA) | payer OTHER, SELFPAY | DX: Z48.817 Encounter for surgical aftercare following surgery on the skin and subcutaneous tissue (principal); Z94.5 Skin transplant status | CPT/HCPCS: 29125; 99212 ==

== ENCOUNTER 2024-11-07 08:51 | Outpatient (AMB) | payer OTHER, SELFPAY ==
--- OUTSIDE RECORDS SUMMARY | 2024-11-07 09:11 | XMS_ITS | Clinical Summary ---
Author Organization [employer] [facility] Address [address] [place] [address] Care Team Providers Care Coil Inspector Name Role Phone Unavailable Primary Care Provider [...] 12/07/2016 DX:Ab dominal pain, epigastric Allergic purpura ([facility] V24) 03/02/2013 D X:Allergic purpura ([facility]) Polyarteritis nodosa ([facility]/ C V24, [facility] V28) 12/26/2012 DX:Polyarteritis nodosa ([facility] ) Depression 10/03/2018 DX:Depression Bipolar disorder, mixed ([facility] /[facility] V24, [facility] V28) 03/29/2019 DX:Bipolar disorder, mixed ( [facility]) Anxiety 03/29/2019 DX:Anxiety History of substance abuse ( [facility] V24, [facility] V28) 03/29/2019 DX:History of substance abus e ([facility]); COMMENT: Alcohol and cocaine, in remission COPD (chronic obstructive pu lmonary disease) ([facility] V24, [facility] V28) 03/29/2019 DX:COPD (chronic o bstructive pulmonary disease) ([facility]) 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 a [...] Procedure Name Priority Date/Time Associated Diagnosis Comments [facility] SCREENING DIGITAL Routine 08/31/2018 3:03 PM EDT Encounter for screening mammogram for malignant neoplasm of breast from Last 3 Months or Most Recently Relevant to Health Maintenance Results * ABHINAV SCREENING DIGITAL (08/31/2018 3:03 PM EDT) Anatomical Region Laterality Modality Mammography 08/31/2018 2:09 PM EDT Narrative 08/31/2018 3:03 PM EDT [facility] Diagnostic Imaging Department [address] [place] [id number] Patient: ??CURTIS SAAVEDRA ?/Age/Sex: 1965 - 52 - F Unit#: ??[id number] ? Location/Status: ??SPDIMAM/REG CLI ? Mnemonic/Ordering Site: ??DIGSC/SPMAM Ordering Physician: ??YONATHAN FAULKNER [facility] Screening Digital - 08/31/18 - 1427 INDICATION: SCREENING COMPARISON: No prior studies are available for comparison. FINDINGS: CC and MLO views of the breasts were obtained, using full field digital mammography with 3D tomosynthesis views in the MLO projection. Computer aided detection with the [employer] 7.2-H was employed. FINDINGS: The breasts contain [...] additional imaging evaluation. 3340F, 7025F (G0202 / 07354) , ??[id number] Dictating Physician: ??SOSA BECK MD Electronically Signed by: ??SOSA BECK MD Dic Date/Time: ??08/31/18 9557 Sign date/Time: ??08/31/18 1505 Procedure Note Sosa Beck MD - 06/02/2022 [facility] Diagnostic Imaging Department [address] [place] [id number] Patient: KERIROBYA Nieves Griggs/Age/Sex: 1965 - 52 - F Unit#: [id number] Location/Status: [facility] Mnemonic/Ordering Site: [facility] Ordering Physician: YONATHAN FAULKNER Abhinav Screening Digital - 08/31/18 - 8270 INDICATION: SCREENING COMPARISON: No prior studies are available for comparison. FINDINGS: CC and MLO views of the breasts were obtained, using full field digital mammography with 3D tomosynthesis views in the MLO projection. Computer aided detection with the [employer] 7.2-H was employed. FINDINGS: The breasts contain [...] 0 - Incomplete needs additional imaging evaluation.3340F, 7094F (G0202 / 47107) , [id number] Dictating Physician: SOSA BECK MD Electronically Signed by: SOSA BECK MD Dic Date/Time: 08/31/18 1650 Sign date/Time: 08/31/18 7094 Yonathan TEMPLETON IMG BI PROCEDURES Final Result from Last 3 Months or Most Recently Relevant to Health Maintenance
[2024-11-07 09:33] VITALS: BMI 21.5
--- NOTE | 2024-11-07 09:33 | A.OFFVIS_ITS ---
Vital Signs 3 11/07/24 09:33 Height 5 ft 4 in Weight 125 lb BMI 21.5 Intake Visit Reasons: PO LT thumb skin graft 10/29/24 AR Intake Note: Lovely 58 yr old female presents today for her P/O visit for her left thumb cellulitis I&D & Skin graft of left thumb DOS 10/22/24. States she has mild pain but is better over all. Dressing and splint removed in office. Allergies sulfamethoxazole [From Bactrim] Allergy (Verified 11/07/24 09:43) Hives trimethoprim [From Bactrim] Allergy (Verified 11/07/24 09:43) Hives HPI HPI PO LT thumb skin graft 10/29/24 AR: Details: The patient is a 58-year-old aiblz-gbzt-tewstqef woman who is most recently status post placement of a full-thickness autograft from the proximal aspect of her left arm to the dorsal aspect of her left thumb. Date of surgery 10/29/2024. She says that she is doing well [facility] Medical History (Updated 11/02/24 @ 10:46 by SANTOS Ricci) Cellulitis of hand, left Cocaine use disorder Mood disorder Polysubstance use disorder Surgical History History of surgery Hx of cholecystectomy Social History Household Members: Other Housing: Apartment Do you presently have visiting nurse or other home services: No Alcohol intake: former Comment: counts correct Patient Tobacco Use Status: Current everyday Tobacco user Tobacco use type: Cigarette Cigarettes Per Day: 5 Second Hand Smoke Exposure: No Substance Use Type: Crack/Cocaine Advance Directives Date on File: 09/24/24 service: No Physical Exam Vital Signs: BMI result Body Mass Index 21.5 Extrem Other: The patient was alert oriented and in no acute distress. Her donor site appears to be healing well with no erythema drainage or evidence of infection. Sutures are in place. The skin graft appears to be pink and viable. There was a small amount of drainage on the dressings but no erythema drainage or evidence of infection today. She is starting to appear like she is getting a boutonniere deformity with flexion at the MCP and some slight hyper extension at the IP joint. I had her actively demonstrate some active flexion at the IP joint. She can actively flex from hyper extension to neutral. Sensation intact and cap refill brisk to all digits. Smooth and painless wrist range of motion She can make a fist and extend all of her fingers. Assessment & Plan Assessment & Plan (1) H/O skin graft: Code(s): Z94.5 - Skin transplant status Category: Surgical (2) Wound, open, finger, with tendon involvement: Code(s): S61.209A - Unspecified open wound of unspecified finger without damage to nail, initial encounter Category: Medical (3) Cocaine use disorder: Code(s): F14.10 - Cocaine abuse, uncomplicated Category: Medical Plan Assessment and plan: 1. Status post full-thickness skin graft to the dorsum of her left thumb from the proximal aspect of her left upper extremity Date of surgery 10/29/2024 The skin graft appears to be viable, well adhered, and I do not not see any evidence of infection. The donor site appears to be healing well and without any evidence of infection She is developing a slight boutonniere deformity which we will start to address next visit. She is going to be placed in a new dressing with some antibiotic ointment and Xeroform on the graft and a thumb spica splint which I would like for her to leave in place until next visit. Follow up in 1 week for a wound check and likely suture removal. At that time we may have her return to wound care, and possibly refer her to OT to start working on active IP joint flexion to reduce the chances of a boutonniere deformity. She will take all antibiotics until they are finished. Again this was to cover a large skin defect that occurred after a recreational drug use related infection to the dorsum of her thumb that resulted in necrosis of the skin on the dorsum of the thumb. Once the infection cleared she did well with wound care to acquire a healthy bed of granulation tissue which allowed for us to proceed with the skin graft rather than the plastics referral for a possible rotation flap. She does have a history of active cocaine use. She has actually done very well postoperatively participating in the postoperative course. Coding Level of Care Code Global (46070) Diagnoses H/O skin graft Z94.5 Wound, open, finger, with tendon involvement S61.209A Cocaine use disorder F14.10
== END 2024-11-07 10:30 | disposition home or self-care (01) ==
LOC: HO.HOS 08:51
PROVIDERS: Visit Provider Orthopaedic Surgery
DX: Z94.5 Skin transplant status (principal); S61.209A Unspecified open wound of unspecified finger without damage to nail, initial encounter; F14.10 Cocaine abuse, uncomplicated
CPT/HCPCS: 99024

== ENCOUNTER → 2024-11-07 08:51 | Outpatient (BNVA) | payer OTHER, SELFPAY | PROVIDERS: Visit Provider Orthopaedic Surgery | DX: Z48.817 Encounter for surgical aftercare following surgery on the skin and subcutaneous tissue (principal); S61.209D Unspecified open wound of unspecified finger without damage to nail, subsequent encounter; F14.10 Cocaine abuse, uncomplicated; Z94.5 Skin transplant status | CPT/HCPCS: 99212 ==

== ENCOUNTER 2024-11-13 13:44 | Outpatient (AMB) | payer OTHER, SELFPAY ==
--- NOTE | 2024-11-13 14:09 | MHC.OFFVIS ---
Vital Signs 11/13/24 14:13 Height 5 ft 4 in Weight 125 lb BMI 21.5 Handedness Right Intake Visit Reasons: PO LT thumb skin graft 10/29/24 AR Intake Note: Lovely 58 year old female presents today for her post operative visit for her left thumb cellulites I&D & skin graft of left thumb DOS 10/22/24 for a wound check. She expresses on Tuesday11/11/24 she took a shower and accidentally wet her dressing. She expresses her pain is slowly getting better. Allergies sulfamethoxazole [From Bactrim] Allergy (Verified 11/13/24 14:14) Hives trimethoprim [From Bactrim] Allergy (Verified 11/13/24 14:14) Hives HPI HPI PO LT thumb skin graft 10/29/24 AR: Details: Lovely is a 58 year old right hand dominant woman who returns S/P full-thickness autograft skin grafting from proximal aspect of her left arm to dorsum of left thumb, 6 cm x 2.5 cm, DOS: 10/29/24. She is S/P Left thumb, deep mid palmar space, deep thenar space I&D, DOS: 09/13/24, and Left hand & thumb repeat I&D, DOS: 09/18/24. She says she is residing in a hotel room, and was denied being placed in a rehab center. She says she is doing [ ]. She has a Hx of cocaine & polysubstance abuse, but denies any IVDU. [facility] Medical History (Updated 11/13/24 @ 14:11 by Willian Porter) Cellulitis of hand, left Cocaine use disorder Mood disorder Polysubstance use disorder Surgical History History of surgery Hx of cholecystectomy Social History Household Members: Other Housing: Apartment Do you presently have visiting nurse or other home services: No Alcohol intake: former Comment: counts correct Patient Tobacco Use Status: Current everyday Tobacco user Tobacco use type: Cigarette Cigarettes Per Day: 5 Second Hand Smoke Exposure: No Substance Use Type: Crack/Cocaine Advance Directives Date on File: 09/24/24 service: No Review of Systems Const All systems reviewed & are unremarkable except as noted in HPI and below Physical Exam Vital Signs: BMI result Body Mass Index 21.5 Const General: no acute distress and alert Orientation/consciousness: patient oriented x3 Neuro General: patient oriented x3 Extrem Other: The patient was alert oriented and in no acute distress Her donor site appears to be healing well with no erythema drainage or evidence of infection. Sutures removed and Steri-Strips applied The skin graft appears to be pink and viable. There was a small amount of drainage on the dressings but no erythema drainage or evidence of infection today. She is starting to appear like she is getting a boutonniere deformity with flexion at the MCP and some slight hyper extension at the IP joint. I had her actively demonstrate some active flexion at the IP joint. She can actively flex from hyper extension to neutral. Sensation intact and cap refill brisk to all digits. Smooth and painless wrist range of motion She can make a fist and extend all of her finger Sensation is intact Cap refill is brisk Psych Appearance: grossly normal Affect: normal affect Attitude: cooperative Assessment & Plan Assessment & Plan (1) H/O skin graft: Code(s): Z94.5 - Skin transplant status Category: Surgical (2) Wound, open, finger, with tendon involvement: Code(s): S61.209A - Unspecified open wound of unspecified finger without damage to nail, initial encounter Category: Medical (3) Cocaine use disorder: Code(s): F14.10 - Cocaine abuse, uncomplicated Category: Medical (4) Polysubstance use disorder: Code(s): F19.90 - Other psychoactive substance use, unspecified, uncomplicated Category: Medical Plan Assessment & Plan: 1. Left thumb S/P full-thickness autograft skin grafting from proximal aspect of her left arm to dorsum of left thumb, 6 cm x 2.5 cm, DOS: 10/29/24. 2. Left thumb Abscess, 3. Left hand infection 4. Left thumb dorsal skin loss and open wound with exposed EPL tendon S/P : A) Left thumb I&D B) Left deep mid palmar space I&D C) Left deep thenar space I&D DOS: 09/13/24 D) Left hand repeat I&D E) Left thumb repeat I&D DOS: 09/18/24 The skin graft appears to be viable, well adhered, and I do not not see any evidence of infection. The donor site appears to be healing well and without any evidence of infection I explained the signs and symptoms of infection, if the patient develops any new or worsening erythema, drainage, pain, or warmth they should contact the clinic or attend the ED. She should avoid any underwater activities for the next 5 days She is developing a slight boutonniere deformity at this time, she has been working on gentle ROM exercises at home I ordered OT hand therapy to work on active IP joint flexion reduce the chances of a boutonniere deformity. She was placed in a new dressing with some antibiotic ointment and Xeroform on the graft and a thumb spica splint which I would like for her to leave in place until next visit. Follow up in 2 weeks Again this was to cover a large skin defect that occurred after a recreational drug use related infection to the dorsum of her thumb that resulted in necrosis of the skin on the dorsum of the thumb. Once the infection cleared she did well with wound care to acquire a healthy bed of granulation tissue which allowed for us to proceed with the skin graft rather than the plastics referral for a possible rotation flap. She does have a history of active cocaine use. She has actually done very well postoperatively participating in the postoperative course. Coding Level of Care Code Global (38233) Diagnoses H/O skin graft Z94.5 Wound, open, finger, with tendon involvement S61.209A Cocaine use disorder F14.10 Polysubstance use disorder F19.90
[2024-11-13 14:13] VITALS: BMI 21.5
--- OUTSIDE RECORDS SUMMARY | 2024-11-13 15:27 | XMS_ITS | Clinical Summary ---
Author Organization [facility] Address [address] [place] [address] Care Team Providers Care Choir Member Name Role Phone Unavailable Primary Care Provider Unavailabl e Surgical History Surgery Date Site/Laterality Comments CHOLECYSTECTOMY PROCEDURE: HISTORICAL CHOLECYSTECTOMY COLONOSCOPY 12/16/2016 PROCEDURE: HISTORICAL COLONOSCOPY; COMMENT: Normal. Repeat 10 yrs UPPER GASTROINTESTINAL ENDOSCOPY 12/16/2016 PROCEDURE: [place] UPPER GI ENDOSCOPY PERFORMED; COMMENT: Normal HYSTERECTOMY 2013 PROCEDURE: HISTORICAL TOTAL HYSTERECTOMY WITH BSO; COMMENT: w/appendectomy; for menorrhagia & fibroids Medical History Medical History Date Comments Abdominal pain, epigastric 12/07/2016 DX:Ab dominal pain, epigastric Allergic purpura ([facility] V24) 03/02/2013 D X:Allergic purpura ([facility]) Polyarteritis nodosa ([facility]/ C V24, [facility] V28) 12/26/2012 DX:Polyarteritis nodosa ([facility] ) Depression 10/03/2018 DX:Depression Bipolar disorder, mixed ([facility] /[facility] V24, [facility] V28) 03/29/2019 DX:Bipolar disorder, mixed ( [facility]) Anxiety 03/29/2019 DX:Anxiety History of substance abuse ( [facility] V24, [facility] V28) 03/29/2019 DX:History of substance abus e ([facility]); COMMENT: Alcohol and cocaine, in remission COPD (chronic obstructive pu lmonary disease) ([facility] V24, [facility] V28) 03/29/2019 DX:COPD (chronic o bstructive pulmonary disease) ([facility]) 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 a Esophageal [...] Procedure Name Priority Date/Time Associated Diagnosis Comments [facility] SCREENING DIGITAL Routine 08/31/2018 3:03 PM EDT Encounter for screening mammogram for malignant neoplasm of breast from Last 3 Months or Most Recently Relevant to Health Maintenance Results * ABHINAV SCREENING DIGITAL (08/31/2018 3:03 PM EDT) Anatomical Region Laterality Modality Mammography 08/31/2018 2:09 PM EDT Narrative 08/31/2018 3:03 PM EDT [facility] Diagnostic Imaging Department [address] [place] [id number] Patient: ??CURTIS SAAVEDRA ?/Age/Sex: 1965 - 52 - F Unit#: ??[id number] ? Location/Status: ??SPDIMAM/REG CLI ? Mnemonic/Ordering Site: ??[facility]SC/[facility] Ordering Physician: ??YONATHAN FAULKNER [facility] Screening Digital - 08/31/18 - 1427 INDICATION: SCREENING COMPARISON: No prior studies are available for comparison. FINDINGS: CC and MLO views of the breasts were obtained, using full field digital mammography with 3D tomosynthesis views in the MLO projection. Computer aided detection with the Otonomy 7.2-H was employed. FINDINGS: The breasts contain [...] additional imaging evaluation. 3340F, 7025F (G0202 / [id number]) , ??[id number] Dictating Physician: ??SOSA BECK MD Electronically Signed by: ??SOSA BECK MD Dic Date/Time: ??08/31/18 7783 Sign date/Time: ??08/31/18 1508 Procedure Note Sosa Beck MD - 06/02/2022 [facility] Diagnostic Imaging Department [address] [place] [id number] Patient: KERIROBYA Nieves Griggs/Age/Sex: 1965 - 52 - F Unit#: [id number] Location/Status: [facility] Mnemonic/Ordering Site: [facility] Ordering Physician: YONATHAN FAULKNER Abhinav Screening Digital - 08/31/18 - 7583 INDICATION: SCREENING COMPARISON: No prior studies are available for comparison. FINDINGS: CC and MLO views of the breasts were obtained, using full field digital mammography with 3D tomosynthesis views in the MLO projection. Computer aided detection with the Otonomy 7.2-H was employed. FINDINGS: The breasts contain [...] 0 - Incomplete needs additional imaging evaluation.3340F, 7003F (G0202 / [id number]) , [id number] Dictating Physician: SOSA BECK MD Electronically Signed by: SOSA BECK MD Dic Date/Time: 08/31/18 9592 Sign date/Time: 08/31/18 1115 Yonathan TEMPLETON IMG BI PROCEDURES Final Result from Last 3 Months or Most Recently Relevant to Health Maintenance
== END 2024-11-13 15:16 | disposition home or self-care (01) ==
PROVIDERS: Visit Provider Orthopaedic Surgery
DX: Z94.5 Skin transplant status (principal); S61.209A Unspecified open wound of unspecified finger without damage to nail, initial encounter; F14.10 Cocaine abuse, uncomplicated; F19.90 Other psychoactive substance use, unspecified, uncomplicated
CPT/HCPCS: 99024

== ENCOUNTER → 2024-11-13 13:44 | Outpatient (BNVA) | payer OTHER, SELFPAY | PROVIDERS: Visit Provider Orthopaedic Surgery | DX: S61.208D Unspecified open wound of other finger without damage to nail, subsequent encounter (principal); F14.10 Cocaine abuse, uncomplicated; F19.90 Other psychoactive substance use, unspecified, uncomplicated; X58.XXXD Exposure to other specified factors, subsequent encounter; Z94.5 Skin transplant status | CPT/HCPCS: 99212 ==

== ENCOUNTER 2024-11-28 09:56 | Outpatient (AMB) | payer OTHER, SELFPAY ==
--- NOTE | 2024-11-28 10:20 | A.OFFVIS_ITS ---
Vital Signs 11/28/24 10:21 Height 5 ft 4 in Weight 125 lb BMI 21.5 Intake Visit Reasons: PO LT thumb skin graft 10/29/24 AR Intake Note: Lovely 58 year old female presents today for her post operative visit for her left thumb cellulites I&D & skin graft of left thumb DOS 10/22/24 for a wound check. States she went to her wound care appt and was turned away. States she was advise to be seen with Dr Marie lombardo. States she is having a little drainage, tingling and pain with movement. She has not gotten her thumb splint yet. States no one has reached out yo book appt. Allergies sulfamethoxazole (From Bactrim) Allergy (Verified 11/28/24 10:25) Hives trimethoprim (From Bactrim) Allergy (Verified 11/28/24 10:25) Hives HPI HPI PO LT thumb skin graft 10/29/24 AR: Details: Lovely is a 58 year old right hand dominant woman who returns S/P full-thickness autograft skin grafting from proximal aspect of her left arm to dorsum of left thumb, 6 cm x 2.5 cm, DOS: 10/29/24. She is S/P Left thumb, deep mid palmar space, deep thenar space I&D, DOS: 09/13/24, and Left hand & thumb repeat I&D, DOS: 09/18/24. She says she is residing in a hotel room, and was denied being placed in a rehab center. She reports having some slight drainage and pain with thumb movements. She says she was turned away from her most recent wound care appointment, being told to follow up with this appointment first. She says OT has not contacted her for an appointment. She has a Hx of cocaine & polysubstance abuse, but denies any IVDU. [facility] Medical History (Updated 11/28/24 @ 11:01 by Willian Porter) Cellulitis of hand, left Cocaine use disorder Mood disorder Polysubstance use disorder Surgical History History of surgery Hx of cholecystectomy Social History Household Members: Other Housing: Apartment Do you presently have visiting nurse or other home services: No Alcohol intake: former Comment: counts correct Patient Tobacco Use Status: Current everyday Tobacco user Tobacco use type: Cigarette Cigarettes Per Day: 5 Second Hand Smoke Exposure: No Substance Use Type: Crack/Cocaine Advance Directives Date on File: 09/24/24 service: No Review of Systems Const All systems reviewed & are unremarkable except as noted in HPI and below Physical Exam Vital Signs: BMI result Body Mass Index 21.5 Const General: no acute distress and alert Orientation/consciousness: patient oriented x3 Neuro General: patient oriented x3 Extrem Other: Evaluation of Upper Extremity: The patient is alert, oriented, and in no acute distress Neuro: Median, Ulnar, Radial nerves motor and sensory intact and sensation is normal to the tips of all digits Vascular: Cap refill brisk ROM: She can make a fist and extend all of her fingers. Smooth and painless wrist range of motion She is developing boutonniere deformity of the thumb with flexion at the MCP and some significant hyper extension at the IP joint. I had her actively demonstrate some active flexion at the IP joint. She can actively flex from hyper extension to neutral. Her donor site appears to be well healed The skin graft appears to be well healed as well, though there is an approximately 1 cm diameter defect in the center. No drainage or evidence of infection. Appears to have some granulation tissue beneath with no exposed tendon. Psych Appearance: grossly normal Affect: normal affect Attitude: cooperative Assessment & Plan Assessment & Plan (1) H/O skin graft: Code(s): Z94.5 - Skin transplant status Category: Surgical (2) Wound, open, finger, with tendon involvement: Code(s): S61.209A - Unspecified open wound of unspecified finger without damage to nail, initial encounter Category: Medical (3) Cocaine use disorder: Code(s): F14.10 - Cocaine abuse, uncomplicated Category: Medical (4) Polysubstance use disorder: Code(s): F19.90 - Other psychoactive substance use, unspecified, uncomplicated Category: Medical (5) Boutonniere deformity of left finger(s): Comment: L thumb Code(s): M20.022 - Boutonniere deformity of left finger(s) Category: Medical Plan Assessment & Plan: 1. Left thumb S/P full-thickness autograft skin grafting from proximal aspect of her left arm to dorsum of left thumb, 6 cm x 2.5 cm, DOS: 10/29/24. 2. Left thumb Abscess, resolved 3. Left hand infection, resolved 4. Left thumb dorsal skin loss and open wound with exposed EPL tendon S/P : A) Left thumb I&D B) Left deep mid palmar space I&D C) Left deep thenar space I&D DOS: 09/13/24 D) Left hand repeat I&D E) Left thumb repeat I&D DOS: 09/18/24 5. Left thumb Boutinniere deformity The skin graft appears to be healing well, and I do not not see any evidence of infection. She does have an proximally 1 cm diameter defect in the central aspect of the graft. The donor site appears to be healing well and without any evidence of infection She will continue to perform daily dressing changes as instructed, with topical Abx ointment, and she will continue to follow with wound care She is developing a boutonniere deformity I ordered OT hand therapy to work on active IP joint flexion reduce the chances of a boutonniere deformity. She will also need a custom thermoplastic splint made for her, avoiding any pressure over the skin graft or skin defect. She will follow up in 2 weeks with YOKASTA Barba for a wound check. Again this was to cover a large skin defect that occurred after a recreational drug use related infection to the dorsum of her thumb that resulted in necrosis of the skin on the dorsum of the thumb. Once the infection cleared she did well with wound care to acquire a healthy bed of granulation tissue which allowed for us to proceed with the skin graft rather than the plastics referral for a possib le rotation flap. She does have a history of active cocaine use. She has actually done very well postoperatively participating in the postoperative course. Scribed for Andressa Salazar MD by Willian Porter, medical research scientist, on 11/28/24 at 10:55 AM, EST. Orders: Orders OT Evaluation and Treatment Today M20.022 - Boutonniere deformity of left finger(s) Coding Level of Care Code Est Pt Level 3 (00853) Diagnoses H/O skin graft Z94.5 Wound, open, finger, with tendon involvement S61.209A Cocaine use disorder F14.10 Polysubstance use disorder F19.90 Boutonniere deformity of left finger(s) M20.022
[2024-11-28 10:21] VITALS: BMI 21.5
--- OUTSIDE RECORDS SUMMARY | 2024-11-28 11:05 | XMS_ITS | Clinical Summary ---
Author Organization [facility] Address [address] [place] [address] Care Team Providers Care Toxicology Supervisor Name Role Phone Unavailable Primary Care Provider Unavailabl e Surgical History Surgery Date Site/Laterality Comments CHOLECYSTECTOMY PROCEDURE: HISTORICAL CHOLECYSTECTOMY COLONOSCOPY 12/16/2016 PROCEDURE: HISTORICAL COLONOSCOPY; COMMENT: Normal. Repeat 10 yrs UPPER GASTROINTESTINAL ENDOSCOPY 12/16/2016 PROCEDURE: [place] UPPER GI ENDOSCOPY PERFORMED; COMMENT: Normal HYSTERECTOMY 2013 PROCEDURE: HISTORICAL TOTAL HYSTERECTOMY WITH BSO; COMMENT: w/appendectomy; for menorrhagia & fibroids Medical History Medical History Date Comments Abdominal pain, epigastric 12/07/2016 DX:Ab dominal pain, epigastric Allergic purpura ([facility] V24) 03/02/2013 D X:Allergic purpura ([facility]) Polyarteritis nodosa ([facility]/ C V24, [facility] V28) 12/26/2012 DX:Polyarteritis nodosa ([facility] ) Depression 10/03/2018 DX:Depression Bipolar disorder, mixed ([facility] V24, [facility] V28) 03/29/2019 DX:Bipolar disorder, mixed ( [facility]) Anxiety 03/29/2019 DX:Anxiety History of substance abuse ( [facility] V24, [facility] V28) 03/29/2019 DX:History of substance abus e ([facility]); COMMENT: Alcohol and cocaine, in remission COPD (chronic obstructive pu lmonary disease) ([facility] V24, [facility] V28) 03/29/2019 DX:COPD (chronic o bstructive pulmonary disease) ([facility]) 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 [...] PM EDT Narrative 08/31/2018 3:03 PM EDT [facility] Diagnostic Imaging Department [address] [place] [id number] Patient: KERICURTIS Nieves MahoneyB./Age/Sex: 1965 - 52 - F Unit#: [id number] Location/Status: SPDIMAM/REG CLI [facility]ician: YONATHAN FAULKNER [facility] Screening Digital - 08/31/18 - 1427 INDICATION: SCREENING COMPARISON: No prior studies are available for comparison. FINDINGS: CC and MLO views of the breasts were obtained, using full field digital mammography with 3D tomosynthesis views in the MLO projection. Computer aided detection with the iRx Reminder 7.2-H was employed. FINDINGS: The breasts contain scattered fibroglandular tissues. There is a rounded nodule within the medial-central left breast measuring 4-5 mm in size. A lobulated noncalcified nodule within the medial aspect of the right breast measures 1.2 x 0.8 cm. There is no evidence of suspicious clustering microcalcification or architectural distortion within either breast. IMPRESSION: Noncalcified nodules within each breast. Further assessment to include spot compression views in the CC and MLO projections followed by ultrasound is recommended. Lack of an imaging correlate should not deter or delay biopsy of a clinically significant palpable finding. BI-RADS - Category 0 - Incomplete needs additional imaging evaluation. 3340F, 7017F ([id number] / [id number] , [id number] Dictating Physician: SOSA BECK MD Electronically Signed by: SOSA BECK MD Dic Date/Time: 08/31/18 7123 Sign date/Time: 08/31/18 1331 Procedure Note Sosa Beck MD - 06/02/2022 [facility] Diagnostic Imaging Department [address] [place] [address] Patient: CURTIS SAAVEDRA Nieves /Age/Sex: 1965 - 52 - F Unit#: [id number] Location/Status: [facility] CLI Mnemonic/Ordering Site: [facility] Ordering Physician: YONATHAN FAULKNER Abhinav Screening Digital - 08/31/18 - 3231 INDICATION: SCREENING COMPARISON: No prior studies are available for comparison. FINDINGS: CC and MLO views of the breasts were obtained, using full field digital mammography with 3D tomosynthesis views in the MLO projection. Computer aided detection with the iRx Reminder 7.2-H was employed. FINDINGS: The breasts contain [...] 0 - Incomplete needs additional imaging evaluation.3340F, 7093F (G0202 / [id number]) , [id number] Dictating Physician: SOSA BECK MD Electronically Signed by: SOSA BECK MD Dic Date/Time: 08/31/18 1458 Sign date/Time: 08/31/18 1503 Yonathan TEMPLETON IMG BI PROCEDURES Final Result from Last 3 Months or Most Recently Relevant to Health Maintenance
== END 2024-11-28 11:04 | disposition home or self-care (01) ==
LOC: HO.HOS 09:56
PROVIDERS: Visit Provider Orthopaedic Surgery
DX: Z94.5 Skin transplant status (principal); S61.209A Unspecified open wound of unspecified finger without damage to nail, initial encounter; F14.10 Cocaine abuse, uncomplicated; F19.90 Other psychoactive substance use, unspecified, uncomplicated; M20.022 Boutonniere deformity of left finger(s)
CPT/HCPCS: 99024

== ENCOUNTER → 2024-11-28 09:56 | Outpatient (BNVA) | payer OTHER, SELFPAY | PROVIDERS: Visit Provider Orthopaedic Surgery | DX: M20.022 Boutonniere deformity of left finger(s) (principal); S61.002A Unspecified open wound of left thumb without damage to nail, initial encounter; X58.XXXA Exposure to other specified factors, initial encounter; Y93.9 Activity, unspecified; Y92.9 Unspecified place or not applicable; Y99.9 Unspecified external cause status; F14.10 Cocaine abuse, uncomplicated; F19.10 Other psychoactive substance abuse, uncomplicated; Z94.5 Skin transplant status | CPT/HCPCS: 99212 ==

== ENCOUNTER 2024-12-18 12:43 | Outpatient (AMB) | payer OTHER, SELFPAY ==
--- NOTE | 2024-12-18 12:49 | A.OFFVIS_ITS ---
Vital Signs 3 12/18/24 12:56 Height 5 ft 4 in Weight 125 lb BMI 21.5 Intake Visit Reasons: PO LT thumb skin graft 10/29/24 AR-wound check Intake Note: Lovely 58 year old female presents today for her post operative visit for her left thumb cellulites I&D & skin graft of left thumb DOS 10/22/24 for a wound check. States she is wearing her custom made splint daily, states she has noticed improvement, however she is still having a little drainage. Allergies sulfamethoxazole (From Bactrim) Allergy (Verified 12/18/24 13:02) Hives trimethoprim (From Bactrim) Allergy (Verified 12/18/24 13:02) Hives HPI HPI PO LT thumb skin graft 10/29/24 AR-wound check: Details: Lovely is a 58 year old right hand dominant woman who returns S/P full-thickness autograft skin grafting from proximal aspect of her left arm to dorsum of left thumb, 6 cm x 2.5 cm, DOS: 10/29/24. She is S/P Left thumb, deep mid palmar space, deep thenar space I&D, DOS: 09/13/24, and Left hand & thumb repeat I&D, DOS: 09/18/24. She says she is residing in a hotel room, and was denied being placed in a rehab center. She reports having some slight drainage and pain with thumb movements. She says she is doing better. She has started to attend OT hand therapy & has been wearing her custom splint as instructed. She has a Hx of cocaine & polysubstance abuse, but denies any IVDU. ON LICENSE OF [facility] Medical History (Updated 11/28/24 @ 11:01 by Willian Porter) Cellulitis of hand, left Cocaine use disorder Mood disorder Polysubstance use disorder Surgical History History of surgery Hx of cholecystectomy Social History Household Members: Other Housing: Apartment Do you presently have visiting nurse or other home services: No Alcohol intake: former Comment: counts correct Patient Tobacco Use Status: Current everyday Tobacco user Tobacco use type: Cigarette Cigarettes Per Day: 5 Second Hand Smoke Exposure: No Substance Use Type: Crack/Cocaine Advance Directives Date on File: 09/24/24 service: No Review of Systems Const All systems reviewed & are unremarkable except as noted in HPI and below Physical Exam Vital Signs: BMI result Body Mass Index 21.5 Const General: no acute distress and alert Orientation/consciousness: patient oriented x3 Neuro General: patient oriented x3 Extrem Other: Evaluation of Left Upper Extremity: The patient is alert, oriented, and in no acute distress Neuro: Median, Ulnar, Radial nerves motor and sensory intact Vascular: Cap refill brisk ROM: She can make a fist and extend all of her fingers. Smooth and painless wrist range of motion She is developing a boutonniere deformity of the thumb with flexion at the MCP and some significant hyper extension at the IP joint. I had her actively demonstrate some active flexion at the IP joint. She can actively flex from hyper extension to almost neutral. Her donor site appears to be well healed The skin graft appears to be well healed as well, though there is an ~0.5cm diameter defect in the center, improved from 1 cm diameter about 3 weeks ago. No drainage or evidence of infection. Appears to have some granulation tissue beneath with no exposed tendon. Psych Appearance: grossly normal Affect: normal affect Attitude: cooperative Assessment & Plan Assessment & Plan (1) H/O skin graft: Code(s): Z94.5 - Skin transplant status Category: Surgical (2) Wound, open, finger, with tendon involvement: Code(s): S61.209A - Unspecified open wound of unspecified finger without damage to nail, initial encounter Category: Medical (3) Boutonniere deformity of left finger(s): Comment: L thumb Code(s): M20.022 - Boutonniere deformity of left finger(s) Category: Medical (4) Cocaine use disorder: Code(s): F14.10 - Cocaine abuse, uncomplicated Category: Medical (5) Polysubstance use disorder: Code(s): F19.90 - Other psychoactive substance use, unspecified, uncomplicated Category: Medical Plan Assessment & Plan: 1. Left thumb S/P full-thickness autograft skin grafting from proximal aspect of her left arm to dorsum of left thumb, 6 cm x 2.5 cm, DOS: 10/29/24. 2. Left thumb Abscess, resolved 3. Left hand infection, resolved 4. Left thumb dorsal skin loss and open wound with exposed EPL tendon S/P : A) Left thumb I&D B) Left deep mid palmar space I&D C) Left deep thenar space I&D DOS: 09/13/24 D) Left hand repeat I&D E) Left thumb repeat I&D DOS: 09/18/24 5. Left thumb Boutinniere deformity The skin graft appears to be healing well, and I do not not see any evidence of infection. She does have an ~0.5cm diameter defect in the central aspect of the graft improved from 1 cm diameter 3 weeks ago.. The donor site appears to be healing well and without any evidence of infection. She will continue to perform daily dressing changes as instructed, with topical Abx ointment, and she will continue to follow with wound care She is developing a boutonniere deformity She will continue to wear her custom thermoplastic splint made for her, avoiding any pressure over the skin graft or skin defect, as instructed She will continue to attend hand therapy to work on active IP joint flexion reduce the chances of a boutonniere deformity. She will follow up in 2-3 weeks with YOKASTA Barba, for a wound & ROM check Again this was to cover a large skin defect that occurred after a recreational drug use related infection to the dorsum of her thumb that resulted in necrosis of the skin on the dorsum of the thumb. Once the infection cleared she did well with wound care to acquire a healthy bed of granulation tissue which allowed for us to proceed with the skin graft rather than the plastics referral for a possible rotation flap. She does have a history of active cocaine use. She has actually done very well postoperatively participating in the postoperative course. Scribed for Andressa Salazar MD by Willian Porter, medical office professional instructor, on 12/18/24 at 1:20 PM, EST. Coding Level of Care Code Global (78276) Diagnoses H/O skin graft Z94.5 Wound, open, finger, with tendon involvement S61.209A Boutonniere deformity of left finger(s) M20.022 Cocaine use disorder F14.10 Polysubstance use disorder F19.90
[2024-12-18 12:56] VITALS: BMI 21.5
--- OUTSIDE RECORDS SUMMARY | 2024-12-18 13:26 | XMS_ITS | Clinical Summary ---
Author Organization [facility] [employer] [facility] Address [address] [place] [address] Care Team Providers Care Dye Blender Name Role Phone Unavailable Primary Care Provider Unavailabl e Surgical History Surgery Date Site/Laterality Comments CHOLECYSTECTOMY PROCEDURE: HISTORICAL CHOLECYSTECTOMY COLONOSCOPY 12/16/2016 PROCEDURE: HISTORICAL COLONOSCOPY; COMMENT: Normal. Repeat 10 yrs UPPER GASTROINTESTINAL ENDOSCOPY 12/16/2016 PROCEDURE: [place] UPPER GI ENDOSCOPY PERFORMED; COMMENT: Normal HYSTERECTOMY 2013 PROCEDURE: HISTORICAL TOTAL HYSTERECTOMY WITH BSO; COMMENT: w/appendectomy; for menorrhagia & fibroids Medical History Medical History Date Comments Abdominal pain, epigastric 12/07/2016 DX:Ab dominal pain, epigastric Allergic purpura ([facility] V24) 03/02/2013 D X:Allergic purpura ([facility]) Polyarteritis nodosa ([facility]/ C V24, [facility] V28) 12/26/2012 DX:Polyarteritis nodosa ([facility] ) Depression 10/03/2018 DX:Depression Bipolar disorder, mixed ([facility] V24, [facility] V28) 03/29/2019 DX:Bipolar disorder, mixed ( [facility]) Anxiety 03/29/2019 DX:Anxiety History of substance abuse ( [facility] V24, [facility] V28) 03/29/2019 DX:History of substance abus e ([facility]); COMMENT: Alcohol and cocaine, in remission COPD (chronic obstructive pu lmonary disease) ([facility] V24, [facility] V28) 03/29/2019 DX:COPD (chronic o bstructive pulmonary disease) ([facility]) 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 a Esophageal [...] DTaP,Tdap,and Td Vaccines (1 - Tdap) 12/13/1983 Cervical Cancer Screening: P ap Smear 1985 Pneumococcal Vaccine: 50+ Ye ars (1 of 1 - PCV) 2014 Zoster Vaccines (1 of 2) 2014 Breast Cancer Screening 08/31/2020 08/31/2018 COVID-19 Vaccine ( - 2023-2 5 season) 2024 Influenza Vaccine (#1) 2025 RSV Immunization Adult Patie nts (1 - 1-dose 75+ series) 12/13/2039 HIB Vaccines Aged Out No longer eligi ble based on patient's age to complete this topic HPV Vaccines Aged Out No longer eligi ble based on patient's age to complete this topic Hepatitis A Vaccines Aged Out No long er eligible based on patient's age to complete this topic Hepatitis B Vaccines Aged Out No long er eligible [...] EDT Narrative 08/31/2018 3:[address] [facility] Diagnostic Imaging Department [address] [place] [id number] Patient: CURTIS SAAVEDRA Nieves MahoneyB./Age/Sex: 1965 - 52 - F Unit#: [id number] Location/Status: SPDIMAM/REG CLI Mnemonic/Ordering Site: [facility] [place] Ordering Physician: YONATHAN FAULKNER Abhinav Screening Digital - 08/31/18 - 9991 INDICATION: SCREENING COMPARISON: No prior studies are available for comparison. FINDINGS: CC and MLO views of the breasts were obtained, using full field digital mammography with 3D tomosynthesis views in the MLO projection. Computer aided detection with the [employer] 7.2-H was employed. FINDINGS: The breasts contain [...] 0 - Incomplete needs additional imaging evaluation. 2362F, 9749F ([id number] / [id number]) , [id number] Dictating Physician: SOSA BECK MD Electronically Signed by: SOSA BECK MD Dic Date/Time: 08/31/18 1458 Sign date/Time: 08/31/18 4211 Procedure Note Sosa Beck MD - 06/02/2022 [facility] Diagnostic Imaging Department [address] [place] [address] Patient: CURTIS SAAVEDRA Nieves /Age/Sex: 1965 - 52 - F Unit#: [id number] Location/Status: SPDIMAM/REG CLI Mnemonic/Ordering Site: [facility] [place] Ordering Physician: YONATHAN FAULKNER Abhinav Screening Digital - 08/31/18 - 1427 INDICATION: SCREENING COMPARISON: No prior studies are available for comparison. FINDINGS: CC and MLO views of the breasts were obtained, using full field digital mammography with 3D tomosynthesis views in the MLO projection. Computer aided detection with the [employer] 7.2-H was employed. FINDINGS: The breasts contain [...] 0 - Incomplete needs additional imaging evaluation.[id number], 7030F ([id number] / [id number]) , [id number] Dictating Physician: SOSA BECK MD Electronically Signed by: SOSA BECK MD Dic Date/Time: 08/31/18 1453 Sign date/Time: 08/31/18 4839 Yonathan TEMPLETON IMG BI PROCEDURES Final Result from Last 3 Months or Most Recently Relevant to Health Maintenance
== END 2024-12-18 13:22 | disposition home or self-care (01) ==
LOC: HO.HOS 12:44
PROVIDERS: PCP Physician Assistant; Visit Provider Orthopaedic Surgery
DX: Z94.5 Skin transplant status (principal); S61.209A Unspecified open wound of unspecified finger without damage to nail, initial encounter; M20.022 Boutonniere deformity of left finger(s); F14.10 Cocaine abuse, uncomplicated; F19.90 Other psychoactive substance use, unspecified, uncomplicated
CPT/HCPCS: 99024

== ENCOUNTER → 2024-12-18 12:43 | Outpatient (BNVA) | payer OTHER, SELFPAY | PROVIDERS: PCP Physician Assistant; Visit Provider Orthopaedic Surgery | DX: S61.002A Unspecified open wound of left thumb without damage to nail, initial encounter (principal); L03.012 Cellulitis of left finger; X58.XXXA Exposure to other specified factors, initial encounter; Y93.89 Activity, other specified; Y92.099 Unspecified place in other non-institutional residence as the place of occurrence of the external cause; Y99.9 Unspecified external cause status; M20.022 Boutonniere deformity of left finger(s); F14.10 Cocaine abuse, uncomplicated; F19.90 Other psychoactive substance use, unspecified, uncomplicated; Z94.5 Skin transplant status | CPT/HCPCS: 99212 ==

== ENCOUNTER 2025-01-07 13:03 | Outpatient (AMB) | payer OTHER, SELFPAY ==
--- NOTE | 2025-01-07 13:17 | A.OFFVIS_ITS ---
Vital Signs 01/07/25 13:20 Height 5 ft 4 in Weight 125 lb BMI 21.5 Intake Visit Reasons: PO LT thumb skin graft 10/29/24 AR-wound check Intake Note: Lovely is a 58 year old right hand dominant female who presents today post operatively s/p left upper extremity full-thickness autograft skin grafting to dorsum of left thumb, DOS: 10/29/[address] Andressa Salazar. Patient is here today for a wound check and range of motion check. Patient reports she is doing much better. She is not taking anything for pain at this time. Allergies sulfamethoxazole (From Bactrim) Allergy (Verified 01/07/25 13:20) Hives trimethoprim (From Bactrim) Allergy (Verified 01/07/25 13:20) Hives HPI HPI PO LT thumb skin graft 10/29/24 AR-wound check: Details: Lovely is a 58 year old right hand dominant female who presents today post operatively s/p left upper extremity full-thickness autograft skin grafting to dorsum of left thumb, DOS: 10/29/[address] Andressa Salazar. Patient is here today for a wound check and range of motion check. Patient reports she is doing much better. She is not taking anything for pain at this time. Patient reports that the wound present on the skin graft has gotten much smaller, and shows no signs of infection. [facility] Medical History (Updated 11/28/24 @ 11:01 by Willian Porter) Cellulitis of hand, left Cocaine use disorder Mood disorder Polysubstance use disorder Surgical History History of surgery Hx of cholecystectomy Social History Household Members: Other Housing: Apartment Do you presently have visiting nurse or other home services: No Alcohol intake: former Comment: counts correct Patient Tobacco Use Status: Current everyday Tobacco user Tobacco use type: Cigarette Cigarettes Per Day: 5 Second Hand Smoke Exposure: No Substance Use Type: Crack/Cocaine Advance Directives Date on File: 09/24/24 service: No Review of Systems Const All systems reviewed & are unremarkable except as noted in HPI and below Physical Exam Vital Signs: BMI result Body Mass Index 21.5 Const General: no acute distress and alert Orientation/consciousness: patient oriented x3 Neuro General: patient oriented x3 Extrem Other: Evaluation of Left Upper Extremity: The patient is alert, oriented, and in no acute distress Neuro: Median, Ulnar, Radial nerves motor and sensory intact Vascular: Cap refill brisk ROM: She can make a fist and extend all of her fingers. Smooth and painless wrist range of motion She is developing a boutonniere deformity of the thumb with flexion at the MCP and some significant hyper extension at the IP joint. I had her actively demonstrate some active flexion at the IP joint. She can actively flex from hyper extension to almost neutral. Her donor site appears to be well healed The skin graft appears to be well healed as well, though there is an ~0.2cm diameter defect in the center, improved from .5 cm diameter about 3 weeks ago. No drainage or evidence of infection. Appears to have some granulation tissue beneath with no exposed tendon. Psych Appearance: grossly normal Affect: normal affect Attitude: cooperative Assessment & Plan Assessment & Plan (1) Wound, open, finger, with tendon involvement: Code(s): S61.209A - Unspecified open wound of unspecified finger without damage to nail, initial encounter Category: Medical (2) H/O skin graft: Code(s): Z94.5 - Skin transplant status Category: Surgical (3) Boutonniere deformity of left finger(s): Comment: L thumb Code(s): M20.022 - Boutonniere deformity of left finger(s) Category: Medical (4) Cocaine use disorder: Code(s): F14.10 - Cocaine abuse, uncomplicated Category: Medical (5) Polysubstance use disorder: Code(s): F19.90 - Other psychoactive substance use, unspecified, uncomplicated Category: Medical Plan Assessment & Plan: 1. Left thumb S/P full-thickness autograft skin grafting from proximal aspect of her left arm to dorsum of left thumb, 6 cm x 2.5 cm, DOS: 10/29/24. 2. Left thumb Abscess, resolved 3. Left hand infection, resolved 4. Left thumb dorsal skin loss and open wound with exposed EPL tendon S/P : A) Left thumb I&D B) Left deep mid palmar space I&D C) Left deep thenar space I&D DOS: 09/13/24 D) Left hand repeat I&D E) Left thumb repeat I&D DOS: 09/18/24 5. Left thumb Boutinniere deformity The skin graft appears to be healing well, and I do not not see any evidence of infection. She does have an ~0.5cm diameter defect in the central aspect of the graft improved from 1 cm diameter 3 weeks ago.. The donor site appears to be healing well and without any evidence of infection. She will continue to perform daily dressing changes as instructed, with topical Abx ointment, and she will continue to follow with wound care She is developing a boutonniere deformity She will continue to wear her custom thermoplastic splint made for her, avoiding any pressure over the skin graft or skin defect, as instructed She will continue to attend hand therapy to work on active IP joint flexion reduce the chances of a boutonniere deformity. She will follow up in 2-3 weeks with me, for a wound & ROM check Again this was to cover a large skin defect that occurred after a recreational drug use related infection to the dorsum of her thumb that resulted in necrosis of the skin on the dorsum of the thumb. Once the infection cleared she did well with wound care to acquire a healthy bed of granulation tissue which allowed for us to proceed with the skin graft rather than the plastics referral for a possible rotation flap. She does have a history of active cocaine use. She has actually done very well postoperatively participating in the postoperative course. Orders: Orders OT Evaluation and Treatment Today M20.022 - Boutonniere deformity of left finger(s), S61.209A - Unspecified open wound of unspecified finger without damage to nail, initial encounter, Z94.5 - Skin transplant status Coding Level of Care Code Global (07929) Diagnoses Wound, open, finger, with tendon involvement S61.209A H/O skin graft Z94.5 Boutonniere deformity of left finger(s) M20.022 Cocaine use disorder F14.10 Polysubstance use disorder F19.90
[2025-01-07 13:20] VITALS: BMI 21.5
--- OUTSIDE RECORDS SUMMARY | 2025-01-07 13:43 | XMS_ITS | Clinical Summary ---
Author Organization [facility] Address [address] [place] [address] Care Team Providers Care Medical Delivery Driver Name Role Phone Unavailable Primary Care Provider [...] 12/07/2016 DX:Ab dominal pain, epigastric Allergic purpura ([facility] V24) 03/02/2013 D X:Allergic purpura ([facility]) Polyarteritis nodosa ([facility]/ C V24, [facility] V28) 12/26/2012 DX:Polyarteritis nodosa ([facility] ) Depression 10/03/2018 DX:Depression Bipolar disorder, mixed ([facility] V24, [facility] V28) 03/29/2019 DX:Bipolar disorder, mixed ( [facility]) Anxiety 03/29/2019 DX:Anxiety History of substance abuse ( [facility] V24, [facility] V28) 03/29/2019 DX:History of substance abus e ([facility]); COMMENT: Alcohol and cocaine, in remission COPD (chronic obstructive pu lmonary disease) ([facility] V24, [facility] V28) 03/29/2019 DX:COPD (chronic o bstructive pulmonary disease) ([facility]) 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 a Esophageal [...] Vaccine ( - 2023-2 5 season) 2024 Depression Screening 06/13/2024 Influenza Vaccine (#1) 2025 RSV Immunization Adult [...] Procedure Name Priority Date/Time Associated Diagnosis Comments [facility] SCREENING DIGITAL Routine 08/31/2018 3:03 PM EDT Encounter for screening mammogram for malignant neoplasm of breast from Last 3 Months or Most Recently Relevant to Health Maintenance Results * [facility] SCREENING DIGITAL (08/31/2018 3:03 PM EDT) Anatomical Region Laterality Modality Mammography 08/31/2018 2:09 PM EDT Narrative 08/31/2018 3:03 PM EDT [facility] Diagnostic Imaging Department [address] [place] [address] Patient: CURTIS SAAVEDRA Nieves /Age/Sex: 1965 - 52 - F Unit#: [id number] Location/Status: SPDIMAM/REG CLI Mnemonic/Ordering Site: [facility] Ordering Physician: YONATHAN FAULKNER Abhinav Screening Digital - 08/31/18 - 1818 INDICATION: SCREENING COMPARISON: No prior studies are available for comparison. FINDINGS: CC and MLO views of the breasts were obtained, using full field digital mammography with 3D tomosynthesis views in the MLO projection. Computer aided detection with the [employer] 7.2-H was employed. FINDINGS: The breasts contain [...] 0 - Incomplete needs additional imaging evaluation. 8495F, 1446F ([id number] / [id number]) , [id number] Dictating Physician: SOSA BECK MD Electronically Signed by: SOSA BECK MD Dic Date/Time: 08/31/18 2468 Sign date/Time: 08/31/18 8284 Procedure Note Sosa Beck MD - 06/02/2022 [facility] Diagnostic Imaging Department [address] [place] [address] Patient: KERICURTIS Nieves MahoneyB./Age/Sex: 1965 - 52 - F Unit#: [id number] [facility] CLI Mnemonic/Ordering Site: [facility] Ordering Physician: YONATHAN FAULKNER Abhinav Screening Digital - 08/31/18 - 1427 INDICATION: SCREENING COMPARISON: No prior studies are available for comparison. FINDINGS: CC and MLO views of the breasts were obtained, using full field digital mammography with 3D tomosynthesis views in the MLO projection. Computer aided detection with the [employer] 7.2-H was employed. FINDINGS: The breasts contain [...] 0 - Incomplete needs additional imaging evaluation.[id number], 7010F ([id number] / [id number]) , [id number] Dictating Physician: SOSA BECK MD Electronically Signed by: SOSA BECK MD Dic Date/Time: 08/31/18 1452 Sign date/Time: 08/31/18 3673 Yonathan TEMPLETON IMG BI PROCEDURES Final Result from Last 3 Months or Most Recently Relevant to Health Maintenance
== END 2025-01-07 13:32 | disposition home or self-care (01) ==
LOC: HO.HOS 13:04
PROVIDERS: PCP Physician Assistant
DX: S61.209A Unspecified open wound of unspecified finger without damage to nail, initial encounter (principal); Z94.5 Skin transplant status; M20.022 Boutonniere deformity of left finger(s); F14.10 Cocaine abuse, uncomplicated; F19.90 Other psychoactive substance use, unspecified, uncomplicated
CPT/HCPCS: 99024

== ENCOUNTER → 2025-01-07 13:03 | Outpatient (BNVA) | payer OTHER, SELFPAY | PROVIDERS: PCP Physician Assistant | DX: Z48.298 Encounter for aftercare following other organ transplant (principal); S61.002D Unspecified open wound of left thumb without damage to nail, subsequent encounter; M20.022 Boutonniere deformity of left finger(s); F14.10 Cocaine abuse, uncomplicated; F19.90 Other psychoactive substance use, unspecified, uncomplicated; Z94.5 Skin transplant status | CPT/HCPCS: 99212 ==

== ENCOUNTER 2025-01-22 14:02 | Outpatient (AMB) | payer OTHER, SELFPAY ==
[2025-01-22 14:03] VITALS: BMI 21.5
--- NOTE | 2025-01-22 14:03 | A.OFFVIS_ITS ---
Vital Signs 01/22/25 14:03 Height 5 ft 4 in Weight 125 lb BMI 21.5 Intake Visit Reasons: PO LT thumb skin graft 10/29/24 AR-wound check Intake Note: Lovely is a 59 year old right hand dominant female who presents today post- operatively for a wound & ROM check status post left thumb skin graft DOS: 10/29/[address] Salazar. At their last post-operative visit patient was i nstructed continue to wear her custom thermoplastic splint, avoiding any pressure over the skin graft or skin defect. She was further instructed to continue attending occupational therapy to work on active IP joint flexion to reduce the chances of a boutonniere deformity. Today, patient reports left thumb tingling has slightly improved. Denies new symptoms. Allergies sulfamethoxazole (From Bactrim) Allergy (Verified 01/22/25 14:04) Hives trimethoprim (From Bactrim) Allergy (Verified 01/22/25 14:04) Hives HPI HPI PO LT thumb skin graft 10/29/24 AR-wound check: Details: Lovely is a 59 year old right hand dominant female who presents today post- operatively for a wound & ROM check status post left thumb skin graft DOS: 10/29/[address] Salazar. At their last post-operative visit patient was instructed continue to wear her custom thermoplastic splint, avoiding any pressure over the skin graft or skin defect. She was further instructed to continue attending occupational therapy to work on active IP joint flexion to reduce the chances of a boutonniere deformity. Today, patient reports left thumb tingling has slightly improved. Denies new symptoms. [facility] Medical History (Updated 11/28/24 @ 11:01 by Willian Porter) Cellulitis of hand, left Cocaine use disorder Mood disorder Polysubstance use disorder Surgical History History of surgery Hx of cholecystectomy Social History Household Members: Other Housing: Apartment Do you presently have visiting nurse or other home services: No Alcohol intake: former Comment: counts correct Patient Tobacco Use Status: Current everyday Tobacco user Tobacco use type: Cigarette Cigarettes Per Day: 5 Second Hand Smoke Exposure: No Substance Use Type: Crack/Cocaine Advance Directives Date on File: 09/24/24 service: No Review of Systems Const All systems reviewed & are unremarkable except as noted in HPI and below Physical Exam Vital Signs: BMI result Body Mass Index 21.5 Const General: no acute distress and alert Orientation/consciousness: patient oriented x3 Neuro General: patient oriented x3 Extrem Other: Evaluation of Left Upper Extremity: The patient is alert, oriented, and in no acute distress Neuro: Median, Ulnar, Radial nerves motor and sensory intact Vascular: Cap refill brisk ROM: She can make a fist and extend all of her fingers. Smooth and painless wrist range of motion She is developing a boutonniere deformity of the thumb with flexion at the MCP and some significant hyper extension at the IP joint. I had her actively demonstrate some active flexion at the IP joint. She can actively flex from hyper extension to almost neutral. Her donor site appears to be well healed The skin graft appears to be well healed as well, previous area of wound have appears to have healed very well, only a superficial scab noted at this time. Patient states that she did have good skin coverage of this area, but did pick it a few days ago, resulting in the small superficial scab.. No exposure of deeper tissues Psych Appearance: grossly normal Affect: normal affect Attitude: cooperative Assessment & Plan Assessment & Plan (1) Wound, open, finger, with tendon involvement: Code(s): S61.209A - Unspecified open wound of unspecified finger without damage to nail, initial encounter Category: Medical (2) Boutonniere deformity of left finger(s): Comment: L thumb Code(s): M20.022 - Boutonniere deformity of left finger(s) Category: Medical (3) H/O skin graft: Code(s): Z94.5 - Skin transplant status Category: Surgical (4) Cocaine use disorder: Code(s): F14.10 - Cocaine abuse, uncomplicated Category: Medical (5) Polysubstance use disorder: Code(s): F19.90 - Other psychoactive substance use, unspecified, uncomplicated Category: Medical Plan Assessment & Plan: 1. Left thumb S/P full-thickness autograft skin grafting from proximal aspect of her left arm to dorsum of left thumb, 6 cm x 2.5 cm, DOS: 10/29/24. 2. Left thumb Abscess, resolved 3. Left hand infection, resolved 4. Left thumb dorsal skin loss and open wound with exposed EPL tendon S/P : A) Left thumb I&D B) Left deep mid palmar space I&D C) Left deep thenar space I&D DOS: 09/13/24 D) Left hand repeat I&D E) Left thumb repeat I&D DOS: 09/18/24 5. Left thumb Boutinniere deformity The skin graft appears to be healing well, and I do not not see any evidence of infection. No evidence of further open wound at this time in the area of previous wound The donor site appears to be healing well and without any evidence of infection. She will continue to perform daily dressing changes as instructed, with topical Abx ointment, and she will continue to follow with wound care She is developing a boutonniere deformity She will continue to wear her custom thermoplastic splint made for her, avoiding any pressure over the skin graft or skin defect, as instructed She will continue to attend hand therapy to work on active IP joint flexion reduce the chances of a boutonniere deformity. She will follow up in 4 weeks with me for wound check, sooner with any acute concerns Again this was to cover a large skin defect that occurred after a recreational drug use related infection to the dorsum of her thumb that resulted in necrosis of the skin on the dorsum of the thumb. Once the infection cleared she did well with wound care to acquire a healthy bed of granulation tissue which allowed for us to proceed with the skin graft rather than the plastics referral for a possible rotation flap. She does have a history of active cocaine use. She has actually done very well postoperatively participating in the postoperative course. Orders: Orders OT Evaluation and Treatment Today M20.022 - Boutonniere deformity of left finger(s), S61.209A - Unspecified open wound of unspecified finger without damage to nail, initial encounter Coding Level of Care Code Global (98686) Diagnoses Wound, open, finger, with tendon involvement S61.209A Boutonniere deformity of left finger(s) M20.022 H/O skin graft Z94.5 Cocaine use disorder F14.10 Polysubstance use disorder F19.90
--- OUTSIDE RECORDS SUMMARY | 2025-01-22 15:04 | XMS_ITS | Clinical Summary ---
Author Organization [facility] Address [address] [place] [address] Care Team Providers Care Kennel Attendant Name Role Phone Unavailable Primary Care Provider Unavailabl e Surgical History Surgery Date Site/Laterality Comments CHOLECYSTECTOMY PROCEDURE: HISTORICAL CHOLECYSTECTOMY COLONOSCOPY 12/16/2016 PROCEDURE: HISTORICAL COLONOSCOPY; COMMENT: Normal. Repeat 10 yrs UPPER GASTROINTESTINAL ENDOSCOPY 12/16/2016 PROCEDURE: [place] UPPER GI ENDOSCOPY PERFORMED; COMMENT: Normal HYSTERECTOMY 2013 PROCEDURE: HISTORICAL TOTAL HYSTERECTOMY WITH BSO; COMMENT: w/appendectomy; for menorrhagia & fibroids Medical History Medical History Date Comments Abdominal pain, epigastric 12/07/2016 DX:Ab dominal pain, epigastric Allergic purpura ([facility] V24) 03/02/2013 D X:Allergic purpura ([facility]) Polyarteritis nodosa ([facility]/ C V24, [facility] V28) 12/26/2012 DX:Polyarteritis nodosa ([facility] ) Depression 10/03/2018 DX:Depression Bipolar disorder, mixed ([facility] /[facility] V24, [facility] V28) 03/29/2019 DX:Bipolar disorder, mixed ( [facility]) Anxiety 03/29/2019 DX:Anxiety History of substance abuse ( [facility] V24, [facility] V28) 03/29/2019 DX:History of substance abus e ([facility]); COMMENT: Alcohol and cocaine, in remission COPD (chronic obstructive pu lmonary disease) ([facility] V24, [facility] V28) 03/29/2019 DX:COPD (chronic o bstructive pulmonary disease) ([facility]) 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 a [...] Procedure Name Priority Date/Time Associated Diagnosis Comments [facility] SCREENING DIGITAL Routine 08/31/2018 3:03 PM EDT Encounter for screening mammogram for malignant neoplasm of breast from Last 3 Months or Most Recently Relevant to Health Maintenance Results * ABHINAV SCREENING DIGITAL (08/31/2018 3:03 PM EDT) Anatomical Region Laterality Modality Mammography 08/31/2018 2:09 PM EDT Narrative 08/31/2018 3:03 PM EDT [facility] Diagnostic Imaging Department [address] [place] [address] Patient: CURTIS SAAVEDRA Nieves /Age/Sex: 1965 - 52 - F Unit#: [id number] Location/Status: SPDIMAM/REG CLI Mnemonic/Ordering Site: DIGMT/[facility] Ordering Physician: YONATHAN FAULKNER Abhinav Screening Digital - 08/31/18 - 9308 INDICATION: SCREENING COMPARISON: No prior studies are available for comparison. FINDINGS: CC and MLO views of the breasts were obtained, using full field digital mammography with 3D tomosynthesis views in the MLO projection. Computer aided detection with the [employer] 7.2-H was employed. FINDINGS: The breasts contain [...] 0 - Incomplete needs additional imaging evaluation. 1014F, 4664F ([id number] / [id number]) , [id number] Dictating Physician: SOSA BECK MD Electronically Signed by: SOSA BECK MD Dic Date/Time: 08/31/18 0406 Sign date/Time: 08/31/18 4754 Procedure Note Sosa Beck MD - 06/02/2022 [facility] Diagnostic Imaging Department [address] [place] [address] Patient: KERICURTIS Nieves MahoneyB./Age/Sex: 1965 - 52 - F Unit#: [id number] [facility] CLI Mnemonic/Ordering Site: [facility] Ordering Physician: YONATHAN FAULKNER Abhinav Screening Digital - 08/31/18 - 1427 INDICATION: SCREENING COMPARISON: No prior studies are available for comparison. FINDINGS: CC and MLO views of the breasts were obtained, using full field digital mammography with 3D tomosynthesis views in the MLO projection. Computer aided detection with the [employer] 7.2-H was employed. FINDINGS: The breasts contain [...] 0 - Incomplete needs additional imaging evaluation.3340F, 7061F ([id number] / [id number]) , [id number] Dictating Physician: SOSA BECK MD Electronically Signed by: SOSA BECK MD Dic Date/Time: 08/31/18 1450 Sign date/Time: 08/31/18 5501 Yonathan TEMPLETON IMG BI PROCEDURES Final Result from Last 3 Months or Most Recently Relevant to Health Maintenance
== END 2025-01-22 14:30 | disposition home or self-care (01) ==
LOC: HO.HOS 14:03
PROVIDERS: PCP Physician Assistant
DX: S61.209A Unspecified open wound of unspecified finger without damage to nail, initial encounter (principal); M20.022 Boutonniere deformity of left finger(s); Z94.5 Skin transplant status; F14.10 Cocaine abuse, uncomplicated; F19.90 Other psychoactive substance use, unspecified, uncomplicated
CPT/HCPCS: 99024

== ENCOUNTER → 2025-01-22 14:02 | Outpatient (BNVA) | payer OTHER, SELFPAY | PROVIDERS: PCP Physician Assistant | DX: S61.002A Unspecified open wound of left thumb without damage to nail, initial encounter (principal); M20.022 Boutonniere deformity of left finger(s); F14.10 Cocaine abuse, uncomplicated; F19.90 Other psychoactive substance use, unspecified, uncomplicated; Z94.5 Skin transplant status | CPT/HCPCS: 99212 ==

== ENCOUNTER 2025-02-08 11:30 | Outpatient (RCR) | payer OTHER, SELFPAY ==
--- NOTE | 2024-12-06 14:59 | MHC.OT.EP ---
[address] [phone] Occupational Therapy Plan of Care Patient Name: Lovley Almaraz Date of Evaluation: 12/06/24 Diagnosis: Left Thumb Boutonniere deformity; Cellulitis s/p skin graft Pain Location: Moderate pain in left thumb Pain Score: 4 Pain Scale Used: Numeric (0 - 10) Assessment: 58 yo female w/ hx of cellulitis and hand infection, s/p I&D 09/13/24 and 09/18/24 and skin graft 10/29/24. She has been referred to OT left thumb spica w/ IP free as she has developed Boutonniere deformity. We have seen her in clinic today, strong Boutonniere deformity with tight IP ext due to dorsal scar tissue and progressing deformity. She has been educated on active IP flex by Dr Salazar and reports she has had difficulty following through. We had fit w/ volar hand based orthosis w/ IP free and will progress MP extension over the course of therapy w/ goal of correcting deformity. Frequency and Duration: The patient will be seen 2x/wk for 6 weeks Short Term Goals: Ind w/ HEP Ind w/ wound management Good follow through w/ scar massage Fpc Goals: Pain free use of thumb w/ dexterity tasks MP flex within 20 degrees of neutral Maintain IP range at neutral Full wound closure to progress w/ scar management *more goals to be established in up coming visits w/ conts reassessment Treatment Plan: Therapeutic Exercise Therapeutic Activity Home Exercise Program Splinting Patient Education Desensitization/Sensory Re-ed Edema Control ADL Training MHP Cold Packs Joint Mobilization Soft Tissue Mobilization Kinesiotaping Electronically Signed By: Ethel Roy OTR/L CHT Please Sign and return to therapist. Thank you once again for your referral.
== END 2025-02-08 13:42 | disposition home or self-care (01) ==
LOC: HO.OT 11:30
PROVIDERS: PCP Physician Assistant; Visit Provider Orthopaedic Surgery
DX: M20.022 Boutonniere deformity of left finger(s) (principal)
CPT/HCPCS: 29130; 97110; 97140; 97165; 97530; 97760

== ENCOUNTER 2025-02-22 08:38 | Outpatient (AMB) | payer OTHER, SELFPAY ==
--- NOTE | 2025-02-22 09:16 | MHC.OFFVIS ---
Vital Signs 02/22/25 09:19 Height 5 ft 4 in Weight 125 lb BMI 21.5 Intake Visit Reasons: PO LT thumb skin graft 10/29/24 AR-wound check Intake Note: Lovely is a 59 year old right hand dominant female who presents today post-operatively for a wound & ROM check status post left thumb skin graft DOS: 10/29/[address] Salazar. At their last post-operative visit patient was advised to continue wearing her custom thermoplastic splint and to continue with Occupational Therapy. Today patient reports her thumb is painful and swollen. She complains of numbess and tingling around the thumb. She admits she has bumped it at a few times. Allergies sulfamethoxazole (From Bactrim) Allergy (Verified 02/22/25 09:19) Hives trimethoprim (From Bactrim) Allergy (Verified 02/22/25 09:19) Hives HPI HPI PO LT thumb skin graft 10/29/24 AR-wound check: Details: Lovely is a 59 year old right hand dominant female who presents today post-operatively for a wound & ROM check status post left thumb skin graft DOS: 10/29/[address] Salazar. At their last post-operative visit patient was advised to continue wearing her custom thermoplastic splint and to continue with Occupational Therapy. Today patient reports her thumb is painful and swollen. She complains of numbess and tingling around the thumb. She admits she has bumped it at a few times. Patient reports that she noticed a few days ago that the area that had previously been open appears to have a reopened, and she is concerned that this might be a sign or symptom of infection. Of note, the patient does report that she has continued using cocaine. No other acute complaints or concerns at this time. [facility] Medical History (Updated 11/28/24 @ 11:01 by Willian Porter) Cellulitis of hand, left Cocaine use disorder Mood disorder Polysubstance use disorder Surgical History History of surgery Hx of cholecystectomy Social History Household Members: Other Housing: Apartment Do you presently have visiting nurse or other home services: No Alcohol intake: former Comment: counts correct Patient Tobacco Use Status: Current everyday Tobacco user Tobacco use type: Cigarette Cigarettes Per Day: 5 Second Hand Smoke Exposure: No Substance Use Type: Crack/Cocaine Advance Directives Date on File: 09/24/24 service: No Review of Systems Const All systems reviewed & are unremarkable except as noted in HPI and below Physical Exam Vital Signs: BMI result Body Mass Index 21.5 Const General: no acute distress and alert Orientation/consciousness: patient oriented x3 Neuro General: patient oriented x3 Extrem Other: Evaluation of Left Upper Extremity: The patient is alert, oriented, and in no acute distress Neuro: Median, Ulnar, Radial nerves motor and sensory intact Vascular: Cap refill brisk ROM: She can make a fist and extend all of her fingers. Smooth and painless wrist range of motion She is developing a boutonniere deformity of the thumb with flexion at the MCP and some significant hyper extension at the IP joint. I had her actively demonstrate some active flexion at the IP joint. She can actively flex from hyper extension to almost neutral. Her donor site appears to be well healed Patient does report tenderness to palpation of the skin graft site The skin graft appears to be well healed as well, previous area of wound does appear to have reopened, with slight serous discharge noted. No bloody discharge, evidence of purulence, or evidence of infection. No exposure of deeper tissues Psych Appearance: grossly normal Affect: normal affect Attitude: cooperative Assessment & Plan Assessment & Plan (1) Wound, open, finger, with tendon involvement: Code(s): S61.209A - Unspecified open wound of unspecified finger without damage to nail, initial encounter Category: Medical (2) Boutonniere deformity of left finger(s): Comment: L thumb Code(s): M20.022 - Boutonniere deformity of left finger(s) Category: Medical (3) H/O skin graft: Code(s): Z94.5 - Skin transplant status Category: Surgical (4) Cocaine use disorder: Code(s): F14.10 - Cocaine abuse, uncomplicated Category: Medical (5) Polysubstance use disorder: Code(s): F19.90 - Other psychoactive substance use, unspecified, uncomplicated Category: Medical Plan Assessment & Plan: 1. Left thumb S/P full-thickness autograft skin grafting from proximal aspect of her left arm to dorsum of left thumb, 6 cm x 2.5 cm, DOS: 10/29/24. 2. Left thumb Abscess, resolved 3. Left hand infection, resolved 4. Left thumb dorsal skin loss and open wound with exposed EPL tendon S/P : A) Left thumb I&D B) Left deep mid palmar space I&D C) Left deep thenar space I&D DOS: 09/13/24 D) Left hand repeat I&D E) Left thumb repeat I&D DOS: 09/18/24 5. Left thumb Boutinniere deformity The skin graft appears to be healing well, and I do not not see any evidence of infection around the small superficial wound that has opened up. However, due to the patient's pain, and ongoing vascular concerns due to cocaine use, I feel it is appropriate to send the patient on a one-week course of Augmentin She will continue to perform daily dressing changes as instructed, with topical Abx ointment, and she will continue to follow with wound care She is developing a boutonniere deformity She will continue to wear her custom thermoplastic splint made for her, avoiding any pressure over the skin graft or skin defect, as instructed She will continue to attend hand therapy to work on active IP joint flexion reduce the chances of a boutonniere deformity. Follow-up next week with Dr. Salazar for reassessment, sooner with any acute concerns Again this was to cover a large skin defect that occurred after a recreational drug use related infection to the dorsum of her thumb that resulted in necrosis of the skin on the dorsum of the thumb. Once the infection cleared she did well with wound care to acquire a healthy bed of granulation tissue which allowed for us to proceed with the skin graft rather than the plastics referral for a possible rotation flap. She does have a history of active cocaine use. She has actually done very well postoperatively participating in the postoperative course. Medications: New amoxicillin-pot clavulanate 875-125 mg 1 tab PO BID 14 tabs 0RF 7 days Coding Level of Care Code Est Pt Level 3 (88152) Diagnoses Wound, open, finger, with tendon involvement S61.209A Boutonniere deformity of left finger(s) M20.022 H/O skin graft Z94.5 Cocaine use disorder F14.10 Polysubstance use disorder F19.90
--- OUTSIDE RECORDS SUMMARY | 2025-02-22 09:17 | XMS_ITS | Clinical Summary ---
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 Repeat 10 yrs UPPER GASTROINTESTINAL ENDOSCOPY 12/16/2016 PROCEDURE: [place] UPPER GI ENDOSCOPY PERFORMED; COMMENT: Normal HYSTERECTOMY 2013 PROCEDURE: HISTORICAL TOTAL HYSTERECTOMY WITH BSO; COMMENT: w/appendectomy; for menorrhagia & fibroids Medical History Medical History Date Comments Abdominal pain, epigastric 12/07/2016 DX:Ab dominal pain, epigastric Allergic purpura ([facility] V24) 03/02/2013 D X:Allergic purpura ([facility]) Polyarteritis nodosa ([facility]/ C V24, [facility] V28) 12/26/2012 DX:Polyarteritis nodosa ([facility] ) Depression 10/03/2018 DX:Depression Bipolar disorder, mixed ([facility] /[facility] V24, [facility] V28) 03/29/2019 DX:Bipolar disorder, mixed ( [facility]) Anxiety 03/29/2019 DX:Anxiety History of substance abuse ( [facility] V24, [facility] V28) 03/29/2019 DX:History of substance abus e ([facility]); COMMENT: Alcohol and cocaine, in remission COPD (chronic obstructive pu lmonary disease) ([facility] V24, [facility] V28) 03/29/2019 DX:COPD (chronic o bstructive pulmonary disease) ([facility]) 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 a Esophageal [...] 2) 2014 Breast Cancer Screening 08/31/2020 08/31/2018 Depression Screening 06/13/2024 COVID-19 Vaccine ( - 2023-2 5 season) 2025 Influenza Vaccine (#1) 2025 RSV Immunization Adult [...] Procedure Name Priority Date/Time Associated Diagnosis Comments [facility] SCREENING DIGITAL Routine 08/31/2018 3:03 PM EDT Encounter for screening mammogram for malignant neoplasm of breast from Last 3 Months or Most Recently Relevant to Health Maintenance Results * ABHINAV SCREENING DIGITAL (08/31/2018 3:03 PM EDT) Anatomical Region Laterality Modality Mammography 08/31/2018 2:09 PM EDT Narrative 08/31/2018 3:03 PM EDT [facility] Diagnostic Imaging Department [address] [place] [address] Patient: CURTIS SAAVEDRA Nieves /Age/Sex: 1965 - 52 - F Unit#: [id number] Location/Status: SPDIMAM/REG CLI Mnemonic/Ordering Site: [facility] Ordering Physician: YONATHAN FAULKNER Abhinav Screening Digital - 08/31/18 - 4972 INDICATION: SCREENING COMPARISON: No prior studies are available for comparison. FINDINGS: CC and MLO views of the breasts were obtained, using full field digital mammography with 3D tomosynthesis views in the MLO projection. 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 FINDINGS: The breasts contain [...] 0 - Incomplete needs additional imaging evaluation. 3100F, 9626F ([id number] / [id number]) , [id number] Dictating Physician: SOSA BECK MD Electronically Signed by: SOSA BECK MD Dic Date/Time: 08/31/18 6026 Sign date/Time: 08/31/18 3230 Procedure Note Sosa Beck MD - 06/02/2022 [facility] Diagnostic Imaging Department [address] [place] [address] Patient: KERICURTIS Nieves MahoneyB./Age/Sex: 1965 - 52 - F Unit#: [id number] [facility] CLI Mnemonic/Ordering Site: [facility] Ordering Physician: YONATHAN FAULKNER Abhinav Screening Digital - 08/31/18 - 1427 INDICATION: SCREENING COMPARISON: No prior studies are available for comparison. FINDINGS: CC and MLO views of the breasts were obtained, using full field digital mammography with 3D tomosynthesis views in the MLO projection. 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 FINDINGS: The breasts contain [...] - Incomplete needs additional imaging evaluation.3340F, 7010F ([id number] / [id number]) , [id number] Dictating Physician: SOSA BECK MD Electronically Signed by: SOSA BECK MD Dic Date/Time: 08/31/18 145 Sign date/Time: 08/31/18 9962 Yonathan TEMPLETON IMG BI PROCEDURES Final Result from Last 3 Months or Most Recently Relevant to Health Maintenance
[2025-02-22 09:19] VITALS: BMI 21.5
== END 2025-02-22 09:40 | disposition home or self-care (01) ==
LOC: HO.HOS 08:38
PROVIDERS: PCP Physician Assistant
DX: S61.002A Unspecified open wound of left thumb without damage to nail, initial encounter (principal); M20.022 Boutonniere deformity of left finger(s); Z94.5 Skin transplant status; F14.10 Cocaine abuse, uncomplicated; F19.90 Other psychoactive substance use, unspecified, uncomplicated
CPT/HCPCS: 99213

== ENCOUNTER → 2025-02-22 08:38 | Outpatient (BNVA) | payer OTHER, SELFPAY | PROVIDERS: PCP Physician Assistant | DX: M79.645 Pain in left finger(s) (principal); M20.022 Boutonniere deformity of left finger(s); F14.10 Cocaine abuse, uncomplicated; Z94.5 Skin transplant status; F19.90 Other psychoactive substance use, unspecified, uncomplicated; S61.202D Unspecified open wound of right middle finger without damage to nail, subsequent encounter | CPT/HCPCS: 99212 ==